=== PATIENT | female | born 1965 | race African-American/Black ===

== ENCOUNTER 2020-02-29 22:56 | Emergency (ER) | payer OTHER, SELFPAY ==
--- NOTE | ~2020-02-29 | CT_ITS ---
EXAMINATION: CT abdomen pelvis w con INDICATION: Epigastric pain and vomiting TECHNIQUE: Computed tomographic images of the abdomen and pelvis were obtained after the administrati on of 100 cc of Omnipaque 350 intravenous contrast. The dose-length product (DLP) was 1633.82 mGy-cm. Automated exposure control and iterative reconstruction technique were employed. COMPARISON: None available FINDINGS: Minimal dependent atelectasis is present in the lung bases. The heart size is normal. Surgi angelo changes in the stomach may reflect gastric bypass. The gallbladder is surgically absent. The live r, spleen, pancreas, and adrenal glands are normal. The kidneys are unremarkable. No pathologically e nlarged abdominal or pelvic lymph nodes are identified. There is no free intraperitoneal gas or evide nce of bowel obstruction. Colonic diverticulosis is present without evidence of diverticulitis. There is severe lumbar spondylosis at L5-S1. Fat-containing umbilical hernia is noted. A spine stimulator is implanted in the posterior subcutaneous tissues of left lower back spleen is in the central spinal canal. IMPRESSION: 1. No CT correlate for the patient's symptoms. Reviewed, dictated and finalized at location A.
[2020-02-29 23:04] VITALS: BP 192/102; PULSE 94; RESP 20; TEMP 36.9; O2SAT 96
[2020-02-29 23:51] LABS: Basophils Absolute Auto 0.1 K/mm3 (0.0-0.1); Basophils Percent Auto 0.6 % (0.2-1.2); Eosinophils Absolute Auto 0.1 K/mm3 (0-0.3); Eosinophils Percent Auto 0.5 % (0-4.4); Hematocrit 40.2 % (37.0-47.0); Immature Granulocyte Absolute 0.06 K/mm3 (0.00-0.031); Immature Granulocyte Percent A 0.5 % (0-0.5); Lymphocytes Absolute Auto 1.19 K/mm3 (0.9-3.2); Lymphocytes Percent Auto 10.9 % (18.3-44.2); Mean Corpuscular HGB Conc 32.3 g/dl (32-36); Mean Corpuscular Hemoglobin 25.6 pg (26-34); Mean Corpuscular Volume 79.1 fl (80-100); Mean Platelet Volume 12.7 fl (7.4-10.4); Monocytes Absolute Auto 0.4 K/mm3 (0.1-0.6); Monocytes Percent Auto 3.9 % (2.6-8.5); Neutrophils Absolute Auto 9.1 K/mm3 (1.3-6.7); Neutrophils Percent Auto 83.6 % (45.5-73.1); Platelet Count Result 203 k/mm3 (150-375); Red Blood Count 5.08 M/mm3 (4.2-5.4); Red Cell Distribution Width 14.3 % (11.5-14.5); White Blood Count 10.9 K/mm3 (4.5-10.0)
[2020-02-29] MEDS: SODIUM CHLORIDE 0.9% IV 1,000 ML 999 ML IV CONT (23:56)
[2020-02-29] MEDS: ONDANSETRON INJ 4 MG/2 ML VIAL IV PUSH (23:57)
[2020-02-29] MEDS: MORPHINE SULFATE 4 MG/ML INJ IV PUSH (23:57)
[2020-03-01 00:31] LABS: Alanine Aminotransferase 26 U/L (4-35); Albumin Level 4.7 g/dL (3.5-5.1); Alkaline Phosphatase 140 U/L (38-126); Anion Gap 8 mmol/L (8-16); Aspartate Amino Transferase 36 U/L (14-36); Bilirubin,Total 0.7 mg/dL (0.2-1.3); Blood Urea Nitrogen 14 mg/dL (7-17); Calcium 9.8 mg/dL (8.4-10.2); Carbon Dioxide 29 mmol/L (22-30); Chloride 101 mmol/L (98-107); Estimated CRCL calculation 81 ml/min; Estimated Glomerular Filt Rate > 60; Glucose 271 mg/dL (65-105); Lipase 32 U/L (23-300); Potassium 4.1 mmol/L (3.4-5.0); Sodium 138 mmol/L (137-145)
[2020-03-01] MEDS: MORPHINE SULFATE 4 MG/ML INJ IV PUSH (01:03)
[2020-03-01 01:05] VITALS: BP 203/103; PULSE 95; RESP 20; O2SAT 96
[2020-03-01 01:34] LABS: Add Urine Microscopic? YES; Appearance Urine Clear (Clear); Bilirubin Urine Negative (Negative); Blood Urine Negative (Negative); Color Urine Yellow (Yellow); Glucose Urine UA 2+ mg/dL (Negative); Ketones Urine Trace mg/dL (Negative); Leukocyte Esterase Ur Negative LEU/UL (Negative); Mucus Urine Rare /lpf; Nitrate Urine Negative (Negative); Protein Urine 1+ mg/dL (Negative); RBC Urine 0-2 /hpf (0-2); Squamous Epithelial Cell Urine Few /hpf (Few); Urobilinogen Urine Negative mg/dL (<2.0); WBC Urine 0-3 /hpf
[2020-03-01 01:36] LABS: Specific Grav Ur 1.036 (1.001-1.035)
[2020-03-01 01:43] VITALS: BP 173/95; PULSE 93; RESP 12; O2SAT 96
--- NOTE | 2020-03-01 01:51 | ED.GENADULT ---
HPI - General Adult General Chief complaint: Nausea/Vomiting/Diarrhea Stated complaint: vomiting, body aches, chills Time Seen by Provider: 02/29/20 23:13 History of Present Illness HPI narrative: Patient is a 54-year-old female who presents the ER with abdominal pain. Located in the upper abdomen. No radiation. Sharp and cramping. Sudden onset this evening. Associate with nausea and vomiting. No known sick contacts. No diarrhea. Has found no alleviating factors. Related Data Home Medications Medication Instructions Recorded Confirmed aripiprazole 5 mg PO DAILY 03/01/20 03/01/20 atorvastatin 20 mg PO DAILY 03/01/20 03/01/20 buspirone 20 mg PO TID 03/01/20 03/01/20 celecoxib 200 mg PO BID 03/01/20 03/01/20 eszopiclone 2 mg PO DAILY 03/01/20 03/01/20 furosemide 40 mg PO DAILY 03/01/20 03/01/20 hydroxyzine HCl 25 mg PO DAILY 03/01/20 03/01/20 levothyroxine 175 mcg PO DAILY 03/01/20 03/01/20 metformin 500 mg PO DAILY 03/01/20 03/01/20 spironolactone 25 mg PO DAILY 03/01/20 03/01/20 timolol maleate 03/01/20 tizanidine 4 mg PO TID 03/01/20 03/01/20 Allergies Allergy/AdvReac Type Severity Reaction Status Date / Time No Known Allergies Allergy Verified 03/01/20 00:48 Review of Systems Review of Systems: All systems reviewed & are unremarkable except as noted in HPI and below Constitutional: Constitutional: Denies chills, Denies fever(s) and Denies weakness ENT: Denies nasal congestion and Denies sore throat Cardiovascular: Cardiovascular: Denies chest pain and Denies rapid heart rate Gastrointestinal: Gastrointestinal: Reports abdominal pain, Denies diarrhea, Reports nausea and Reports vomiting PMFSH Past Medical History Medical History (Updated 03/01/20 @ 02:01 by Brent Dowling MD) Anxiety COPD (chronic obstructive pulmonary disease) Depression Diabetes History of fibromyalgia History of seizures History of TIA (transient ischemic attack) Hypertension Hypothyroidism Surgical History Surgical History (Updated 03/01/20 @ 01:58 by Brent Dowling MD) H/O gastric bypass H/O inguinal hernia repair History of appendectomy History of cholecystectomy History of hysterectomy History of tonsillectomy Hx of breast reduction, elective Social History Social History Smoking status: Former smoker Second hand tobacco smoke exposure: No Smoking end date: 07/10/92 Alcohol intake: never Exam Narrative: Exam Narrative: GENERAL: uncomfortable-appearing, morbidly obese, and in no acute distress. HEAD: Normocephalic, atraumatic. ENT: Mucous membranes moist. CHEST: Clear to auscultation. No respiratory distress. HEART: Regular rate and rhythm. Normal peripheral pulses. ABDOMEN: Soft, mild epigastric tenderness, nondistended, normal active bowel sounds. EXTREMITIES: Normal range of motion. No edema. SKIN: Warm, dry, no rash. NEURO: Alert and oriented x3. PSYCH: Normal mood and affect. Course Course Emergency Course: Pain resolved with morphine. Unremarkable labs and CT scan. Discharge home with follow-up with PCP. Vital Signs Vital signs: Vital Signs Temperature 98.5 F 02/29/20 23:04 Pulse Rate 94 02/29/20 23:04 Respiratory Rate 20 02/29/20 23:04 Blood Pressure 192/102 H 02/29/20 23:04 Pulse Oximetry 96 02/29/20 23:04 Temperature 98.5 F 02/29/20 23:04 Pulse Rate 93 03/01/20 01:43 Respiratory Rate 12 03/01/20 01:43 Blood Pressure 173/95 H 03/01/20 01:43 Pulse Oximetry 96 03/01/20 01:43 Medical Decision Making Vital Signs Vital Signs: Vital Signs Temperature 98.5 F 02/29/20 23:04 Pulse Rate 94 02/29/20 23:04 Respiratory Rate 20 02/29/20 23:04 Blood Pressure 192/102 H 02/29/20 23:04 Pulse Oximetry 96 02/29/20 23:04 Temperature 98.5 F 02/29/20 23:04 Pulse Rate 93 03/01/20 01:43 Respiratory Rate 12 03/01/20 01:43 Blood Pressure 173/95 H 03/01/20 01:43 Pulse Oximetry 96 03/01/20 01:43 Lab Data R
[2020-03-01 03:01] VITALS: BP 179/92; PULSE 88; RESP 20; O2SAT 96
== END 2020-03-01 03:05 | disposition home or self-care (01) ==
PROVIDERS: Emergency Provider Emergency Medicine; PCP Family Medicine
DX: R10.13 Epigastric pain (principal); J44.9 Chronic obstructive pulmonary disease, unspecified; E11.9 Type 2 diabetes mellitus without complications; M79.7 Fibromyalgia; Z86.73 Personal history of transient ischemic attack (TIA), and cerebral infarction without residual deficits; I10 Essential (primary) hypertension; E03.9 Hypothyroidism, unspecified; F41.9 Anxiety disorder, unspecified; Z98.84 Bariatric surgery status; F32.9 Major depressive disorder, single episode, unspecified; Z87.891 Personal history of nicotine dependence; Z79.84 Long term (current) use of oral hypoglycemic drugs; E66.01 Morbid (severe) obesity due to excess calories; Z68.43 Body mass index [BMI] 50.0-59.9, adult
CPT/HCPCS: 36415; 74177; 80053; 81001; 83690; 85025; 96361; 96374; 96375; 96376; 99284; J2270; J2405; J7030; Q9967

== ENCOUNTER 2020-04-24 12:25 | Outpatient (CLI) | payer OTHER, SELFPAY ==
--- NOTE | ~2020-04-24 | XR_ITS ---
EXAMINATION: XR hip RT min 2V DATE: 04/24/2020 13:18 INDICATION: Right hip pain. TECHNIQUE: 2 views of right hip were obtained. COMPARISON: Right hip radiographs 03/17/2016 FINDINGS: Bone alignment is normal. No fracture. Right hip joint space is normal. Osteitis pubis is n oted. IMPRESSION: 1. Normal right hip. Reviewed, dictated and finalized at location A. IMPRESSION: 1. Normal right hip.
== END 2020-04-24 12:26 ==
PROVIDERS: PCP Family Medicine; Visit Provider Family Medicine
DX: M25.551 Pain in right hip (principal)
CPT/HCPCS: 73502

== ENCOUNTER → 2020-10-09 11:59 | Outpatient (CLI) | payer OTHER, SELFPAY ==
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
== END ==
PROVIDERS: PCP Family Medicine; Visit Provider Family Medicine
DX: Z78.0 Asymptomatic menopausal state (principal); M85.88 Other specified disorders of bone density and structure, other site
CPT/HCPCS: 77080

== ENCOUNTER → 2021-10-06 14:49 | Outpatient (CLI) | payer OTHER, SELFPAY ==
--- NOTE | ~2021-10-06 | MM_ITS ---
EXAMINATION: MM screening [facility] BI w tho HISTORY: Screening mammogram TECHNIQUE: Craniocaudal and mediolateral oblique 3-D tomosynthesis images were obtained and synthetic 2-D images were generated. CAD analysis was submitted and interpreted. COMPARISON: 03/08/2019, 08/14/2017, 01/14/2016, 12/19/2015 BREAST PARENCHYMAL COMPOSITION: The breasts are almost entirely fatty. FINDINGS: There are changes of interval reduction mammoplasty. There is no suspicious mass, calcifica tion, or architectural distortion to suggest malignancy in either breast. There has been no suspiciou s interval change. IMPRESSION: 1. No mammographic evidence of malignancy. 2. Recommend routine screening mammography in one year. BI-RADS Category 1: Negative Reviewed, dictated and finalized at location A.
== END ==
PROVIDERS: PCP Nurse Practitioner Obstetrics & Gynecology; Visit Provider Family Medicine
DX: Z12.31 Encounter for screening mammogram for malignant neoplasm of breast (principal)
CPT/HCPCS: 77063; 77067

== ENCOUNTER 2021-11-21 08:32 | Emergency (ER) | payer OTHER, SELFPAY ==
[2021-11-21 08:41] VITALS: BP 127/88; PULSE 73; RESP 18; TEMP 36.2; O2SAT 98
--- NOTE | 2021-11-21 08:43 | ED.WOUNDLAC ---
HPI - Wound/Laceration General Chief Complaint: Wound/Laceration Stated Complaint: Laceration on bottom of foot Time Seen by Provider: 11/21/21 08:43 Source: patient Mode of arrival: ambulatory Limitations: no limitations History of Present Illness HPI narrative: 56-year-old female presents with laceration to fourth and fifth toes. Reports that yesterday morning she cut her toes on a metal strip that is covering cords on her floor. 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 Reports this morning when she got up she realized that her foot was still bleeding. Her evaitj-ez-jcb came over to look at her foot and told her that she needed sutures. Patient is also diabetic and concern for infection. She denies numbness tingling. Distal neurovascularly intact. Range of motion decreased due to pain. All systems reviewed and negative except as noted above. Related Data Home Medications Medication Instructions Recorded Confirmed aripiprazole 5 mg PO DAILY 03/01/20 11/21/21 atorvastatin 20 mg PO DAILY 03/01/20 11/21/21 buspirone 20 mg PO TID 03/01/20 11/21/21 celecoxib 200 mg PO BID 03/01/20 11/21/21 furosemide 40 mg PO DAILY 03/01/20 11/21/21 hydroxyzine HCl 25 mg PO DAILY 03/01/20 11/21/21 levothyroxine 175 mcg PO DAILY 03/01/20 11/21/21 metformin 500 mg PO DAILY 03/01/20 11/21/21 spironolactone 25 mg PO DAILY 03/01/20 11/21/21 timolol maleate 0.5 drp OPHTHALMIC (EYE) 03/01/20 11/21/21 DIRECTED tizanidine 4 mg PO TID 03/01/20 11/21/21 eszopiclone 3 mg PO DAILY 11/21/21 11/21/21 morphine 15 mg PO DAILY 11/21/21 11/21/21 pregabalin 100 mg PO DIRECTED 11/21/21 11/21/21 Allergies Allergy/AdvReac Type Severity Reaction Status Date / Time No Known Allergies Allergy Verified 11/21/21 08:53 Review of Systems Review of Systems: CONSTITUTIONAL: Denies fever, chills, or sweats. EYES: Denies visual changes, redness, or discharge. ENT: Denies rhinorrhea, congestion, sore throat, or otalgia. CARDIOVASCULAR: Denies chest pain, palpitations, or edema. RESPIRATORY: Denies cough or dyspnea. GASTROINTESTINAL: Denies abdominal pain, nausea, vomiting, or diarrhea. GENITOURINARY: Denies dysuria or hematuria. SKIN: Denies rash or itching. Reports laceration to right fourth and fifth toes. MUSCULOSKELETAL: Denies back pain, joint pain, or myalgia. NEUROLOGIC: Denies headache, numbness, or weakness. PSYCHIATRIC: Denies anxiety or depression. All other systems reviewed are negative, except as documented in HPI. [facility] Past Medical History Medical History (Updated 11/21/21 @ 09:50 by Suzi Chen NP) Anxiety COPD (chronic obstructive pulmonary disease) Depression Diabetes History of fibromyalgia History of seizures History of TIA (transient ischemic attack) Hypertension Hypothyroidism Surgical History Surgical History (Updated 03/01/20 @ 01:58 by Brent Dowling MD) H/O gastric bypass H/O inguinal hernia repair History of appendectomy History of cholecystectomy History of hysterectomy History of tonsillectomy Hx of breast reduction, elective Social History Social History Smoking status: Former smoker Second hand tobacco smoke exposure: No Smoking end date: 07/10/92 Alcohol intake: never Comments At time of signature, agree with nursing past medical, surgical, social and family history. There is no relevant family history pertinent to the presenting complaint. Exam Narrative: GENERAL: This is a well-nourished, well-developed patient, in no apparent distress. HEAD: normocephalic, atraumatic. EYES: PERRL. Sclera clear/white. Vision is grossly intact. EARS: External ears normal NOSE: External nose normal NECK: Neck supple, non-tender without lymphadenopathy, masses or thyromegaly. CARDIOVASCULAR: Regular rate and rhythm without murmurs, gallops, or rubs. RESPIRATORY: Clear to auscultation. B
[2021-11-21] MEDS: TETANUS,DIPHTHERIA,AC PERTUSSIS ADULT (0.5 ML) BOOSTRIX IM (09:05)
== END 2021-11-21 09:59 | disposition home or self-care (01) ==
PROVIDERS: Emergency Provider Nurse Practitioner Family; PCP Family Medicine
DX: S91.114A Laceration without foreign body of right lesser toe(s) without damage to nail, initial encounter (principal); W45.8XXA Other foreign body or object entering through skin, initial encounter; Z23 Encounter for immunization; J44.9 Chronic obstructive pulmonary disease, unspecified; E11.9 Type 2 diabetes mellitus without complications; G40.909 Epilepsy, unspecified, not intractable, without status epilepticus; I10 Essential (primary) hypertension; E03.9 Hypothyroidism, unspecified; Z86.73 Personal history of transient ischemic attack (TIA), and cerebral infarction without residual deficits; F41.9 Anxiety disorder, unspecified; F32.A Depression, unspecified; Z98.84 Bariatric surgery status; Z87.891 Personal history of nicotine dependence
CPT/HCPCS: 12001; 90471; 90715; 99213; G0463

== ENCOUNTER 2022-12-15 19:12 | Emergency (ER) | payer OTHER, SELFPAY ==
[2022-12-15] VITALS (16 sets, daily range): BP systolic 116–124; BP diastolic 72–94; PULSE 101; RESP 18; TEMP 36.9; O2SAT 85–97
--- NOTE | ~2022-12-15 | CT_ITS ---
EXAMINATION: CT brain wo con INDICATION: Head injury COMPARISON: None TECHNIQUE: Standard unenhanced head CT. The dose-length product (DLP) was 681.00 mGy-cm. The mA was a djusted according to patient size. Iterative reconstruction technique was employed. FINDINGS: There is no intracranial hemorrhage, acute infarction, or abnormal mass lesion. The ventric les are normal. There is no abnormal mass effect or midline shift. The donaldson-white matter differentiat ion is normal. The basal cisterns are patent. The orbits are normal. The paranasal sinuses, mastoids and calvarium are normal. IMPRESSION: 1. No acute intracranial abnormality. Reviewed, dictated and finalized at location F.
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
--- NOTE | ~2022-12-15 | XR_ITS ---
EXAMINATION: XR chest 1V portable INDICATION: Chest pain TECHNIQUE: Portable AP chest at 2000 hours COMPARISON: 08/02/2018 FINDINGS: The lungs are free of acute opacities. No pleural effusion or pneumothorax. The cardiomedia stinal silhouette is normal. There has been interval insertion of a neurostimulator leads which proje ct over the mid and lower thoracic spine. IMPRESSION: 1. No acute cardiopulmonary abnormality. Reviewed, dictated and finalized at location F.
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
[2022-12-15] MEDS: HYDROcodone/acetaminophen (*CRX) 5-325 MG TABLET 2 TAB PO (20:33)
[2022-12-15] MEDS: ONDANSETRON HCL ODT 4 MG TABLET PO (20:33)
[2022-12-15 20:34] LABS: Basophils Absolute Auto 0.1 K/mm3 (0.0-0.1); Basophils Percent Auto 0.7 % (0.2-1.2); Eosinophils Absolute Auto 0.2 K/mm3 (0-0.3); Eosinophils Percent Auto 2.2 % (0-4.4); Hematocrit 45.5 % (37.0-47.0); Immature Granulocyte Absolute 0.09 K/mm3 (0.00-0.031); Immature Granulocyte Percent A 0.9 % (0-0.5); Lymphocytes Absolute Auto 1.76 K/mm3 (0.9-3.2); Lymphocytes Percent Auto 18.2 % (18.3-44.2); Mean Corpuscular HGB Conc 30.8 g/dl (32-36); Mean Corpuscular Volume 81.1 fl (80-100); Mean Platelet Volume 12.9 fl (7.4-10.4); Monocytes Absolute Auto 0.5 K/mm3 (0.1-0.6); Monocytes Percent Auto 5.5 % (2.6-8.5); Neutrophils Percent Auto 72.5 % (45.5-73.1); Platelet Count Result 211 k/mm3 (150-375); Red Blood Count 5.61 M/mm3 (4.2-5.4); Red Cell Distribution Width 15.1 % (11.5-14.5); White Blood Count 9.7 K/mm3 (4.5-10.0)
[2022-12-15 20:40] LABS: Appearance Urine Clear (Clear); Bacteria Urine 4+ /hpf; Bilirubin Urine Negative (Negative); Blood Urine Negative (Negative); Color Urine Yellow (Yellow); Glucose Urine UA Negative (Negative); Ketones Urine Trace mg/dL (Negative); Leukocyte Esterase Ur 2+ LEU/UL (Negative); Need Manual Microscopic Reviewed; Nitrate Urine Positive (Negative); Protein Urine Trace mg/dL (Negative); RBC Urine 0-2 /hpf (0-2); Specific Grav Ur 1.016 (1.001-1.035); Squamous Epithelial Cell Urine Occasional /hpf (Few); pH Urine 5.5 (5.0-9.0)
[2022-12-15 20:41] LABS: Add Urine Microscopic? YES
[2022-12-15 22:47] LABS: Estimated CRCL calculation 54 ml/min; Estimated Glomerular Filt Rate 43
[2022-12-15] MEDS: HYDROmorphone HCL INJ (*CRX) 1 MG/ML SYR 0.5 MG IV PUSH (23:03)
[2022-12-15 23:15] LABS: Alanine Aminotransferase 21 U/L (6-35); Albumin Level 4.5 g/dL (3.5-5.1); Alkaline Phosphatase 114 U/L (38-126); Anion Gap 4 mmol/L (8-16); Aspartate Amino Transferase 26 U/L (14-36); Bilirubin,Total 0.5 mg/dL (0.2-1.3); Blood Urea Nitrogen 29 mg/dL (7-17); Calcium 9.6 mg/dL (8.4-10.2); Carbon Dioxide 36 mmol/L (22-30); Chloride 97 mmol/L (98-107); Estimated CRCL calculation 58 ml/min; Estimated Glomerular Filt Rate 47; Glucose 132 mg/dL (65-110); Lipase 43 U/L (23-300); Potassium 4.1 mmol/L (3.4-5.0); Sodium 137 mmol/L (137-145)
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
== END 2022-12-16 00:24 | disposition home or self-care (01) ==
PROVIDERS: Emergency Provider Emergency Medicine; PCP Family Medicine
DX: S09.93XA Unspecified injury of face, initial encounter (principal); S29.9XXA Unspecified injury of thorax, initial encounter; E11.9 Type 2 diabetes mellitus without complications; J44.9 Chronic obstructive pulmonary disease, unspecified; M79.7 Fibromyalgia; I10 Essential (primary) hypertension; E03.9 Hypothyroidism, unspecified; F41.9 Anxiety disorder, unspecified; F32.A Depression, unspecified; Z98.84 Bariatric surgery status; Z86.73 Personal history of transient ischemic attack (TIA), and cerebral infarction without residual deficits; Z87.891 Personal history of nicotine dependence; Z90.49 Acquired absence of other specified parts of digestive tract; Z90.710 Acquired absence of both cervix and uterus; Z79.84 Long term (current) use of oral hypoglycemic drugs; Y04.2XXA Assault by strike against or bumped into by another person, initial encounter; Y00.XXXA Assault by blunt object, initial encounter
CPT/HCPCS: 36415; 70450; 71045; 74177; 80053; 81001; 83690; 83735; 85025; 87077; 87086; 87186; 96374; 99284; A9270; J1170; Q9967

== ENCOUNTER 2023-02-03 16:29 | Inpatient (IN) | payer OTHER, MEDICAID, SELFPAY ==
--- NOTE | ~2023-02-03 | CT_ITS ---
EXAMINATION: CT brain wo con DATE: 02/03/2023 20:23 INDICATION: Status post fall. Syncope. TECHNIQUE: Computed tomography (CT) of the head was performed without intravenous contrast. The dose- length product was 681.00 mGy-cm. Automated exposure control and iterative reconstruction technique w ere employed. COMPARISON: CT dated 12/15/2022 FINDINGS: Normal brain parenchymal volume for age. No acute intracranial hemorrhage, infarction, mass or mass effect. No ventriculomegaly or midline shift. Basilar cisterns are patent. Paranasal sinuses and mastoids are pneumatized. Midline sagittal images demonstrate a normal corpus callosum and crani overtebral junction. IMPRESSION: 1. No acute intracranial abnormality. Reviewed, dictated and finalized at location A.
--- NOTE | ~2023-02-03 | XR_ITS ---
EXAMINATION: XR surgery orthopedic DATE: 02/08/2023 13:20 CDT INDICATION: ORIF RT ANKLE . TECHNIQUE: 3 fluoroscopic images of the right ankle were obtained during ORIF right ankle performed b y the surgeon. I was not present in the operating room. Fluoroscopy exposure time was 17.3 seconds. A ir Kerma 1.19 mGy. DAP 0.95970 mGym2. COMPARISON: 02/04/2023 FINDINGS: Screw and plate fixation of the bilateral malleoli. No unexpected radiopaque foreign body. IMPRESSION: Fluoroscopic documentation of ORIF right ankle. Please refer to the operative note for complete proce dural details . Reviewed, dictated and finalized at location K. IMPRESSION: Fluoroscopic documentation of ORIF right ankle. Please refer to the operative n ote for complete procedural details .
--- NOTE | ~2023-02-03 | CT_ITS ---
EXAMINATION: CT brain wo con DATE: 02/04/2023 08:12 INDICATION: Altered mental state. Changed orientation. Tremors of extremities. TECHNIQUE: Computed tomography (CT) of the head was performed without intravenous contrast. The mA wa s adjusted according to patient size. Iterative reconstruction technique was employed. Exam dose: 60 5.33 mGy-cm total exam DLP. COMPARISON: 02/03/2023 CT brain FINDINGS: No intracranial mass lesion or hemorrhage or cerebrovascular accident is evident. No midlin e shift or mass effect. Normal ventricular size. No subdural or epidural hematoma. No orbital mass le natalia. The paranasal sinuses and mastoid air cells are well aerated. No fracture or bone destruction of the cranial vault. IMPRESSION: No significant abnormality Reviewed, dictated and finalized at Location A. Reviewed, dictated and finalized at location A. IMPRESSION: No significant abnormality
--- NOTE | ~2023-02-03 | XR_ITS ---
EXAMINATION: XR chest 1V portable DATE: 02/09/2023 16:09 INDICATION: Shortness of breath. TECHNIQUE: A single frontal view of the chest was obtained. COMPARISON: Chest single view 02/08/2023 FINDINGS: There are airspace opacities in right lower lung zone. No pleural effusion or pneumothorax. Cardiomegaly is noted. Electrodes overlie the spine. IMPRESSION: 1. Airspace opacities in right lower lung zone with interval improvement, consistent with atelectasis versus pneumonia. 2. Cardiomegaly. Reviewed, dictated and finalized at location L. IMPRESSION: 1. Airspace opacities in right lower lung zone with interval improvement, consi stent with atelectasis versus pneumonia. 2. Cardiomegaly.
--- NOTE | ~2023-02-03 | US_ITS ---
US renal BI DATE: 02/04/2023 08:23 INDICATION: Acute renal insufficiency TECHNIQUE: Real-time imaging of kidneys and urinary bladder COMPARISON: 02/03/2023 CT abdomen pelvis FINDINGS: No renal mass lesion or hydronephrosis. The right kidney measures approximately 10.7 cm perico gth, left kidney 11.1 cm length. The bladder is not visualized, apparently due to evacuation. IMPRESSION: No significant abnormality of the kidneys Reviewed, dictated and finalized at Location A. Reviewed, dictated and finalized at location A.
--- NOTE | ~2023-02-03 | XR_ITS ---
Portable chest x-ray Comparison: 02/09/2023 Clinical History: CHF Findings: Probable minimal central congestive change and minimal bibasilar pulmonary edema/atelectas is. Cardiomediastinal silhouette is stable. Stable intrathecal catheter present. Impression: Probable minimal bibasilar pulmonary edema/atelectasis. Reviewed, dictated and finalized at [facility]. Impression: Probable minimal bibasilar pulmonary edema/atelectasis.
--- NOTE | ~2023-02-03 | CT_ITS ---
EXAMINATION: CT abdomen pelvis wo con DATE: 02/03/2023 20:24 INDICATION: Acute renal failure TECHNIQUE: Computed tomography (CT) of the abdomen and pelvis was performed without intravenous contr ast. The dose-length product was 1502.33 mGy-cm. Automated exposure control and iterative reconstruct ion technique were employed. COMPARISON: None. FINDINGS: There are a few areas of patchy groundglass opacities in the lower lobes with dependent ate lectasis. Heart size normal. No significant pleural or pericardial effusion. There are changes of gas tric bypass surgery. Status post cholecystectomy. There are spinal leads overlying the thoracic spine . The liver, spleen, adrenal glands and kidneys are unremarkable. No significant vascular abnormality. No lymphadenopathy. No abnormal pelvic masses or fluid collections. Colonic diverticulosis without ev idence for diverticulitis. Small fat-containing umbilical hernia. No free air or free fluid. No acute osseous abnormality. IMPRESSION: 1. No acute abdominal abnormality. Reviewed, dictated and finalized at location A.
--- NOTE | ~2023-02-03 | XR_ITS ---
Portable chest x-ray Comparison: 02/05/2023 Clinical History: Shortness of breath Findings: There is probable mild central congestive change and minimal central pulmonary edema. Car diomediastinal silhouette is stable. Stable intrathecal catheter. Impression: Minimal central pulmonary edema and central congestive change. Reviewed, dictated and finalized at [facility]. Impression: Minimal central pulmonary edema and central congestive change.
--- NOTE | ~2023-02-03 | XR_ITS ---
XR chest 1V portable DATE: 02/05/2023 06:28 INDICATION: Respiratory failure TECHNIQUE: Portable AP chest on 02/05/2023 at 0626 hours COMPARISON: 02/03/2023 portable AP chest at 1958 hours FINDINGS: Cardiomegaly. There is pulmonary vascular congestion and redistribution. There are bilatera l primarily central and lower lung zone infiltrates and increased since 02/03/2023, suggesting pulmona ry edema. Thoracic spinal electrodes. IMPRESSION: Congestive heart failure and increased pulmonary edema since 02/03/2023 Reviewed, dictated and finalized at location A. IMPRESSION: Congestive heart failure and increased pulmonary edema since 023
--- NOTE | ~2023-02-03 | XR_ITS ---
XR ankle RT min 3V 02/03/2023 17:45 Indication: Right ankle pain after twisting injury Procedure: 4 views right ankle Comparison: No prior studies for comparison. Findings: There are bimalleolar fractures. The distal fibular fracture is comminuted and displaced la terally and anteriorly. The medial malleolar fracture is displaced slightly inferiorly with lateral s ubluxation of the talus with respect to the tibia. Moderate diffuse soft tissue swelling. Prominent d egenerative calcaneal enthesophyte. Small ossific density posterior to the distal tibia on the latera l view, of uncertain origin. Impression: 1: Displaced bimalleolar fractures. Reviewed, dictated and finalized at location A. Impression: 1: Displaced bimalleolar fractures.
--- NOTE | ~2023-02-03 | XR_ITS ---
XR chest 1V portable 02/03/2023 20:03 Indication: Weakness Procedure: AP portable chest Comparison: Comparison to multiple prior studies sequentially, with oldest reviewed study dated /oh 11/2017. Findings: Cardiomegaly with interstitial edema. No significant effusion. No pneumothorax. No acute os seous abnormality. Impression: 1: Cardiomegaly with interstitial edema, left greater than right. Reviewed, dictated and finalized at location A. Impression: 1: Cardiomegaly with interstitial edema, left greater than right.
--- NOTE | ~2023-02-03 | XR_ITS ---
EXAM: XR abdomen/kub 1V DATE: 02/07/2023 17:15 HISTORY: acute nausea/constipation . COMPARISON: None available. FINDINGS: Streaky bibasilar opacities, likely atelectasis. Stimulator leads project over the lower t horacic spine. Cholecystectomy clips. Suture material overlying the stomach. Paucity of bowel gas. No organomegaly. No abnormal abdominal calcification. Right sacroiliitis. IMPRESSION: Paucity of bowel gas limits interpretation for obstruction or ileus. Intraluminal bowel g as is present in the deep pelvis. Reviewed, dictated and finalized at location K. IMPRESSION: Paucity of bowel gas limits interpretation for obstruction or ileus . Intraluminal bowel gas is present in the deep pelvis.
--- NOTE | ~2023-02-03 | XR_ITS ---
EXAMINATION: XR chest 1V portable DATE: 02/08/2023 10:51 INDICATION: Fluid overload. TECHNIQUE: A single frontal view of the chest was obtained. COMPARISON: Chest 1 view 01/27/2023 FINDINGS: There are airspace opacities in right lung base and in lingula. No pleural effusion or pneu mothorax. Cardiomegaly is noted. Electrodes overlie thoracic spine. IMPRESSION: 1. Airspace opacities in right lung base and in the lingula, consistent with atelectasis versus pneum onia. 2. Cardiomegaly. Reviewed, dictated and finalized at location B. IMPRESSION: 1. Airspace opacities in right lung base and in the lingula, consistent with at electasis versus pneumonia. 2. Cardiomegaly.
--- NOTE | ~2023-02-03 | XR_ITS ---
XR ankle RT min 3V DATE: 02/04/2023 08:55 INDICATION: Ankle fracture reduction TECHNIQUE: Portable three-view examination COMPARISON: None FINDINGS: There is a posterior splint, but there is no significant change in position or alignment at the bimalleolar fracture and lateral tibiotalar subluxation since 02/03/2023. IMPRESSION: Bimalleolar fracture and persistent lateral tibial talar subluxation Reviewed, dictated and finalized at location A. IMPRESSION: Bimalleolar fracture and persistent lateral tibial talar subluxatio n
--- NOTE | ~2023-02-03 | CT_ITS ---
EXAMINATION: CT cervical spine wo con DATE: 02/03/2023 20:23 INDICATION: Neck pain after fall TECHNIQUE: Computed tomography (CT) of the cervical spine was performed without intravenous contrast. The dose-length product was 670 mGy-cm. Automated exposure control and iterative reconstruction technique were employed. COMPARISON: No prior studies for comparison. FINDINGS: Straightening of cervical lordosis. Disc narrowing and endplate degenerative change present at C5-6 and C6-7. No acute fracture or traumatic malalignment. Craniovertebral junction is normal. O dontoid process is normal. There is degenerative anterolisthesis at C3-4 and C4-5 secondary to facet hypertrophy. There is mild left facet hypertrophy at these levels. Mild levoscoliosis. Patchy groundg lass opacities in the upper lobes, likely reflect edema. No significant paraspinal soft tissue abnorm ality. IMPRESSION: 1. No acute fracture. 2: Patchy groundglass opacities of the upper lobes, most likely edema. Reviewed, dictated and finalized at location A.
[2023-02-03 17:17] VITALS: BP 86/68; PULSE 86; RESP 15; TEMP 36.8; O2SAT 93
--- NOTE | 2023-02-03 17:27 | ECG_ITS ---
Measurements Intervals Lucas Rate: 83 P: 202 WY: 346 QRS: 131 QRSD: 80 T: 11 QT: 366 QTc: 432 Interpretive Statements SINUS RHYTHM RIGHT AXIS DEVIATION DELAYED PRECORDIAL R/S TRANSITION LOW VOLTAGE- PRECORDIAL LEADS MINIMAL Q WAVES- INFERIOR LEADS BASELINE ARTIFACT- II, III, AVR, AVL, AVF BORDERLINE ST-T WAVE ABNORMALITY- INFERIOR LEADS BORDERLINE ECG NO PREVIOUS ECG AVAILABLE FOR COMPARISON Electronically Signed On 02-03-2023 20:17:18 CDT by Billy Moore D.O.
[2023-02-03 17:40] LABS: Basophils Absolute Auto 0.1 K/mm3 (0.0-0.1); Basophils Percent Auto 0.7 % (0.2-1.2); Eosinophils Absolute Auto 0.2 K/mm3 (0-0.3); Eosinophils Percent Auto 2.1 % (0-4.4); Hematocrit 39.4 % (37.0-47.0); Hemoglobin 11.7 g/dL (12.0-15.0); Immature Granulocyte Absolute 0.04 K/mm3 (0.00-0.031); Immature Granulocyte Percent A 0.5 % (0-0.5); Immature Platelet Fraction Pct 11.7 % (0.9-11.2); Lymphocytes Absolute Auto 1.66 K/mm3 (0.9-3.2); Lymphocytes Percent Auto 19.6 % (18.3-44.2); Mean Corpuscular HGB Conc 29.7 g/dl (32-36); Mean Corpuscular Volume 84.2 fl (80-100); Mean Platelet Volume 13.3 fl (7.4-10.4); Monocytes Absolute Auto 0.8 K/mm3 (0.1-0.6); Monocytes Percent Auto 9.6 % (2.6-8.5); Neutrophils Absolute Auto 5.7 K/mm3 (1.3-6.7); Neutrophils Percent Auto 67.5 % (45.5-73.1); Platelet Count Result 186 k/mm3 (150-375); Red Blood Count 4.68 M/mm3 (4.2-5.4); Red Cell Distribution Width 16.2 % (11.5-14.5); White Blood Count 8.5 K/mm3 (4.5-10.0)
[2023-02-03 18:12] LABS: Platelet Estimate Adequate (Adequate)
[2023-02-03 18:13] LABS: Hypochromasia 1+ (NORMAL); Schistocytes None Seen (NORMAL)
[2023-02-03 18:14] LABS: Alanine Aminotransferase 21 U/L (6-35); Albumin Level 4.2 g/dL (3.5-5.1); Alkaline Phosphatase 80 U/L (38-126); Anion Gap 9 mmol/L (8-16); Aspartate Amino Transferase 54 U/L (14-36); Bilirubin,Total 0.7 mg/dL (0.2-1.3); Blood Urea Nitrogen 54 mg/dL (7-17); Calcium 8.7 mg/dL (8.4-10.2); Carbon Dioxide 31 mmol/L (22-30); Chloride 94 mmol/L (98-107); Estimated CRCL calculation 19 ml/min; Estimated Glomerular Filt Rate 12; Glucose 118 mg/dL (65-110); Potassium 4.6 mmol/L (3.4-5.0); Sodium 134 mmol/L (137-145)
[2023-02-03 18:14] LABS: Anisocytosis 2+ (NORMAL)
--- NOTE | 2023-02-03 19:05 | ED.FALL ---
HPI - Fall General Chief Complaint: Fall Stated Complaint: R ankle pain Time Seen by Provider: 02/03/23 19:05 History of Present Illness HPI Narrative: Patient 57-year-old female who presents the emergency department with chief complaint of fall. The patient reports that she got lightheaded did not actually pass out fell to the ground reports that she has pain in her right ankle patient reports that she does not think that she hit her head but is not completely sure. Patient reports no pain anywhere else reports that she has felt somewhat lightheaded patient denies chest pain denies shortness of breath does report that she normally uses oxygen on a as needed basis but today has required using the oxygen full-time. Related Data Home Medications Medication Instructions Recorded Confirmed aripiprazole 5 mg tablet 5 mg PO DAILY 03/01/20 11/21/21 atorvastatin 20 mg tablet 20 mg PO DAILY 03/01/20 11/21/21 buspirone 10 mg tablet 20 mg PO TID 03/01/20 11/21/21 celecoxib 200 mg capsule 200 mg PO BID 03/01/20 11/21/21 furosemide 40 mg tablet 40 mg PO DAILY 03/01/20 11/21/21 hydroxyzine HCl 25 mg tablet 25 mg PO DAILY 03/01/20 11/21/21 levothyroxine 175 mcg tablet 175 mcg PO DAILY 03/01/20 11/21/21 metformin 500 mg tablet,extended 500 mg PO DAILY 03/01/20 11/21/21 release 24 hr spironolactone 25 mg tablet 25 mg PO DAILY 03/01/20 11/21/21 timolol maleate 0.5 % eye drops 0.5 drp ophthalmic (eye) 03/01/20 11/21/21 DIRECTED tizanidine 4 mg tablet 4 mg PO TID 03/01/20 11/21/21 eszopiclone 3 mg tablet 3 mg PO DAILY 11/21/21 11/21/21 morphine 15 mg tablet,extended 15 mg PO DAILY 11/21/21 11/21/21 release pregabalin 100 mg capsule 100 mg PO DIRECTED 11/21/21 11/21/21 Allergies Allergy/AdvReac Type Severity Reaction Status Date / Time No Known Allergies Allergy Verified 02/03/23 17:28 Review of Systems Review of Systems: A 10 system review of systems was completed on the patient and is negative except for what is stated in the HPI. Nursing and ancillary documentation was reviewed. [facility] Past Medical History Medical History Anxiety COPD (chronic obstructive pulmonary disease) Depression Diabetes History of fibromyalgia History of seizures History of TIA (transient ischemic attack) Hypertension Hypothyroidism Surgical History Surgical History H/O gastric bypass H/O inguinal hernia repair History of appendectomy History of cholecystectomy History of hysterectomy History of tonsillectomy Hx of breast reduction, elective Social History Social History Smoking status: Former smoker Second hand tobacco smoke exposure: No Smoking end date: 07/10/92 Alcohol intake: never Exam Narrative: GENERAL: Well-appearing, well-nourished, and in no acute distress. HEAD: Normocephalic, atraumatic. EYES: PERRLA and EOMI. ENT: Nares clear, no rhinorrhea or epistaxis. Mucous membranes moist. NECK: Supple. CHEST: Clear to auscultation. No respiratory distress. HEART: Regular rate and rhythm. No murmur heard. Normal peripheral pulses. ABDOMEN: Soft, nontender, nondistended, normal active bowel sounds. EXTREMITIES: Normal range of motion in all extremities except for right ankle there is swelling and tenderness to palpation, no laceration present. No edema. SKIN: Warm, dry, no rash. NEURO: No focal deficits. Alert and oriented x3. PSYCH: Normal mood and affect. Course Vital Signs Vital signs: Vital Signs Temperature 36.8 C 02/03/23 17:17 Pulse Rate 86 02/03/23 17:17 Respiratory Rate 15 02/03/23 17:17 Blood Pressure 86/68 L 02/03/23 17:17 Pulse Oximetry 93 02/03/23 17:17 Oxygen Delivery Nasal Cannula 02/03/23 17:17 Oxygen Flow Rate 6 02/03/23 17:17 Temperature 36.8 C 02/03/23 17:17 Pulse
[2023-02-03 19:17] VITALS: BP 98/77; PULSE 83; RESP 13; O2SAT 97
--- NOTE | 2023-02-03 19:23 | PC.NURSE ---
Report received from JENNIFER Merino. Assumed care of patient at this time.
--- NOTE | 2023-02-03 20:05 | PC.NURSE ---
Patient taken to CT at this time.
[2023-02-03] MEDS: SODIUM CHLORIDE 0.9% IV 1,000 ML 999 ML IV CONT (20:24)
[2023-02-03] MEDS: MORPHINE SULFATE (*CRX) 4 MG/ML INJ IV PUSH (20:24)
[2023-02-03] MEDS: HYDROmorphone HCL INJ (*CRX) 1 MG/ML SYR 0.5 MG IV PUSH (22:27)
[2023-02-03 22:32] VITALS: BP 106/62; RESP 17; O2SAT 95
[2023-02-03 22:59] VITALS: O2SAT 92
[2023-02-03 23:00] VITALS: BMI 52.0
--- NOTE | 2023-02-03 23:18 | ADMGEN ---
This patient, Tati Pendleton, was admitted to 3 [facility] Surg Room 312-01. Patient/family oriented to hospital policies and general routines including ID bracelet, bed and alarms, visiting hours, pain management, procedures, bathroom and other care routines, personal items, smoking policy, room service/diet, and visiting hours. Information on how to activate the Rapid Response Team has been discussed. Patient/Family are encouraged to report perceived risks to care and to ask questions if they do not understand what they are told or what they should do.
--- NOTE | 2023-02-03 23:24 | PM.CNOR ---
Assessment and Plan Assessment and plan (1) Bimalleolar fracture of right ankle: Qualifiers: Encounter type: initial encounter Fracture type: closed Qualified Code(s): S82.841A - Displaced bimalleolar fracture of right lower leg, initial encounter for closed fracture Code(s): S82.841A - Displaced bimalleolar fracture of right lower leg, initial encounter for closed fracture Status: Acute Assessment and Plan: New patient evaluation for chief complaint Right ankle injury. History, physical exam and radiographs reviewed with the patient. Bimalleolar ankle fracture reduced and splinted in the emergency room. Discussed the condition, nature, etiology and course of natural history with the patient. Treatment options including surgical and nonoperative treatment were reviewed. Risks and benefits of each as well as alternatives reviewed. The patient's questions were answered. Conservative treatment ice, compression and elevation. Needs w/u and treatment for CINDY. Await surgical treatment until medically stable. Repeat x-rays post reduction right ankle. (2) Acute kidney injury: Code(s): N17.9 - Acute kidney failure, unspecified Status: Acute History of Present Illness HPI Consult date: 02/04/23 Requesting physician: Ling Astudillo MD Chief complaint: acute kidney injury, near syncope, right bimalleol Narrative: 57 yo woman fell injuring right ankle. Obvious deformity. Unable to bear weight. reduced and splinted in the emergency room. Patient admitted for medical care. Review of Systems Constitutional: Constitutional: Denies fever(s) Eyes: Eyes: Denies blurry vision ENT: Reports Normal hearing present Cardiovascular: Cardiovascular: Denies chest pain and Denies dyspnea Respiratory: Respiratory: Denies dyspnea and Denies wheezing Gastrointestinal: Gastrointestinal: Denies abdominal pain Genitourinary: Genitourinary: Denies urinary urgency Musculoskeletal: Musculoskeletal: Reports as per HPI and Denies numbness Integumentary/Breasts: Skin/Breast: Denies changing lesions and Denies sores Neurologic: Reports Normal hearing present, Denies behavioral changes, Denies confusion, Denies numbness and Denies convulsions Psychiatric: Psychiatric: Denies behavioral changes, Denies confusion and Denies hallucinations Endocrine: Endocrine: Denies heat intolerance Hematologic/Lymphatic: Hematologic/Lymphatic: Denies easy bleeding Allergic/Immunologic: Allergic/Immunologic: Denies wheezing PMFSH Past Medical History Medical History Anxiety COPD (chronic obstructive pulmonary disease) Depression Diabetes History of fibromyalgia History of seizures History of TIA (transient ischemic attack) Hypertension Hypothyroidism Surgical History Surgical History H/O gastric bypass H/O inguinal hernia repair History of appendectomy History of cholecystectomy History of hysterectomy History of tonsillectomy Hx of breast reduction, elective Social History Social History Smoking packs per day: 1 Smoking cigarettes per day: 20.0 Years smoked: 14 Smoking pack-years: 14.00 Smoking status: Former smoker Second hand tobacco smoke exposure: No Smoking end date: 07/10/92 Alcohol intake: never Substance use type: does not use Lack of Transportation: No Lack of Food: Never True Current Housing: I Have Housing Concerned About Future Housing: No Difficulty Paying Gas/Electric Bills: No Difficulty Paying for Meds: No Currently Unemployed: No Education: Bachelor's Degree Difficulty w/ Childcare or Family Care: No Spiritual care concerns: No Meds Home Medications and Allergies Home Medications Medication Instructions Recorded Confirmed Type aripiprazole 5 mg tablet 5 mg PO DAILY 02/08
[2023-02-03 23:33] LABS: Lactic Acid Reflex 1.1 mmol/L (0.7-2.0)
[2023-02-03 23:34] LABS: Prothrombin Time 13.6 Seconds (11.1-14.7)
[2023-02-03 23:35] LABS: Partial Thromboplastin Time 26.6 SECONDS (22.3-36.8)
[2023-02-03 23:46] LABS: NT Pro B Type Natriuretic Pept 1730 pg/mL (19.9-100); Troponin I < 0.012 ng/mL (0.000-0.034)
[2023-02-04] VITALS (14 sets, daily range): BP systolic 103–148; BP diastolic 62–76; PULSE 84–103; RESP 12–22; TEMP 36.2–36.8; O2SAT 94–99
[2023-02-04] MEDS: SODIUM CHLORIDE 0.9% IV 1,000 ML 125 ML IV CONT ×2 (02:02→14:47)
--- NOTE | 2023-02-04 02:43 | PM.IMHP ---
H&P: HPI History of Present Illness Date/Time: 02/04/23 02:43 Chief Complaint: Fall Narrative: This is a 57-year-old female with past medical history significant for morbid obesity, type diabetes mellitus, hypothyroidism, hypertension, fibromyalgia, seizure disorder, COPD, generalized anxiety. Patient comes to the emergency room after she had a fall was feeling lightheaded states that she has been her usual state of health up until today, denies any fevers, rigors, chills, nausea, vomiting, diarrhea, abdominal pain, chest pain, syncope, complains of right ankle pain. Preliminary workup was significant for chemistry panel sodium 134 chloride 90 for BUN 54 creatinine 4.5 bicarb 31 BMP 1700, a urinalysis was significant for numerous WBCs present. Patient was found to have a fracture of her right ankle. XR ankle RT min 3V 02/03/2023 17:45 Indication: Right ankle pain after twisting injury Procedure: 4 views right ankle Comparison: No prior studies for comparison. Findings: There are bimalleolar fractures. The distal fibular fracture is comminuted and displaced laterally and anteriorly. The medial malleolar fracture is displaced slightly inferiorly with lateral subluxation of the talus with respect to the tibia. Moderate diffuse soft tissue swelling. Prominent degenerative calcaneal enthesophyte. Small ossific density posterior to the distal tibia on the lateral view, of uncertain origin. Impression: 1: Displaced bimalleolar fractures. XR chest 1V portable 02/03/2023 20:03 Indication: Weakness Procedure: AP portable chest Comparison: Comparison to multiple prior studies sequentially, with oldest reviewed study dated? /oh 11/2017. Findings: Cardiomegaly with interstitial edema. No significant effusion. No pneumothorax. No acute osseous abnormality. Impression: 1: Cardiomegaly with interstitial edema, left greater than right. EXAMINATION: CT brain wo con DATE: 02/03/2023 20:23 INDICATION: Status post fall. Syncope. TECHNIQUE: Computed tomography (CT) of the head was performed without intravenous contrast. The dose-length product was 681.00 mGy-cm. Automated exposure control and iterative reconstruction technique were employed. COMPARISON: CT dated 12/15/2022 FINDINGS: Normal brain parenchymal volume for age. No acute intracranial hemorrhage, infarction, mass or mass effect. No ventriculomegaly or midline shift. Basilar cisterns are patent. Paranasal sinuses and mastoids are pneumatized. Midline sagittal images demonstrate a normal corpus callosum and craniovertebral junction. IMPRESSION: 1. No acute intracranial abnormality. EXAMINATION: CT cervical spine wo con DATE: 02/03/2023 20:23 INDICATION: Neck pain after fall TECHNIQUE: Computed tomography (CT) of the cervical spine was performed without intravenous contrast. The dose-length product was 670 mGy-cm. Automated exposure control and iterative reconstruction technique were employed. COMPARISON: No prior studies for comparison. FINDINGS: Straightening of cervical lordosis. Disc narrowing and endplate degenerative change present at C5-6 and C6-7. No acute fracture or traumatic malalignment. Craniovertebral junction is normal. Odontoid process is normal. There is degenerative anterolisthesis at C3-4 and C4-5 secondary to facet hypertrophy. There is mild left facet hypertrophy at these levels. Mild levoscoliosis. Patchy groundglass opacities in the upper lobes, likely reflect edema. No significant paraspinal soft tissue abnormality. IMPRESSION: 1. No acute fracture. 2: Patchy groundglass opacities of the upper lobes, most likely edema. EXAMINATION: CT abdomen pelvis wo con DATE: 02/03/2023 20:24 INDICATION: Acute renal failure TECHNIQUE: Computed tomography (CT) of the abdomen and pelvis was performed without intravenous contrast. The dose-length product was 1502.33 mGy-cm. Automated exposure control and iterative reconstruction technique were e
[2023-02-04 04:34] LABS: Appearance Urine Cloudy (Clear); Bacteria Urine 4+ /hpf; Bilirubin Urine Negative (Negative); Color Urine Yellow (Yellow); Glucose Urine UA Negative (Negative); Ketones Urine Trace mg/dL (Negative); Leukocyte Esterase Ur 3+ LEU/UL (Negative); Need Manual Microscopic Reviewed; Nitrate Urine Negative (Negative); Protein Urine 2+ mg/dL (Negative); Specific Grav Ur 1.014 (1.001-1.035); Squamous Epithelial Cell Urine None seen /hpf (Few); WBC Urine 51-100 /hpf; pH Urine 7.5 (5.0-9.0)
[2023-02-04 04:41] LABS: Add Urine Microscopic? YES
[2023-02-04] MEDS: LEVOTHYROXINE SODIUM 75 MCG TABLET PO (06:03)
[2023-02-04] MEDS: LEVOTHYROXINE SODIUM 100 MCG TABLET PO (06:04)
[2023-02-04 06:50] LABS: Basophils Percent Auto 0.4 % (0.2-1.2); Eosinophils Absolute Auto 0.1 K/mm3 (0-0.3); Eosinophils Percent Auto 1.4 % (0-4.4); Hematocrit 39.9 % (37.0-47.0); Hemoglobin 11.5 g/dL (12.0-15.0); Immature Granulocyte Absolute 0.06 K/mm3 (0.00-0.031); Immature Granulocyte Percent A 0.6 % (0-0.5); Lymphocytes Absolute Auto 1.06 K/mm3 (0.9-3.2); Lymphocytes Percent Auto 10.5 % (18.3-44.2); Mean Corpuscular HGB Conc 28.8 g/dl (32-36); Mean Corpuscular Hemoglobin 24.7 pg (26-34); Mean Corpuscular Volume 85.6 fl (80-100); Mean Platelet Volume 12.4 fl (7.4-10.4); Monocytes Absolute Auto 0.9 K/mm3 (0.1-0.6); Monocytes Percent Auto 9.2 % (2.6-8.5); Neutrophils Absolute Auto 7.9 K/mm3 (1.3-6.7); Neutrophils Percent Auto 77.9 % (45.5-73.1); Platelet Count Result 166 k/mm3 (150-375); Red Blood Count 4.66 M/mm3 (4.2-5.4); Red Cell Distribution Width 16.1 % (11.5-14.5); White Blood Count 10.1 K/mm3 (4.5-10.0)
[2023-02-04 07:06] LABS: Anion Gap 9 mmol/L (8-16); Blood Urea Nitrogen 55 mg/dL (7-17); Calcium 8.5 mg/dL (8.4-10.2); Carbon Dioxide 25 mmol/L (22-30); Chloride 96 mmol/L (98-107); Estimated CRCL calculation 16 ml/min; Estimated Glomerular Filt Rate 10; Glucose 107 mg/dL (65-110); Potassium 4.8 mmol/L (3.4-5.0); Sodium 130 mmol/L (137-145)
[2023-02-04 07:09] LABS: Glucose Point of Care 120 mg/dl (65-105)
--- NOTE | 2023-02-04 07:13 | PC.NURSE ---
When patient was woken up this AM at 0635, the patient went from being A&O x4 to A&O x2, new onset tremors in upper extremities, inappropriate responses to questions, and a blank stare. Vitals were stable with an elevated HR of 104, PERRLA, Blood sugar 120. Dr. Eli was notified. New orders of CT brain wo contrast, lactic acid, and an ABG were ordered. Will continue to monitor.
--- NOTE | 2023-02-04 07:35 | PM.IMPN ---
Progress Note: A&P Assessment and Plan (1) Fall: Code(s): W19.XXXA - Unspecified fall, initial encounter Status: Acute Assessment and Plan: Admit to regular medical floor Fall precautions Bed rest (2) Near syncope: Code(s): R55 - Syncope and collapse Status: Acute Assessment and Plan: Patient is over diuresed Diuresis on hold. Renal failure worsening Continue IV fluid Nephrology consultation for renal failure (3) Acute kidney injury superimposed on CKD: Code(s): N17.9 - Acute kidney failure, unspecified; N18.9 - Chronic kidney disease, unspecified Status: Acute Assessment and Plan: Likely secondary to diuretics Component of prerenal azotemia as well Replacing fluids Repeat BMP No role for urine lytes as patient on diuretics (4) Bimalleolar fracture of right ankle: Qualifiers: Encounter type: initial encounter Fracture type: closed Qualified Code(s): S82.841A - Displaced bimalleolar fracture of right lower leg, initial encounter for closed fracture Code(s): S82.841A - Displaced bimalleolar fracture of right lower leg, initial encounter for closed fracture Status: Acute Assessment and Plan: Status post reduction and immobilization Ortho consulted Pain management (5) Morbid obesity with BMI of 50.0-59.9, adult: Code(s): E66.01 - Morbid (severe) obesity due to excess calories; Z68.43 - Body mass index [BMI] 50.0-59.9, adult Status: Acute Assessment and Plan: Had gastric bypass Calorie restricted diet Follow-up in outpatient setting (6) Fibromyalgia: Code(s): M79.7 - Fibromyalgia Status: Acute Assessment and Plan: Continue home meds Plan Confusion likely due to hypercapnia and respiratory acidosis Acute hypercapnic respiratory failure start BiPAP stat and monitor ABG. Still able to converse and alert and oriented despite ABG. Subjective Date/time seen: 02/04/23 07:35 Interval history: Patient is noted to be a bit confused this morning. Testings were done ruled out hypoglycemia. CT head came back negative. ABG came back with hypercapnia with respiratory acidosis. BiPAP is in place. She uses CPAP at night. Came in fall and had ankle fracture. Review of Systems Review of Systems: All systems reviewed & are unremarkable except as noted in HPI and below Exam Narrative: GENERAL: Well-appearing, well-nourished, and in no acute distress. HEAD: Normocephalic, atraumatic. EYES: PERRLA and EOMI. ENT: Nares clear, no rhinorrhea or epistaxis.? Mucous membranes moist. NECK: Supple. Nontender CHEST: Clear to auscultation.? No respiratory distress. HEART: Regular rate and rhythm.? No murmur heard.? Normal peripheral pulses. ABDOMEN: Soft, nontender, nondistended, normal active bowel sounds. EXTREMITIES: Normal range of motion in all extremities except right ankle with splint in place SKIN: Warm, dry, no rash. NEURO: No focal deficits.? Alert and oriented x3. Mildly confused still able to converse well PSYCH: Normal mood and affect. Objective Data Vital Signs Vital Signs: Vital Signs - 24 hr 02/03/23 17:17 02/03/23 19:17 02/03/23 22:32 Temperature 98.3 F Pulse Rate 86 83 Respiratory Rate 15 13 17 Blood Pressure 86/68 L 98/77 L 106/62 Pulse Oximetry 93 97 95 Oxygen Delivery Nasal Cannula Oxygen Flow Rate 6 02/03/23 22:59 02/04/23 06:00 Temperature 97.2 F L Pulse Rate 103 H Respiratory Rate 18 Blood Pressure 106/76 Pulse Oximetry 92 95 Oxygen Delivery Nasal Cannula Oxygen Flow Rate 5 Intake/Output Intake/Output: Intake & Output 02/01/23 02/02/23 02/03/23 02/04/23 23:59 23:59 23:59 23:59 Output Total 200 Balance -200 Meds/Results Medications: Active Medications Generic Name Dose Route Start Last Admin Trade Name Casaq PRN Reason Stop Dose Admin Acetaminophen 1,000 mg 02/04/23 02:37 Acetaminophen 500 Mg Tablet PO T
[2023-02-04 07:55] LABS: Lactic Acid Reflex 0.7 mmol/L (0.7-2.0)
[2023-02-04] MEDS: TIMOLOL MALEATE 0.5% OP SOLN 5 ML BOTTLE 1 DROP EACH EYE (09:48)
[2023-02-04 10:33] LABS: Alveolar/Arterial O2 Gradient 10.7 mmHg; Base Excess ABG -3.4 mEq/l (+/-2.0); Fractional Inspired Oxygen 24 %; HCO3 ABG 26.6 mEq/l (22.0-26.0); Oxygen Content ABG 16.1 %vol (16.0-22.0); Oxygen Saturation ABG 89.5 % (95.0-100.0); Oxyhemoglobin 90.4 % THb (90.0-100.0); Total Hemoglobin 12.6 g/dL (12.0-18.0)
[2023-02-04 10:41] LABS: Device NASAL CANNULA; Modified Allen's Test Pass; PCO2 ABG 74.3 mmHg (35.0-45.0); Site Drawn RIGHT RADIAL; pH ABG 7.171 (7.350-7.450)
--- NOTE | 2023-02-04 12:28 | PCRCNOTE ---
Pt sticker printed at 7:24, after multiple failed attempts by two RT's to obtain the ABG, called third therapist to help, before third RT could arrive, pt was taken to CT and ultrasound, we were finally able to obtain ABG around 10:20 AM, critical values reported to nurse.
[2023-02-04 13:59] LABS: Alveolar/Arterial O2 Gradient 52.2 mmHg; Base Excess ABG -4.3 mEq/l (+/-2.0); Fractional Inspired Oxygen 30 %; HCO3 ABG 25.6 mEq/l (22.0-26.0); Oxygen Content ABG 16.4 %vol (16.0-22.0); Oxyhemoglobin 92.1 % THb (90.0-100.0); PO2 ABG 76.5 mmHg (80.0-100.0); PO2 FiO2 Ratio Arterial Blood 2.55 %; Total Hemoglobin 12.6 g/dL (12.0-18.0)
[2023-02-04 14:03] LABS: Device NON-INVASIVE VENT; Modified Allen's Test Pass; PCO2 ABG 72.5 mmHg (35.0-45.0); Site Drawn RIGHT RADIAL; pH ABG 7.166 (7.350-7.450)
[2023-02-04 14:04] LABS: Non-Invasive Expiratory Pressure 7 CMH2O; Non-Invasive Inspiratory Pressure 15 CMH2O; Non-Invasive Vent Rate 12 /MIN
--- NOTE | 2023-02-04 14:15 | PM.CNNEP ---
Assessment and Plan Assessment and plan (1) Acute kidney injury: Code(s): N17.9 - Acute kidney failure, unspecified Status: Acute Assessment and Plan: as noted by admission labs and this AM etiology? suspicion falls on over-diuresis however, admission hypotension (and associated decreased renal perfusion) also contributing other factors -- KEN-I and NSAID use prior to admission and possible UTI follow-up on renal ultrasound and urine studies holding diuretics, KEN-I, and NSAIDs (2) Chronic kidney disease, stage 3: Code(s): N18.30 - Chronic kidney disease, stage 3 unspecified Status: Chronic Assessment and Plan: baseline creatinine seems to run around 1.4 - 1.5mg/dl (as of December 2022) this causes her to fluctuate between CKD stage 3A and 3B presumably due to HTN, DM, and vascular disease along with necessity of diuretics (3) Bimalleolar fracture of right ankle: Qualifiers: Encounter type: initial encounter Fracture type: closed Qualified Code(s): S82.841A - Displaced bimalleolar fracture of right lower leg, initial encounter for closed fracture Code(s): S82.841A - Displaced bimalleolar fracture of right lower leg, initial encounter for closed fracture Status: Acute Assessment and Plan: reduced and splinted in ER Orthopedics following surgical intervention when more stable (4) Fall: Code(s): W19.XXXA - Unspecified fall, initial encounter Status: Acute Assessment and Plan: fall precautions PT/OT as tolerated (5) Hypertension: Code(s): I10 - Essential (primary) hypertension Status: Chronic Assessment and Plan: better readings currently follow hemodynamics holding KEN-I (6) Obesity hypoventilation syndrome: Code(s): E66.2 - Morbid (severe) obesity with alveolar hypoventilation Status: Chronic Assessment and Plan: evidence of hypercapnea by ANB BiPAP support initiated follow respiratory status and mentation I will continue to follow the patient you while she remains hospitalized make further recommendations as needed. Thank you for allowing me to participate in care of the patient. History of Present Illness Reason for Consult Consult date: 02/04/23 Reason for consult: acute renal failure (on chronic kidney disease) Chief Complaint Chief complaint: acute kidney injury, near syncope, right bimalleol History of Present Illness Narrative: The patient is a 57-year-old female with a past medical history as outlined below who presented to [facility] Emergency Room status post fall. The patient reported feeling lightheaded which apparently led to her fall. She had no other associated symptoms with regard to fevers, chills, nausea, vomiting, diarrhea, abdominal pain, chest pain or dizziness. Following the fall, she had noticeable right ankle pain but initially she thought she just sprained it. However, given the ongoing pain in her right ankle area she came to the emergency room for further evaluation and therapy. Workup and evaluation emergency room demonstrated the patient be quite hypotensive with a blood pressure in the 80s systolic. Routine blood test demonstrated renal dysfunction with a BUN of 54 and a creatinine of 4.5 which is far above her baseline if not higher than what it was recently tested here at [facility]. Subsequent imaging studies demonstrated a fracture of her right ankle. She was restarted on IV fluids and subsequently admitted the hospital for further evaluation therapy. Since her admission, her mentation appears have significantly declined. Over this morning, it was noted that the patient was quite confused in comparison to her baseline. Testing at that time demonstrated normal blood sugar brain ABG showed hypercapnia in association with respiratory acidosis. A CT scan of her head was negative as well. She was subseq
[2023-02-04 17:34] LABS: Glucose Point of Care 96 mg/dl (65-105)
[2023-02-04 18:02] LABS: Anion Gap 12 mmol/L (8-16); Blood Urea Nitrogen 54 mg/dL (7-17); Calcium 8.4 mg/dL (8.4-10.2); Carbon Dioxide 24 mmol/L (22-30); Chloride 99 mmol/L (98-107); Estimated CRCL calculation 17 ml/min; Estimated Glomerular Filt Rate 11; Glucose 91 mg/dL (65-110); Potassium 4.8 mmol/L (3.4-5.0); Sodium 135 mmol/L (137-145)
[2023-02-04] MEDS: IPRATROPIUM BR 0.02% INH SOLN 0.5 MG/2.5 ML VIAL INHALATION (18:45)
[2023-02-04] MEDS: ALBUTEROL SULFATE NEB 2.5 MG/3 ML INH 10 MG INHALATION (18:45)
[2023-02-04 19:02] LABS: Creatinine Urine 269.4 mg/dL; Total Protein Urine Random 80 mg/dL; Urea Random Urine 381 MG/DL
[2023-02-04 19:04] LABS: Sodium Urine Random 15 meq/L
[2023-02-04 19:24] LABS: Eosinophil Urine None Seen % (None Seen); Urine Eos QC 2nd Tech Confirmed
[2023-02-04 21:42] LABS: Alveolar/Arterial O2 Gradient 72.7 mmHg; Base Excess ABG -1.7 mEq/l (+/-2.0); Carboxyhemoglobin 0.4 % THb (0-2.0); Fractional Inspired Oxygen 35 %; HCO3 ABG 28.4 mEq/l (22.0-26.0); Methemoglobin ABG 0.3 %THb (0-1.5); Oxygen Content ABG 16.5 %vol (16.0-22.0); Oxygen Saturation ABG 93.5 % (95.0-100.0); Oxyhemoglobin 94.2 % THb (90.0-100.0); PO2 ABG 85.9 mmHg (80.0-100.0); PO2 FiO2 Ratio Arterial Blood 2.45 %; Reduced Hemoglobin 5.1 %THb (0-5.0); Total Hemoglobin 12.4 g/dL (12.0-18.0)
[2023-02-04 21:43] LABS: Device NON-INVASIVE VENT; Modified Allen's Test Pass; PCO2 ABG 78.2 mmHg (35.0-45.0); Site Drawn RIGHT RADIAL; pH ABG 7.178 (7.350-7.450)
[2023-02-04 21:44] LABS: Non-Invasive Expiratory Pressure 7 CMH2O; Non-Invasive Inspiratory Pressure 20 CMH2O; Non-Invasive Vent Rate 12 /MIN
[2023-02-05] VITALS (30 sets, daily range): BP systolic 98–153; BP diastolic 53–86; PULSE 77–103; RESP 16–25; TEMP 36.2–36.6; O2SAT 94–100
[2023-02-05 00:36] LABS: Alveolar/Arterial O2 Gradient 88.4 mmHg; Base Excess ABG -2.7 mEq/l (+/-2.0); Fractional Inspired Oxygen 35 %; HCO3 ABG 26.9 mEq/l (22.0-26.0); Oxygen Content ABG 16.2 %vol (16.0-22.0); Oxygen Saturation ABG 91.8 % (95.0-100.0); Oxyhemoglobin 93.2 % THb (90.0-100.0); PO2 ABG 77.5 mmHg (80.0-100.0); PO2 FiO2 Ratio Arterial Blood 2.21 %; Total Hemoglobin 12.3 g/dL (12.0-18.0)
[2023-02-05 00:37] LABS: Device NON-INVASIVE VENT; Modified Allen's Test Pass; Site Drawn RIGHT RADIAL
[2023-02-05 00:41] LABS: Non-Invasive Vent Rate 20 /MIN
[2023-02-05 00:42] LABS: Non-Invasive Expiratory Pressure 8 CMH2O
[2023-02-05 03:18] LABS: Alveolar/Arterial O2 Gradient 131.3 mmHg; Base Excess ABG -1.3 mEq/l (+/-2.0); Fractional Inspired Oxygen 45 %; HCO3 ABG 27.8 mEq/l (22.0-26.0); Oxygen Content ABG 16.3 %vol (16.0-22.0); Oxygen Saturation ABG 96.8 % (95.0-100.0); Oxyhemoglobin 96.6 % THb (90.0-100.0); PO2 ABG 109.4 mmHg (80.0-100.0); PO2 FiO2 Ratio Arterial Blood 2.43 %; Total Hemoglobin 11.9 g/dL (12.0-18.0)
[2023-02-05 03:19] LABS: PCO2 ABG 70.5 mmHg (35.0-45.0); pH ABG 7.214 (7.350-7.450)
[2023-02-05 03:20] LABS: Device NON-INVASIVE VENT; Modified Allen's Test Pass; Non-Invasive Expiratory Pressure 8 CMH2O; Non-Invasive Inspiratory Pressure 20 CMH2O; Non-Invasive Vent Rate 24 /MIN; Site Drawn RIGHT RADIAL
[2023-02-05 04:50] LABS: Basophils Percent Auto 0.4 % (0.2-1.2); Eosinophils Absolute Auto 0.1 K/mm3 (0-0.3); Eosinophils Percent Auto 1.4 % (0-4.4); Hematocrit 37.2 % (37.0-47.0); Hemoglobin 10.6 g/dL (12.0-15.0); Immature Granulocyte Absolute 0.04 K/mm3 (0.00-0.031); Immature Granulocyte Percent A 0.6 % (0-0.5); Immature Platelet Fraction Pct 12.8 % (0.9-11.2); Lymphocytes Absolute Auto 0.94 K/mm3 (0.9-3.2); Lymphocytes Percent Auto 13.1 % (18.3-44.2); Mean Corpuscular HGB Conc 28.5 g/dl (32-36); Mean Corpuscular Hemoglobin 24.6 pg (26-34); Mean Corpuscular Volume 86.3 fl (80-100); Monocytes Absolute Auto 0.9 K/mm3 (0.1-0.6); Neutrophils Absolute Auto 5.2 K/mm3 (1.3-6.7); Neutrophils Percent Auto 72.5 % (45.5-73.1); Platelet Count Result 141 k/mm3 (150-375); Red Blood Count 4.31 M/mm3 (4.2-5.4); Red Cell Distribution Width 15.9 % (11.5-14.5); White Blood Count 7.2 K/mm3 (4.5-10.0)
[2023-02-05 05:06] LABS: Alanine Aminotransferase 15 U/L (6-35); Albumin Level 3.5 g/dL (3.5-5.1); Alkaline Phosphatase 73 U/L (38-126); Anion Gap 8 mmol/L (8-16); Aspartate Amino Transferase 41 U/L (14-36); Bilirubin,Total 0.4 mg/dL (0.2-1.3); Blood Urea Nitrogen 53 mg/dL (7-17); Calcium 8.5 mg/dL (8.4-10.2); Carbon Dioxide 23 mmol/L (22-30); Chloride 101 mmol/L (98-107); Creatine Kinase 989 U/L (30-135); Estimated CRCL calculation 24 ml/min; Estimated Glomerular Filt Rate 16; Glucose 75 mg/dL (65-110); Magnesium 2.4 mg/dL (1.6-2.3); Potassium 4.5 mmol/L (3.4-5.0); Sodium 132 mmol/L (137-145)
[2023-02-05 05:11] LABS: Platelet Estimate Adequate (Adequate)
[2023-02-05 05:12] LABS: Anisocytosis 1+ (NORMAL); Schistocytes None Seen (NORMAL)
[2023-02-05 06:02] LABS: Alveolar/Arterial O2 Gradient 146.9 mmHg; Base Excess ABG -0.5 mEq/l (+/-2.0); Fractional Inspired Oxygen 45 %; HCO3 ABG 28.9 mEq/l (22.0-26.0); Oxygen Content ABG 15.7 %vol (16.0-22.0); Oxygen Saturation ABG 94.7 % (95.0-100.0); Oxyhemoglobin 95.1 % THb (90.0-100.0); PO2 ABG 89.7 mmHg (80.0-100.0); PO2 FiO2 Ratio Arterial Blood 1.99 %; Total Hemoglobin 11.7 g/dL (12.0-18.0)
[2023-02-05 06:04] LABS: Device NON-INVASIVE VENT; Modified Allen's Test Pass; PCO2 ABG 74.1 mmHg (35.0-45.0); Site Drawn LEFT RADIAL; pH ABG 7.209 (7.350-7.450)
[2023-02-05 06:05] LABS: Non-Invasive Expiratory Pressure 8 CMH2O; Non-Invasive Inspiratory Pressure 20 CMH2O; Non-Invasive Vent Rate 24 /MIN
[2023-02-05 07:23] LABS: Alveolar/Arterial O2 Gradient 240.2 mmHg; Base Excess ABG -2.4 mEq/l (+/-2.0); Fractional Inspired Oxygen 80 %; HCO3 ABG 26.5 mEq/l (22.0-26.0); Oxygen Content ABG 16.8 %vol (16.0-22.0); Oxygen Saturation ABG 99.4 % (95.0-100.0); PO2 ABG 259.6 mmHg (80.0-100.0); PO2 FiO2 Ratio Arterial Blood 3.25 %; Total Hemoglobin 11.7 g/dL (12.0-18.0)
[2023-02-05 07:26] LABS: Device NON-INVASIVE VENT; Modified Allen's Test Pass; Non-Invasive Vent Rate 24 /MIN; PCO2 ABG 67.2 mmHg (35.0-45.0); Site Drawn RIGHT RADIAL; pH ABG 7.214 (7.350-7.450)
[2023-02-05 07:27] LABS: Non-Invasive Expiratory Pressure 10 CMH2O; Non-Invasive Inspiratory Pressure 20 CMH2O
[2023-02-05] MEDS: methylPREDNISolone SOD SUCC 125 MG VIAL (07:44)
[2023-02-05] MEDS: FUROSEMIDE INJ 40 MG/4 ML VIAL IV PUSH (08:08)
[2023-02-05] MEDS: TIMOLOL MALEATE 0.5% OP SOLN 5 ML BOTTLE 1 DROP EACH EYE (08:12)
[2023-02-05 09:06] LABS: Alveolar/Arterial O2 Gradient 129.1 mmHg; Base Excess ABG -1.2 mEq/l (+/-2.0); Fractional Inspired Oxygen 40 %; HCO3 ABG 27.6 mEq/l (22.0-26.0); Oxygen Saturation ABG 92.9 % (95.0-100.0); Oxyhemoglobin 93.7 % THb (90.0-100.0); PO2 ABG 78.6 mmHg (80.0-100.0); PO2 FiO2 Ratio Arterial Blood 1.96 %; Total Hemoglobin 12.1 g/dL (12.0-18.0)
[2023-02-05 09:08] LABS: Device NON-INVASIVE VENT; Modified Allen's Test Pass; Non-Invasive Expiratory Pressure 8 CMH2O; Non-Invasive Inspiratory Pressure 24 CMH2O; Non-Invasive Vent Rate 20 /MIN; PCO2 ABG 67.4 mmHg (35.0-45.0); Site Drawn RIGHT RADIAL
--- NOTE | 2023-02-05 09:13 | PM.PNORT ---
Progress Note: A&P Assessment and Plan (1) Bimalleolar fracture of right ankle: Qualifiers: Encounter type: initial encounter Fracture type: closed Qualified Code(s): S82.841A - Displaced bimalleolar fracture of right lower leg, initial encounter for closed fracture Code(s): S82.841A - Displaced bimalleolar fracture of right lower leg, initial encounter for closed fracture Status: Acute Assessment and Plan: New radiographs yesterday reviewed which show acceptable alignment of the ankle fracture with splint in place. Indicated for open reduction internal fixation however patient is medically unstable at this time. Continue with conservative care with splint, elevation, ice and nonweightbearing. Await medical improvement. Subjective Subjective Date/Time Seen: 02/05/23 09:13 Principal diagnosis: Right ankle fracture Interval history: patient currently on BiPAP. Complains of mild ankle pain. Exam Const: General: No confusion Orientation/consciousness: patient oriented x3 Neck: Neck: supple and nontender Extrem: General: capillary refill normal Right upper extremity: normal to inspection Left upper extremity: normal to inspection Right lower extremity: hip/thigh Details: no tenderness, knee Details: abnormal ROM ( Knee range of motion deferred secondary to fracture); no tenderness and no swelling, ankle Details: tenderness Location: of the lateral malleolus and anteromedially, swelling ( moderate) Details: laterally and medially, abnormal ROM Details: pain with active ROM and ecchymosis ( moderate diffusely ankle) and foot Details: vascular exam Details: dorsalis pedis pulse present and normal capillary refill, tendon exam (intact, able to flex and extend toes) and motor-sensory exam Details: light-touch normal Location: in all toes Left lower extremity: normal to inspection, hip/thigh Details: normal to inspection, knee Details: normal to inspection, ankle Details: normal to inspection and normal ROM ( Active flexion and extension intact); no tenderness and no swelling and foot Details: vascular exam Details: dorsalis pedis pulse present and normal capillary refill, tendon exam active flexion normal and active flexion abnormal and motor-sensory exam light-touch normal; no tenderness Psych: Affect: normal affect Objective Data Vital Signs Vital Signs: Vital Signs - 24 hr 02/04/23 11:45 02/04/23 13:54 02/04/23 14:00 Temperature 97.1 F L Pulse Rate 92 97 Respiratory Rate 15 15 19 Blood Pressure 148/72 H Pulse Oximetry 96 99 Oxygen Delivery BiPAP BiPAP Fraction of Inspired Oxygen 02/04/23 17:20 02/04/23 16:50 02/04/23 18:45 Temperature 97.9 F Pulse Rate 89 88 Respiratory Rate 21 H 20 20 Blood Pressure 107/62 Pulse Oximetry 95 Oxygen Delivery BiPAP Fraction of Inspired Oxygen 02/04/23 18:31 02/04/23 19:12 02/04/23 16:00 Temperature 98.2 F Pulse Rate 89 Respiratory Rate 20 12 Blood Pressure 103/63 Pulse Oximetry 99 Oxygen Delivery BiPAP BiPAP Fraction of Inspired Oxygen 40 02/04/23 18:00 02/04/23 21:46 02/04/23 22:00 Temperature Pulse Rate 89 96 Respiratory Rate 14 22 H Blood Pressure Pulse Oximetry 95 Oxygen Delivery BiPAP BiPAP Fraction of Inspired Oxygen 02/05/23 00:12 02/05/23 01:30 02/05/23 01:45 Temperature Pulse Rate 90 89 92 Respiratory Rate 20 21 H 24 H Blood Pressure Pulse Oximetry 97 98 96 Oxygen Delivery BiPAP BiPAP BiPAP Fraction of Inspired Oxygen 02/04/23 20:00 02/05/23 00:00 02/05/23 00:00 Temperature 98 F Pulse Rate 90 Respiratory Rate 20 Blood Pressure 125/65 Pulse Oximetry 94 98 94 Oxygen Delivery BiPAP BiPAP Fraction of Inspired Oxygen 30 30 02/04/23 20:00 02/04/23 22:00 02/05/23 00:00 Temperature Pulse Rate 84 98 90 Respiratory Rate Blood Pressure Pulse Oximetry Oxygen Delivery Fraction of Inspired Oxygen 02/05/23 02:00
--- NOTE | 2023-02-05 09:43 | PM.CNPUL ---
Assessment and Plan Assessment and plan (1) Obesity hypoventilation syndrome: Code(s): E66.2 - Morbid (severe) obesity with alveolar hypoventilation Status: Acute Assessment and Plan: 02/05 Patient with morbid obesity, BMI 52.1, serum bicarbonate on 12/15/2022 was 36 and 02/03/2023 with acute kidney injury a serum bicarb of 31. First ABG this admission on 1 L nasal cannula 7.. Patient is on levothyroxine with a TSH that is normal at 0.471. The patient likely has obesity hypoventilation syndrome, but was also receiving narcotics for her broken right ankle and may have some element of pulmonary edema. PLAN: The patient is currently awake and communicative tip of and says that she is feeling better and feels she could come off the noninvasive ventilator. She did not tolerate the BiPAP and I have adjusted her settings to noninvasive ventilation with the AVAPS mode rate of 20, tidal volume 500, EPAP 8, minimal inspiratory pressure 9, maximal inspiratory pressure 30, inspiratory time 1.0, rise of 5 and 32% FiO2. Her saturations were 98%. Patient can wear these settings p.r.n. during the day but should wear them at night. I will check an overnight oximetry and an ABG in morning prior to removal. Discussed with Dr. Eli, will follow with you (2) Bimalleolar fracture of right ankle: Qualifiers: Encounter type: initial encounter Fracture type: closed Qualified Code(s): S82.841A - Displaced bimalleolar fracture of right lower leg, initial encounter for closed fracture Code(s): S82.841A - Displaced bimalleolar fracture of right lower leg, initial encounter for closed fracture Status: Acute Assessment and Plan: 02/05: Patient seen by Orthopedic surgery and note states the new radiographs reviewed and show acceptable alignment of the ankle fracture with splint in place. She is indicated for open reduction internal fixation however patient is medically unstable at this time. Continue with conservative care with the splint, elevation, ice and nonweightbearing. Await medical improvement. States her ankle pain is better. Minimize pain medicines as these will suppress her respiratory drive. (3) Asthma: Code(s): J45.909 - Unspecified asthma, uncomplicated Status: Acute Assessment and Plan: 02/05 Patient carries a history of asthma diagnosed 3 months ago by [facility] panel raiser operator Dr. Shah. I do not have any of these notes. Currently the patient has no wheezing. Patient tells me she had a gastric bypass in 2002. Patient tells me she has obstructive sleep apnea in 2019 diagnosed with a sleep study. She is treated with CPAP 15 and she says that she wears her mask a proximally 2 times a week, DME for CPAP is [facility] and DME for oxygen is [facility]. The patient tells me that 3 months ago she saw panel raiser operator at [facility]'s name Dr. Strickland and she was diagnosed with asthma and treated with inhaled trelegy once a day. States she smoked 1 pack per day from 9563-6571 for 18 pack years, she was exposed to secondhand smoke from both of her parents but none since. Patient smoked crack cocaine daily from [id number]. Patient had PFTs in [place]. Plan: Will discontinue systemic steroids and place the patient on budesonide 500 mcg nebulized twice a day, albuterol 2.5 mg nebs q.4 hours and ipratropium 0.5 mg nebs q.4 hours. No evidence of pneumonia and she does not require antibiotics from a pulmonary perspective. (4) Fluid overload: Code(s): E87.70 - Fluid overload, unspecified Status: Acute Assessment and Plan: Admitted on 02/03 with creatinine of 4.50, increased to 5.20 on 02/04 felt initially to be related to hypovolemia and patient given IV fluids. Creatinine improved to 3.50 but her BNP is now high with worsening congestion on chest x-ray. Aggressive diuresis as tolerated by her cardiac and renal systems per Nephrology and the hospitalist teams.
[2023-02-05 10:31] LABS: NT Pro B Type Natriuretic Pept 888 pg/mL (19.9-100)
[2023-02-05 11:01] LABS: Thyroid Stimulating Hormone 0.471 uIU/mL (0.465-4.680)
--- NOTE | 2023-02-05 11:15 | P.PNNP_ITS ---
Progress Note: A&P Assessment and Plan (1) Acute kidney injury: Code(s): N17.9 - Acute kidney failure, unspecified Status: Acute Assessment and Plan: * as noted by admission labs and this AM * etiology? * suspicion falls on over-diuresis * however, admission hypotension (and associated decreased renal perfusion) also contributing * other factors -- KEN-I and NSAID use prior to admission and possible UTI * evaluation to date: * renal ultrasound w/o obstruction * urine electrolytes prerenal (despite being on diuretics [employer]) * urine eosinophils negative * CPK mildly elevated (989) - follow trend * mild proteinuria * UA suggestivce of UTI * holding KEN-I and NSAIDs * given CXR findings, likely need diuretics again (2) Chronic kidney disease, stage 3: Code(s): N18.30 - Chronic kidney disease, stage 3 unspecified Status: Chronic Assessment and Plan: * baseline creatinine seems to run around 1.4 - 1.5mg/dl (as of December 2022) * this causes her to fluctuate between CKD stage 3A and 3B * presumably due to HTN, DM, and vascular disease along with necessity of d iuretics (3) Urinary tract infection: Code(s): N39.0 - Urinary tract infection, site not specified Status: Acute Assessment and Plan: * admission UA suggestive * urine culture with GNB * on antibiotics (4) Bimalleolar fracture of right ankle: Qualifiers: Encounter type: subsequent encounter Fracture healing: with routine healing Fracture type: closed Qualified Code(s): S82.841D - Displaced bimalleolar fracture of right lower leg, subsequent encounter for closed fract ure with routine healing Code(s): S82.841A - Displaced bimalleolar fracture of right lower leg, initial encounter for closed fracture Status: Acute Assessment and Plan: * reduced and splinted in ER * Orthopedics following * surgical intervention when more stable (5) Fall: Code(s): W19.XXXA - Unspecified fall, initial encounter Status: Acute Assessment and Plan: * fall precautions * PT/OT as tolerated (6) Hypertension: Code(s): I10 - Essential (primary) hypertension Status: Chronic Assessment and Plan: * better readings currently * follow hemodynamics * holding KEN-I (7) Obesity hypoventilation syndrome: Code(s): E66.2 - Morbid (severe) obesity with alveolar hypoventilation Status: Chronic Assessment and Plan: * evidence of hypercapnea by ANB * BiPAP support initiated * follow respiratory status and mentation * Pulmonary recommendations noted Will continue to follow. Subjective Date/time seen: 02/05/23 11:15 Interval history: Follow-up for acute kidney injury/acute renal failure on chronic kidney disease. Since last seen, appears much more awake and alert at the time of my visit; renal function has improved with better hemodynamics and IVF resuscitaion but AM CXR results noted; tolerated BiPAP therapy with adjustments noted; no apparent distress voiced. Exam Narrative: General: Large female in NAD on BiPAP Heart: normal S1 and S2; no rub Lungs: dimisnished at the bases Abdomen: soft, nontender, nondistended, positive bowel sounds Extremities: no cyanosis or clubbing; no edema Skin: warm and dry Objective Data Vital Signs Vital Signs: Vital Signs
--- NOTE | 2023-02-05 11:15 | PM.PNNEP ---
Progress Note: A&P Assessment and Plan (1) Acute kidney injury: Code(s): N17.9 - Acute kidney failure, unspecified Status: Acute Assessment and Plan: as noted by admission labs and this AM etiology? suspicion falls on over-diuresis however, admission hypotension (and associated decreased renal perfusion) also contributing other factors -- KEN-I and NSAID use prior to admission and possible UTI evaluation to date: renal ultrasound w/o obstruction urine electrolytes prerenal (despite being on diuretics [employer]) urine eosinophils negative CPK mildly elevated (989) - follow trend mild proteinuria UA suggestivce of UTI holding KEN-I and NSAIDs given CXR findings, likely need diuretics again (2) Chronic kidney disease, stage 3: Code(s): N18.30 - Chronic kidney disease, stage 3 unspecified Status: Chronic Assessment and Plan: baseline creatinine seems to run around 1.4 - 1.5mg/dl (as of December 2022) this causes her to fluctuate between CKD stage 3A and 3B presumably due to HTN, DM, and vascular disease along with necessity of diuretics (3) Urinary tract infection: Code(s): N39.0 - Urinary tract infection, site not specified Status: Acute Assessment and Plan: admission UA suggestive urine culture with GNB on antibiotics (4) Bimalleolar fracture of right ankle: Qualifiers: Encounter type: subsequent encounter Fracture healing: with routine healing Fracture type: closed Qualified Code(s): S82.841D - Displaced bimalleolar fracture of right lower leg, subsequent encounter for closed fracture with routine healing Code(s): S82.841A - Displaced bimalleolar fracture of right lower leg, initial encounter for closed fracture Status: Acute Assessment and Plan: reduced and splinted in ER Orthopedics following surgical intervention when more stable (5) Fall: Code(s): W19.XXXA - Unspecified fall, initial encounter Status: Acute Assessment and Plan: fall precautions PT/OT as tolerated (6) Hypertension: Code(s): I10 - Essential (primary) hypertension Status: Chronic Assessment and Plan: better readings currently follow hemodynamics holding KEN-I (7) Obesity hypoventilation syndrome: Code(s): E66.2 - Morbid (severe) obesity with alveolar hypoventilation Status: Chronic Assessment and Plan: evidence of hypercapnea by ANB BiPAP support initiated follow respiratory status and mentation Pulmonary recommendations noted Will continue to follow. Subjective Date/time seen: 02/05/23 11:15 Interval history: Follow-up for acute kidney injury/acute renal failure on chronic kidney disease. Since last seen, appears much more awake and alert at the time of my visit; renal function has improved with better hemodynamics and IVF resuscitaion but AM CXR results noted; tolerated BiPAP therapy with adjustments noted; no apparent distress voiced. Exam Narrative: General: Large female in NAD on BiPAP Heart: normal S1 and S2; no rub Lungs: dimisnished at the bases Abdomen: soft, nontender, nondistended, positive bowel sounds Extremities: no cyanosis or clubbing; no edema Skin: warm and dry Objective Data Vital Signs Vital Signs: Vital Signs Temp Pulse Resp BP Pulse Ox O2 Del Method O2 Flow Rate 02/05/23 11:07 85 21 H 97 BiPAP 02/05/23 10:00 87 02/05/23 08:00 78 02/05/23 08:00 97.1 F L 77 20 116/56 L 96 02/05/23 09:15 BiPAP 02/05/23 08:54 80 20 97 BiPAP 02/05/23 07:40 80 20 98 BiPAP 02/05/23 07:05 79 24 H 99 BiPAP 02/05/23 08:00 100 BiPAP 02/05/23 06:10 80 24 H 100 BiPAP 02/05/23 06:00 81 02/05/23 04:00 82 02/05/23 06:02 81 25 H 96 BiPAP 02/05/23 04:00 100 BiPAP 02/05/23 04:00 97.4 F L 82 20 98/53 L 1
--- NOTE | 2023-02-05 11:34 | PM.IMPN ---
Progress Note: A&P Assessment and Plan (1) Fall: Code(s): W19.XXXA - Unspecified fall, initial encounter Status: Acute Assessment and Plan: Admit to regular medical floor Fall precautions Bed rest (2) Near syncope: Code(s): R55 - Syncope and collapse Status: Acute Assessment and Plan: Patient is over diuresed Diuresis on hold. Renal failure worsening Continue IV fluid Nephrology consultation for renal failure (3) Acute kidney injury superimposed on CKD: Code(s): N17.9 - Acute kidney failure, unspecified; N18.9 - Chronic kidney disease, unspecified Status: Acute Assessment and Plan: Likely secondary to diuretics Component of prerenal azotemia as well Replacing fluids Repeat BMP IV resuscitation now renal failure improving (4) Bimalleolar fracture of right ankle: Qualifiers: Encounter type: initial encounter Fracture type: closed Qualified Code(s): S82.841A - Displaced bimalleolar fracture of right lower leg, initial encounter for closed fracture Code(s): S82.841A - Displaced bimalleolar fracture of right lower leg, initial encounter for closed fracture Status: Acute Assessment and Plan: Status post reduction and immobilization Ortho consulted Pain management (5) Morbid obesity with BMI of 50.0-59.9, adult: Code(s): E66.01 - Morbid (severe) obesity due to excess calories; Z68.43 - Body mass index [BMI] 50.0-59.9, adult Status: Acute Assessment and Plan: Had gastric bypass Calorie restricted diet Follow-up in outpatient setting (6) Fibromyalgia: Code(s): M79.7 - Fibromyalgia Status: Acute Assessment and Plan: Continue home meds Plan Confusion likely due to hypercapnia and respiratory acidosis Acute hypercapnic respiratory failure started on BiPAP. ABG still with hypercapnia even with multiple adjustments. Will consult Pulmonary for BiPAP management and respiratory acidosis. Alert and oriented x3 despite ABGs. Continue continuous BiPAP for now. Pulmonary edema will give dose of Lasix today. Subjective Date/time seen: 02/05/23 11:34 Interval history: patient currently on BiPAP. ABGs reviewed. Overnight adjustment of BiPAP Review of Systems Review of Systems: All systems reviewed & are unremarkable except as noted in HPI and below Exam Narrative: GENERAL: Well-appearing, well-nourished, and in no acute distress. HEAD: Normocephalic, atraumatic. EYES: PERRLA and EOMI. On BiPAP ENT: Nares clear, no rhinorrhea or epistaxis.? Mucous membranes moist. NECK: Supple. Nontender CHEST: Diminished breath sounds bilaterally no respiratory distress. HEART: Regular rate and rhythm.? No murmur heard.? Normal peripheral pulses. ABDOMEN: Soft, nontender, nondistended, normal active bowel sounds. EXTREMITIES: Normal range of motion in all extremities except right ankle with splint in place SKIN: Warm, dry, no rash. NEURO: No focal deficits.? Alert and oriented x3. Moving all extremities PSYCH: Normal mood and affect. Objective Data Vital Signs Vital Signs: Vital Signs - 24 hr 02/04/23 11:45 02/04/23 13:54 02/04/23 14:00 Temperature 97.1 F L Pulse Rate 92 97 Respiratory Rate 15 15 19 Blood Pressure 148/72 H Pulse Oximetry 96 99 Oxygen Delivery BiPAP BiPAP Fraction of Inspired Oxygen 02/04/23 17:20 02/04/23 16:50 02/04/23 18:45 Temperature 97.9 F Pulse Rate 89 88 Respiratory Rate 21 H 20 20 Blood Pressure 107/62 Pulse Oximetry 95 Oxygen Delivery BiPAP Fraction of Inspired Oxygen 02/04/23 18:31 02/04/23 19:12 02/04/23 16:00 Temperature 98.2 F Pulse Rate 89 Respiratory Rate 20 12 Blood Pressure 103/63 Pulse Oximetry 99 Oxygen Delivery BiPAP BiPAP Fraction of Inspired Oxygen 40 02/04/23 18:00 02/04/23 21:46 02/04/23 22:00 Temperature Pulse Rate 89 96 Respiratory Rate 14 22 H Blood Pressure Pulse Oximetry
[2023-02-05] MEDS: BUDESONIDE RESPULE NEB 0.5 MG/2 ML AMP INHALATION ×2 (13:06→20:30)
[2023-02-05] MEDS: IPRATROPIUM BR 0.02% INH SOLN 0.5 MG/2.5 ML VIAL INHALATION ×3 (13:06→20:30)
[2023-02-05] MEDS: ALBUTEROL SULFATE NEB 2.5 MG/3 ML INH INHALATION ×3 (13:06→20:30)
[2023-02-05] MEDS: ACETAMINOPHEN 325 MG TABLET 650 MG PO (13:43)
[2023-02-05] MEDS: PANTOPRAZOLE SODIUM IV 40 MG VIAL IV PUSH (21:50)
[2023-02-05 22:06] LABS: Glucose Point of Care 206 mg/dl (65-105)
[2023-02-06] VITALS (26 sets, daily range): BP systolic 116–156; BP diastolic 65–89; PULSE 65–96; RESP 12–23; TEMP 36.2–36.7; O2SAT 94–99
[2023-02-06] MEDS: ALBUTEROL SULFATE NEB 2.5 MG/3 ML INH INHALATION ×5 (04:18→20:39)
[2023-02-06] MEDS: IPRATROPIUM BR 0.02% INH SOLN 0.5 MG/2.5 ML VIAL INHALATION ×5 (04:18→20:40)
[2023-02-06 04:31] LABS: Alveolar/Arterial O2 Gradient 103.7 mmHg; Base Excess ABG 2.8 mEq/l (+/-2.0); Fractional Inspired Oxygen 32 %; HCO3 ABG 28.6 mEq/l (22.0-26.0); Oxygen Content ABG 16.6 %vol (16.0-22.0); Oxygen Saturation ABG 93.1 % (95.0-100.0); Oxyhemoglobin 92.6 % THb (90.0-100.0); PCO2 ABG 48.5 mmHg (35.0-45.0); PO2 ABG 67.7 mmHg (80.0-100.0); PO2 FiO2 Ratio Arterial Blood 2.12 %; Total Hemoglobin 12.7 g/dL (12.0-18.0); pH ABG 7.388 (7.350-7.450)
[2023-02-06 04:32] LABS: Device BIPAP; Modified Allen's Test Pass; Site Drawn LEFT RADIAL
[2023-02-06 04:33] LABS: Expiratory Pressure 8 cmH2O; Inspiratory Pressure 500 cmH2O
[2023-02-06] MEDS: BUDESONIDE RESPULE NEB 0.5 MG/2 ML AMP INHALATION ×2 (07:38→20:40)
[2023-02-06 07:45] LABS: Basophils Percent Auto 0.2 % (0.2-1.2); Eosinophils Percent Auto 0.2 % (0-4.4); Hematocrit 36.7 % (37.0-47.0); Hemoglobin 11.3 g/dL (12.0-15.0); Immature Granulocyte Absolute 0.05 K/mm3 (0.00-0.031); Immature Granulocyte Percent A 0.6 % (0-0.5); Lymphocytes Absolute Auto 0.87 K/mm3 (0.9-3.2); Lymphocytes Percent Auto 9.9 % (18.3-44.2); Mean Corpuscular HGB Conc 30.8 g/dl (32-36); Mean Corpuscular Volume 81.2 fl (80-100); Mean Platelet Volume 12.7 fl (7.4-10.4); Monocytes Absolute Auto 0.9 K/mm3 (0.1-0.6); Monocytes Percent Auto 10.2 % (2.6-8.5); Neutrophils Percent Auto 78.9 % (45.5-73.1); Platelet Count Result 188 k/mm3 (150-375); Red Blood Count 4.52 M/mm3 (4.2-5.4); Red Cell Distribution Width 15.3 % (11.5-14.5); White Blood Count 8.8 K/mm3 (4.5-10.0)
--- NOTE | 2023-02-06 08:05 | ECHO_ITS ---
Patient Info Name: Tati Pendleton Age: 57 years : 1965 Gender: Female Ht: 66 in Wt: 322 lbs BSA: 2.70 m2 HR: 80 bpm BP: 148 / 51 mmHg Heart Rhythm: Sinus Rhythm Technical Quality: Fair Exam Date: 02/06/2023 10:41 AM [facility]: [facility] Patient Status: Inpatient Admit Date: 02/03/2023 Staff Ordering Physician: Lei Camilo MD Attending Provider: Darien Eli MD Referring Physician: Ton GALLAGHER; Exam Type: CA echo dop color flow w con Study Info Indications - FLUID OVERLOAD ASSESS LV RV FUNCTION Complete two-dimensional, color flow and Doppler transthoracic echocardiogram is performed with contrast to opacify the left ventricle and to improve the deliniation of the left ventricle endocardial borders. Contrast/Agitated Saline Contrast/Ag. Saline: Definity Amount: 2.00 ml Administered By: Tracy Cheung Existing IV Access: Yes Summary 1. Technically difficult exam because of obesity. 2. Definity contrast injected to improve visualization. 3. Normal left ventricular size and systolic function with grade 1 diastolic noncompliance. 4. Right ventricle appears somewhat enlarged in hypodynamic but again not ideally visualized. 5. No significant valvular dysfunction. 6. Small amount of TR, estimated RV systolic pressure is 42 mmHg. Left Ventricle Left ventricular chamber dimension is normal. Left ventricular systolic function is normal, estimated at 60-65%. The left ventricular diastolic function is grade I diastolic dysfunction. Right Ventricle Right ventricular chamber dimension is mildly enlarged. Right ventricular systolic function is reduced. Left Atria Left atrial chamber dimension is normal. Right Atria Right atrial chamber dimension is not well visualized. Aortic Valve The aortic valve is normal. Pulmonic Valve The pulmonic valve is not well visualized. Mitral Valve The mitral valve has normal leaflets. Tricuspid Valve The tricuspid valve leaflets are not well visualized. There is mild tricuspid valve regurgitation. Mild pulmonary hypertension, estimated pulmonary arterial systolic pressure is 43 mmHg. Pericardium/Pleural The pericardium appears normal. Aorta The aortic root size at the sinus of Valsalva is normal. Left Ventricular Outflow Tract Name Value Normal LVOT 2D LVOT Diameter 2.10 cm LVOT Doppler LVOT Peak Gradient 4 mmHg LVOT Mean Gradient 3 mmHg LVOT VTI 25.22 cm LVOT VTI/AV VTI Ratio 0.98 LVOT Stroke Volume 87.67 ml LVOT CO 16.86 l/min LVOT CI 6.25 L/min/m2 Pulmonic Valve Name Value Normal PV Doppler PV Peak Gradient 5 mmHg Mitral Valve
[2023-02-06 08:09] LABS: Alanine Aminotransferase 16 U/L (6-35); Albumin Level 3.9 g/dL (3.5-5.1); Alkaline Phosphatase 89 U/L (38-126); Anion Gap 9 mmol/L (8-16); Aspartate Amino Transferase 33 U/L (14-36); Bilirubin,Total 0.6 mg/dL (0.2-1.3); Blood Urea Nitrogen 55 mg/dL (7-17); Calcium 9.3 mg/dL (8.4-10.2); Carbon Dioxide 29 mmol/L (22-30); Chloride 101 mmol/L (98-107); Estimated CRCL calculation 36 ml/min; Estimated Glomerular Filt Rate 26; Glucose 105 mg/dL (65-110); Potassium 3.8 mmol/L (3.4-5.0); Sodium 139 mmol/L (137-145)
[2023-02-06 09:13] LABS: Free T4 Free Thyroxine 0.83 ng/mL (0.78-2.19)
[2023-02-06] MEDS: PANTOPRAZOLE SODIUM IV 40 MG VIAL IV PUSH ×2 (09:57→20:03)
[2023-02-06] MEDS: ACETAMINOPHEN 325 MG TABLET 650 MG PO (09:57)
[2023-02-06] MEDS: TIMOLOL MALEATE 0.5% OP SOLN 5 ML BOTTLE 1 DROP EACH EYE (09:57)
--- NOTE | 2023-02-06 10:13 | P.PNNP_ITS ---
Progress Note: A&P Assessment and Plan (1) Acute kidney injury: Code(s): N17.9 - Acute kidney failure, unspecified Status: Acute Assessment and Plan: * slow improvement noted * as noted by admission labs and this AM * etiology? 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 [employer]) * urine eosinophils negative * CPK mildly elevated (989) - follow trend * mild proteinuria * UA suggestive of UTI * holding KEN-I and NSAIDs * given CXR findings, PRN IV diuretic therapy (2) Chronic kidney disease, stage 3: Code(s): N18.30 - Chronic kidney disease, stage 3 unspecified Status: Chronic Assessment and Plan: * baseline creatinine seems to run around 1.4 - 1.5mg/dl (as of December 2022) * this causes her to fluctuate between CKD stage 3A and 3B * presumably due to HTN, DM, and vascular disease along with necessity of diuretics (3) Urinary tract infection: Code(s): N39.0 - Urinary tract infection, site not specified Status: Acute Assessment and Plan: * admission UA suggestive * urine culture with GNB * on antibiotics (4) Bimalleolar fracture of right ankle: Qualifiers: Encounter type: subsequent encounter Fracture healing: with routine healing Fracture type: closed Qualified Code(s): S82.841D - Displaced bimalleolar fracture of right lower leg, subsequent encounter for closed fracture with routine healing Code(s): S82.841A - Displaced bimalleolar fracture of right lower leg, initial encounter for closed fracture Status: Acute Assessment and Plan: * reduced and splinted in ER * Orthopedics following * surgical intervention when more stable (5) Fall: Code(s): W19.XXXA - Unspecified fall, initial encounter Status: Acute Assessment and Plan: * fall precautions * PT/OT as tolerated (6) Hypertension: Code(s): I10 - Essential (primary) hypertension Status: Chronic Assessment and Plan: * better readings currently * follow hemodynamics * holding KEN-I (7) Obesity hypoventilation syndrome: Code(s): E66.2 - Morbid (severe) obesity with alveolar hypoventilation Status: Chronic Assessment and Plan: * evidence of hypercapnea by ABG * BiPAP.non-invasive ventilation as needed * follow respiratory status and mentation * Pulmonary recommendations noted Will continue to follow. Subjective Date/time seen: 02/06/23 10:13 Interval history: Follow-up for acute kidney injury/acute renal failure on chronic kidney disease. Respiratory status continues to improve with ongoing interventions/therapy; in spite of use of IV diuretics yesterday for fluid overload, renal function is g etting better as well; however, repeat CXR this AM still with evidence of pulmonary vascular congestion; no other acute issues/events overnight or earlier this AM. Exam Narrative: General: Large female in NAD Heart: normal S1 and S2; no rub Lungs: diminished at the bases Abdomen: soft, nontender, nondistended, positive bowel sounds Extremities: no cyanosis or clubbing; no edema Skin: warm and intact Objective Data Vital Signs Vital Signs:
--- NOTE | 2023-02-06 10:13 | PM.PNNEP ---
Progress Note: A&P Assessment and Plan (1) Acute kidney injury: Code(s): N17.9 - Acute kidney failure, unspecified Status: Acute Assessment and Plan: slow improvement noted as noted by admission labs and this AM etiology? 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[employer]) urine eosinophils negative CPK mildly elevated (989) - follow trend mild proteinuria UA suggestive of UTI holding KEN-I and NSAIDs given CXR findings, PRN IV diuretic therapy (2) Chronic kidney disease, stage 3: Code(s): N18.30 - Chronic kidney disease, stage 3 unspecified Status: Chronic Assessment and Plan: baseline creatinine seems to run around 1.4 - 1.5mg/dl (as of December 2022) this causes her to fluctuate between CKD stage 3A and 3B presumably due to HTN, DM, and vascular disease along with necessity of diuretics (3) Urinary tract infection: Code(s): N39.0 - Urinary tract infection, site not specified Status: Acute Assessment and Plan: admission UA suggestive urine culture with GNB on antibiotics (4) Bimalleolar fracture of right ankle: Qualifiers: Encounter type: subsequent encounter Fracture healing: with routine healing Fracture type: closed Qualified Code(s): S82.841D - Displaced bimalleolar fracture of right lower leg, subsequent encounter for closed fracture with routine healing Code(s): S82.841A - Displaced bimalleolar fracture of right lower leg, initial encounter for closed fracture Status: Acute Assessment and Plan: reduced and splinted in ER Orthopedics following surgical intervention when more stable (5) Fall: Code(s): W19.XXXA - Unspecified fall, initial encounter Status: Acute Assessment and Plan: fall precautions PT/OT as tolerated (6) Hypertension: Code(s): I10 - Essential (primary) hypertension Status: Chronic Assessment and Plan: better readings currently follow hemodynamics holding KEN-I (7) Obesity hypoventilation syndrome: Code(s): E66.2 - Morbid (severe) obesity with alveolar hypoventilation Status: Chronic Assessment and Plan: evidence of hypercapnea by ABG BiPAP.non-invasive ventilation as needed follow respiratory status and mentation Pulmonary recommendations noted Will continue to follow. Subjective Date/time seen: 02/06/23 10:13 Interval history: Follow-up for acute kidney injury/acute renal failure on chronic kidney disease. Respiratory status continues to improve with ongoing interventions/therapy; in spite of use of IV diuretics yesterday for fluid overload, renal function is getting better as well; however, repeat CXR this AM still with evidence of pulmonary vascular congestion; no other acute issues/events overnight or earlier this AM. Exam Narrative: General: Large female in NAD Heart: normal S1 and S2; no rub Lungs: diminished at the bases Abdomen: soft, nontender, nondistended, positive bowel sounds Extremities: no cyanosis or clubbing; no edema Skin: warm and intact Objective Data Vital Signs Vital Signs: Vital Signs Temp Pulse Resp BP Pulse Ox O2 Del Method O2 Flow Rate 02/06/23 08:00 87 02/06/23 08:00 86 18 02/06/23 07:50 97.2 F L 89 12 149/81 H 95 02/06/23 07:38 90 16 02/06/23 07:38 94 Nasal Cannula 3 02/06/23 06:00 87 02/06/23 04:00 97.6 F 78 20 131/65 96 02/06/23 04:00 88 02/06/23 02:00 80 02/06/23 04:00 98 BiPAP 02/06/23 04:38 92 20 02/06/23 04:18 96 20 02/06/23 02:38 80 23 H 98 BiPAP 02/06/23 00:00 98 BiPAP
[2023-02-06] MEDS: PERFLUTREN LIPID MICROSPHERES 1.5 ML VIAL DILUTED TO 10 ML TOTAL VOLUME IV PUSH (11:15)
--- NOTE | 2023-02-06 11:50 | PM.PNPUL ---
Progress Note: A&P Assessment and Plan (1) Obesity hypoventilation syndrome: Code(s): E66.2 - Morbid (severe) obesity with alveolar hypoventilation Status: Acute Assessment and Plan: 02/05 Patient with morbid obesity, BMI 52.1, serum bicarbonate on 12/15/2022 was 36 and 02/03/2023 with acute kidney injury a serum bicarb of 31. First ABG this admission on 1 L nasal cannula 7./. Patient is on levothyroxine with a TSH on 02/05/23 that is normal at 0.471 and a free T4 of 0.83 that is normal. The patient likely has obesity hypoventilation syndrome, but was also receiving narcotics for her broken right ankle and may have some element of pulmonary edema. Will reassess patient after her pulmonary edema has been treated. PLAN: The patient is currently awake and communicative tip of and says that she is feeling better and feels she could come off the noninvasive ventilator. She did not tolerate the BiPAP and I have adjusted her settings to noninvasive ventilation with the AVAPS mode rate of 20, tidal volume 500, EPAP 8, minimal inspiratory pressure 9, maximal inspiratory pressure 30, inspiratory time 1.0, rise of 5 and 32% FiO2. Her saturations were 98%. Patient can wear these settings p.r.n. during the day but should wear them at night. I will check an overnight oximetry and an ABG in morning prior to removal. 02/06: The patient wore the noninvasive ventilator last night with the AVAPS with above settings and said that the machine was pushing the air into fast but she was able to sleep with this. Patient had an overnight oximetry on these settings with an average blood oxygen saturation 96%. Low saturation 78%. Time with saturation less than or equal to 88% was 6 minutes. Oxygen desaturation index was 24.9. Patient had ABG prior to removal of these settings with a pH of 7.39/49/68. The current AVAPS settings provide adequate ventilation and she remained with a high oxygen desaturation index and I will increase the EPAP to 10 and increase the minimal inspiratory pressure to 11. She complained of the air being pushed in too fast so I have increased the inspiratory time from 1.0 seconds to 1.2 seconds. She is already on the slowest rise time of 5. Plan: Continue current AVAPS settings and obtain overnight oximetry on 32%. Discussed with Dr. Eli, will follow with you (2) Bimalleolar fracture of right ankle: Qualifiers: Encounter type: initial encounter Fracture type: closed Qualified Code(s): S82.841A - Displaced bimalleolar fracture of right lower leg, initial encounter for closed fracture Code(s): S82.841A - Displaced bimalleolar fracture of right lower leg, initial encounter for closed fracture Status: Acute Assessment and Plan: 02/05: Patient seen by Orthopedic surgery and note states the new radiographs reviewed and show acceptable alignment of the ankle fracture with splint in place. She is indicated for open reduction internal fixation however patient is medically unstable at this time. Continue with conservative care with the splint, elevation, ice and nonweightbearing. Await medical improvement. States her ankle pain is better. Minimize pain medicines as these will suppress her respiratory drive. 02/06: Respiratory status has improved since yesterday with treatment for fluid overload, asthma and hypercarbic respiratory failure with noninvasive ventilation. (3) Asthma: Code(s): J45.909 - Unspecified asthma, uncomplicated Status: Acute Assessment and Plan: 02/05 Patient carries a history of asthma diagnosed 3 months ago by [facility] beauty artist Dr. Shah. I do not have any of these notes. Currently the patient has no wheezing. Patient tells me she had a gastric bypass in 2003. Patient tells me she has obstructive sleep apnea in 2019 diagnosed with a sleep study. She is treated with CPAP 15 and she says that she wears her mask a proximally 2 times a week, LELO smith
--- NOTE | 2023-02-06 11:54 | PM.IMPN ---
Progress Note: A&P Assessment and Plan (1) Fall: Code(s): W19.XXXA - Unspecified fall, initial encounter Status: Acute Assessment and Plan: Admit to regular medical floor Fall precautions Bed rest (2) Near syncope: Code(s): R55 - Syncope and collapse Status: Acute (3) Acute kidney injury superimposed on CKD: Code(s): N17.9 - Acute kidney failure, unspecified; N18.9 - Chronic kidney disease, unspecified Status: Acute Assessment and Plan: Likely secondary to diuretics Component of prerenal azotemia as well Replacing fluids Repeat BMP IV resuscitation now renal failure improving Baseline creatinine 1 (4) Bimalleolar fracture of right ankle: Qualifiers: Encounter type: initial encounter Fracture type: closed Qualified Code(s): S82.841A - Displaced bimalleolar fracture of right lower leg, initial encounter for closed fracture Code(s): S82.841A - Displaced bimalleolar fracture of right lower leg, initial encounter for closed fracture Status: Acute Assessment and Plan: Status post reduction and immobilization Ortho consulted Pain management Plan for surgery once medically stable (5) Morbid obesity with BMI of 50.0-59.9, adult: Code(s): E66.01 - Morbid (severe) obesity due to excess calories; Z68.43 - Body mass index [BMI] 50.0-59.9, adult Status: Acute Assessment and Plan: Had gastric bypass Calorie restricted diet Follow-up in outpatient setting (6) Fibromyalgia: Code(s): M79.7 - Fibromyalgia Status: Acute Assessment and Plan: Continue home meds Plan Confusion likely due to hypercapnia and respiratory acidosis Acute hypercapnic respiratory failure started on BiPAP. ABG still with hypercapnia even with multiple adjustments. Will consult Pulmonary for BiPAP management and respiratory acidosis. Alert and oriented x3 despite ABGs. Continue continuous BiPAP for now. On AVAPS mode with improved ABG this morning. Patient also likely has obesity hypoventilation syndrome and will be reassessed for use of trilogy instead of CPAP at night upon discharge Asthma continue current medication follows with Dr. Waters Pulmonary edema chest x-ray with improving congestion. Will re-dose Lasix today Subjective Date/time seen: 02/06/23 11:54 Interval history: Patient used AVAPS mode overnight. ABG reviewed discussed with Pulmonary. Chest x-ray reviewed. Labs reviewed. Discussed with the patient. Has history of asthma. Not actively wheezing. Also uses oxygen at exertion history of ICU admission due to hypercapnic respiratory failure in August after right shoulder surgery. Echo done in August 2022 looked unremarkable. Review of Systems Review of Systems: All systems reviewed & are unremarkable except as noted in HPI and below Exam Narrative: GENERAL: Well-appearing, well-nourished, and in no acute distress. HEAD: Normocephalic, atraumatic. EYES: PERRLA and EOMI. On nasal cannula oxygen ENT: Nares clear, no rhinorrhea or epistaxis.? Mucous membranes moist. NECK: Supple. Nontender CHEST: Diminished breath sounds bilaterally no respiratory distress. HEART: Regular rate and rhythm.? No murmur heard.? Normal peripheral pulses. ABDOMEN: Soft, nontender, nondistended, normal active bowel sounds. EXTREMITIES: Normal range of motion in all extremities except right ankle with splint in place SKIN: Warm, dry, no rash. NEURO: No focal deficits.? Alert and oriented x3. Moving all extremities PSYCH: Normal mood and affect. Objective Data Vital Signs Vital Signs: Vital Signs - 24 hr 02/05/23 13:07 02/05/23 13:08 02/05/23 13:25 Temperature Pulse Rate 88 89 Respiratory Rate 20 20 Blood Pressure Pulse Oximetry 97 Oxygen Delivery Nasal Cannula Oxygen Flow Rate 3 Fraction of Inspired Oxygen 02/05/23 12:00 02/05/23 16:29 02/05/23 16:17 Temperature 97.7 F Pulse Rate 91 85 8
[2023-02-06] MEDS: FUROSEMIDE INJ 40 MG/4 ML VIAL IV PUSH (13:55)
[2023-02-06 20:18] LABS: Glucose Point of Care 156 mg/dl (65-105)
[2023-02-07] VITALS (29 sets, daily range): BP systolic 146–169; BP diastolic 71–108; PULSE 62–83; RESP 12–20; TEMP 35.8–36.7; O2SAT 92–100
[2023-02-07] MEDS: IPRATROPIUM BR 0.02% INH SOLN 0.5 MG/2.5 ML VIAL INHALATION ×6 (00:01→23:44)
[2023-02-07] MEDS: ALBUTEROL SULFATE NEB 2.5 MG/3 ML INH INHALATION ×6 (00:01→23:44)
[2023-02-07] MEDS: ONDANSETRON INJ 4 MG/2 ML VIAL IV PUSH ×5 (02:36→22:11)
[2023-02-07] MEDS: CEPHALEXIN 500 MG CAPSULE PO ×2 (02:39→14:15)
--- NOTE | 2023-02-07 04:08 | PCRCNOTE ---
Pt has vomited and continues to feel nauseous. Bipap was taken off the pt at approx 0200 due to this
[2023-02-07 05:51] LABS: Base Excess ABG 4.6 mEq/l (+/-2.0); Fractional Inspired Oxygen 32 %; Oxygen Content ABG 17.7 %vol (16.0-22.0); Oxyhemoglobin 94.7 % THb (90.0-100.0); PCO2 ABG 37.4 mmHg (35.0-45.0); PO2 ABG 74.4 mmHg (80.0-100.0); PO2 FiO2 Ratio Arterial Blood 2.33 %; Total Hemoglobin 13.3 g/dL (12.0-18.0); pH ABG 7.492 (7.350-7.450)
[2023-02-07 05:52] LABS: Site Drawn RIGHT BRACHIAL
[2023-02-07 05:53] LABS: Modified Allen's Test Pass
[2023-02-07 05:54] LABS: Device NASAL CANNULA
[2023-02-07 06:00] LABS: Basophils Absolute Auto 0.1 K/mm3 (0.0-0.1); Basophils Percent Auto 0.6 % (0.2-1.2); Eosinophils Absolute Auto 0.1 K/mm3 (0-0.3); Eosinophils Percent Auto 0.7 % (0-4.4); Hematocrit 41.6 % (37.0-47.0); Immature Granulocyte Absolute 0.05 K/mm3 (0.00-0.031); Immature Granulocyte Percent A 0.6 % (0-0.5); Immature Platelet Fraction Pct 11.2 % (0.9-11.2); Lymphocytes Absolute Auto 1.13 K/mm3 (0.9-3.2); Lymphocytes Percent Auto 13.4 % (18.3-44.2); Mean Corpuscular HGB Conc 31.3 g/dl (32-36); Mean Corpuscular Hemoglobin 25.2 pg (26-34); Mean Corpuscular Volume 80.8 fl (80-100); Mean Platelet Volume 12.7 fl (7.4-10.4); Monocytes Absolute Auto 0.7 K/mm3 (0.1-0.6); Monocytes Percent Auto 8.8 % (2.6-8.5); Neutrophils Absolute Auto 6.4 K/mm3 (1.3-6.7); Neutrophils Percent Auto 75.9 % (45.5-73.1); Platelet Count Result 178 k/mm3 (150-375); Red Blood Count 5.15 M/mm3 (4.2-5.4); Red Cell Distribution Width 14.9 % (11.5-14.5); White Blood Count 8.4 K/mm3 (4.5-10.0)
[2023-02-07 06:11] LABS: Alanine Aminotransferase 18 U/L (6-35); Albumin Level 4.1 g/dL (3.5-5.1); Alkaline Phosphatase 82 U/L (38-126); Anion Gap 8 mmol/L (8-16); Aspartate Amino Transferase 36 U/L (14-36); Bilirubin,Total 0.8 mg/dL (0.2-1.3); Blood Urea Nitrogen 45 mg/dL (7-17); Calcium 9.5 mg/dL (8.4-10.2); Carbon Dioxide 28 mmol/L (22-30); Chloride 101 mmol/L (98-107); Estimated CRCL calculation 54 ml/min; Estimated Glomerular Filt Rate 43; Glucose 123 mg/dL (65-110); Magnesium 1.8 mg/dL (1.6-2.3); Sodium 137 mmol/L (137-145)
[2023-02-07] MEDS: SODIUM CHLORIDE 0.9% IV 1,000 ML 75 ML IV CONT (06:56)
[2023-02-07] MEDS: BUDESONIDE RESPULE NEB 0.5 MG/2 ML AMP INHALATION ×2 (09:32→19:15)
--- NOTE | 2023-02-07 09:38 | PM.PNPUL ---
Progress Note: A&P Assessment and Plan (1) Obesity hypoventilation syndrome: Code(s): E66.2 - Morbid (severe) obesity with alveolar hypoventilation Status: Acute Assessment and Plan: 02/05 Patient with morbid obesity, BMI 52.1, serum bicarbonate on 12/15/2022 was 36 and 02/03/2023 with acute kidney injury a serum bicarb of 31. First ABG this admission on 1 L nasal cannula 7./. Patient is on levothyroxine with a TSH on 02/05/23 that is normal at 0.471 and a free T4 of 0.83 that is normal. The patient likely has obesity hypoventilation syndrome, but was also receiving narcotics for her broken right ankle and may have some element of pulmonary edema. Will reassess patient after her pulmonary edema has been treated. PLAN: The patient is currently awake and communicative tip of and says that she is feeling better and feels she could come off the noninvasive ventilator. She did not tolerate the BiPAP and I have adjusted her settings to noninvasive ventilation with the AVAPS mode rate of 20, tidal volume 500, EPAP 8, minimal inspiratory pressure 9, maximal inspiratory pressure 30, inspiratory time 1.0, rise of 5 and 32% FiO2. Her saturations were 98%. Patient can wear these settings p.r.n. during the day but should wear them at night. I will check an overnight oximetry and an ABG in morning prior to removal. 02/06: The patient wore the noninvasive ventilator last night with the AVAPS with above settings and said that the machine was pushing the air into fast but she was able to sleep with this. Patient had an overnight oximetry on these settings with an average blood oxygen saturation 96%. Low saturation 78%. Time with saturation less than or equal to 88% was 6 minutes. Oxygen desaturation index was 24.9. Patient had ABG prior to removal of these settings with a pH of 7.39/49/68. The current AVAPS settings provide adequate ventilation and she remained with a high oxygen desaturation index and I will increase the EPAP to 10 and increase the minimal inspiratory pressure to 11. She complained of the air being pushed in too fast so I have increased the inspiratory time from 1.0 seconds to 1.2 seconds. She is already on the slowest rise time of 5. Plan: Continue current AVAPS settings and obtain overnight oximetry on 32%. 02/07 the patient tells me she is breathing back to normal. She has some chills associated with her vomiting. She is coughing up some clear yellow phlegm but denies fever or wheezing. Room air saturations 94%. Patient wore her noninvasive ventilator last night until 2:00 a.m. when she had vomiting. She said that she did well with this. Patient had an overnight oximetry on the noninvasive ventilator with the AVAPS mode with an average until 2:00 a.m. and then 3 L nasal cannula after that. Her saturations were 97% average, low saturation 76%. Time with saturation less than or equal to 88% was 3 minutes, her oxygen desaturation index was 4.5. Plan: The patient did well with a noninvasive ventilator until 2:00 a.m. and then had some vomiting and did well after that on 3 L nasal cannula and her overnight oximetry was could on the noninvasive ventilator and on 3 L nasal cannula. I told her tonight if she has continued nausea not to wear the noninvasive ventilator or CPAP. She should wear [address] with Dr. Miranda, will follow with you (2) Bimalleolar fracture of right ankle: Qualifiers: Encounter type: initial encounter Fracture type: closed Qualified Code(s): S82.841A - Displaced bimalleolar fracture of right lower leg, initial encounter for closed fracture Code(s): S82.841A - Displaced bimalleolar fracture of right lower leg, initial encounter for closed fracture Status: Acute Assessment and Plan: 02/05: Patient seen by Orthopedic surgery and note states the new radiographs reviewed and show acceptable alignment of the ankle fracture with splint in place. She is indicated
--- NOTE | 2023-02-07 09:50 | PM.PNNEP ---
Progress Note: A&P Assessment and Plan (1) Acute kidney injury: Code(s): N17.9 - Acute kidney failure, unspecified Status: Acute Assessment and Plan: slow improvement noted as noted by admission labs and this AM etiology? 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 negative CPK mildly elevated (989) - follow trend mild proteinuria UA suggestive of UTI holding KEN-I and NSAIDs given CXR findings, PRN IV diuretic therapy (2) Chronic kidney disease, stage 3: Code(s): N18.30 - Chronic kidney disease, stage 3 unspecified Status: Chronic Assessment and Plan: baseline creatinine seems to run around 1.4 - 1.5mg/dl (as of December 2022) this causes her to fluctuate between CKD stage 3A and 3B presumably due to HTN, DM, and vascular disease along with necessity of diuretics (3) Urinary tract infection: Code(s): N39.0 - Urinary tract infection, site not specified Status: Acute Assessment and Plan: admission UA suggestive urine culture with Klebsiella on antibiotics (4) Bimalleolar fracture of right ankle: Qualifiers: Encounter type: subsequent encounter Fracture healing: with routine healing Fracture type: closed Qualified Code(s): S82.841D - Displaced bimalleolar fracture of right lower leg, subsequent encounter for closed fracture with routine healing Code(s): S82.841A - Displaced bimalleolar fracture of right lower leg, initial encounter for closed fracture Status: Acute Assessment and Plan: reduced and splinted in ER Orthopedics following surgical intervention soon (given improvement in medical status) (5) Fall: Code(s): W19.XXXA - Unspecified fall, initial encounter Status: Acute Assessment and Plan: fall precautions PT/OT as tolerated (6) Hypertension: Code(s): I10 - Essential (primary) hypertension Status: Chronic Assessment and Plan: appears to be getting back to baseline follow hemodynamics holding KEN-I at this time may need another BP agent if BP keeps rising (versus restarting ramipril) (7) Obesity hypoventilation syndrome: Code(s): E66.2 - Morbid (severe) obesity with alveolar hypoventilation Status: Chronic Assessment and Plan: resolved/resolving evidence of hypercapnea by ABG on admission BiPAP/non-invasive ventilation as needed follow respiratory status and mentation Pulmonary recommendations noted Will continue to follow. Subjective Date/time seen: 02/07/23 09:50 Interval history: Follow-up for acute kidney injury/acute renal failure on chronic kidney disease. Breathing/respiratory status continues to improve if not back to baseline - on room air with adequate oxygenation; renal function also better if not close/back to baseline despite IV diuretic therapy to optimize fluid status; no apparent distress voiced at the time of my visit. Exam Narrative: General: Large female in NAD Heart: normal S1 and S2; no rub Lungs: diminished at the bases Abdomen: soft, nontender, nondistended, positive bowel sounds Extremities: no cyanosis or clubbing; no edema Skin: no rash Objective Data Vital Signs Vital Signs: Vital Signs Temp Pulse Resp BP Pulse Ox O2 Del Method O2 Flow Rate 02/07/23 09:49 63 18 02/07/23 09:35 70 18 02/07/23 09:35 94 Room Air 02/07/23 07:56 98.1 F 70 14 169/99 H 93 02/07/23 06:00 69 02/07/23 04:00 73 02/07/23 04:00 97.8 F 73 20 146/71 H 97 02/07/23 02:49 72 18 100 Nasal Cannula 3 02/07/23 04:00 100 BiPAP 3 02/07/23 04:06 72
--- NOTE | 2023-02-07 09:50 | P.PNNP_ITS ---
Progress Note: A&P Assessment and Plan (1) Acute kidney injury: Code(s): N17.9 - Acute kidney failure, unspecified Status: Acute Assessment and Plan: * slow improvement noted * as noted by admission labs and this AM * etiology? 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) * urine eosinophils negative * CPK mildly elevated (989) - follow trend * mild proteinuria * UA suggestive of UTI * holding KEN-I and NSAIDs * given CXR findings, PRN IV diuretic therapy (2) Chronic kidney disease, stage 3: Code(s): N18.30 - Chronic kidney disease, stage 3 unspecified Status: Chronic Assessment and Plan: * baseline creatinine seems to run around 1.4 - 1.5mg/dl (as of December 2022) * this causes her to fluctuate between CKD stage 3A and 3B * presumably due to HTN, DM, and vascular disease along with necessity of diuretics (3) Urinary tract infection: Code(s): N39.0 - Urinary tract infection, site not specified Status: Acute Assessment and Plan: * admission UA suggestive * urine culture with Klebsiella * on antibiotics (4) Bimalleolar fracture of right ankle: Qualifiers: Encounter type: subsequent encounter Fracture healing: with routine he aling Fracture type: closed Qualified Code(s): S82.841D - Displaced bimalleolar fracture of right lower leg, subsequent encounter for closed fractur e with routine healing Code(s): S82.841A - Displaced bimalleolar fracture of right lower leg, initial encounter for closed fracture Status: Acute Assessment and Plan: * reduced and splinted in ER * Orthopedics following * surgical intervention soon (given improvement in medical status) (5) Fall: Code(s): W19.XXXA - Unspecified fall, initial encounter Status: Acute Assessment and Plan: * fall precautions * PT/OT as tolerated (6) Hypertension: Code(s): I10 - Essential (primary) hypertension Status: Chronic Assessment and Plan: * appears to be getting back to baseline * follow hemodynamics * holding KEN-I at this time * may need another BP agent if BP keeps rising (versus restarting ramipril) (7) Obesity hypoventilation syndrome: Code(s): E66.2 - Morbid (severe) obesity with alveolar hypoventilation Status: Chronic Assessment and Plan: * resolved/resolving * evidence of hypercapnea by ABG on admission * BiPAP/non-invasive ventilation as needed * follow respiratory status and mentation * Pulmonary recommendations noted Will continue to follow. Subjective Date/time seen: 02/07/23 09:50 Interval history: Follow-up for acute kidney injury/acute renal failure on chronic kidney disease. Breathing/respiratory status continues to improve if not back to baseline - on room air with adequate oxygenation; renal function also better if not close/back to baseline despite IV diuretic therapy to optimize fluid status; no apparent distress voiced at the time of my visit. Exam Narrative: General: Large female in NAD Heart: normal S1 and S2; no rub Lungs: diminished at the bases Abdomen: soft, nontender, nondistended, positive bowel sounds Extremities: no cyanosis or clubbing
[2023-02-07] MEDS: PANTOPRAZOLE SODIUM IV 40 MG VIAL IV PUSH ×2 (10:04→20:26)
[2023-02-07] MEDS: TIMOLOL MALEATE 0.5% OP SOLN 5 ML BOTTLE 1 DROP EACH EYE (10:04)
--- NOTE | 2023-02-07 12:52 | PM.PNORT ---
Progress Note: A&P Assessment and Plan (1) Bimalleolar fracture of right ankle: Qualifiers: Encounter type: initial encounter Fracture type: closed Qualified Code(s): S82.841A - Displaced bimalleolar fracture of right lower leg, initial encounter for closed fracture Code(s): S82.841A - Displaced bimalleolar fracture of right lower leg, initial encounter for closed fracture Status: Acute Assessment and Plan: splint in place. Right ankle fracture. Awaiting medical clearance. Continue with edema control, pain control and conservative care. Subjective Subjective Date/Time Seen: 02/07/23 12:52 Principal diagnosis: Right ankle fracture Interval history: No new complaints Exam Neuro: General: patient oriented x3 and No confusion Cranial nerves: Yes Normal hearing present Extrem: General: capillary refill normal Right upper extremity: normal to inspection Left upper extremity: normal to inspection Right lower extremity: hip/thigh Details: no tenderness, knee Details: abnormal ROM ( Knee range of motion deferred secondary to fracture); no tenderness and no swelling, ankle Details: tenderness Location: of the lateral malleolus and anteromedially, swelling ( moderate) Details: laterally and medially, abnormal ROM Details: pain with active ROM and ecchymosis ( moderate diffusely ankle) and foot Details: vascular exam Details: dorsalis pedis pulse present and normal capillary refill, tendon exam (intact, able to flex and extend toes) and motor-sensory exam Details: light-touch normal Location: in all toes Left lower extremity: normal to inspection, hip/thigh Details: normal to inspection, knee Details: normal to inspection, ankle Details: normal to inspection and normal ROM ( Active flexion and extension intact); no tenderness and no swelling and foot Details: vascular exam Details: dorsalis pedis pulse present and normal capillary refill, tendon exam active flexion normal and active flexion abnormal and motor-sensory exam light-touch normal; no tenderness Objective Data Vital Signs Vital Signs: Vital Signs - 24 hr 02/06/23 14:00 02/06/23 15:55 02/06/23 16:12 Temperature Pulse Rate 73 75 81 Respiratory Rate 16 16 Blood Pressure Pulse Oximetry Oxygen Delivery Oxygen Flow Rate Fraction of Inspired Oxygen 02/06/23 16:00 02/06/23 16:00 02/06/23 16:00 Temperature 97.6 F Pulse Rate 75 75 Respiratory Rate 14 Blood Pressure 156/89 H Pulse Oximetry 95 95 Oxygen Delivery Nasal Cannula Oxygen Flow Rate 3 Fraction of Inspired Oxygen 02/06/23 18:00 02/06/23 20:00 02/06/23 20:00 Temperature 98.0 F Pulse Rate 73 70 Respiratory Rate 20 Blood Pressure 145/79 H Pulse Oximetry 97 97 Oxygen Delivery Nasal Cannula Oxygen Flow Rate 3 Fraction of Inspired Oxygen 02/06/23 20:42 02/06/23 23:09 02/06/23 20:00 Temperature 97.8 F Pulse Rate 65 68 69 Respiratory Rate 18 20 Blood Pressure 137/72 Pulse Oximetry 98 Oxygen Delivery Oxygen Flow Rate Fraction of Inspired Oxygen 02/06/23 22:00 02/06/23 21:45 02/06/23 20:52 Temperature Pulse Rate 71 71 66 Respiratory Rate 21 H 18 18 Blood Pressure Pulse Oximetry 99 99 Oxygen Delivery BiPAP Nasal Cannula Oxygen Flow Rate 3 Fraction of Inspired Oxygen 02/06/23 22:00 02/07/23 00:03 02/07/23 00:12 Temperature Pulse Rate 69 65 73 Respiratory Rate 18 18 Blood Pressure Pulse Oximetry Oxygen Delivery Oxygen Flow Rate Fraction of Inspired Oxygen 02/07/23 00:00 02/07/23 00:00 02/07/23 01:15 Temperature Pulse Rate 64 70 Respiratory Rate 20 Blood Pressure Pulse Oximetry 98 100 Oxygen Delivery BiPAP BiPAP Oxygen Flow Rate 3 Fraction of Inspired Oxygen 02/07/23 02:00 02/07/23 03:57 02/07/23 04:06 Temperature Pulse Rate 65 65 72 Respiratory Rate 18 18 Blood Pressure Pulse Oximetry Oxygen Delivery Oxyg
[2023-02-07] MEDS: FUROSEMIDE INJ 40 MG/4 ML VIAL IV PUSH (14:15)
--- NOTE | 2023-02-07 17:31 | WPDPN ---
Progress Note: A&P Assessment and Plan (1) Fall: Code(s): W19.XXXA - Unspecified fall, initial encounter Status: Acute Assessment and Plan: Admit to regular medical floor Fall precautions Bed rest (2) Near syncope: Code(s): R55 - Syncope and collapse Status: Acute (3) Acute kidney injury superimposed on CKD: Code(s): N17.9 - Acute kidney failure, unspecified; N18.9 - Chronic kidney disease, unspecified Status: Acute Assessment and Plan: Likely secondary to diuretics Component of prerenal azotemia as well Replacing fluids Repeat BMP IV resuscitation now renal failure improving Baseline creatinine 1 (4) Bimalleolar fracture of right ankle: Qualifiers: Encounter type: initial encounter Fracture type: closed Qualified Code(s): S82.841A - Displaced bimalleolar fracture of right lower leg, initial encounter for closed fracture Code(s): S82.841A - Displaced bimalleolar fracture of right lower leg, initial encounter for closed fracture Status: Acute Assessment and Plan: Status post reduction and immobilization Ortho consulted Pain management Plan for surgery once medically stable (5) Morbid obesity with BMI of 50.0-59.9, adult: Code(s): E66.01 - Morbid (severe) obesity due to excess calories; Z68.43 - Body mass index [BMI] 50.0-59.9, adult Status: Acute Assessment and Plan: Had gastric bypass Calorie restricted diet Follow-up in outpatient setting (6) Fibromyalgia: Code(s): M79.7 - Fibromyalgia Status: Acute Assessment and Plan: Continue home meds Plan Confusion likely due to hypercapnia and respiratory acidosis Acute hypercapnic respiratory failure started on BiPAP. ABG still with hypercapnia even with multiple adjustments. Will consult Pulmonary for BiPAP management and respiratory acidosis. Alert and oriented x3 despite ABGs. Continue continuous BiPAP for now. On AVAPS mode with improved ABG this morning. Patient also likely has obesity hypoventilation syndrome and will be reassessed for use of trilogy instead of CPAP at night upon discharge Asthma continue current medication follows with Dr. Waters Pulmonary edema chest x-ray with improving congestion. Will re-dose Lasix today 02/07/2023 interval history: Patient with hypercapnic respiratory acidosis failure seen by pulmonology and patient was placed on BiPAP patient clinical symptoms are improving as well as hypercapnia and respiratory acidosis, discussed with pulmonology suspect beside hypoventilation due to morbid obesity patient also has component of congestive heart failure with pulmonary edema recommended to continue Lasix and monitor kidney function, patient is having several loose BM will send it for stool culture, patient status post fall and fracture of right ankle, orthopedics recommending ORIF, 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 ABG still with hypercapnia even with multiple adjustments. Will consult Pulmonary for BiPAP management and respiratory acidosis. Alert and oriented x3 despite ABGs. Continue continuous BiPAP for now. On AVAPS mode with improved ABG this morning. Patient also likely has obesity hypoventilation syndrome and will be reassessed for use of trilogy instead of CPAP at night upon discharge Asthma continue current medication follows with Dr. Waters Pulmonary edema chest x-ray with improving congestion. Will re-dose Lasix today 02/07/2023 interval history: Patient with hypercapnic respiratory acidosis failure seen by pulmonology and patient was placed on BiPAP patient clinical symptoms are improving as well as hypercapnia and respiratory acidosis, discussed with pulmonology suspect beside hypoventil
[2023-02-07] MEDS: SALINE LOCK FLUSH 10 ML IV PUSH (20:26)
[2023-02-07 21:20] LABS: Toxigenic C. Diff NEGATIVE (NEGATIVE)
[2023-02-07] MEDS: LOPERAMIDE HCL 2 MG CAPSULE PO ×2 (21:46→23:29)
[2023-02-08] VITALS (28 sets, daily range): BP systolic 118–159; BP diastolic 55–106; PULSE 61–83; RESP 14–20; TEMP 35.9–36.7; O2SAT 94–100
[2023-02-08] MEDS: IPRATROPIUM BR 0.02% INH SOLN 0.5 MG/2.5 ML VIAL INHALATION ×2 (03:31→08:31)
[2023-02-08] MEDS: ALBUTEROL SULFATE NEB 2.5 MG/3 ML INH INHALATION ×2 (03:32→08:31)
[2023-02-08 04:12] LABS: Hematocrit 44.5 % (37.0-47.0); Hemoglobin 13.8 g/dL (12.0-15.0); Mean Corpuscular Hemoglobin 24.9 pg (26-34); Mean Corpuscular Volume 80.2 fl (80-100); Mean Platelet Volume 11.2 fl (7.4-10.4); Platelet Count Result 228 k/mm3 (150-375); Red Blood Count 5.55 M/mm3 (4.2-5.4); Red Cell Distribution Width 14.7 % (11.5-14.5)
[2023-02-08 04:26] LABS: Albumin Level 3.8 g/dL (3.5-5.1); Anion Gap 7 mmol/L (8-16); Blood Urea Nitrogen 37 mg/dL (7-17); Calcium 8.8 mg/dL (8.4-10.2); Carbon Dioxide 32 mmol/L (22-30); Chloride 98 mmol/L (98-107); Estimated CRCL calculation 48 ml/min; Estimated Glomerular Filt Rate 37; Glucose 142 mg/dL (65-110); Magnesium 1.5 mg/dL (1.6-2.3); Phosphorus 2.9 mg/dL (2.5-4.5); Potassium 3.4 mmol/L (3.4-5.0); Sodium 137 mmol/L (137-145)
[2023-02-08] MEDS: SALINE LOCK FLUSH 10 ML IV PUSH ×2 (06:14→22:52)
[2023-02-08 08:03] LABS: NT Pro B Type Natriuretic Pept 1240 pg/mL (19.9-100)
[2023-02-08] MEDS: BUDESONIDE RESPULE NEB 0.5 MG/2 ML AMP INHALATION (08:31)
[2023-02-08 08:36] LABS: Alveolar/Arterial O2 Gradient 118.4 mmHg; Base Excess ABG 4.9 mEq/l (+/-2.0); Fractional Inspired Oxygen 32 %; HCO3 ABG 27.8 mEq/l (22.0-26.0); Oxygen Content ABG 19.3 %vol (16.0-22.0); Oxygen Saturation ABG 95.2 % (95.0-100.0); PCO2 ABG 35.6 mmHg (35.0-45.0); PO2 ABG 68.1 mmHg (80.0-100.0); PO2 FiO2 Ratio Arterial Blood 2.13 %; Total Hemoglobin 14.8 g/dL (12.0-18.0)
[2023-02-08 08:40] LABS: pH ABG 7.511 (7.350-7.450)
[2023-02-08 08:41] LABS: Device NASAL CANNULA; Modified Allen's Test Pass; Site Drawn RIGHT RADIAL
[2023-02-08] MEDS: PANTOPRAZOLE SODIUM IV 40 MG VIAL IV PUSH ×2 (08:51→19:45)
[2023-02-08] MEDS: ONDANSETRON INJ 4 MG/2 ML VIAL IV PUSH ×2 (09:26→19:45)
[2023-02-08] MEDS: PROCHLORPERAZINE EDISYLATE 10 MG/2 ML VIAL IM (09:48)
[2023-02-08] MEDS: TIMOLOL MALEATE 0.5% OP SOLN 5 ML BOTTLE 1 DROP EACH EYE (09:51)
--- NOTE | 2023-02-08 10:34 | PM.PNPUL ---
Progress Note: A&P Assessment and Plan (1) Asthma: Code(s): J45.909 - Unspecified asthma, uncomplicated Status: Acute Assessment and Plan: 02/05 Patient carries a history of asthma diagnosed 3 months ago by [facility] credit risk analyst Dr. Shah. I do not have any of these notes. Currently the patient has no wheezing. Patient tells me she had a gastric bypass in 2002. Patient tells me she has obstructive sleep apnea in 2018 diagnosed with a sleep study. She is treated with CPAP 15 and she says that she wears her mask a proximally 2 times a week, DME for CPAP is [facility] and DME for oxygen is [facility]. The patient tells me that 3 months ago she saw credit risk analyst at [facility]'s name Dr. Strickland and she was diagnosed with asthma and treated with inhaled trelegy once a day. States she smoked 1 pack per day from 1093-9062 for 18 pack years, she was exposed to secondhand smoke from both of her parents but none since. Patient smoked crack cocaine daily from 4950-2450. Patient had PFTs in [place]. Plan: Will discontinue systemic steroids and place the patient on budesonide 500 mcg nebulized twice a day, albuterol 2.5 mg nebs q.4 hours and ipratropium 0.5 mg nebs q.4 hours. No evidence of pneumonia and she does not require antibiotics from a pulmonary perspective. 02/06 More history obtained today The patient tells me that she saw her credit risk analyst who manages her CPAP at [facility]'s name Dr. Strickland and she was diagnosed with asthma after she had a methacholine challenge test was positive about 2-3 months ago. The patient tells me that her mother told her she had asthma as a child but she never remembers this. She had no limitations in her activities during grade school and did high school cheerleading and gymnastics without any respiratory difficulties. The patient developed her 1st respiratory symptoms in approximately 1978 after she started smoking. Initially Dr. Strickland started her on Breo Ellipta and rescue albuterol and the patient states that these inhalers helped her take deeper breaths, and decreased her wheezing. The patient was then changed to trilogy to see if this would provide any additional benefit approximally 1-1 and half months ago. This did provide benefit compared to Breo Ellipta and she could take even deeper breaths, had less wheezing and more activity. Over the last month she was using short-acting beta agonist 1 to 2 times a month. Plan: Patient states she is breathing normally today and has no wheezes on budesonide 500 mcg nebulized twice a day, albuterol 2.5 nebs q.4 hours and ipratropium 0.5 nebs q.4 hours. 02/07 breathing back to her baseline, room air saturations 94%. No wheezing. Plan: Continue budesonide 500 mcg nebulized twice a day, albuterol 2.5 nebs q.4 hours and ipratropium 0.5 nebs q.4 hours. 02/08: patient states she is breathing back to her normal in denies wheezing. Currently she is on 3 L nasal cannula saturations 96-99%. I decreased her to 2 L. patient states that the nebulizers make her nauseous. She is requesting to go back on her trelegy. Plan: Discontinue albuterol, ipratropium and budesonide nebulizers and placed on trilogy 200-60 2.5-25 at 1 puff q.day. (2) JUAN (obstructive sleep apnea): Code(s): G47.33 - Obstructive sleep apnea (adult) (pediatric) Status: Acute Assessment and Plan: 02/05 Patient tells me she has obstructive sleep apnea in 2019 diagnosed with a sleep study.? She is treated with CPAP 15 and she says that she wears her mask a proximally 2 times a week.?? She has morbid obesity, BMI 52.1, serum bicarbonate on 12/15/2022 was 36 and 02/03/2023 with acute kidney injury a serum bicarb of 31. First ABG this admission on 1 L nasal cannula 7.. Patient is on levothyroxine with a TSH on 02/05/23 that is normal at 0.471 and a free T4 of 0.83 that is normal. The patient likely has obesity hypoventilation syndrome, but was also re
[2023-02-08 10:44] LABS: Glucose Point of Care 153 mg/dl (65-105)
--- NOTE | 2023-02-08 12:29 | WPDHPUPDATE1 ---
History and Physical Update Update Date/Time: 02/08/23 12:29 History and Physical has been reviewed, including an updated exam of the patient. There are NO changes in the patient's condition. Risks, benefits, and alternatives have been discussed and questions answered. Patient agrees to proceed with procedure. Patient has been medically cleared from hospitalist and pulmonary Medicine for surgery. Discussed with Anesthesiology. Reviewed with patient. Plan: Open reduction internal fixation right ankle fracture.
--- NOTE | 2023-02-08 12:30 | WPDANESEPPF ---
Anes - Initial Pre Proc Eval Procedure: Operation Date: 02/08/23 13:00 Proposed Procedures p Open Reduction Internal Fixation Right Ankle Fracture - Aguila Mcdaniels MD Date/Time: 02/08/23 12:30 Surgeon: Darien Eli MD Pre Op Diagnosis: acute kidney injury, near syncope, right bimalleol Patient Data Age: 57 Gender: F Height: 1.68 m Weight: 146.5 kg Last Vital Signs Temp 97.1 F L 02/08/23 08:00 Pulse 78 02/08/23 10:00 Resp 18 02/08/23 08:53 BP 141/92 H 02/08/23 08:00 Pulse Ox 96 02/08/23 08:33 O2 Del Method Nasal Cannula 02/08/23 08:33 O2 Flow Rate 3 02/08/23 08:33 FiO2 32 02/07/23 19:16 Allergies Allergy/AdvReac Type Severity Reaction Status Date / Time No Known Allergies Allergy Verified 02/03/23 17:28 Home Medications Medication Instructions Recorded Confirmed Type aripiprazole 5 mg tablet 5 mg PO DAILY 03/01/20 02/03/23 History atorvastatin 20 mg tablet 20 mg PO DAILY 03/01/20 02/03/23 History buspirone 10 mg tablet 20 mg PO TID 03/01/20 02/03/23 History celecoxib 200 mg capsule 200 mg PO BID 03/01/20 02/03/23 History furosemide 40 mg tablet 40 mg PO DAILY 03/01/20 02/03/23 History levothyroxine 175 mcg tablet 175 mcg PO DAILY 03/01/20 02/03/23 History metformin 500 mg tablet,extended 500 mg PO DAILY 03/01/20 02/03/23 History release 24 hr spironolactone 25 mg tablet 25 mg PO DAILY 03/01/20 02/03/23 History timolol maleate 0.5 % eye drops 0.5 drp ophthalmic (eye) 03/01/20 02/03/23 History DIRECTED tizanidine 4 mg tablet 4 mg PO TID 03/01/20 02/03/23 History eszopiclone 3 mg tablet 3 mg PO DAILY 11/21/21 02/03/23 History morphine 15 mg tablet,extended 30 mg PO BID 11/21/21 02/03/23 History release acetaminophen 500 mg tablet 1,000 mg PO TID PRN masood 7 days #42 12/15/22 02/03/23 Rx tabs empagliflozin 25 mg tablet 25 mg PO DAILY 02/03/23 02/03/23 History (Jardiance) gabapentin 300 mg capsule 300 mg PO BID 02/03/23 02/03/23 History mirtazapine 45 mg tablet 45 mg PO HS 02/03/23 02/03/23 History omeprazole 40 mg capsule,delayed 40 mg PO DAILY 02/03/23 02/03/23 History release ramipril 10 mg capsule 10 mg PO DAILY 02/03/23 02/03/23 History ropinirole 0.5 mg tablet 0.5 mg PO DAILY 02/03/23 02/03/23 History sertraline 100 mg tablet 100 mg PO DAILY 02/03/23 02/03/23 History trazodone 50 mg tablet 50 mg PO HS 02/03/23 02/03/23 History Laboratory Tests 02/07/23 02/08/23 02/08/23 20:18 04:08 08:30 WBC 13.0 H K/mm3 (4.5-10.0) RBC 5.55 H M/mm3 (4.2-5.4) Hgb 13.8 g/dL (12.0-15.0) Hct 44.5 % (37.0-47.0) MCV 80.2 fl (80-100) MCH 24.9 L pg (26-34) MCHC 31.0 L g/dl (32-36) RDW 14.7 H % (11.5-14.5) Plt Count 228 k/mm3 (150-375) MPV 11.2 H fl (7.4-10.4) Puncture Site Right radial ABG pH 7.511 H* (7.350-7.450) ABG pCO2 35.6 mmHg (35.0-45.0) ABG pO2 68.1 L mmHg (80.0-100.0) ABG PO2/FiO2 Ratio 2.13 % ABG HCO3 27.8 H mEq/l (22.0-26.0) ABG O2 Saturation 95.2 % (95.0-100.0) ABG O2 Content 19.3 %vol (16.0-22.0) ABG Base Excess 4.9 mEq/l (+/-2.0) A-a Gradient 118.4 mmHg Oxyhemoglobin 93.0 % THb (90.0-100.0) Total Hemoglobin 14.8 g/dL (12.0-18.0) O2 Delivery Device Nasal cannula O2 Liters/Min 3.0 LPM FiO2 32 % Sodium 137 mmol/L (137-145) Potassium 3.4 mmol/L (3.4-5.0) Chloride 98 mmol/L (98-107) Carbon Dioxide 32 H mmol/L (22-30) Anion Gap 7 L mmol/L (8-16) BUN 37 H mg/dL (7-17) Creatinine 1.70 H mg/dL (0.7-1.0) Estim Creat Clear Calc 48 ml/min Estimated GFR 37 L (59 - ) Glucose 142 H mg/dL (65-110) POC Capillary Glucose Calcium 8.8 mg
[2023-02-08] MEDS: ACETAMINOPHEN 500 MG TABLET 1000 MG PO (12:48)
--- NOTE | 2023-02-08 12:50 | PCOTNOTE ---
Patient out of the room at this time. Patient having an ORIF of her Right ankle this afternoon with Dr. Herring per RN. Patient will need a re-evaluation after the surgery to continue the plan of care.
[2023-02-08] MEDS: ceFAZolin 3 GM/D5W 100 ML 100 ML IVPB (13:00)
[2023-02-08] MEDS: LACTATED RINGERS 1,000 ML 30 ML IV CONT (14:53)
[2023-02-08 15:11] LABS: Glucose Point of Care 133 mg/dl (65-105)
[2023-02-08 17:12] LABS: Glucose Point of Care 123 mg/dl (65-105)
[2023-02-08] MEDS: HYDROcodone/acetaminophen (*CRX) 5-325 MG TABLET 1 TAB PO (17:33)
--- NOTE | 2023-02-08 17:37 | W.PM.PROC2 ---
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 Closed reduction done in the emergency room. She presents now for operative treatment of her unstable ankle bimalleolar fracture Findings medial talar dome chondral injury, 3/4 thickness. 8 mm anterior to posterior, 5 mm medial to lateral. Description of Procedure After informed consent, the operative extremity was marked in the preoperative holding area. Patient received intravenous antibiotics. Patient was then taken to the operating room and underwent general anesthesia by the anesthesia team. Positioned supine on the operating room table with a soft bump under the ipsilateral hip. A time-out was performed confirming the patient, site of the surgery, operative plan. Right Lower extremity then prepped and draped in the usual sterile surgical fashion using ChloraPrep skin solution. Foot and ankle exsanguinated and a thigh tourniquet inflated to 250 mmHg. Longitudinal incision made over the lateral ankle distal fibula with a 15 blade knife. Hemostasis controlled with electrocautery. Full-thickness soft tissue flaps developed and the fascia was incised in line with the skin incision. Fracture identified and cleared with a dental pick, irrigation and rongeur. Fracture reduced and held with bone-holding clamp. Image intensification confirmed reduction of the fracture and the ankle mortise. fixation achieved with a neutralization type construct with a lateral plate with unicortical screws distal to fracture and bicortical screws proximal to the fracture. Good alignment and stability of the fracture noted. Image intensification used to confirm reduction of the fracture and placement of the hardware. Medial side then addressed. Longitudinal incision made with a 15 blade knife over the medial malleolus fracture. Hemostasis controlled with electrocautery. Fascia incised in line with skin incision. Periosteum cleared from the medial malleolus fracture. Medial side of the joint inspected and noted to have mild amount of trauma to the chondral surface. Thorough irrigation of the ankle joint and suctioned out. injury to the cartilage surface of the medial talar dome noted. This was debrided with a 15 blade knife and rongeur. Fracture reduced and provisionally pinned. Fixation achieved with a A hook plate with 4.0 mm screw distal and 3.5 mm screws proximal through the plate. Image intensification confirmed reduction of the fracture and placement of the hardware. Stress of the ankle performed with good stability of the ankle mortise in all directions. Posterior malleolus noted to be intact. Wounds thoroughly irrigated with antibiotic solution. Fascia repaired with 00 Vicryl interrupted suture. Subcutaneous tissue repaired with 000 Monocryl interrupted suture and Skin approximated with 3 0 nylon running suture. Sterile dressings applied followed by bulky dressing and Cast. Patient awoken from anesthesia, extubated and taken to the recovery room in stable condition. All sponge, needle and instrument counts correct at the end of the case. Palpable dorsalis pedis pulse noted prior to dressing. Implants Arthrex hook plate medially and distal fibula plate laterally. Estimated Blood Loss 30 Tourniquet Time 30 Drains No Packing No Pathology None sent Complications None Condition Stable Disposition PACU [facility] Billing Surgery - Charge Forward: Surgery Billing ([id number] RT)
--- NOTE | 2023-02-08 18:24 | WPDPN ---
Progress Note: A&P Assessment and Plan (1) Fall: Code(s): W19.XXXA - Unspecified fall, initial encounter Status: Acute Assessment and Plan: Admit to regular medical floor Fall precautions Bed rest (2) Near syncope: Code(s): R55 - Syncope and collapse Status: Acute (3) Acute kidney injury superimposed on CKD: Code(s): N17.9 - Acute kidney failure, unspecified; N18.9 - Chronic kidney disease, unspecified Status: Acute Assessment and Plan: Likely secondary to diuretics Component of prerenal azotemia as well Replacing fluids Repeat BMP IV resuscitation now renal failure improving Baseline creatinine 1 (4) Bimalleolar fracture of right ankle: Qualifiers: Encounter type: initial encounter Fracture type: closed Qualified Code(s): S82.841A - Displaced bimalleolar fracture of right lower leg, initial encounter for closed fracture Code(s): S82.841A - Displaced bimalleolar fracture of right lower leg, initial encounter for closed fracture Status: Acute Assessment and Plan: Status post reduction and immobilization Ortho consulted Pain management Plan for surgery once medically stable (5) Morbid obesity with BMI of 50.0-59.9, adult: Code(s): E66.01 - Morbid (severe) obesity due to excess calories; Z68.43 - Body mass index [BMI] 50.0-59.9, adult Status: Acute Assessment and Plan: Had gastric bypass Calorie restricted diet Follow-up in outpatient setting (6) Fibromyalgia: Code(s): M79.7 - Fibromyalgia Status: Acute Assessment and Plan: Continue home meds Plan Confusion likely due to hypercapnia and respiratory acidosis Acute hypercapnic respiratory failure started on BiPAP. ABG still with hypercapnia even with multiple adjustments. Will consult Pulmonary for BiPAP management and respiratory acidosis. Alert and oriented x3 despite ABGs. Continue continuous BiPAP for now. On AVAPS mode with improved ABG this morning. Patient also likely has obesity hypoventilation syndrome and will be reassessed for use of trilogy instead of CPAP at night upon discharge Asthma continue current medication follows with Dr. Waters Pulmonary edema chest x-ray with improving congestion. Will re-dose Lasix today 02/08/2023 interval history: Patient with hypercapnic respiratory acidosis failure seen by pulmonology and patient was placed on BiPAP patient clinical symptoms are improving as well as hypercapnia and respiratory acidosis, discussed with pulmonology suspect beside hypoventilation due to morbid obesity patient also has component of congestive heart failure with pulmonary edema recommended to continue Lasix and monitor kidney function, however patient Scr is rising and will hold lasix, patient is having several loose BM will send it for stool culture, patient status post fall and fracture of right ankle, orthopedics recommending ORIF, cookie mixer helper cleared the patient is scheduled for the surgery today, will monitor and follow Subjective Date/time seen: 02/08/23 18:24 Interval history: Confusion likely due to hypercapnia and respiratory acidosis Acute hypercapnic respiratory failure started on BiPAP. ABG still with hypercapnia even with multiple adjustments. Will consult Pulmonary for BiPAP management and respiratory acidosis. Alert and oriented x3 despite ABGs. Continue continuous BiPAP for now. On AVAPS mode with improved ABG this morning. Patient also likely has obesity hypoventilation syndrome and will be reassessed for use of trilogy instead of CPAP at night upon discharge Asthma continue current medication follows with Dr. Waters Pulmonary edema chest x-ray with improving congestion. Will re-dose Lasix today 02/08/2023 interval history: Patient with hypercapnic respiratory acidosis failure seen by pulmonology and patient was placed on BiPAP patient clinical symptoms are improving as well as hypercapnia and respi
[2023-02-08] MEDS: HYDROmorphone HCL INJ (*CRX) 1 MG/ML SYR IV PUSH (19:45)
[2023-02-09] VITALS (15 sets, daily range): BP systolic 130–150; BP diastolic 63–83; PULSE 63–87; RESP 16–22; TEMP 36.4–36.9; O2SAT 90–100
[2023-02-09] MEDS: HYDROcodone/acetaminophen (*CRX) 5-325 MG TABLET 1 TAB PO ×2 (00:52→06:24)
[2023-02-09 05:08] LABS: Hematocrit 38.6 % (37.0-47.0); Hemoglobin 11.8 g/dL (12.0-15.0); Mean Corpuscular HGB Conc 30.6 g/dl (32-36); Mean Corpuscular Hemoglobin 24.7 pg (26-34); Mean Corpuscular Volume 80.9 fl (80-100); Mean Platelet Volume 12.3 fl (7.4-10.4); Platelet Count Result 182 k/mm3 (150-375); Red Blood Count 4.77 M/mm3 (4.2-5.4); Red Cell Distribution Width 14.5 % (11.5-14.5); White Blood Count 12.6 K/mm3 (4.5-10.0)
[2023-02-09 05:23] LABS: Albumin Level 3.6 g/dL (3.5-5.1); Anion Gap 7 mmol/L (8-16); Blood Urea Nitrogen 30 mg/dL (7-17); Calcium 8.7 mg/dL (8.4-10.2); Carbon Dioxide 30 mmol/L (22-30); Chloride 99 mmol/L (98-107); Estimated CRCL calculation 62 ml/min; Estimated Glomerular Filt Rate 51; Glucose 108 mg/dL (65-110); Magnesium 1.5 mg/dL (1.6-2.3); Phosphorus 3.2 mg/dL (2.5-4.5); Potassium 3.2 mmol/L (3.4-5.0); Sodium 136 mmol/L (137-145)
[2023-02-09] MEDS: SALINE LOCK FLUSH 10 ML IV PUSH ×3 (06:25→20:45)
--- NOTE | 2023-02-09 07:23 | PM.PNORT ---
Progress Note: A&P Assessment and Plan (1) Bimalleolar fracture of right ankle: Qualifiers: Encounter type: subsequent encounter Fracture type: closed Fracture healing: with routine healing Qualified Code(s): S82.841D - Displaced bimalleolar fracture of right lower leg, subsequent encounter for closed fracture with routine healing Code(s): S82.841A - Displaced bimalleolar fracture of right lower leg, initial encounter for closed fracture Status: Acute Assessment and Plan: Postoperative day 1 open reduction internal fixation right ankle fracture. Operative treatment and findings reviewed with patient. Complains of pain right ankle. We will see if we can adjust pain medication. P.T./OT, transfers and ambulation. Nonweightbearing right lower extremity. Subjective Subjective Date/Time Seen: 02/09/23 07:23 Post Op day: 1 Principal diagnosis: RT ankle fracture Interval history: Awake and alert. Complains of pain right ankle. No nausea or vomiting. Exam Const: General: healthy appearing; No in distress or confusion Orientation/consciousness: patient oriented x3 and No confusion HENMT: Head: normal to inspection, normocephalic and atraumatic Eyes: Conjunctivae: conjunctivae normal Sclera: sclerae normal Resp: Effort & Inspection: normal respiratory effort and no audible wheezes Neuro: General: patient oriented x3 and No confusion Extrem: Other: Right lower extremity cast in place. Clean and dry. Able to move toes. Good capillary refill. Good sensation to touch in all toes. Psych: Affect: normal affect Objective Data Vital Signs Vital Signs: Vital Signs - 24 hr 02/08/23 08:31 02/08/23 08:33 02/08/23 08:00 Temperature 97.1 F L Pulse Rate 72 72 82 Respiratory Rate 18 18 17 Blood Pressure 141/92 H Pulse Oximetry 96 96 Oxygen Delivery Nasal Cannula Oxygen Flow Rate 3 Fraction of Inspired Oxygen 02/08/23 08:53 02/08/23 08:00 02/08/23 08:00 Temperature Pulse Rate 74 78 Respiratory Rate 18 Blood Pressure Pulse Oximetry 96 Oxygen Delivery Nasal Cannula Oxygen Flow Rate 3 Fraction of Inspired Oxygen 02/08/23 10:00 02/08/23 12:25 02/08/23 12:00 Temperature 97.2 F L Pulse Rate 78 78 78 Respiratory Rate 16 Blood Pressure 149/106 H Pulse Oximetry 95 Oxygen Delivery Nasal Cannula Oxygen Flow Rate 2 Fraction of Inspired Oxygen 02/08/23 12:00 02/08/23 14:53 02/08/23 15:00 Temperature 97.2 F L Pulse Rate 70 66 Respiratory Rate 19 18 Blood Pressure 134/82 136/85 Pulse Oximetry 95 94 96 Oxygen Delivery Nasal Cannula Room Air Room Air Oxygen Flow Rate 3 Fraction of Inspired Oxygen 02/08/23 15:15 02/08/23 15:30 02/08/23 16:00 Temperature Pulse Rate 64 65 Respiratory Rate 18 18 Blood Pressure 136/88 150/91 H Pulse Oximetry 94 94 96 Oxygen Delivery Room Air Room Air Nasal Cannula Oxygen Flow Rate 2 Fraction of Inspired Oxygen 32 02/08/23 15:45 02/08/23 16:00 02/08/23 16:15 Temperature Pulse Rate 70 71 70 Respiratory Rate 16 16 18 Blood Pressure 134/78 130/78 135/81 Pulse Oximetry 98 98 98 Oxygen Delivery Nasal Cannula Nasal Cannula Nasal Cannula Oxygen Flow Rate 2 2 2 Fraction of Inspired Oxygen 02/08/23 16:30 02/08/23 16:48 02/08/23 17:18 Temperature 97.1 F L 97.2 F L Pulse Rate 74 72 72 Respiratory Rate 18 15 16 Blood Pressure 142/80 H 148/87 H 147/88 H Pulse Oximetry 97 98 98 Oxygen Delivery Nasal Cannula Oxygen Flow Rate 2 Fraction of Inspired Oxygen 02/08/23 18:18 02/08/23 20:00 02/08/23 20:00 Temperature 96.7 F L 97.2 F L Pulse Rate 67 71 Respiratory Rate 18 16 Blood Pressure 143/70 H 118/55 L Pulse Oximetry 100 100 100 Oxygen Delivery Nasal Cannula Oxygen Flow Rate 2 Fraction of Inspired Oxygen 02/08/23 22:31 02/08/23 20:00 02/08/23 22:00 Temperature Pulse Rate 69 66 65 Respiratory Rate 14 Blood Pressure
[2023-02-09] MEDS: FLUTICASONE/UMECLIDIN/VILANTER 200-62.5-25 MCG ELLIPTA 1 PUFF INHALATION (08:11)
--- NOTE | 2023-02-09 09:05 | WPDANESPN ---
Anes - Prog Note Post-Op Date/Time: 02/09/23 09:05 Cardiovascular status: normal Respiratory status: normal Airway patency: baseline (on 2L NC. wear bipap at night with no issues) Mental status: baseline Post-Op hydration status: normal Vital Signs: Last Vital Signs Temp 36.9 C 02/09/23 08:00 Pulse 78 02/09/23 08:23 Resp 20 02/09/23 08:23 BP 139/69 02/09/23 08:00 Pulse Ox 96 02/09/23 08:23 O2 Del Method Room Air 02/09/23 08:23 O2 Flow Rate 2 02/09/23 04:00 FiO2 21 02/09/23 08:23 Pain Score (VAS): 5 I/O: Intake & Output 02/08/23 02/09/23 02/09/23 23:59 07:59 15:59 Intake Total 150 600 120 Output Total 350 350 Balance -200 250 120 Laboratory Tests 02/09/23 04:46 02/09/23 04:46 02/08/23 02/08/23 02/08/23 10:42 15:08 17:07 WBC RBC Hgb Hct MCV MCH MCHC RDW Plt Count MPV Sodium Potassium Chloride Carbon Dioxide Anion Gap BUN Creatinine Estim Creat Clear Calc Estimated GFR Glucose POC Capillary Glucose 153 H 133 H 123 H Calcium Phosphorus Magnesium Albumin 02/09/23 04:46 WBC 12.6 H RBC 4.77 Hgb 11.8 L Hct 38.6 MCV 80.9 MCH 24.7 L MCHC 30.6 L RDW 14.5 Plt Count 182 MPV 12.3 H Sodium 136 L Potassium 3.2 L Chloride 99 Carbon Dioxide 30 Anion Gap 7 L BUN 30 H Creatinine 1.30 H Estim Creat Clear Calc 62 Estimated GFR 51 L Glucose 108 POC Capillary Glucose Calcium 8.7 Phosphorus 3.2 Magnesium 1.5 L Albumin 3.6 Microbiology 02/07/23 14:37 Stool Escherichia coli Shiga Toxins - Final 02/07/23 14:37 Stool Campylobacter Antigen Assay - Final Post-procedural complaints: none Patient Feedback: Patient satisfied with anesthetic care.
[2023-02-09] MEDS: TIMOLOL MALEATE 0.5% OP SOLN 5 ML BOTTLE 1 DROP EACH EYE (09:24)
[2023-02-09] MEDS: PANTOPRAZOLE SODIUM IV 40 MG VIAL IV PUSH ×2 (09:24→20:03)
[2023-02-09] MEDS: MAGNESIUM SULF 2 GM/WATER 50ML 2 GM/50 ML BAG IVPB (09:24)
[2023-02-09] MEDS: POTASSIUM CHLORIDE 20 MEQ ER TABLET 40 MEQ PO (09:24)
[2023-02-09] MEDS: MAGNESIUM OXIDE 400 MG TABLET PO (09:24)
--- NOTE | 2023-02-09 10:35 | PM.PNPUL ---
Progress Note: A&P Assessment and Plan (1) Asthma: Code(s): J45.909 - Unspecified asthma, uncomplicated Status: Acute Assessment and Plan: 02/05 Patient carries a history of asthma diagnosed [address] [facility] hand reamer Dr. Shah. I do not have any of these notes. Currently the patient has no wheezing. Patient tells me she had a gastric bypass in 2002. Patient tells me she has obstructive sleep apnea in 2018 diagnosed with a sleep study. She is treated with CPAP 15 and she says that she wears her mask a proximally 2 times a week, DME for CPAP is [facility] and DME for oxygen is [employer] [facility]. The patient tells me that 3 months ago she saw hand reamer at [facility]'s name Dr. Strickland and she was diagnosed with asthma and treated with inhaled trelegy once a day. States she smoked 1 pack per day from [id number] for 18 pack years, she was exposed to secondhand smoke from both of her parents but none since. Patient smoked crack cocaine daily from [id number]. Patient had PFTs in [place]. Plan: Will discontinue systemic steroids and place the patient on budesonide 500 mcg nebulized twice a day, albuterol 2.5 mg nebs q.4 hours and ipratropium 0.5 mg nebs q.4 hours. No evidence of pneumonia and she does not require antibiotics from a pulmonary perspective. 02/06 More history obtained today The patient tells me that she saw her hand reamer who manages her CPAP at [facility]'s name Dr. Strickland and she was diagnosed with asthma after she had a methacholine challenge test was positive about 2-3 months ago. The patient tells me that her mother told her she had asthma as a child but she never remembers this. She had no limitations in her activities during grade school and did high school cheerleading and gymnastics without any respiratory difficulties. The patient developed her 1st respiratory symptoms in approximately 1978 after she started smoking. Initially Dr. Strickland started her on Breo Ellipta and rescue albuterol and the patient states that these inhalers helped her take deeper breaths, and decreased her wheezing. The patient was then changed to trilogy to see if this would provide any additional benefit approximally 1-1 and half months ago. This did provide benefit compared to Breo Ellipta and she could take even deeper breaths, had less wheezing and more activity. Over the last month she was using short-acting beta agonist 1 to 2 times a month. Plan: Patient states she is breathing normally today and has no wheezes on budesonide 500 mcg nebulized twice a day, albuterol 2.5 nebs q.4 hours and ipratropium 0.5 nebs q.4 hours. 02/07 breathing back to her baseline, room air saturations 94%. No wheezing. Plan: Continue budesonide 500 mcg nebulized twice a day, albuterol 2.5 nebs q.4 hours and ipratropium 0.5 nebs q.4 hours. 02/08: patient states she is breathing back to her normal in denies wheezing. Currently she is on 3 L nasal cannula saturations 96-99%. I decreased her to 2 L. patient states that the nebulizers make her nauseous. She is requesting to go back on her trelegy. Plan: Discontinue albuterol, ipratropium and budesonide nebulizers and placed on trelegy 200-62.5-25 at 1 puff q.day. 02/09 patient states she is breathing well with no respiratory complaints. She has no wheezing currently. White blood cell count 12.6, creatinine 1.3. Currently her saturations on 2 L were 95%. Plan: Continue trelegy 200-62.5-25 at 1 puff q.day. out of bed to chair as tolerated. (2) JUAN (obstructive sleep apnea): Code(s): G47.33 - Obstructive sleep apnea (adult) (pediatric) Status: Acute Assessment and Plan: 02/05 Patient tells me she has obstructive sleep apnea in 2019 diagnosed with a sleep study.? She is treated with CPAP 15 and she says that she wears her mask a proximally 2 times a week.?? She has morbid obesity, BMI 52.1, serum bicarbonate on 12/15/2022 was 36 and 02/03/2023 with ac
[2023-02-09] MEDS: oxyCODONE/ACETAMINOPHEN (*CRX) 10-325 MG TABLET 1 TAB PO ×4 (10:54→22:59)
--- NOTE | 2023-02-09 12:34 | PM.PNNEP ---
Progress Note: A&P Assessment and Plan (1) Acute kidney injury: Code(s): N17.9 - Acute kidney failure, unspecified Status: Acute Assessment and Plan: slow improvement noted as noted by admission labs and this AM etiology? suspicion falls on over-diuresis however, admission hypotension (and associated decreased renal perfusion) also contributing KEN-I and NSAID use prior to admission UTI evaluation to date: renal ultrasound w/o obstruction urine electrolytes prerenal (despite being on diuretics PROVIDER RELATIONS ADVOCATE) urine eosinophils negative CPK mildly elevated (989) - follow trend mild proteinuria UA suggestive of UTI holding KEN-I and NSAIDs given CXR findings, PRN IV diuretic therapy (2) Chronic kidney disease, stage 3: Code(s): N18.30 - Chronic kidney disease, stage 3 unspecified Status: Chronic Assessment and Plan: baseline creatinine seems to run around 1.4 - 1.5mg/dl (as of December 2022) this causes her to fluctuate between CKD stage 3A and 3B presumably due to HTN, DM, and vascular disease along with necessity of diuretics (3) Urinary tract infection: Code(s): N39.0 - Urinary tract infection, site not specified Status: Acute Assessment and Plan: admission UA suggestive urine culture with Klebsiella on antibiotics (4) Bimalleolar fracture of right ankle: Qualifiers: Encounter type: subsequent encounter Fracture healing: with routine healing Fracture type: closed Qualified Code(s): S82.841D - Displaced bimalleolar fracture of right lower leg, subsequent encounter for closed fracture with routine healing Code(s): S82.841A - Displaced bimalleolar fracture of right lower leg, initial encounter for closed fracture Status: Acute Assessment and Plan: reduced and splinted in ER Orthopedics following s/p open reduction internal fixation right ankle bimalleolar fracture (on 02/08/23) PT/OT as tolerated pain controlled (5) Fall: Code(s): W19.XXXA - Unspecified fall, initial encounter Status: Acute Assessment and Plan: fall precautions PT/OT as tolerated (6) Hypertension: Code(s): I10 - Essential (primary) hypertension Status: Chronic Assessment and Plan: appears to be getting back to baseline follow hemodynamics holding KEN-I at this time may need another BP agent if BP keeps rising (versus restarting ramipril) (7) Obesity hypoventilation syndrome: Code(s): E66.2 - Morbid (severe) obesity with alveolar hypoventilation Status: Chronic Assessment and Plan: resolved/resolving evidence of hypercapnea by ABG on admission BiPAP/non-invasive ventilation as needed follow respiratory status and mentation Pulmonary recommendations noted recheck CXR -- may need to resume diuretics Will continue to follow. Subjective Date/time seen: 02/09/23 12:34 Interval history: Follow-up for acute kidney injury/acute renal failure on chronic kidney disease. I was unable to see her yesterday as she was out of her room/in OR; s/p surgical intervention for her right ankle fracture yesterday afternoon and tolerated the procedure reasonably well; breathing/respiratory status as well as renal function stable if not better; no other acute complaints voiced; Exam Narrative: General: Large female in NAD Heart: normal S1 and S2; no rub Lungs: diminished at the bases Abdomen: soft, nontender, nondistended, positive bowel sounds Extremities: no cyanosis or clubbing; no edema; right LE cast in place Skin: no nodules Objective Data Vital Signs Vital Signs: Vital Signs Temp Pulse Resp BP Pulse Ox O2 Del Method O2 Flow Rate 02/09/23 12:00 98.5 F 64 22 H 147/83 H 95 02/09/23 12:00 71 02/09/23 08:00 90 Room Air 02/09/23 10:00 67 02/09/23 08:00 70 02/09/23 08:54 Nasal Cannula
--- NOTE | 2023-02-09 12:34 | P.PNNP_ITS ---
Progress Note: A&P Assessment and Plan (1) Acute kidney injury: Code(s): N17.9 - Acute kidney failure, unspecified Status: Acute Assessment and Plan: * slow improvement noted * as noted by admission labs and this AM * etiology? 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) * urine eosinophils negative * CPK mildly elevated (989) - follow trend * mild proteinuria * UA suggestive of UTI * holding KEN-I and NSAIDs * given CXR findings, PRN IV diuretic therapy (2) Chronic kidney disease, stage 3: Code(s): N18.30 - Chronic kidney disease, stage 3 unspecified Status: Chronic Assessment and Plan: * baseline creatinine seems to run around 1.4 - 1.5mg/dl (as of December 2022) * this causes her to fluctuate between CKD stage 3A and 3B * presumably due to HTN, DM, and vascular disease along with necessity of diuretics (3) Urinary tract infection: Code(s): N39.0 - Urinary tract infection, site not specified Status: Acute Assessment and Plan: * admission UA suggestive * urine culture with Klebsiella * on antibiotics (4) Bimalleolar fracture of right ankle: Qualifiers: Encounter type: subsequent encounter Fracture healing: with routine he aling Fracture type: closed Qualified Code(s): S82.841D - Displaced bimalleolar fracture of right lower leg, subsequent encounter for closed fractur e with routine healing Code(s): S82.841A - Displaced bimalleolar fracture of right lower leg, initial encounter for closed fracture Status: Acute Assessment and Plan: * reduced and splinted in ER * Orthopedics following * s/p open reduction internal fixation right ankle bimalleolar fracture (on 02/08/23) * PT/OT as tolerated * pain controlled (5) Fall: Code(s): W19.XXXA - Unspecified fall, initial encounter Status: Acute Assessment and Plan: * fall precautions * PT/OT as tolerated (6) Hypertension: Code(s): I10 - Essential (primary) hypertension Status: Chronic Assessment and Plan: * appears to be getting back to baseline * follow hemodynamics * holding KEN-I at this time * may need another BP agent if BP keeps rising (versus restarting ramipril) (7) Obesity hypoventilation syndrome: Code(s): E66.2 - Morbid (severe) obesity with alveolar hypoventilation Status: Chronic Assessment and Plan: * resolved/resolving * evidence of hypercapnea by ABG on admission * BiPAP/non-invasive ventilation as needed * follow respiratory status and mentation * Pulmonary recommendations noted * recheck CXR -- may need to resume diuretics Will continue to follow. Subjective Date/time seen: 02/09/23 12:34 Interval history: Follow-up for acute kidney injury/acute renal failure on chronic kidney disease. I was unable to see her yesterday as she was out of her room/in OR; s/p surgical intervention for her right ankle fracture yesterday afternoon and tolerated the procedure reasonably well; breathing/respiratory status as well as renal function stable if not better; no other acute complaints voiced; Exam Narrative: General: Large female in NAD Heart: normal S1 and S2; no
--- NOTE | 2023-02-09 12:57 | PCPTNOTE ---
On 02/09/23, the student, MAURICE Nelson, provided care and completed [facility] documentation on this patient. I have reviewed the student's documentation and agree with the findings.
--- NOTE | 2023-02-09 16:58 | WPDPN ---
Progress Note: A&P Assessment and Plan (1) Fall: Code(s): W19.XXXA - Unspecified fall, initial encounter Status: Acute Assessment and Plan: Admit to regular medical floor Fall precautions Bed rest (2) Near syncope: Code(s): R55 - Syncope and collapse Status: Acute (3) Acute kidney injury superimposed on CKD: Code(s): N17.9 - Acute kidney failure, unspecified; N18.9 - Chronic kidney disease, unspecified Status: Acute Assessment and Plan: Likely secondary to diuretics Component of prerenal azotemia as well Replacing fluids Repeat BMP IV resuscitation now renal failure improving Baseline creatinine 1 (4) Bimalleolar fracture of right ankle: Qualifiers: Encounter type: subsequent encounter Fracture healing: with routine healing Fracture type: closed Qualified Code(s): S82.841D - Displaced bimalleolar fracture of right lower leg, subsequent encounter for closed fracture with routine healing Code(s): S82.841A - Displaced bimalleolar fracture of right lower leg, initial encounter for closed fracture Status: Acute Assessment and Plan: Status post reduction and immobilization Ortho consulted Pain management Plan for surgery once medically stable (5) Morbid obesity with BMI of 50.0-59.9, adult: Code(s): E66.01 - Morbid (severe) obesity due to excess calories; Z68.43 - Body mass index [BMI] 50.0-59.9, adult Status: Acute Assessment and Plan: Had gastric bypass Calorie restricted diet Follow-up in outpatient setting (6) Fibromyalgia: Code(s): M79.7 - Fibromyalgia Status: Acute Assessment and Plan: Continue home meds Plan Confusion likely due to hypercapnia and respiratory acidosis Acute hypercapnic respiratory failure started on BiPAP. ABG still with hypercapnia even with multiple adjustments. Will consult Pulmonary for BiPAP management and respiratory acidosis. Alert and oriented x3 despite ABGs. Continue continuous BiPAP for now. On AVAPS mode with improved ABG this morning. Patient also likely has obesity hypoventilation syndrome and will be reassessed for use of trilogy instead of CPAP at night upon discharge Asthma continue current medication follows with Dr. Waters Pulmonary edema chest x-ray with improving congestion. Will re-dose Lasix today 02/09/2023 interval history: Patient with hypercapnic respiratory acidosis failure seen by pulmonology and patient was placed on BiPAP patient clinical symptoms are improving as well as hypercapnia and respiratory acidosis, discussed with pulmonology suspect beside hypoventilation due to morbid obesity patient also has component of congestive heart failure with pulmonary edema recommended to continue Lasix and monitor kidney function, however patient Scr is rising and will hold lasix, patient is having several loose BM sent it for stool culture, patient status post fall and fracture of right ankle, orthopedics recommending ORIF, milk of lime slaker cleared the patient and patient had ORIF POD 1, patient will participate in nonweight bearing PT< will monitor and follow Subjective Date/time seen: 02/09/23 16:58 Interval history: Confusion likely due to hypercapnia and respiratory acidosis Acute hypercapnic respiratory failure started on BiPAP. ABG still with hypercapnia even with multiple adjustments. Will consult Pulmonary for BiPAP management and respiratory acidosis. Alert and oriented x3 despite ABGs. Continue continuous BiPAP for now. On AVAPS mode with improved ABG this morning. Patient also likely has obesity hypoventilation syndrome and will be reassessed for use of trilogy instead of CPAP at night upon discharge Asthma continue current medication follows with Dr. Waters Pulmonary edema chest x-ray with improving congestion. Will re-dose Lasix today 02/09/2023 interval history: Patient with hypercapnic respiratory acidosis failure seen by pulmonology
[2023-02-09 18:45] LABS: Chloride Rand Ur <20 mmol/L (32-290); Creatinine Random Urine 139 mg/dL (20-275)
[2023-02-09] MEDS: WATER FOR IRRIGATION, STERILE 1,000 ML BOTTLE 1000 ML (23:01)
[2023-02-10] MEDS: oxyCODONE/ACETAMINOPHEN (*CRX) 10-325 MG TABLET 1 TAB PO ×4 (03:59→21:58)
[2023-02-10] MEDS: SALINE LOCK FLUSH 10 ML IV PUSH ×3 (04:01→20:19)
[2023-02-10 04:39] VITALS: BP 128/76; PULSE 69; RESP 18; TEMP 36.4; O2SAT 95
[2023-02-10 05:57] VITALS: O2SAT 96
[2023-02-10 08:04] LABS: Hematocrit 36.4 % (37.0-47.0); Mean Corpuscular HGB Conc 30.2 g/dl (32-36); Mean Corpuscular Hemoglobin 24.7 pg (26-34); Mean Corpuscular Volume 81.6 fl (80-100); Mean Platelet Volume 12.2 fl (7.4-10.4); Platelet Count Result 160 k/mm3 (150-375); Red Blood Count 4.46 M/mm3 (4.2-5.4); Red Cell Distribution Width 14.6 % (11.5-14.5); White Blood Count 11.2 K/mm3 (4.5-10.0)
[2023-02-10 08:20] LABS: Albumin Level 3.8 g/dL (3.5-5.1); Anion Gap 8 mmol/L (8-16); Blood Urea Nitrogen 19 mg/dL (7-17); Calcium 8.8 mg/dL (8.4-10.2); Carbon Dioxide 29 mmol/L (22-30); Chloride 100 mmol/L (98-107); Estimated CRCL calculation 78 ml/min; Estimated Glomerular Filt Rate > 60; Glucose 90 mg/dL (65-110); Magnesium 2.1 mg/dL (1.6-2.3); Phosphorus 3.4 mg/dL (2.5-4.5); Potassium 3.5 mmol/L (3.4-5.0); Sodium 137 mmol/L (137-145)
[2023-02-10] MEDS: FLUTICASONE/UMECLIDIN/VILANTER 200-62.5-25 MCG ELLIPTA 1 PUFF INHALATION (08:35)
[2023-02-10 08:37] VITALS: O2SAT 93
[2023-02-10] MEDS: ENOXAPARIN 40 MG/0.4 ML SYRINGE SUB-Q (09:17)
[2023-02-10] MEDS: PANTOPRAZOLE SODIUM IV 40 MG VIAL IV PUSH ×2 (09:18→20:19)
[2023-02-10] MEDS: TIMOLOL MALEATE 0.5% OP SOLN 5 ML BOTTLE 1 DROP EACH EYE (09:18)
[2023-02-10] MEDS: MAGNESIUM OXIDE 400 MG TABLET PO (09:18)
--- NOTE | 2023-02-10 10:58 | PCNWS ---
Weekly nutritional screen. Patient is tolerating current diet with adequate intake. No weight loss reported. No nutritional needs at this time.
--- NOTE | 2023-02-10 11:59 | PCOTNOTE ---
Patient declined at this time. Patient requested OT come back at a later time, she is having increased pain and still needs to eat her lunch.
--- NOTE | 2023-02-10 13:18 | PM.PNPUL ---
Progress Note: A&P Assessment and Plan (1) Asthma: Code(s): J45.909 - Unspecified asthma, uncomplicated Status: Acute Assessment and Plan: 02/05 Patient carries a history of asthma diagnosed [address] Waters. I do not have any of these notes. Currently the patient has no wheezing. Patient tells me she had a gastric bypass in 2002. Patient tells me she has obstructive sleep apnea in 2018 diagnosed with a sleep study. She is treated with CPAP 15 and she says that she wears her mask a proximally 2 times a week, DME for CPAP is [facility] and DME for oxygen is [facility]. The patient tells me that 3 months ago she saw mergers and acquisitions manager at [facility]'s name Dr. Strickland and she was diagnosed with asthma and treated with inhaled trelegy once a day. States she smoked 1 pack per day from 3638-9950 for 18 pack years, she was exposed to secondhand smoke from both of her parents but none since. Patient smoked crack cocaine daily from 4882-5055. Patient had PFTs in [place]. Plan: Will discontinue systemic steroids and place the patient on budesonide 500 mcg nebulized twice a day, albuterol 2.5 mg nebs q.4 hours and ipratropium 0.5 mg nebs q.4 hours. No evidence of pneumonia and she does not require antibiotics from a pulmonary perspective. 02/06 More history obtained today The patient tells me that she saw her mergers and acquisitions manager who manages her CPAP at [facility]'s name Dr. Strickland and she was diagnosed with asthma after she had a methacholine challenge test was positive about 2-3 months ago. The patient tells me that her mother told her she had asthma as a child but she never remembers this. She had no limitations in her activities during grade school and did high school cheerleading and gymnastics without any respiratory difficulties. The patient developed her 1st respiratory symptoms in approximately 1978 after she started smoking. Initially Dr. Strickland started her on Breo Ellipta and rescue albuterol and the patient states that these inhalers helped her take deeper breaths, and decreased her wheezing. The patient was then changed to trilogy to see if this would provide any additional benefit approximally 1-1 and half months ago. This did provide benefit compared to Breo Ellipta and she could take even deeper breaths, had less wheezing and more activity. Over the last month she was using short-acting beta agonist 1 to 2 times a month. Plan: Patient states she is breathing normally today and has no wheezes on budesonide 500 mcg nebulized twice a day, albuterol 2.5 nebs q.4 hours and ipratropium 0.5 nebs q.4 hours. 02/07 breathing back to her baseline, room air saturations 94%. No wheezing. Plan: Continue budesonide 500 mcg nebulized twice a day, albuterol 2.5 nebs q.4 hours and ipratropium 0.5 nebs q.4 hours. 02/08: patient states she is breathing back to her normal in denies wheezing. Currently she is on 3 L nasal cannula saturations 96-99%. I decreased her to 2 L. patient states that the nebulizers make her nauseous. She is requesting to go back on her trelegy. Plan: Discontinue albuterol, ipratropium and budesonide nebulizers and placed on trelegy 200-62.5-25 at 1 puff q.day. 02/09 patient states she is breathing well with no respiratory complaints. She has no wheezing currently. White blood cell count 12.6, creatinine 1.3. Currently her saturations on 2 L were 95%. Plan: Continue trelegy 200-62.5-25 at 1 puff q.day. out of bed to chair as tolerated. 02/10 Patient states she is breathing at her baseline and denies any respiratory complaints. Plan: continue trelegy 200-62.5-25 at 1 puff q.day. out of bed to chair as tolerated. Discussed with Dr. Miranda, will sign off. Patient to follow-up with her previous mergers and acquisitions manager, Dr. Waters (2) JUAN (obstructive sleep apnea): Code(s): G47.33 - Obstructive sleep apnea (adult) (pediatric) Status: Acute Assessment and Plan: 02/05
[2023-02-10 14:57] VITALS: BP 148/87; PULSE 58; RESP 17; TEMP 36.6; O2SAT 96
--- NOTE | 2023-02-10 15:07 | P.PNNP_ITS ---
Progress Note: A&P Assessment and Plan (1) Acute kidney injury: Code(s): N17.9 - Acute kidney failure, unspecified Status: Acute Assessment and Plan: * slow improvement noted * present on admission labs * etiology? 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) * urine eosinophils negative * CPK mildly elevated (989) - follow trend * mild proteinuria * UA suggestive of UTI * holding KEN-I and NSAIDs * given CXR findings, PRN IV diuretic therapy (2) Chronic kidney disease, stage 3: Code(s): N18.30 - Chronic kidney disease, stage 3 unspecified Status: Chronic Assessment and Plan: * baseline creatinine seems to run around 1.4 - 1.5mg/dl (as of December 2022) * this causes her to fluctuate between CKD stage 3A and 3B * presumably due to HTN, DM, and vascular disease along with necessity of diuretics * suspect better than baseline creatinine today secondary to being off diuretic therapy (3) Urinary tract infection: Code(s): N39.0 - Urinary tract infection, site not specified Status: Acute Assessment and Plan: * admission UA suggestive * urine culture with Klebsiella * on antibiotics (4) Bimalleolar fracture of right ankle: Qualifiers: Encounter type: subsequent encounter Fracture healing: with routine healing Fracture type: closed Qualified Code(s): S82.841D - Displaced bima lleolar fracture of right lower leg, subsequent encounter for closed fracture with routine healing Code(s): S82.841A - Displaced bimalleolar fracture of right lower leg, initial encounter for closed fracture Status: Acute Assessment and Plan: * reduced and splinted in ER * Orthopedics following * s/p open reduction internal fixation right ankle bimalleolar fracture (on 02/08/23) * PT/OT as tolerated * pain controlled (5) Fall: Code(s): W19.XXXA - Unspecified fall, initial encounter Status: Acute Assessment and Plan: * fall precautions * PT/OT as tolerated (6) Hypertension: Code(s): I10 - Essential (primary) hypertension Status: Chronic Assessment and Plan: * appears to be getting back to baseline * follow hemodynamics * holding KEN-I at this time but not opposed to restarting (7) Obesity hypoventilation syndrome: Code(s): E66.2 - Morbid (severe) obesity with alveolar hypoventilation Status: Chronic Assessment and Plan: * resolved/resolving * evidence of hypercapnea by ABG on admission * BiPAP/non-invasive ventilation as needed * follow respiratory status and mentation * Pulmonary recommendations noted * resume oral diuretics (lasix) Not much else to add -- will continue to follow from a distance. Subjective Date/time seen: 02/10/23 15:07 Interval history: Follow-up for acute kidney injury/acute renal failure on chronic kidney disease. Renal function better than baseline as noted by AM labs; breathing is stable and back to baseline at this time; working with PT/OT as tolerated; pain control seems satisfactory; no other acute issues/events overnight or earlier this morning. Exam Narrative: General: Large female in NAD Heart: normal S1
--- NOTE | 2023-02-10 15:07 | PM.PNNEP ---
Progress Note: A&P Assessment and Plan (1) Acute kidney injury: Code(s): N17.9 - Acute kidney failure, unspecified Status: Acute Assessment and Plan: slow improvement noted present on admission labs etiology? 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) urine eosinophils negative CPK mildly elevated (989) - follow trend mild proteinuria UA suggestive of UTI holding KEN-I and NSAIDs given CXR findings, PRN IV diuretic therapy (2) Chronic kidney disease, stage 3: Code(s): N18.30 - Chronic kidney disease, stage 3 unspecified Status: Chronic Assessment and Plan: baseline creatinine seems to run around 1.4 - 1.5mg/dl (as of December 2022) this causes her to fluctuate between CKD stage 3A and 3B presumably due to HTN, DM, and vascular disease along with necessity of diuretics suspect better than baseline creatinine today secondary to being off diuretic therapy (3) Urinary tract infection: Code(s): N39.0 - Urinary tract infection, site not specified Status: Acute Assessment and Plan: admission UA suggestive urine culture with Klebsiella on antibiotics (4) Bimalleolar fracture of right ankle: Qualifiers: Encounter type: subsequent encounter Fracture healing: with routine healing Fracture type: closed Qualified Code(s): S82.841D - Displaced bimalleolar fracture of right lower leg, subsequent encounter for closed fracture with routine healing Code(s): S82.841A - Displaced bimalleolar fracture of right lower leg, initial encounter for closed fracture Status: Acute Assessment and Plan: reduced and splinted in ER Orthopedics following s/p open reduction internal fixation right ankle bimalleolar fracture (on 02/08/23) PT/OT as tolerated pain controlled (5) Fall: Code(s): W19.XXXA - Unspecified fall, initial encounter Status: Acute Assessment and Plan: fall precautions PT/OT as tolerated (6) Hypertension: Code(s): I10 - Essential (primary) hypertension Status: Chronic Assessment and Plan: appears to be getting back to baseline follow hemodynamics holding KEN-I at this time but not opposed to restarting (7) Obesity hypoventilation syndrome: Code(s): E66.2 - Morbid (severe) obesity with alveolar hypoventilation Status: Chronic Assessment and Plan: resolved/resolving evidence of hypercapnea by ABG on admission BiPAP/non-invasive ventilation as needed follow respiratory status and mentation Pulmonary recommendations noted resume oral diuretics (lasix) Not much else to add -- will continue to follow from a distance. Subjective Date/time seen: 02/10/23 15:07 Interval history: Follow-up for acute kidney injury/acute renal failure on chronic kidney disease. Renal function better than baseline as noted by AM labs; breathing is stable and back to baseline at this time; working with PT/OT as tolerated; pain control seems satisfactory; no other acute issues/events overnight or earlier this morning. Exam Narrative: General: Large female in NAD Heart: normal S1 and S2; no rub Lungs: diminished at the bases Abdomen: soft, nontender, nondistended, positive bowel sounds Extremities: no cyanosis or clubbing; no edema; right LE cast in place Skin: warm and dry Objective Data Vital Signs Vital Signs: Vital Signs Temp Pulse Resp BP Pulse Ox O2 Del Method FiO2 02/10/23 14:57 97.8 F 58 L 17 148/87 H 96 02/10/23 08:37 93 Room Air 02/10/23 05:57 96 Room Air 21 02/10/23 04:39 97.6 F 69 18 128/76 95 02/09/23 21:23 97.6 F 70 16 150/83
[2023-02-10] MEDS: FUROSEMIDE INJ 40 MG/4 ML VIAL IV PUSH (15:20)
--- NOTE | 2023-02-10 16:11 | WPDPN ---
Progress Note: A&P Assessment and Plan (1) Fall: Code(s): W19.XXXA - Unspecified fall, initial encounter Status: Acute Assessment and Plan: Admit to regular medical floor Fall precautions Bed rest (2) Near syncope: Code(s): R55 - Syncope and collapse Status: Acute (3) Acute kidney injury superimposed on CKD: Code(s): N17.9 - Acute kidney failure, unspecified; N18.9 - Chronic kidney disease, unspecified Status: Acute Assessment and Plan: Likely secondary to diuretics Component of prerenal azotemia as well Replacing fluids Repeat BMP IV resuscitation now renal failure improving Baseline creatinine 1 (4) Bimalleolar fracture of right ankle: Qualifiers: Encounter type: subsequent encounter Fracture healing: with routine healing Fracture type: closed Qualified Code(s): S82.841D - Displaced bimalleolar fracture of right lower leg, subsequent encounter for closed fracture with routine healing Code(s): S82.841A - Displaced bimalleolar fracture of right lower leg, initial encounter for closed fracture Status: Acute Assessment and Plan: Status post reduction and immobilization Ortho consulted Pain management Plan for surgery once medically stable (5) Morbid obesity with BMI of 50.0-59.9, adult: Code(s): E66.01 - Morbid (severe) obesity due to excess calories; Z68.43 - Body mass index [BMI] 50.0-59.9, adult Status: Acute Assessment and Plan: Had gastric bypass Calorie restricted diet Follow-up in outpatient setting (6) Fibromyalgia: Code(s): M79.7 - Fibromyalgia Status: Acute Assessment and Plan: Continue home meds Plan Confusion likely due to hypercapnia and respiratory acidosis Acute hypercapnic respiratory failure started on BiPAP. ABG still with hypercapnia even with multiple adjustments. Will consult Pulmonary for BiPAP management and respiratory acidosis. Alert and oriented x3 despite ABGs. Continue continuous BiPAP for now. On AVAPS mode with improved ABG this morning. Patient also likely has obesity hypoventilation syndrome and will be reassessed for use of trilogy instead of CPAP at night upon discharge Asthma continue current medication follows with Dr. Waters Pulmonary edema chest x-ray with improving congestion. Will re-dose Lasix today 02/10/2023 interval history: Patient with hypercapnic respiratory acidosis failure seen by pulmonology and patient was placed on BiPAP patient clinical symptoms are improving as well as hypercapnia and respiratory acidosis, discussed with pulmonology suspect beside hypoventilation due to morbid obesity patient also has component of congestive heart failure with pulmonary edema recommended to continue Lasix and monitor kidney function, however patient Scr is rising and will hold lasix, patient is having several loose BM sent it for stool culture, patient status post fall and fracture of right ankle, orthopedics recommending ORIF, aviation boatswain's mate cleared the patient and patient had ORIF POD 2, patient will participate in nonweight bearing PT, waiting for placement, will monitor and follow Subjective Date/time seen: 02/10/23 16:11 Interval history: Confusion likely due to hypercapnia and respiratory acidosis Acute hypercapnic respiratory failure started on BiPAP. ABG still with hypercapnia even with multiple adjustments. Will consult Pulmonary for BiPAP management and respiratory acidosis. Alert and oriented x3 despite ABGs. Continue continuous BiPAP for now. On AVAPS mode with improved ABG this morning. Patient also likely has obesity hypoventilation syndrome and will be reassessed for use of trilogy instead of CPAP at night upon discharge Asthma continue current medication follows with Dr. Waters Pulmonary edema chest x-ray with improving congestion. Will re-dose Lasix today 02/10/2023 interval history: Patient with hypercapnic respiratory acidosis failu
[2023-02-10] MEDS: CEPHALEXIN 500 MG CAPSULE PO ×2 (17:01→23:26)
[2023-02-10 19:36] VITALS: BP 132/67; PULSE 65; RESP 18; TEMP 36.3; O2SAT 97
[2023-02-11 04:52] VITALS: BP 149/83; PULSE 61; RESP 18; TEMP 36.5; O2SAT 95
[2023-02-11] MEDS: SALINE LOCK FLUSH 10 ML IV PUSH ×3 (05:20→20:33)
[2023-02-11] MEDS: CEPHALEXIN 500 MG CAPSULE PO ×4 (05:20→23:34)
[2023-02-11 05:45] LABS: Hemoglobin 10.9 g/dL (12.0-15.0); Mean Corpuscular HGB Conc 30.3 g/dl (32-36); Mean Corpuscular Hemoglobin 24.7 pg (26-34); Mean Corpuscular Volume 81.6 fl (80-100); Mean Platelet Volume 12.1 fl (7.4-10.4); Platelet Count Result 184 k/mm3 (150-375); Red Blood Count 4.41 M/mm3 (4.2-5.4); Red Cell Distribution Width 14.8 % (11.5-14.5); White Blood Count 10.7 K/mm3 (4.5-10.0)
[2023-02-11 06:02] LABS: Albumin Level 3.6 g/dL (3.5-5.1); Anion Gap 4 mmol/L (8-16); Blood Urea Nitrogen 16 mg/dL (7-17); Calcium 8.7 mg/dL (8.4-10.2); Carbon Dioxide 32 mmol/L (22-30); Chloride 97 mmol/L (98-107); Estimated CRCL calculation 71 ml/min; Estimated Glomerular Filt Rate > 60; Glucose 99 mg/dL (65-110); Magnesium 1.9 mg/dL (1.6-2.3); Phosphorus 3.4 mg/dL (2.5-4.5); Potassium 3.3 mmol/L (3.4-5.0); Sodium 133 mmol/L (137-145)
[2023-02-11 08:19] VITALS: O2SAT 95
[2023-02-11] MEDS: FLUTICASONE/UMECLIDIN/VILANTER 200-62.5-25 MCG ELLIPTA 1 PUFF INHALATION (08:19)
[2023-02-11] MEDS: FUROSEMIDE 40 MG TABLET PO (09:36)
[2023-02-11] MEDS: MAGNESIUM OXIDE 400 MG TABLET PO (09:36)
[2023-02-11] MEDS: TIMOLOL MALEATE 0.5% OP SOLN 5 ML BOTTLE 1 DROP EACH EYE (09:36)
[2023-02-11] MEDS: oxyCODONE/ACETAMINOPHEN (*CRX) 10-325 MG TABLET 1 TAB PO ×2 (09:36→20:32)
[2023-02-11] MEDS: PANTOPRAZOLE SODIUM IV 40 MG VIAL IV PUSH ×2 (09:36→20:33)
[2023-02-11] MEDS: ENOXAPARIN 40 MG/0.4 ML SYRINGE SUB-Q (09:36)
[2023-02-11] MEDS: POTASSIUM CHLORIDE 20 MEQ ER TABLET 40 MEQ PO (09:42)
--- NOTE | 2023-02-11 11:57 | WPDPN ---
Progress Note: A&P Assessment and Plan (1) Fall: Code(s): W19.XXXA - Unspecified fall, initial encounter Status: Acute Assessment and Plan: Admit to regular medical floor Fall precautions Bed rest (2) Near syncope: Code(s): R55 - Syncope and collapse Status: Acute (3) Acute kidney injury superimposed on CKD: Code(s): N17.9 - Acute kidney failure, unspecified; N18.9 - Chronic kidney disease, unspecified Status: Acute Assessment and Plan: Likely secondary to diuretics Component of prerenal azotemia as well Replacing fluids Repeat BMP IV resuscitation now renal failure improving Baseline creatinine 1 (4) Bimalleolar fracture of right ankle: Qualifiers: Encounter type: subsequent encounter Fracture healing: with routine healing Fracture type: closed Qualified Code(s): S82.841D - Displaced bimalleolar fracture of right lower leg, subsequent encounter for closed fracture with routine healing Code(s): S82.841A - Displaced bimalleolar fracture of right lower leg, initial encounter for closed fracture Status: Acute Assessment and Plan: Status post reduction and immobilization Ortho consulted Pain management Plan for surgery once medically stable (5) Morbid obesity with BMI of 50.0-59.9, adult: Code(s): E66.01 - Morbid (severe) obesity due to excess calories; Z68.43 - Body mass index [BMI] 50.0-59.9, adult Status: Acute Assessment and Plan: Had gastric bypass Calorie restricted diet Follow-up in outpatient setting (6) Fibromyalgia: Code(s): M79.7 - Fibromyalgia Status: Acute Assessment and Plan: Continue home meds Plan Confusion likely due to hypercapnia and respiratory acidosis Acute hypercapnic respiratory failure started on BiPAP. ABG still with hypercapnia even with multiple adjustments. Will consult Pulmonary for BiPAP management and respiratory acidosis. Alert and oriented x3 despite ABGs. Continue continuous BiPAP for now. On AVAPS mode with improved ABG this morning. Patient also likely has obesity hypoventilation syndrome and will be reassessed for use of trilogy instead of CPAP at night upon discharge Asthma continue current medication follows with Dr. Waters Pulmonary edema chest x-ray with improving congestion. Will re-dose Lasix today 02/11/2023 interval history: Patient with hypercapnic respiratory acidosis failure seen by pulmonology and patient was placed on BiPAP patient clinical symptoms are improving as well as hypercapnia and respiratory acidosis, discussed with pulmonology suspect beside hypoventilation due to morbid obesity patient also has component of congestive heart failure with pulmonary edema recommended to continue Lasix and monitor kidney function, however patient Scr is rising and will hold lasix, patient is having several loose BM sent it for stool culture, patient status post fall and fracture of right ankle, orthopedics recommending ORIF, button spindler cleared the patient and patient had ORIF POD 3, patient is participating in nonweight bearing PT, waiting for placement, will monitor and follow Subjective Date/time seen: 02/11/23 11:57 Interval history: Confusion likely due to hypercapnia and respiratory acidosis Acute hypercapnic respiratory failure started on BiPAP. ABG still with hypercapnia even with multiple adjustments. Will consult Pulmonary for BiPAP management and respiratory acidosis. Alert and oriented x3 despite ABGs. Continue continuous BiPAP for now. On AVAPS mode with improved ABG this morning. Patient also likely has obesity hypoventilation syndrome and will be reassessed for use of trilogy instead of CPAP at night upon discharge Asthma continue current medication follows with Dr. Waters Pulmonary edema chest x-ray with improving congestion. Will re-dose Lasix today 02/11/2023 interval history: Patient with hypercapnic respiratory acidosis failu
[2023-02-11 19:30] VITALS: BP 147/81; PULSE 68; RESP 18; TEMP 36.3; O2SAT 97
[2023-02-11 20:00] VITALS: PULSE 68; RESP 18; O2SAT 97
[2023-02-12 04:48] VITALS: BP 134/75; PULSE 67; RESP 16; TEMP 36.1; O2SAT 97
[2023-02-12 05:40] LABS: Hematocrit 36.4 % (37.0-47.0); Hemoglobin 11.2 g/dL (12.0-15.0); Mean Corpuscular HGB Conc 30.8 g/dl (32-36); Mean Corpuscular Hemoglobin 25.1 pg (26-34); Mean Corpuscular Volume 81.6 fl (80-100); Mean Platelet Volume 12.4 fl (7.4-10.4); Platelet Count Result 193 k/mm3 (150-375); Red Blood Count 4.46 M/mm3 (4.2-5.4); Red Cell Distribution Width 14.7 % (11.5-14.5); White Blood Count 11.2 K/mm3 (4.5-10.0)
[2023-02-12] MEDS: CEPHALEXIN 500 MG CAPSULE PO ×4 (05:46→23:57)
[2023-02-12] MEDS: SALINE LOCK FLUSH 10 ML IV PUSH ×3 (05:46→20:33)
[2023-02-12 06:15] LABS: Albumin Level 3.7 g/dL (3.5-5.1); Anion Gap 6 mmol/L (8-16); Blood Urea Nitrogen 17 mg/dL (7-17); Calcium 8.9 mg/dL (8.4-10.2); Carbon Dioxide 32 mmol/L (22-30); Chloride 99 mmol/L (98-107); Estimated CRCL calculation 71 ml/min; Estimated Glomerular Filt Rate > 60; Glucose 117 mg/dL (65-110); Magnesium 1.9 mg/dL (1.6-2.3); Phosphorus 3.4 mg/dL (2.5-4.5); Potassium 3.7 mmol/L (3.4-5.0); Sodium 137 mmol/L (137-145)
[2023-02-12] MEDS: FLUTICASONE/UMECLIDIN/VILANTER 200-62.5-25 MCG ELLIPTA 1 PUFF INHALATION ×2 (07:14→07:15)
[2023-02-12 07:20] VITALS: PULSE 67; RESP 18; O2SAT 95
[2023-02-12] MEDS: TIMOLOL MALEATE 0.5% OP SOLN 5 ML BOTTLE 1 DROP EACH EYE (08:34)
[2023-02-12] MEDS: PANTOPRAZOLE SODIUM IV 40 MG VIAL IV PUSH ×2 (08:34→20:33)
[2023-02-12] MEDS: ENOXAPARIN 40 MG/0.4 ML SYRINGE SUB-Q (08:34)
[2023-02-12] MEDS: FUROSEMIDE 40 MG TABLET PO (08:34)
[2023-02-12] MEDS: MAGNESIUM OXIDE 400 MG TABLET PO (08:34)
--- NOTE | 2023-02-12 12:21 | WPDPN ---
Progress Note: A&P Assessment and Plan (1) Fall: Code(s): W19.XXXA - Unspecified fall, initial encounter Status: Acute Assessment and Plan: Admit to regular medical floor Fall precautions Bed rest (2) Near syncope: Code(s): R55 - Syncope and collapse Status: Acute (3) Acute kidney injury superimposed on CKD: Code(s): N17.9 - Acute kidney failure, unspecified; N18.9 - Chronic kidney disease, unspecified Status: Acute Assessment and Plan: Likely secondary to diuretics Component of prerenal azotemia as well Replacing fluids Repeat BMP IV resuscitation now renal failure improving Baseline creatinine 1 (4) Bimalleolar fracture of right ankle: Qualifiers: Encounter type: subsequent encounter Fracture healing: with routine healing Fracture type: closed Qualified Code(s): S82.841D - Displaced bimalleolar fracture of right lower leg, subsequent encounter for closed fracture with routine healing Code(s): S82.841A - Displaced bimalleolar fracture of right lower leg, initial encounter for closed fracture Status: Acute Assessment and Plan: Status post reduction and immobilization Ortho consulted Pain management Plan for surgery once medically stable (5) Morbid obesity with BMI of 50.0-59.9, adult: Code(s): E66.01 - Morbid (severe) obesity due to excess calories; Z68.43 - Body mass index [BMI] 50.0-59.9, adult Status: Acute Assessment and Plan: Had gastric bypass Calorie restricted diet Follow-up in outpatient setting (6) Fibromyalgia: Code(s): M79.7 - Fibromyalgia Status: Acute Assessment and Plan: Continue home meds Plan Confusion likely due to hypercapnia and respiratory acidosis Acute hypercapnic respiratory failure started on BiPAP. ABG still with hypercapnia even with multiple adjustments. Will consult Pulmonary for BiPAP management and respiratory acidosis. Alert and oriented x3 despite ABGs. Continue continuous BiPAP for now. On AVAPS mode with improved ABG this morning. Patient also likely has obesity hypoventilation syndrome and will be reassessed for use of trilogy instead of CPAP at night upon discharge Asthma continue current medication follows with Dr. Waters Pulmonary edema chest x-ray with improving congestion. Will re-dose Lasix today 02/12/2023 interval history: Patient with hypercapnic respiratory acidosis failure seen by pulmonology and patient was placed on BiPAP patient clinical symptoms are improving as well as hypercapnia and respiratory acidosis, discussed with pulmonology suspect beside hypoventilation due to morbid obesity patient also has component of congestive heart failure with pulmonary edema recommended to continue Lasix and monitor kidney function, however patient Scr is rising and will hold lasix, patient is having several loose BM sent it for stool culture, patient status post fall and fracture of right ankle, orthopedics recommending ORIF, clinic coordinator cleared the patient and patient had ORIF POD 4, patient is participating in nonweight bearing PT, waiting for placement, willd discuss with ortho for further rehab instructions, will monitor and follow Subjective Date/time seen: 02/12/23 12:21 Interval history: Confusion likely due to hypercapnia and respiratory acidosis Acute hypercapnic respiratory failure started on BiPAP. ABG still with hypercapnia even with multiple adjustments. Will consult Pulmonary for BiPAP management and respiratory acidosis. Alert and oriented x3 despite ABGs. Continue continuous BiPAP for now. On AVAPS mode with improved ABG this morning. Patient also likely has obesity hypoventilation syndrome and will be reassessed for use of trilogy instead of CPAP at night upon discharge Asthma continue current medication follows with Dr. Waters Pulmonary edema chest x-ray with improving congestion. Will re-dose Lasix today 02/12/2023 interval hist
[2023-02-12 13:52] VITALS: BP 119/93; PULSE 71; RESP 16; TEMP 36.7; O2SAT 96
[2023-02-12 20:00] VITALS: PULSE 69; RESP 20; O2SAT 96
[2023-02-12 20:03] VITALS: BP 140/92; PULSE 69; RESP 20; TEMP 36.8; O2SAT 96
[2023-02-12] MEDS: oxyCODONE/ACETAMINOPHEN (*CRX) 10-325 MG TABLET 1 TAB PO (20:33)
[2023-02-13 05:35] LABS: Hematocrit 36.1 % (37.0-47.0); Hemoglobin 11.1 g/dL (12.0-15.0); Mean Corpuscular HGB Conc 30.7 g/dl (32-36); Mean Corpuscular Hemoglobin 25.2 pg (26-34); Mean Platelet Volume 12.2 fl (7.4-10.4); Platelet Count Result 204 k/mm3 (150-375); Red Cell Distribution Width 15.1 % (11.5-14.5); White Blood Count 11.2 K/mm3 (4.5-10.0)
[2023-02-13 05:37] VITALS: BP 119/66; PULSE 59; RESP 20; TEMP 37.1; O2SAT 97
[2023-02-13] MEDS: CEPHALEXIN 500 MG CAPSULE PO ×3 (05:39→17:04)
[2023-02-13] MEDS: SALINE LOCK FLUSH 10 ML IV PUSH ×2 (05:39→17:04)
[2023-02-13 05:44] LABS: Albumin Level 3.8 g/dL (3.5-5.1); Anion Gap 7 mmol/L (8-16); Blood Urea Nitrogen 15 mg/dL (7-17); Calcium 9.3 mg/dL (8.4-10.2); Carbon Dioxide 30 mmol/L (22-30); Chloride 99 mmol/L (98-107); Estimated CRCL calculation 71 ml/min; Estimated Glomerular Filt Rate > 60; Glucose 113 mg/dL (65-110); Magnesium 1.8 mg/dL (1.6-2.3); Phosphorus 3.6 mg/dL (2.5-4.5); Potassium 3.5 mmol/L (3.4-5.0); Sodium 136 mmol/L (137-145)
[2023-02-13 07:25] VITALS: PULSE 67; RESP 20; O2SAT 94
[2023-02-13] MEDS: FLUTICASONE/UMECLIDIN/VILANTER 200-62.5-25 MCG ELLIPTA 1 PUFF INHALATION (07:25)
[2023-02-13] MEDS: MAGNESIUM OXIDE 400 MG TABLET PO (09:30)
[2023-02-13] MEDS: PANTOPRAZOLE SODIUM IV 40 MG VIAL IV PUSH (09:30)
[2023-02-13] MEDS: FUROSEMIDE 40 MG TABLET PO (09:30)
[2023-02-13] MEDS: ENOXAPARIN 40 MG/0.4 ML SYRINGE SUB-Q (09:31)
[2023-02-13] MEDS: TIMOLOL MALEATE 0.5% OP SOLN 5 ML BOTTLE 1 DROP EACH EYE (09:31)
[2023-02-13] MEDS: POTASSIUM CHLORIDE 20 MEQ ER TABLET 40 MEQ PO (09:40)
[2023-02-13] MEDS: oxyCODONE/ACETAMINOPHEN (*CRX) 10-325 MG TABLET 1 TAB PO (10:47)
--- NOTE | 2023-02-13 12:58 | PM.DS ---
DS: Admitting Diagnosis Discharge Date 02/13/2023 Admitting Diagnosis Fall DS: Discharge Diagnosis Discharge Diagnosis (1) Fall: Code(s): W19.XXXA - Unspecified fall, initial encounter Status: Acute Assessment and Plan: Admit to regular medical floor Fall precautions Bed rest (2) Near syncope: Code(s): R55 - Syncope and collapse Status: Acute (3) Acute kidney injury superimposed on CKD: Code(s): N17.9 - Acute kidney failure, unspecified; N18.9 - Chronic kidney disease, unspecified Status: Acute Assessment and Plan: Likely secondary to diuretics Component of prerenal azotemia as well Replacing fluids Repeat BMP IV resuscitation now renal failure improving Baseline creatinine 1 (4) Bimalleolar fracture of right ankle: Qualifiers: Encounter type: subsequent encounter Fracture healing: with routine healing Fracture type: closed Qualified Code(s): S82.841D - Displaced bimalleolar fracture of right lower leg, subsequent encounter for closed fracture with routine healing Code(s): S82.841A - Displaced bimalleolar fracture of right lower leg, initial encounter for closed fracture Status: Acute Assessment and Plan: Status post reduction and immobilization Ortho consulted Pain management Plan for surgery once medically stable (5) Morbid obesity with BMI of 50.0-59.9, adult: Code(s): E66.01 - Morbid (severe) obesity due to excess calories; Z68.43 - Body mass index [BMI] 50.0-59.9, adult Status: Acute Assessment and Plan: Had gastric bypass Calorie restricted diet Follow-up in outpatient setting (6) Fibromyalgia: Code(s): M79.7 - Fibromyalgia Status: Acute Assessment and Plan: Continue home meds Plan Confusion likely due to hypercapnia and respiratory acidosis Acute hypercapnic respiratory failure started on BiPAP. ABG still with hypercapnia even with multiple adjustments. Will consult Pulmonary for BiPAP management and respiratory acidosis. Alert and oriented x3 despite ABGs. Continue continuous BiPAP for now. On AVAPS mode with improved ABG this morning. Patient also likely has obesity hypoventilation syndrome and will be reassessed for use of trilogy instead of CPAP at night upon discharge Asthma continue current medication follows with Dr. Waters Pulmonary edema chest x-ray with improving congestion. Will re-dose Lasix today 02/12/2023 interval history: Patient with hypercapnic respiratory acidosis failure seen by pulmonology and patient was placed on BiPAP patient clinical symptoms are improving as well as hypercapnia and respiratory acidosis, discussed with pulmonology suspect beside hypoventilation due to morbid obesity patient also has component of congestive heart failure with pulmonary edema recommended to continue Lasix and monitor kidney function, however patient Scr is rising and will hold lasix, patient is having several loose BM sent it for stool culture, patient status post fall and fracture of right ankle, orthopedics recommending ORIF, bag machine operator helper cleared the patient and patient had ORIF POD 4, patient is participating in nonweight bearing PT, waiting for placement, willd discuss with ortho for further rehab instructions, will monitor and follow DS: Summary Hospital Course Reason for hospitalization: Fall Narrative: This is a 57-year-old female with past medical history significant for morbid obesity, type diabetes mellitus, hypothyroidism, hypertension, fibromyalgia, seizure disorder, COPD, generalized anxiety.? Patient comes to the emergency room after she had a fall was feeling lightheaded states that she has been her usual state of health up until today, denies any fevers, rigors, chills, nausea, vomiting, diarrhea, abdominal pain, chest pain, syncope, complains of right ankle pain.? Preliminary workup was significant for chemistry panel sodium 134 chloride 90 for BUN 54 creatinine 4.5
[2023-02-13 14:16] VITALS: BP 139/77; PULSE 86; RESP 16; TEMP 36.6; O2SAT 98
[2023-02-13 15:52] LABS: SARS-CoV-2 RNA PCR Negative (Negative)
== END 2023-02-13 20:05 | DRG 981 ==
LOC: ANHED 20:55 → ANH3MEDSUR 22:23 → ANHIMU 02-04 17:37 → ANH3MED 02-09 21:17
PROVIDERS: Emergency Medicine; Internal Medicine; Internal Medicine Nephrology; Internal Medicine Pulmonary Disease; Nurse Practitioner; Orthopaedic Surgery; Admitting Provider Internal Medicine; Emergency Provider Emergency Medicine; PCP Family Medicine; Visit Provider Family Medicine
PROC: 0QSJ04Z Reposition Right Fibula with Internal Fixation Device, Open Approach (ICD-10-PCS; principal; 2023-02-08 13:00)
DX: N17.9 Acute kidney failure, unspecified (principal); J96.02 Acute respiratory failure with hypercapnia; E66.2 Morbid (severe) obesity with alveolar hypoventilation; Z68.43 Body mass index [BMI] 50.0-59.9, adult; N39.0 Urinary tract infection, site not specified; I13.0 Hypertensive heart and chronic kidney disease with heart failure and stage 1 through stage 4 chronic kidney disease, or unspecified chronic kidney disease; S82.841A Displaced bimalleolar fracture of right lower leg, initial encounter for closed fracture; I50.9 Heart failure, unspecified; N18.30 Chronic kidney disease, stage 3 unspecified; E87.70 Fluid overload, unspecified; E11.22 Type 2 diabetes mellitus with diabetic chronic kidney disease; J45.909 Unspecified asthma, uncomplicated; M79.7 Fibromyalgia; E03.9 Hypothyroidism, unspecified; B96.1 Klebsiella pneumoniae [K. pneumoniae] as the cause of diseases classified elsewhere; W19.XXXA Unspecified fall, initial encounter; F41.9 Anxiety disorder, unspecified; Z20.822 Contact with and (suspected) exposure to COVID-19; Z86.73 Personal history of transient ischemic attack (TIA), and cerebral infarction without residual deficits; Z98.84 Bariatric surgery status; Z87.891 Personal history of nicotine dependence
CPT/HCPCS: 29515; 36415; 36569; 36600; 70450; 71045; 72125; 73610; 74018; 74176; 76775; 80048; 80053; 80069; 81001; 81050; 82375; 82436; 82550; 82570; 82805; 82948; 83050; 83605; 83735; 83880; 84156; 84300; 84439; 84443; 84484; 84540; 85025; 85027; 85055; 85610; 85730; 85999; 87045; 87077; 87086; 87088; 87186; 87427; 87449; 87493; 87635; 89055; 93005; 94002; 94003; 94640; 94660; 94762; 96374; 96375; 97110; 97161; 97164; 97166; 97168; 97530; 97535; 99199; 99285; A9270; C1713; C1751; C1769; C8929; C9113; J0690; J0696; J0780; J1170; J1650; J1940; J2250; J2270; J2405; J2930; J3475; J7030; J7120; Q9957

== ENCOUNTER 2023-03-21 10:35 | Inpatient (IN) | payer OTHER, MEDICAID, SELFPAY ==
[2023-03-21] VITALS (28 sets, daily range): BP systolic 91–159; BP diastolic 55–95; PULSE 79–115; RESP 6–26; TEMP 35.9–37.6; O2SAT 80–97; BMI 50.8
--- NOTE | ~2023-03-21 | NM_ITS ---
EXAMINATION: NM pulmonary perfusion DATE: 03/21/2023 16:25 INDICATION: Shortness of breath. TECHNIQUE: 5.5 mCi Tc-99m MAA was administered intravenously for perfusion images. Scintigraphic kevin ges of the chest were obtained. COMPARISON: Chest single view 03/21/2023 FINDINGS: Perfusion images show a small defect in left lower lobe. IMPRESSION: 1. Pulmonary embolism absent (very low probability). Reviewed, dictated and finalized at location A.
--- NOTE | ~2023-03-21 | CT_ITS ---
Non-contrast CT scan of the Abdomen and Pelvis Clinical indication: GI bleed Technique: 2.5 mm axial scans were obtained through the abdomen and pelvis without intravenous or or al contrast. Dose reduction technique was used on this scan by utilizing automated exposure control a nd iterative reconstruction technique. The dose-length product (DLP) was 1654.23 mGy-cm. COMPARISON: 01/26/2023 Findings: Images through the lung bases reveal mild bibasilar atelectatic change. The liver, spleen, pancreas, kidneys, and adrenals appear normal. Cholecystectomy clips are present. There is no aortic aneurysm. There is no evidence of bowel obstruction. Evidence of prior presumed bariatric surgery. Images through the pelvis were performed. There is no evidence of ascites or lymphadenopathy. Urinary bladder unremarkable. No pelvic mass seen. Impression: No acute abnormality evident. If there is concern for active GI bleeding, then consider CT angiogram or nuclear medicine bleeding scan as indicated. Probable prior bariatric surgery. Reviewed, dictated and finalized at [facility]. Impression: No acute abnormality evident. If there is concern for active GI bleeding, then consider CT angiogram or nuclear medicine bleeding scan as indicated. Probable prior bariatric surgery.
--- NOTE | ~2023-03-21 | CT_ITS ---
Non-contrast Head CT History: Altered mental status COMPARISON: 02/04/2023 Technique: Axial non-contrast imaging of the brain was performed. Dose reduction technique was used on this scan by utilizing automated exposure control and iterative reconstruction technique. The dose -length product (DLP) was 681.00 mGy-cm. Findings: There is no evidence of intracranial hemorrhage, mass lesion, or acute infarct. Brain par enchyma appears normal. The ventricles and subarachnoid spaces are normal in size. The calvarium ap pears normal. The visualized paranasal sinuses and mastoid air cells are clear. Impression: No significant abnormality seen. Reviewed, dictated and finalized at location . Impression: No significant abnormality seen.
--- NOTE | ~2023-03-21 | XR_ITS ---
EXAMINATION: XR chest 1V portable DATE: 03/21/2023 15:33 INDICATION: Aspiration. TECHNIQUE: A single frontal view of the chest was obtained. COMPARISON: Chest single view 02/10/2023 FINDINGS: There are bilateral perihilar airspace opacities. No pleural effusion or pneumothorax. Card iomegaly is noted. Epidural electrodes are noted. IMPRESSION: 1. Bilateral perihilar airspace opacities, consistent with pulmonary edema versus pneumonia. 2. Cardiomegaly. Reviewed, dictated and finalized at location A. IMPRESSION: 1. Bilateral perihilar airspace opacities, consistent with pulmonary edema vers us pneumonia. 2. Cardiomegaly.
--- NOTE | 2023-03-21 10:44 | ECG_ITS ---
Measurements Intervals [place] Rate: 116 P: 181 ID: 240 QRS: 119 QRSD: 83 T: 4 QT: 312 QTc: 435 Interpretive Statements SINUS TACHCYARDIA RIGHT AXIS DEVIATION INCOMPLETE RIGHT BUNDLE BRANCH BLOCK BORDERLINE R WAVE PROGRESSION, ANTERIOR LEADS LOW VOLTAGE- PRECORDIAL LEADS BORDERLINE T WAVE ABNORMALITY- ANT/INF LEADS ABNORMAL ECG COMPARED TO ECG 02/03/2023 17:25:05 SINUS TACHYCARDIA NOW PRESENT Electronically Signed On 03-21-2023 11:38:26 CDT by Billy Moore D.O.
[2023-03-21] MEDS: NALOXONE HCL 0.4 MG/ML VIAL (11:00)
--- NOTE | 2023-03-21 11:05 | ED.AMS ---
HPI - Altered Mental Status General Chief Complaint: Altered Mental Status Stated Complaint: ams Time Seen by Provider: 03/21/23 10:53 History of Present Illness HPI narrative: 57-year-old female presented to the emergency department for evaluation of altered mental status. Patient was found unresponsive in her bed this morning last known normal was 1030 last night. Patient did have pinpoint pupils and did respond to Narcan. Upon arrival to the ED patient has a low pulse ox. Patient did have ankle surgery on 01 March. Patient is on the p.o. morphine because of the ankle fracture. Related Data Home Medications Medication Instructions Recorded Confirmed aripiprazole 5 mg tablet 5 mg PO DAILY 03/01/20 03/01/23 atorvastatin 20 mg tablet 20 mg PO DAILY 03/01/20 03/01/23 buspirone 10 mg tablet 20 mg PO TID 03/01/20 03/01/23 celecoxib 200 mg capsule 200 mg PO BID 03/01/20 03/01/23 furosemide 40 mg tablet 40 mg PO DAILY 03/01/20 03/01/23 levothyroxine 175 mcg tablet 175 mcg PO DAILY 03/01/20 03/01/23 metformin 500 mg tablet,extended 500 mg PO DAILY 03/01/20 03/01/23 release 24 hr spironolactone 25 mg tablet 25 mg PO DAILY 03/01/20 03/01/23 timolol maleate 0.5 % eye drops 0.5 drp ophthalmic (eye) 03/01/20 03/01/23 DIRECTED tizanidine 4 mg tablet 4 mg PO TID 03/01/20 03/01/23 eszopiclone 3 mg tablet 3 mg PO DAILY 11/21/21 03/01/23 morphine 15 mg tablet,extended 30 mg PO BID 11/21/21 03/01/23 release empagliflozin 25 mg tablet 25 mg PO DAILY 02/03/23 03/01/23 (Jardiance) gabapentin 300 mg capsule 300 mg PO BID 02/03/23 03/01/23 mirtazapine 45 mg tablet 45 mg PO HS 02/03/23 03/01/23 omeprazole 40 mg capsule,delayed 40 mg PO DAILY 02/03/23 03/01/23 release ramipril 10 mg capsule 10 mg PO DAILY 02/03/23 03/01/23 ropinirole 0.5 mg tablet 0.5 mg PO DAILY 02/03/23 03/01/23 sertraline 100 mg tablet 100 mg PO DAILY 02/03/23 03/01/23 trazodone 50 mg tablet 50 mg PO HS 02/03/23 03/01/23 latanoprost 0.005 % eye drops 1 drp ophthalmic (eye) HS 02/11/23 03/01/23 Allergies Allergy/AdvReac Type Severity Reaction Status Date / Time No Known Allergies Allergy Verified 03/01/23 10:14 Review of Systems Review of Systems: ROS unobtainable: Yes unobtainable due to medical condition [facility] Past Medical History Medical History Anxiety COPD (chronic obstructive pulmonary disease) Depression Diabetes History of fibromyalgia History of seizures History of TIA (transient ischemic attack) Hypertension Hypothyroidism Surgical History Surgical History H/O gastric bypass H/O inguinal hernia repair History of appendectomy History of cholecystectomy History of hysterectomy History of tonsillectomy Hx of breast reduction, elective Social History Social History Smoking packs per day: 1 Smoking cigarettes per day: 20.0 Years smoked: 14 Smoking pack-years: 14.00 Smoking status: Never smoker Second hand tobacco smoke exposure: No Smoking end date: 07/10/92 Alcohol intake: never Substance use type: does not use Lack of Transportation: No Lack of Food: Never True Current Housing: I Have Housing Concerned About Future Housing: No Difficulty Paying Gas/Electric Bills: No Difficulty Paying for Meds: No Currently Unemployed: No Education: Bachelor's Degree Difficulty w/ Childcare or Family Care: No Spiritual care concerns: No Exam Narrative: APPEARANCE: Was initially somnolent but does respond to voice and denies any complaints HEAD: normocephalic, atraumatic. EYES: PERRLA/EOMI, conjunctivae clear. NOSE: Normal no drainage EARS:TMS clear with good light reflex. THROAT: Pharynx clear, no exudate. NECK: Supple. No adenopathy, no masses. RESPIRATORY: Airway patent, respirations nonlabored. Clear to auscultation bilaterally, no rales
[2023-03-21 11:31] LABS: Alveolar/Arterial O2 Gradient 60.2 mmHg; Base Excess ABG -1.1 mEq/l (+/-2.0); Fractional Inspired Oxygen 28 %; HCO3 ABG 28.2 mEq/l (22.0-26.0); Oxygen Content ABG 17.3 %vol (16.0-22.0); PO2 ABG 58.3 mmHg (80.0-100.0); PO2 FiO2 Ratio Arterial Blood 2.08 %; Total Hemoglobin 14.3 g/dL (12.0-18.0)
[2023-03-21 11:34] LABS: Oxygen Saturation ABG 84.3 % (95.0-100.0); PCO2 ABG 68.8 mmHg (35.0-45.0); pH ABG 7.231 (7.350-7.450)
[2023-03-21 11:35] LABS: Device NASAL CANNULA; Site Drawn LEFT BRACHIAL
[2023-03-21] MEDS: NALOXONE HCL INJ 2 MG/2 ML AMP IV PUSH ×2 (12:02→14:31)
[2023-03-21 12:03] LABS: Basophils Absolute Auto 0.1 K/mm3 (0.0-0.1); Basophils Percent Auto 0.4 % (0.2-1.2); Eosinophils Percent Auto 0.1 % (0-4.4); Hematocrit 46.1 % (37.0-47.0); Immature Granulocyte Absolute 0.42 K/mm3 (0.00-0.031); Immature Granulocyte Percent A 2.2 % (0-0.5); Lymphocytes Absolute Auto 1.05 K/mm3 (0.9-3.2); Lymphocytes Percent Auto 5.5 % (18.3-44.2); Mean Corpuscular HGB Conc 28.2 g/dl (32-36); Mean Corpuscular Hemoglobin 25.1 pg (26-34); Mean Platelet Volume 12.8 fl (7.4-10.4); Monocytes Absolute Auto 0.9 K/mm3 (0.1-0.6); Monocytes Percent Auto 4.5 % (2.6-8.5); Neutrophils Absolute Auto 16.7 K/mm3 (1.3-6.7); Neutrophils Percent Auto 87.3 % (45.5-73.1); Nucleated Red Blood Cells Perc 0.2 % (0.0-0.2); Platelet Count Result 241 k/mm3 (150-375); Red Blood Count 5.18 M/mm3 (4.2-5.4); Red Cell Distribution Width 16.2 % (11.5-14.5); White Blood Count 19.1 K/mm3 (4.5-10.0)
[2023-03-21 12:14] LABS: Acetaminophen < 10 ug/mL (10-30); Ethanol < 10 mg/dL (<10); Lactic Acid Reflex 2.5 mmol/L (0.7-2.0); Prothrombin Time 13.4 Seconds (11.1-14.7); Salicylate < 1.0 mg/dL (2-20)
[2023-03-21 12:15] LABS: Partial Thromboplastin Time 27.5 SECONDS (22.3-36.8)
[2023-03-21 12:18] LABS: Influenza A QL RT-PCR Negative (Negative); Influenza B QL RT-PCR Negative (Negative); RSV RNA, RT-PCR Negative (Negative); SARS-CoV-2 RNA PCR Negative (Negative)
[2023-03-21 12:32] LABS: Burr Cells 1+ (NORMAL); Platelet Estimate Adequate (Adequate); Poikilocytosis 1+ (NORMAL); Schistocytes None Seen (NORMAL); Tear Drop Cells 1+ (NORMAL)
[2023-03-21 12:39] LABS: Alanine Aminotransferase 25 U/L (6-35); Albumin Level 4.4 g/dL (3.5-5.1); Alkaline Phosphatase 101 U/L (38-126); Anion Gap 13 mmol/L (8-16); Aspartate Amino Transferase 63 U/L (14-36); Bilirubin,Total 0.9 mg/dL (0.2-1.3); Blood Urea Nitrogen 31 mg/dL (7-17); Calcium 8.8 mg/dL (8.4-10.2); Carbon Dioxide 27 mmol/L (22-30); Chloride 97 mmol/L (98-107); Estimated Glomerular Filt Rate 14; Glucose 120 mg/dL (65-110); Potassium 5.9 mmol/L (3.4-5.0); Sodium 137 mmol/L (137-145)
[2023-03-21 12:44] LABS: Appearance Urine Cloudy (Clear); Bacteria Urine None Seen /hpf; Bilirubin Urine 2+ (Negative); Blood Urine Trace (Negative); Budding Yeast Urine Present /hpf; Color Urine Dark Yellow (Yellow); Glucose Urine UA 2+ mg/dL (Negative); Hyaline Casts Urine Present /lpf; Ketones Urine Trace mg/dL (Negative); Leukocyte Esterase Ur Trace LEU/UL (Negative); Mucus Urine Present /lpf; Need Manual Microscopic Need Manual; Nitrate Urine Negative (Negative); Protein Urine 1+ mg/dL (Negative); Specific Grav Ur 1.021 (1.001-1.035); WBC Clumps Urine Present /HPF; WBC Urine 0-5 /hpf
[2023-03-21 12:49] LABS: Amphetamine Screen Urine Negative (Negative); Barbiturate Screen Urine Negative (Negative); Benzodiazepines Screen Urine Negative (Negative); Cannabinoid Screen Urine Negative (Negative); Cocaine Screen Urine Negative (Negative); Methadone Screen Urine Negative (Negative); Opiate Screen Urine Positive (Negative); Phencyclidine Screen Urine Negative (Negative)
[2023-03-21 12:59] LABS: RBC Urine 0-2 /hpf (0-2)
[2023-03-21 13:00] LABS: Add Urine Microscopic? YES; Squamous Epithelial Cell Urine Occasional /hpf (Few)
[2023-03-21] MEDS: PANTOPRAZOLE SODIUM IV 40 MG VIAL 80 MG IV PUSH (13:04)
[2023-03-21] MEDS: SODIUM CHLORIDE 0.9% IV 1,000 ML 999 ML IV CONT (13:47)
--- NOTE | 2023-03-21 13:52 | PC.NURSE ---
ATTEMPTED TO CALL JOAN SISTER OF PT [phone]. MESSAGE LEFT.
[2023-03-21 14:16] LABS: Alveolar/Arterial O2 Gradient 200.6 mmHg; Base Excess ABG -0.5 mEq/l (+/-2.0); Carboxyhemoglobin 1.8 % THb (0-2.0); Fractional Inspired Oxygen 50 %; Methemoglobin ABG 0.3 %THb (0-1.5); Oxygen Saturation ABG 91.7 % (95.0-100.0); Oxyhemoglobin 91.2 % THb (90.0-100.0); Reduced Hemoglobin 6.7 %THb (0-5.0)
[2023-03-21 14:21] LABS: PCO2 ABG 71.9 mmHg (35.0-45.0); pH ABG 7.224 (7.350-7.450)
[2023-03-21 14:22] LABS: Device NON-INVASIVE VENT; Modified Allen's Test Pass; Non-Invasive Expiratory Pressure 8 CMH2O; Non-Invasive Inspiratory Pressure 16 CMH2O; Non-Invasive Vent Rate 18 /MIN; Site Drawn RIGHT RADIAL
[2023-03-21 15:00] LABS: Reflex Lactic Acid Yes or No Add Lactic
[2023-03-21] MEDS: ONDANSETRON INJ 4 MG/2 ML VIAL (15:04)
--- NOTE | 2023-03-21 16:00 | WPDGICN ---
Assessment and Plan Assessment and plan (1) GI bleed: Code(s): K92.2 - Gastrointestinal hemorrhage, unspecified Status: Acute Assessment and Plan: Given the occult blood positive and he emesis we will schedule her for at least EGD (2) Opiate or related narcotic overdose: Code(s): T40.601A - Poisoning by unspecified narcotics, accidental (unintentional), initial encounter Status: Acute Assessment and Plan: Paramedics next administered Narcan started her on BiPAP. She has responded nicely to this. (3) Chronic kidney disease, stage 3: Code(s): N18.30 - Chronic kidney disease, stage 3 unspecified Status: Chronic Plan EGD in the morning GI Consult Note Consult date/time: 03/21/23 16:00 HPI: Tati Pendleton is a 57 year old female .with recent ankle surgery on p.o. morphine presented the ED for evaluation after being found unresponsive.? EMS called and patient had pinpoint pupils.? Patient did have response to Narcan on scene.? Upon arrival to the ED patient was more responsive.? Initial ABG showed patient was hypoxic and did have an elevated PCO2.? On repeat ABG patient had no improvement of her PCO2.? ? Patient did have emesis while wearing her BiPAP. She had vomited once. She also was tested for Hemoccult and was positive. Her hemoglobin initially is 13. Her last colonoscopy which was to investigate occult bleeding was done about 8 years ago and was unremarkable. Review of Systems Review of Systems: All systems reviewed & are unremarkable except as noted in HPI and below PMFSH Past Medical History Medical History Anxiety COPD (chronic obstructive pulmonary disease) Depression Diabetes History of fibromyalgia History of seizures History of TIA (transient ischemic attack) Hypertension Hypothyroidism Surgical History Surgical History H/O gastric bypass H/O inguinal hernia repair History of appendectomy History of cholecystectomy History of hysterectomy History of tonsillectomy Hx of breast reduction, elective Social History Social History Smoking packs per day: 1 Smoking cigarettes per day: 20.0 Years smoked: 14 Smoking pack-years: 14.00 Smoking status: Former smoker Second hand tobacco smoke exposure: No Smoking end date: 07/10/92 Alcohol intake: never Substance use type: does not use Lack of Transportation: No Lack of Food: Never True Current Housing: I Have Housing Concerned About Future Housing: No Difficulty Paying Gas/Electric Bills: No Difficulty Paying for Meds: No Currently Unemployed: No Education: Bachelor's Degree Difficulty w/ Childcare or Family Care: No Spiritual care concerns: No Meds Home Medications and Allergies Home Medications Medication Instructions Recorded Confirmed Type aripiprazole 5 mg tablet 5 mg PO DAILY 03/01/20 03/01/23 History atorvastatin 20 mg tablet 20 mg PO DAILY 03/01/20 03/01/23 History buspirone 10 mg tablet 20 mg PO TID 03/01/20 03/01/23 History celecoxib 200 mg capsule 200 mg PO BID 03/01/20 03/01/23 History furosemide 40 mg tablet 40 mg PO DAILY 03/01/20 03/01/23 History levothyroxine 175 mcg tablet 175 mcg PO DAILY 03/01/20 03/01/23 History metformin 500 mg tablet,extended 500 mg PO DAILY 03/01/20 03/01/23 History release 24 hr spironolactone 25 mg tablet 25 mg PO DAILY 03/01/20 03/01/23 History timolol maleate 0.5 % eye drops 0.5 drp ophthalmic (eye) 03/01/20 03/01/23 History DIRECTED tizanidine 4 mg tablet 4 mg PO TID 03/01/20 03/01/23 History eszopiclone 3 mg tablet 3 mg PO DAILY 11/21/21 03/01/23 History morphine 15 mg tablet,extended 30 mg PO BID 11/21/21 03/01/23 History release acetaminophen 500 mg tablet 1,000 mg PO TID PRN masood 7 days #42 12/15/22 03/01/23 Rx tabs empagliflozin 25 m
[2023-03-21 16:06] LABS: Lactic Acid 1.5 mmol/L (0.7-2.0)
--- NOTE | 2023-03-21 17:43 | ADMGEN ---
This patient, Tati Pendleton, was admitted to IMU Room 231-01. Patient/family oriented to hospital policies and general routines including ID bracelet, bed and alarms, visiting hours, pain management, procedures, bathroom and other care routines, personal items, smoking policy, room service/diet, and visiting hours. Information on how to activate the Rapid Response Team has been discussed. Patient/Family are encouraged to report perceived risks to care and to ask questions if they do not understand what they are told or what they should do.
--- NOTE | 2023-03-21 19:38 | PM.IMHP ---
H&P: HPI History of Present Illness Date/Time: 03/21/23 19:38 Chief Complaint: AMS Narrative: THIS IS A 57-YEAR-OLD FEMALE WITH PAST MEDICAL HISTORY SIGNIFICANT FOR MORBID OBESITY, STATUS POST GASTRIC BYPASS SURGERY, COPD, DIABETES, DEPRESSION, FIBROMYALGIA, HYPERTENSION. PATIENT PRESENTS TO THE EMERGENCY ROOM WAS BROUGHT AFTER SHE WAS FOUND UNRESPONSIVE AT HOME OR MINIMAL RESPONSIVE MOST OF THE HISTORY HAS BEEN OBTAINED UPON REVIEWING MEDICAL RECORDS PATIENT IS UNABLE TO GIVE MUCH HISTORY TO CONTRIBUTE SOME MEANINGFULLY TO HISTORY TAKING. ACCORDING TO MEDICAL RECORDS PATIENT FOUND WITH PIN POINT PUPILS IN THE EMERGENCY ROOM STARTED ON BIPAP. PRELIMINARY WORKUP WAS SIGNIFICANT FOR A BLOOD GAS WITH PH 7.22, PCO2 71 AND PO2 75 chemistry panel was significant for BUN 31 creatinine 3.9 lactic acid 2.5. A V/Q scan was reported as: EXAMINATION: NM pulmonary perfusion DATE:? 03/21/2023 16:25 INDICATION: Shortness of breath. TECHNIQUE: 5.5 mCi Tc-99m MAA was administered intravenously for perfusion images.? Scintigraphic images of the chest were obtained. COMPARISON: Chest single view 03/21/2023 FINDINGS: Perfusion images show a small defect in left lower lobe. IMPRESSION: 1.? Pulmonary embolism absent (very low probability). EXAMINATION: XR chest 1V portable DATE: 03/21/2023 15:33 INDICATION: Aspiration. TECHNIQUE: A single frontal view of the chest was obtained. COMPARISON: Chest single view 02/10/2023 FINDINGS: There are bilateral perihilar airspace opacities. No pleural effusion or pneumothorax. Cardiomegaly is noted. Epidural electrodes are noted. IMPRESSION: 1. Bilateral perihilar airspace opacities, consistent with pulmonary edema versus pneumonia. 2. Cardiomegaly. Non-contrast CT scan of the Abdomen and Pelvis Clinical indication: GI bleed Technique:? 2.5 mm axial scans were obtained through the abdomen and pelvis without intravenous or oral contrast. Dose reduction technique was used on this scan by utilizing automated exposure control and iterative reconstruction technique. The dose-length product (DLP) was 1654.23 mGy-cm. COMPARISON: 01/26/2023 Findings:? Images through the lung bases reveal mild bibasilar atelectatic change. The liver, spleen, pancreas, kidneys, and adrenals appear normal. Cholecystectomy clips are present. There is no aortic aneurysm. ? There is no evidence of bowel obstruction. Evidence of prior presumed bariatric surgery. Images through the pelvis were performed. There is no evidence of ascites or lymphadenopathy. Urinary bladder unremarkable. No pelvic mass seen. Impression: No acute abnormality evident. If there is concern for active GI bleeding, then consider CT angiogram or nuclear medicine bleeding scan as indicated. Probable prior bariatric surgery. Non-contrast Head CT History: Altered mental status COMPARISON: 02/04/2023 Technique:? Axial non-contrast imaging of the brain was performed. Dose reduction technique was used on this scan by utilizing automated exposure control and iterative reconstruction technique. The dose-length product (DLP) was 681.00 mGy-cm. Findings:? There is no evidence of intracranial hemorrhage, mass lesion, or acute infarct.? Brain parenchyma appears normal.? The ventricles and subarachnoid spaces are normal in size.? The calvarium appears normal.? The visualized paranasal sinuses and mastoid air cells are clear. Impression: No significant abnormality seen. Patient is been admitted for further evaluation management and treatment. Review of Systems Review of Systems: ROS unobtainable: Yes unobtainable due to mental status ( OBTUNDATION) [facility] Past Medical History Medical History Anxiety COPD (chronic obstructive pulmonary disease) Depression Diabetes History of fibromyalgia History of seizures History of TIA (transient ischemic attack) Hypertension Hypothyroidi
[2023-03-21] MEDS: PIPERACILLIN/TAZ 2.25G/NS 50ML 2.25 GM/50 ML BAG IVPB (21:30)
--- NOTE | 2023-03-21 22:58 | PCRCNOTE ---
RT spoke to nurse at [address] patient back on V60 bipap for the night. Nurse does not think this is a good idea due to patient being nauseous and potential aspiration. Nurse states she will discuss with MD and let RT know, but for now, leave patient on Vapotherm.
[2023-03-22] VITALS (18 sets, daily range): BP systolic 90–114; BP diastolic 55–71; PULSE 57–96; RESP 12–22; TEMP 35.9–36.9; O2SAT 90–99
[2023-03-22 01:16] LABS: Anion Gap 11 mmol/L (8-16); Blood Urea Nitrogen 33 mg/dL (7-17); Calcium 8.4 mg/dL (8.4-10.2); Carbon Dioxide 26 mmol/L (22-30); Chloride 100 mmol/L (98-107); Estimated CRCL calculation 31 ml/min; Estimated Glomerular Filt Rate 23; Glucose 98 mg/dL (65-110); Sodium 137 mmol/L (137-145)
[2023-03-22] MEDS: AZITHROMYCIN 500 MG/NS 250 ML 500 MG/250 ML BAG 250 MG IVPB ×2 (01:56→20:41)
[2023-03-22] MEDS: VANCOMYCIN 1,250 MG/NS 250 ML 1,250 MG/250 ML BAG 166.67 MG IVPB ×2 (03:01→04:27)
[2023-03-22] MEDS: LEVOTHYROXINE SODIUM 100 MCG TABLET 200 MCG PO (05:33)
[2023-03-22] MEDS: PIPERACILLN/TAZ 3.375GM/NS50ML 3.375 GM/50 ML BAG IVPB ×4 (05:33→23:50)
[2023-03-22] MEDS: FLUTICASONE/UMECLIDIN/VILANTER 200-62.5-25 MCG ELLIPTA 1 PUFF INHALATION (08:13)
[2023-03-22] MEDS: PANTOPRAZOLE SODIUM IV 40 MG VIAL IV PUSH (09:00)
[2023-03-22] MEDS: ATORVASTATIN 20 MG TABLET PO (09:01)
[2023-03-22] MEDS: PROPRANOLOL HCL 10 MG TABLET PO (09:01)
[2023-03-22] MEDS: busPIRone HCL 10 MG TABLET 20 MG PO ×3 (09:01→17:01)
[2023-03-22] MEDS: TIZANIDINE HCL 4 MG TABLET PO ×3 (09:01→17:01)
[2023-03-22] MEDS: rOPINIRole HCL 0.5 MG TABLET PO (09:02)
[2023-03-22] MEDS: SERTRALINE HCL 50 MG TABLET 100 MG PO (09:02)
[2023-03-22] MEDS: GABAPENTIN 300 MG CAPSULE PO ×2 (09:02→20:41)
[2023-03-22] MEDS: ARIPiprazole 5 MG TABLET 10 MG PO (09:02)
[2023-03-22 10:07] LABS: Base Excess ABG 0.8 mEq/l (+/-2.0); Fractional Inspired Oxygen 40 %; HCO3 ABG 27.7 mEq/l (22.0-26.0); Oxygen Content ABG 16.8 %vol (16.0-22.0); Oxygen Saturation ABG 95.2 % (95.0-100.0); Oxyhemoglobin 94.6 % THb (90.0-100.0); PCO2 ABG 53.9 mmHg (35.0-45.0); PO2 ABG 82.2 mmHg (80.0-100.0); PO2 FiO2 Ratio Arterial Blood 2.05 %; Total Hemoglobin 12.6 g/dL (12.0-18.0); pH ABG 7.328 (7.350-7.450)
[2023-03-22 10:09] LABS: Device HIGH FLOW THERAPY; Modified Allen's Test Pass; Site Drawn RIGHT RADIAL
[2023-03-22] MEDS: SODIUM CHLORIDE 0.9% IV 1,000 ML 100 ML IV CONT ×2 (11:00→20:42)
--- NOTE | 2023-03-22 11:00 | PM.IMPN ---
Progress Note: A&P Assessment and Plan (1) Acute respiratory failure with hypoxia and hypercapnia: Code(s): J96.01 - Acute respiratory failure with hypoxia; J96.02 - Acute respiratory failure with hypercapnia Status: Acute Assessment and Plan: ON high-flow oxygen. ABG shows improved (2) Lung infiltrate: Code(s): R91.8 - Other nonspecific abnormal finding of lung field Status: Acute Assessment and Plan: BLOOD CULTURES IN PROGRESS (3) Altered mental status: Code(s): R41.82 - Altered mental status, unspecified Status: Acute Assessment and Plan: LIKELY MULTIFACTORIAL BELIEVED TO HAVE OPIATE INTOXICATION AND CO2 INTOXICATION (4) Opiate or related narcotic overdose: Code(s): T40.601A - Poisoning by unspecified narcotics, accidental (unintentional), initial encounter Status: Acute Assessment and Plan: HOLDING MORPHINE EXTENDED RELEASE (5) JUAN (obstructive sleep apnea): Code(s): G47.33 - Obstructive sleep apnea (adult) (pediatric) Status: Acute Assessment and Plan: ON high-flow oxygen (6) Acute kidney injury superimposed on CKD: Code(s): N17.9 - Acute kidney failure, unspecified; N18.9 - Chronic kidney disease, unspecified Status: Acute Assessment and Plan: HOLDING SPIRONOLACTONE HOLDING RAMIPRIL Start IV fluid. Monitor BMP (7) Morbid obesity with BMI of 50.0-59.9, adult: Code(s): E66.01 - Morbid (severe) obesity due to excess calories; Z68.43 - Body mass index [BMI] 50.0-59.9, adult Status: Acute Assessment and Plan: PATIENT IS STATUS POST GASTRIC BYPASS SURGERY (8) Fibromyalgia: Code(s): M79.7 - Fibromyalgia Status: Acute Assessment and Plan: SUPPORTIVE CARE Subjective Date/time seen: 03/22/23 11:00 Interval history: Patient appears to be in distress Review of Systems Review of Systems: Negative other than HPI Exam Narrative: PATIENT IS LAYING IN BED LETHARGIC Const: General: comfortable, no acute distress, well developed, lethargic and obese Nutritional Appearance: obese morbidly obese Orientation/consciousness: oriented to person and oriented to place Limitations: altered mental status HENMT: Head: normal to inspection, normocephalic and atraumatic Ears: hearing grossly normal bilaterally Face/Nose/Sinus: normal facial exam Face and sinus: normal facial exam Eyes: General: appearance normal, both eyes and all related structures Pupils: Equal, round and reactive pupils present EOM: EOMs intact bilaterally Neck: Neck: full ROM, no lymphadenopathy and no JVD Thyroid: thyroid normal Lymphatic: no lymphadenopathy noted Resp: Effort & Inspection: normal respiratory effort and able to speak in complete sentences Auscultation: clear to auscultation bilaterally Cardio: Jugular venous distension: no JVD Rate: regular rate Rhythm: regular rhythm Heart sounds: S1 normal heart sound present and S2 normal heart sound present GI: Inspection: Pannus present GI Palp: Yes Soft to palpation and Yes No hepatosplenomegaly present : General: Yes deferred Skin: Rashes: no rashes Wounds: no wounds Neuro: General: oriented to person, no focal motor deficits, CN's II-XI intact bilaterally, Unable to assess gait and other ( LETHARGIC) Cranial nerves: Yes CN's II-XII intact bilaterally, Yes Equal, round and reactive pupils present, Yes Bilaterally intact EOM present, Yes facial symmetry and Yes Midline tongue present Cognition (Neuro): abnormal cognition ( LETHARGY) Speech: normal speech Motor exam (neuro): 5/5 motor strength present throughout Extrem: General: normal to inspection, full ROM, no joint enlargement and no pedal edema Objective Data Vital Signs Vital Signs: Vital Signs - 24 hr 03/21/23 11:30 03/21/23 12:03 03/21/23 11:31 Temperature Pulse Rate 112 H 109 H 113 H Respiratory Rate 20 22 H 16 Blood Pressure 102/66
[2023-03-22] MEDS: TIMOLOL MALEATE 0.5% OP SOLN 5 ML BOTTLE 1 DROP EACH EYE (11:54)
--- NOTE | 2023-03-22 17:14 | PC.NURSE ---
On 03/22/23, the student, Aishwarya AGUILAR [facility], provided care and completed [facility] documentation on this patient. I have reviewed the student's documentation and agree with the findings.
[2023-03-22] MEDS: traZODone HCL 50 MG TABLET PO (20:42)
[2023-03-22] MEDS: LATANOPROST 0.005% OP SOLN 2.5 ML BTL 1 DROP EACH EYE (20:43)
[2023-03-23] VITALS (23 sets, daily range): BP systolic 103–161; BP diastolic 56–98; PULSE 67–80; RESP 16–29; TEMP 35.7–36.8; O2SAT 91–98
[2023-03-23 05:36] LABS: Anion Gap 5 mmol/L (8-16); Blood Urea Nitrogen 24 mg/dL (7-17); Calcium 8.4 mg/dL (8.4-10.2); Carbon Dioxide 29 mmol/L (22-30); Chloride 103 mmol/L (98-107); Estimated CRCL calculation 50 ml/min; Estimated Glomerular Filt Rate 40; Glucose 95 mg/dL (65-110); Potassium 3.8 mmol/L (3.4-5.0); Sodium 137 mmol/L (137-145)
[2023-03-23] MEDS: LEVOTHYROXINE SODIUM 100 MCG TABLET 200 MCG PO (05:56)
[2023-03-23] MEDS: SODIUM CHLORIDE 0.9% IV 1,000 ML 100 ML IV CONT (05:56)
[2023-03-23] MEDS: PIPERACILLN/TAZ 3.375GM/NS50ML 3.375 GM/50 ML BAG IVPB ×3 (05:56→18:26)
[2023-03-23] MEDS: FLUTICASONE/UMECLIDIN/VILANTER 200-62.5-25 MCG ELLIPTA 1 PUFF INHALATION (08:29)
[2023-03-23] MEDS: SERTRALINE HCL 50 MG TABLET 100 MG PO (09:18)
[2023-03-23] MEDS: rOPINIRole HCL 0.5 MG TABLET PO (09:18)
[2023-03-23] MEDS: busPIRone HCL 10 MG TABLET 20 MG PO ×2 (09:18→17:22)
[2023-03-23] MEDS: ATORVASTATIN 20 MG TABLET PO (09:18)
[2023-03-23] MEDS: TIZANIDINE HCL 4 MG TABLET PO ×2 (09:19→17:22)
[2023-03-23] MEDS: PROPRANOLOL HCL 10 MG TABLET PO (09:19)
[2023-03-23] MEDS: TIMOLOL MALEATE 0.5% OP SOLN 5 ML BOTTLE 1 DROP EACH EYE (09:19)
[2023-03-23] MEDS: PANTOPRAZOLE SODIUM IV 40 MG VIAL IV PUSH (09:19)
[2023-03-23] MEDS: ARIPiprazole 5 MG TABLET 10 MG PO (09:19)
[2023-03-23] MEDS: GABAPENTIN 300 MG CAPSULE PO ×2 (09:19→20:50)
[2023-03-23 10:17] LABS: Basophils Absolute Auto 0.1 K/mm3 (0.0-0.1); Basophils Percent Auto 0.9 % (0.2-1.2); Eosinophils Absolute Auto 0.1 K/mm3 (0-0.3); Eosinophils Percent Auto 1.8 % (0-4.4); Hematocrit 37.8 % (37.0-47.0); Hemoglobin 11.3 g/dL (12.0-15.0); Immature Granulocyte Absolute 0.03 K/mm3 (0.00-0.031); Immature Granulocyte Percent A 0.4 % (0-0.5); Lymphocytes Absolute Auto 1.02 K/mm3 (0.9-3.2); Lymphocytes Percent Auto 15.1 % (18.3-44.2); Mean Corpuscular HGB Conc 29.9 g/dl (32-36); Mean Corpuscular Hemoglobin 25.4 pg (26-34); Mean Corpuscular Volume 84.9 fl (80-100); Mean Platelet Volume 12.7 fl (7.4-10.4); Monocytes Absolute Auto 0.6 K/mm3 (0.1-0.6); Monocytes Percent Auto 8.8 % (2.6-8.5); Neutrophils Absolute Auto 4.9 K/mm3 (1.3-6.7); Platelet Count Result 190 k/mm3 (150-375); Red Blood Count 4.45 M/mm3 (4.2-5.4); Red Cell Distribution Width 15.9 % (11.5-14.5); White Blood Count 6.7 K/mm3 (4.5-10.0)
--- NOTE | 2023-03-23 11:45 | PM.IMPN ---
Progress Note: A&P Assessment and Plan (1) Acute respiratory failure with hypoxia and hypercapnia: Code(s): J96.01 - Acute respiratory failure with hypoxia; J96.02 - Acute respiratory failure with hypercapnia Status: Acute Assessment and Plan: Oxygen requirement coming down. On 2 L oxygen by nasal cannula now. ABG shows improved (2) Lung infiltrate: Code(s): R91.8 - Other nonspecific abnormal finding of lung field Status: Acute Assessment and Plan: BLOOD CULTURES IN PROGRESS. Continue antibiotic (3) Altered mental status: Code(s): R41.82 - Altered mental status, unspecified Status: Acute Assessment and Plan: LIKELY MULTIFACTORIAL BELIEVED TO HAVE OPIATE INTOXICATION AND CO2 INTOXICATION (4) Opiate or related narcotic overdose: Code(s): T40.601A - Poisoning by unspecified narcotics, accidental (unintentional), initial encounter Status: Acute Assessment and Plan: HOLDING MORPHINE EXTENDED RELEASE (5) JUAN (obstructive sleep apnea): Code(s): G47.33 - Obstructive sleep apnea (adult) (pediatric) Status: Acute Assessment and Plan: ON oxygen (6) Acute kidney injury superimposed on CKD: Code(s): N17.9 - Acute kidney failure, unspecified; N18.9 - Chronic kidney disease, unspecified Status: Acute Assessment and Plan: HOLDING SPIRONOLACTONE HOLDING RAMIPRIL Monitor BMP Improving (7) Morbid obesity with BMI of 50.0-59.9, adult: Code(s): E66.01 - Morbid (severe) obesity due to excess calories; Z68.43 - Body mass index [BMI] 50.0-59.9, adult Status: Acute Assessment and Plan: PATIENT IS STATUS POST GASTRIC BYPASS SURGERY (8) Fibromyalgia: Code(s): M79.7 - Fibromyalgia Status: Acute Assessment and Plan: SUPPORTIVE CARE Subjective Date/time seen: 03/23/23 11:45 Interval history: Stable. Down to 2 L oxygen by nasal cannula Review of Systems Review of Systems: Negative other than HPI Exam Narrative: Morbidly obese Const: General: comfortable, no acute distress, well developed, lethargic and obese Nutritional Appearance: obese morbidly obese Orientation/consciousness: oriented to person and oriented to place Limitations: altered mental status HENMT: Head: normal to inspection, normocephalic and atraumatic Ears: hearing grossly normal bilaterally Face/Nose/Sinus: normal facial exam Face and sinus: normal facial exam Eyes: General: appearance normal, both eyes and all related structures Pupils: Equal, round and reactive pupils present EOM: EOMs intact bilaterally Neck: Neck: full ROM, no lymphadenopathy and no JVD Thyroid: thyroid normal Lymphatic: no lymphadenopathy noted Resp: Effort & Inspection: normal respiratory effort and able to speak in complete sentences Auscultation: clear to auscultation bilaterally Cardio: Jugular venous distension: no JVD Rate: regular rate Rhythm: regular rhythm Heart sounds: S1 normal heart sound present and S2 normal heart sound present GI: Inspection: Pannus present GI Palp: Yes Soft to palpation and Yes No hepatosplenomegaly present : General: Yes deferred Skin: Rashes: no rashes Wounds: no wounds Neuro: General: oriented to person, no focal motor deficits, CN's II-XI intact bilaterally, Unable to assess gait and other ( LETHARGIC) Cranial nerves: Yes CN's II-XII intact bilaterally, Yes Equal, round and reactive pupils present, Yes Bilaterally intact EOM present, Yes facial symmetry and Yes Midline tongue present Cognition (Neuro): abnormal cognition ( LETHARGY) Speech: normal speech Motor exam (neuro): 5/5 motor strength present throughout Extrem: General: normal to inspection, full ROM, no joint enlargement and no pedal edema Objective Data Vital Signs Vital Signs: Vital Signs - 24 hr 03/22/23 12:00 03/22/23 12:00 03/22/23 13:31 Temperature 98.2 F Pulse Rate 78 Respiratory Rate
--- NOTE | 2023-03-23 12:20 | PC.NURSE ---
To GI Lab per [stretcher ], IV [fluids paused ]. Report given to [EJNNIFER Madden @ 1121 ].
[2023-03-23] MEDS: LACTATED RINGERS 1,000 ML 150 ML IV CONT (12:37)
--- NOTE | 2023-03-23 12:56 | WPDANESEPPF ---
Anes - Initial Pre Proc Eval Procedure: Operation Date: 03/22/23 13:45 Proposed Procedures p Esophagogastroduodenoscopy - James Israel MD Operation Date: 03/23/23 15:00 Proposed Procedures p Esophagogastroduodenoscopy - James Israel MD Date/Time: 03/23/23 12:56 Surgeon: Neto Nj MD Pre Op Diagnosis: Upper GI Bleed/Acute Kidney Injury/AMS/Hypoxia Patient Data Age: 57 Gender: F Height: 1.68 m Weight: 143 kg Last Vital Signs Temp 36.1 C L 03/23/23 12:39 Pulse 76 03/23/23 12:39 Resp 20 03/23/23 12:39 BP 144/82 H 03/23/23 12:39 Pulse Ox 94 03/23/23 12:39 O2 Del Method Room Air 03/23/23 12:39 O2 Flow Rate 2 03/23/23 09:05 FiO2 25 03/23/23 08:00 Allergies Allergy/AdvReac Type Severity Reaction Status Date / Time No Known Allergies Allergy Verified 03/23/23 12:31 Home Medications Medication Instructions Recorded Confirmed Type aripiprazole 5 mg tablet 10 mg PO DAILY 03/01/20 03/21/23 History atorvastatin 20 mg tablet 20 mg PO DAILY 03/01/20 03/21/23 History buspirone 10 mg tablet 20 mg PO TID 03/01/20 03/21/23 History celecoxib 200 mg capsule 200 mg PO BID 03/01/20 03/21/23 History furosemide 40 mg tablet 40 mg PO DAILY 03/01/20 03/21/23 History metformin 500 mg tablet,extended 500 mg PO DAILY 03/01/20 03/21/23 History release 24 hr spironolactone 25 mg tablet 25 mg PO DAILY 03/01/20 03/21/23 History timolol maleate 0.5 % eye drops 1 drp ophthalmic (eye) QAM 03/01/20 03/22/23 History tizanidine 4 mg tablet 4 mg PO TID 03/01/20 03/21/23 History eszopiclone 3 mg tablet 3 mg PO DAILY 11/21/21 03/21/23 History morphine 15 mg tablet,extended 30 mg PO BID 11/21/21 03/21/23 History release empagliflozin 25 mg tablet 25 mg PO DAILY 02/03/23 03/21/23 History (Jardiance) gabapentin 300 mg capsule 300 mg PO BID 02/03/23 03/21/23 History omeprazole 40 mg capsule,delayed 40 mg PO DAILY 02/03/23 03/21/23 History release ramipril 10 mg capsule 10 mg PO DAILY 02/03/23 03/21/23 History ropinirole 0.5 mg tablet 0.5 mg PO DAILY 02/03/23 03/21/23 History sertraline 100 mg tablet 100 mg PO DAILY 02/03/23 03/21/23 History trazodone 50 mg tablet 50 mg PO HS 02/03/23 03/21/23 History latanoprost 0.005 % eye drops 1 drp ophthalmic (eye) HS 02/11/23 03/21/23 History fluticasone fur. 200 mcg-umeclid 1 inh inhalation DAILYRT #1 inh 02/13/23 03/21/23 Rx 62.5 mcg-vilant 25 mcg inhalat.powder (Trelegy Ellipta) levothyroxine 200 mcg tablet 200 mcg PO DAILY 03/21/23 03/21/23 History mirtazapine 30 mg tablet 30 mg PO HS 03/21/23 03/21/23 History prazosin 1 mg capsule 1 mg PO HS 03/21/23 03/21/23 History propranolol 10 mg tablet 10 mg PO DAILY 03/21/23 03/21/23 History Laboratory Tests 03/23/23 03/23/23 04:55 05:01 WBC 6.7 K/mm3 (4.5-10.0) RBC 4.45 M/mm3 (4.2-5.4) Hgb 11.3 L g/dL (12.0-15.0) Hct 37.8 % (37.0-47.0) MCV 84.9 fl (80-100) MCH 25.4 L pg (26-34) MCHC 29.9 L g/dl (32-36) RDW 15.9 H % (11.5-14.5) Plt Count 190 k/mm3 (150-375) MPV 12.7 H fl (7.4-10.4) Immature Gran % (Auto) 0.4 % (0-0.5) Neut % (Auto) 73.0 % (45.5-73.1) Lymph % (Auto) 15.1 L % (18.3-44.2) [place] % (Auto) 8.8 H % (2.6-8.5) Eos % (Auto) 1.8 % (0-4.4) Baso % (Auto) 0.9 % (0.2-1.2) Lymph # (Auto) 1.02 K/mm3 (0.9-3.2) [place] # (Auto) 0.6 K/mm3 (0.1-0.6) Eos # (Auto) 0.1 K/mm3 (0-0.3) Baso # (Auto) 0.1 K/mm3 (0.0-0.1) Abs Immat Gran (auto) 0.03 K/mm3 (0.00-0.031) Absolute Neuts (auto) 4.9 K/mm3 (1.3-6.7) Absolute Nucleated RBC 0.0 K/mm3 (0.0-0.012) Nucleated RBC % 0.0 % (0.0-0.2) Sodium 137 mmol/L (137-145) Potassium 3.8 mmol/L (3.4-5.0) Chloride 103 mmol/L (98-107) Carbon Dioxide 29 mmol/L (22-30) Anion Gap 5 L mmol/L (8-16) BUN 24 H mg/dL
--- NOTE | 2023-03-23 14:10 | PC.NURSE ---
Returned from GI Lab. Report received from [JENNIFER Harvey @ [id number]].
--- NOTE | 2023-03-23 16:19 | PC.NURSE ---
Order for pt to be downgraded to med/surg from Dr. Nj verified with JENNIFER Teran & maria de jesus RN
--- NOTE | 2023-03-23 17:58 | PC.NURSE ---
This patient, Tati Pendleton, was transferred to [ [id number]] on 03/23/23 at 1758. Personal belongings sent with patient. Report given to [ JENNIFER Bains @ 1792]. Appropriate documentation sent with patient.
--- NOTE | 2023-03-23 18:10 | PC.NURSE ---
This patient, Tati Pendleton, was received from [facility] on 03/23/23 at 1810. Patient/family oriented to unit policies and routines. IV intact at time of arrival. Report received from Graciela RODRIGUEZ.
[2023-03-23] MEDS: AZITHROMYCIN 500 MG/NS 250 ML 500 MG/250 ML BAG 250 MG IVPB (20:49)
[2023-03-23] MEDS: traZODone HCL 50 MG TABLET PO (20:50)
[2023-03-23] MEDS: LATANOPROST 0.005% OP SOLN 2.5 ML BTL 1 DROP EACH EYE (20:57)
[2023-03-23 20:59] LABS: Glucose Point of Care 117 mg/dl (65-105)
[2023-03-24] MEDS: SODIUM CHLORIDE 0.9% IV 1,000 ML 100 ML IV CONT (00:15)
[2023-03-24] MEDS: PIPERACILLN/TAZ 3.375GM/NS50ML 3.375 GM/50 ML BAG IVPB ×2 (00:16→06:13)
[2023-03-24 04:57] VITALS: BP 145/88; PULSE 77; RESP 16; TEMP 36; O2SAT 94
[2023-03-24] MEDS: LEVOTHYROXINE SODIUM 100 MCG TABLET 200 MCG PO (06:13)
--- NOTE | 2023-03-24 06:53 | WPDGIPROGNO ---
Progress Note: A&P Assessment and Plan (1) GI bleed: Code(s): K92.2 - Gastrointestinal hemorrhage, unspecified Status: Acute Assessment and Plan: Given the occult blood positive and she emesis we will schedule her for at least EGD. EGD done yesterday shows postoperative changes from previous gastric bypass. Also she has diffuse erythematous gastritis. H pylori is negative. I discussed with her the fact that some of her medications are hard on the stomach. In particular Celebrex which she takes twice a day she should take after eating and not on an empty stomach. (2) Opiate or related narcotic overdose: Code(s): T40.601A - Poisoning by unspecified narcotics, accidental (unintentional), initial encounter Status: Acute Assessment and Plan: Paramedics next administered Narcan started her on BiPAP. She has responded nicely to this. (3) Chronic kidney disease, stage 3: Code(s): N18.30 - Chronic kidney disease, stage 3 unspecified Status: Chronic Assessment and Plan: Followed by Dr. Jennifer Bae from my perspective she can be discharged. Subjective Date/time seen: 03/24/23 06:53 she tolerated eating some dinner last night. No further vomiting. I discussed with her the results of endoscopy. She is status post gastric bypass. The gastric mucosa was diffusely erythematous. A specimen for H pylori was negative. In focal areas there were minute erosions. We discussed her meds. I told her that she should always take Celebrex after eating. Her main concern is that she still has poor hearing since admission. Exam Const: General: cooperative and healthy appearing Orientation/consciousness: patient oriented x3 HENMT: Head: normal to inspection Ears: other ( She feels that she has been losing her hearing since admission) Mouth: Yes Normal oral and palatal mucosa present Eyes: General: appearance normal, both eyes and all related structures Neck: Neck: normal visual inspection Chest: Chest palpation & inspection: normal inspection of the chest Resp: Effort & Inspection: normal respiratory effort Auscultation: clear to auscultation bilaterally Cardio: Rate: regular rate Rhythm: regular rhythm GI: Inspection: normal to inspection GI Palp: No abdominal tenderness, Yes Soft to palpation and Yes No hepatosplenomegaly present Auscultation: normal bowel sounds Skin: General skin exam: normal color and no jaundice Neuro: General: patient oriented x3 Speech: normal speech Objective Data Vital Signs Vital Signs: Vital Signs - 24 hr 03/23/23 08:09 03/23/23 08:29 03/23/23 08:29 Temperature 36.1 C L Pulse Rate 78 75 Respiratory Rate 20 20 Blood Pressure 148/86 H Pulse Oximetry 93 Oxygen Delivery High Flow Nasal Cannula Oxygen Flow Rate 4 Fraction of Inspired Oxygen 03/23/23 08:00 03/23/23 08:30 03/23/23 08:52 Temperature Pulse Rate Respiratory Rate Blood Pressure Pulse Oximetry 92 96 95 Oxygen Delivery High Flow Therapy with Na High Flow Nasal Cannula High Flow Nasal Cannula Oxygen Flow Rate 20 4 2 Fraction of Inspired Oxygen 25 03/23/23 08:50 03/23/23 09:05 03/23/23 09:19 Temperature Pulse Rate 80 Respiratory Rate Blood Pressure Pulse Oximetry 97 94 Oxygen Delivery High Flow Nasal Cannula High Flow Nasal Cannula Oxygen Flow Rate 4 2 Fraction of Inspired Oxygen 03/23/23 10:40 03/23/23 12:12 03/23/23 12:00 Temperature 36.7 C Pulse Rate 76 Respiratory Rate 22 H Blood Pressure 150/88 H Pulse Oximetry 96 93 93 Oxygen Delivery Room Air Room Air Oxygen Flow Rate Fraction of Inspired Oxygen 03/23/23 12:39 03/23/23 08:00 03/23/23 10:00 Temperature 36.1 C L Pulse Rate 76 77 68 Respiratory Rate 20 Blood Pressure 144/82 H Pulse Oximetry 94 Oxygen Delivery Room Air Oxygen Flow Rate Fraction of Inspired Oxygen 03/23/23 12:00 03/23/23 13:27
[2023-03-24 06:56] LABS: Estimated CRCL calculation 79 ml/min; Estimated Glomerular Filt Rate > 60
[2023-03-24 07:40] LABS: Glucose Point of Care 123 mg/dl (65-105)
[2023-03-24 09:17] VITALS: PULSE 61
[2023-03-24] MEDS: PROPRANOLOL HCL 10 MG TABLET PO (09:17)
[2023-03-24] MEDS: ATORVASTATIN 20 MG TABLET PO (09:18)
[2023-03-24] MEDS: SERTRALINE HCL 50 MG TABLET 100 MG PO (09:18)
[2023-03-24] MEDS: rOPINIRole HCL 0.5 MG TABLET PO (09:18)
[2023-03-24] MEDS: ARIPiprazole 5 MG TABLET 10 MG PO (09:18)
[2023-03-24] MEDS: PANTOPRAZOLE SODIUM IV 40 MG VIAL IV PUSH (09:18)
[2023-03-24] MEDS: TIZANIDINE HCL 4 MG TABLET PO ×3 (09:18→17:01)
[2023-03-24] MEDS: busPIRone HCL 10 MG TABLET 20 MG PO ×3 (09:18→17:01)
[2023-03-24] MEDS: TIMOLOL MALEATE 0.5% OP SOLN 5 ML BOTTLE 1 DROP EACH EYE (09:19)
[2023-03-24] MEDS: GABAPENTIN 300 MG CAPSULE PO ×2 (09:19→22:00)
--- NOTE | 2023-03-24 09:47 | PM.IMPN ---
Progress Note: A&P Assessment and Plan (1) Acute respiratory failure with hypoxia and hypercapnia: Code(s): J96.01 - Acute respiratory failure with hypoxia; J96.02 - Acute respiratory failure with hypercapnia Status: Acute Assessment and Plan: Oxygen requirement coming down. On 2 L oxygen by nasal cannula now. ABG shows improved (2) Lung infiltrate: Code(s): R91.8 - Other nonspecific abnormal finding of lung field Status: Acute Assessment and Plan: Cultures negative so far. MRSA negative. Discontinue vancomycin. continue antibiotic (3) Altered mental status: Code(s): R41.82 - Altered mental status, unspecified Status: Acute Assessment and Plan: Resolved. lIKELY MULTIFACTORIAL BELIEVED TO HAVE OPIATE INTOXICATION AND CO2 INTOXICATION (4) Opiate or related narcotic overdose: Code(s): T40.601A - Poisoning by unspecified narcotics, accidental (unintentional), initial encounter Status: Acute Assessment and Plan: HOLDING MORPHINE EXTENDED RELEASE (5) JUAN (obstructive sleep apnea): Code(s): G47.33 - Obstructive sleep apnea (adult) (pediatric) Status: Acute Assessment and Plan: ON oxygen (6) Acute kidney injury superimposed on CKD: Code(s): N17.9 - Acute kidney failure, unspecified; N18.9 - Chronic kidney disease, unspecified Status: Acute Assessment and Plan: HOLDING SPIRONOLACTONE HOLDING RAMIPRIL Monitor BMP Improving (7) Morbid obesity with BMI of 50.0-59.9, adult: Code(s): E66.01 - Morbid (severe) obesity due to excess calories; Z68.43 - Body mass index [BMI] 50.0-59.9, adult Status: Acute Assessment and Plan: PATIENT IS STATUS POST GASTRIC BYPASS SURGERY. EGD shows gastritis (8) Fibromyalgia: Code(s): M79.7 - Fibromyalgia Status: Acute Assessment and Plan: SUPPORTIVE CARE Subjective Date/time seen: 03/24/23 09:47 Interval history: Feels better overall. Reports decreased hearing Review of Systems Review of Systems: Negative other than HPI Exam Narrative: Morbidly obese Const: General: comfortable, no acute distress, well developed, lethargic and obese Nutritional Appearance: obese morbidly obese Orientation/consciousness: oriented to person and oriented to place Limitations: altered mental status HENMT: Head: normal to inspection, normocephalic and atraumatic Ears: hearing grossly normal bilaterally Face/Nose/Sinus: normal facial exam Face and sinus: normal facial exam Eyes: General: appearance normal, both eyes and all related structures Pupils: Equal, round and reactive pupils present EOM: EOMs intact bilaterally Neck: Neck: full ROM, no lymphadenopathy and no JVD Thyroid: thyroid normal Lymphatic: no lymphadenopathy noted Resp: Effort & Inspection: normal respiratory effort and able to speak in complete sentences Auscultation: clear to auscultation bilaterally Cardio: Jugular venous distension: no JVD Rate: regular rate Rhythm: regular rhythm Heart sounds: S1 normal heart sound present and S2 normal heart sound present GI: Inspection: Pannus present GI Palp: Yes Soft to palpation and Yes No hepatosplenomegaly present : General: Yes deferred Skin: Rashes: no rashes Wounds: no wounds Neuro: General: oriented to person, no focal motor deficits, CN's II-XI intact bilaterally, Unable to assess gait and other ( LETHARGIC) Cranial nerves: Yes CN's II-XII intact bilaterally, Yes Equal, round and reactive pupils present, Yes Bilaterally intact EOM present, Yes facial symmetry and Yes Midline tongue present Cognition (Neuro): abnormal cognition ( LETHARGY) Speech: normal speech Motor exam (neuro): 5/5 motor strength present throughout Extrem: General: normal to inspection, full ROM, no joint enlargement and no pedal edema Objective Data Vital Signs Vital Signs: Vital Signs - 24 hr 03/23/23 10:40 03/23/23 12:
[2023-03-24 11:24] LABS: Glucose Point of Care 137 mg/dl (65-105)
[2023-03-24] MEDS: AMOXICILLIN/CLAVULANATE K 875-125 MG TAB 1 TABLET PO ×2 (11:52→21:59)
[2023-03-24 13:53] VITALS: BP 159/89; PULSE 53; RESP 16; TEMP 36.3; O2SAT 96
[2023-03-24] MEDS: SIMETHICONE 80 MG TAB.CHEW PO ×3 (13:55→21:59)
[2023-03-24] MEDS: ACETAMINOPHEN 325 MG TABLET 650 MG PO (13:55)
--- NOTE | 2023-03-24 21:48 | PC.NURSE ---
PT. said family was to bring CPAP from home and her settings are 15.
[2023-03-24] MEDS: LATANOPROST 0.005% OP SOLN 2.5 ML BTL 1 DROP EACH EYE (21:59)
[2023-03-24] MEDS: traZODone HCL 50 MG TABLET PO (21:59)
[2023-03-24] MEDS: AZITHROMYCIN 250 MG TABLET 500 MG PO (21:59)
[2023-03-24 22:00] VITALS: BP 156/94; PULSE 61; RESP 20; TEMP 37.1; O2SAT 95
[2023-03-25 06:00] VITALS: BP 154/86; PULSE 65; RESP 20; TEMP 36.6; O2SAT 96
[2023-03-25] MEDS: LEVOTHYROXINE SODIUM 100 MCG TABLET 200 MCG PO (06:38)
[2023-03-25 08:21] VITALS: O2SAT 96
[2023-03-25] MEDS: FLUTICASONE/UMECLIDIN/VILANTER 200-62.5-25 MCG ELLIPTA 1 PUFF INHALATION (08:21)
[2023-03-25 09:14] LABS: Glucose Point of Care 123 mg/dl (65-105)
--- NOTE | 2023-03-25 10:38 | PM.DS ---
DS: Admitting Diagnosis Discharge Date 03/25/2023 Admitting Diagnosis Unresponsive Hypoxic DS: Discharge Diagnosis Discharge Diagnosis (1) Acute respiratory failure with hypoxia and hypercapnia: Code(s): J96.01 - Acute respiratory failure with hypoxia; J96.02 - Acute respiratory failure with hypercapnia Status: Acute (2) Lung infiltrate: Code(s): R91.8 - Other nonspecific abnormal finding of lung field Status: Acute (3) Altered mental status: Code(s): R41.82 - Altered mental status, unspecified Status: Acute (4) GI bleed: Code(s): K92.2 - Gastrointestinal hemorrhage, unspecified Status: Acute DS: Summary Hospital Course Hospital Course: Tati Pendleton is a 57 year old female .with recent ankle surgery on p.o. morphine presented the ED for evaluation after being found unresponsive.? EMS called and patient had pinpoint pupils.? Patient did have response to Narcan on scene.? Upon arrival to the ED patient was more responsive.? Initial ABG showed patient was hypoxic and did have an elevated PCO2.? On repeat ABG patient had no improvement of her PCO2.? ? Patient did have emesis while wearing her BiPAP.? She had vomited once.? She also was tested for Hemoccult and was positive.? Her hemoglobin initially is 13. Her last colonoscopy which was to investigate occult bleeding was done about 8 years ago and was unremarkable. Patient was initially put on high-flow oxygen by nasal cannula. Blood on IV antibiotics. Gradually she improved her oxygen requirement came down. Patient was tapered and currently she is on room air. Patient was changed from IV to oral antibiotics to Augmentin. GI was consulted for possible GI bleed. She underwent EGD which showed gastritis. Currently patient is back to baseline and is being discharged home with oral Protonix and oral Augmentin Time Spent with Patient Time attestation: Total time spent providing and/or coordinating discharge services: DS: Data Data Completed and Pending Labs on day of discharge: Labs from last 24 hours 03/25/23 03/24/23 09:11 11:21 POC Capillary Glucose 123 H 137 H Preliminary micro results at discharge 03/22/23 00:13 Blood Culture - Preliminary Blood 03/22/23 00:13 Blood Culture - Preliminary Blood Discharge Plan Discharge Consulting providers: James Israel Discharging Clinician: Neto Nj Anticipated Discharge Date/Time: 03/25/23 10:35 Patient Disposition: Home Health Service Activity: no preference Diet: heart healthy Discharge Instructions: Per Care Coordination: [facility] will resume services at discharge. [facility] will follow for PT/OT eval and treat. [facility] can be contacted at [phone]. Nursing please fax discharge paperwork [phone]. Patient Instructions: Antibiotic Form Stand Alone Forms: General Discharge Information Follow-up/Referrals: Bisi,Chace Majano MD [Primary Care Provider] - Discharge Medications: New amoxicillin-pot clavulanate 875-125 mg tablet 1 tablet PO Q12H Qty: 10 0RF pantoprazole [Protonix] 40 mg tablet,delayed release (DR/EC) 40 mg PO QAM 28 Days Qty: 28 0RF Continued morphine 15 mg tablet extended release 30 mg PO BID eszopiclone 3 mg tablet 3 mg PO DAILY furosemide 40 mg tablet 40 mg PO DAILY atorvastatin 20 mg tablet 20 mg PO DAILY tizanidine 4 mg tablet 4 mg PO TID spironolactone 25 mg tablet 25 mg PO DAILY Hold Instructions: untill seen by her primary care provider buspirone 10 mg tablet 20 mg PO TID timolol maleate 0.5 % drops 1 drp ophthalmic (eye) QAM metformin 500 mg tablet extended release 24 hr 500 mg PO DAILY aripiprazole 5 mg tablet 10 mg PO DAILY trazodone 50 mg tablet 50 mg PO HS sertraline 100 mg tablet 100 mg PO DAILY omeprazole 40 mg capsule,delayed release(
[2023-03-25] MEDS: busPIRone HCL 10 MG TABLET 20 MG PO ×2 (10:53→13:13)
[2023-03-25] MEDS: ATORVASTATIN 20 MG TABLET PO (10:53)
[2023-03-25] MEDS: SERTRALINE HCL 50 MG TABLET 100 MG PO (10:54)
[2023-03-25] MEDS: TIZANIDINE HCL 4 MG TABLET PO ×2 (10:54→13:13)
[2023-03-25] MEDS: ARIPiprazole 5 MG TABLET 10 MG PO (10:54)
[2023-03-25] MEDS: GABAPENTIN 300 MG CAPSULE PO (10:55)
[2023-03-25] MEDS: AMOXICILLIN/CLAVULANATE K 875-125 MG TAB 1 TABLET PO (10:55)
[2023-03-25] MEDS: rOPINIRole HCL 0.5 MG TABLET PO (10:55)
[2023-03-25] MEDS: SIMETHICONE 80 MG TAB.CHEW PO ×2 (10:55→13:13)
[2023-03-25 10:56] VITALS: PULSE 66
[2023-03-25] MEDS: PROPRANOLOL HCL 10 MG TABLET PO (10:56)
[2023-03-25] MEDS: TIMOLOL MALEATE 0.5% OP SOLN 5 ML BOTTLE 1 DROP EACH EYE (11:08)
[2023-03-25] MEDS: PANTOPRAZOLE SODIUM IV 40 MG VIAL IV PUSH (11:18)
--- NOTE | 2023-03-25 12:50 | PC.NURSE ---
Hospitalist ordered discharge. Outstanding consult for ENT per Dr. Israel. Ondina notified of outstanding consult. Ondina stated pt can follow up outpatient.
--- NOTE | 2023-03-25 14:24 | PC.NURSE ---
On 03/25/23, the COMMUNITY LIAISON OFFICER, Rocio, provided care and completed [facility] documentation on this patient. I have reviewed the COMMUNITY LIAISON OFFICER's documentation and agree with the findings.
== END 2023-03-25 13:25 | disposition home health service (06) | DRG 917 ==
LOC: ANHED 15:51 → ANHIMU 16:55 → ANH3MEDSUR 03-23 18:01
PROVIDERS: Internal Medicine; Internal Medicine Gastroenterology; Admitting Provider Internal Medicine; Emergency Provider Emergency Medicine; PCP Family Medicine; Visit Provider Hospitalist
PROC: 0DJ08ZZ Inspection of Upper Intestinal Tract, Via Natural or Artificial Opening Endoscopic (ICD-10-PCS; CPT 43235; principal; 2023-03-23 15:00)
DX: T40.2X1A Poisoning by other opioids, accidental (unintentional), initial encounter (principal); J96.01 Acute respiratory failure with hypoxia; J96.02 Acute respiratory failure with hypercapnia; N17.9 Acute kidney failure, unspecified; Z68.43 Body mass index [BMI] 50.0-59.9, adult; K92.0 Hematemesis; K29.70 Gastritis, unspecified, without bleeding; R41.82 Altered mental status, unspecified; Z20.822 Contact with and (suspected) exposure to COVID-19; I12.9 Hypertensive chronic kidney disease with stage 1 through stage 4 chronic kidney disease, or unspecified chronic kidney disease; E11.22 Type 2 diabetes mellitus with diabetic chronic kidney disease; N18.30 Chronic kidney disease, stage 3 unspecified; E66.01 Morbid (severe) obesity due to excess calories; M79.7 Fibromyalgia; J44.9 Chronic obstructive pulmonary disease, unspecified; G47.33 Obstructive sleep apnea (adult) (pediatric); E03.9 Hypothyroidism, unspecified; R91.8 Other nonspecific abnormal finding of lung field; E87.5 Hyperkalemia; F32.A Depression, unspecified; F41.9 Anxiety disorder, unspecified; Z86.73 Personal history of transient ischemic attack (TIA), and cerebral infarction without residual deficits; Z90.49 Acquired absence of other specified parts of digestive tract; Z98.84 Bariatric surgery status; Z90.710 Acquired absence of both cervix and uterus; Z79.84 Long term (current) use of oral hypoglycemic drugs
CPT/HCPCS: 36415; 36600; 70450; 71045; 74176; 78580; 80048; 80053; 80307; 81001; 82375; 82565; 82805; 82948; 83050; 83605; 85025; 85610; 85730; 87040; 87081; 87637; 93005; 94002; 94003; 94640; 96361; 96374; 96375; 96376; 97110; 97116; 97161; 97165; 99285; A9270; A9540; C9113; G0378; J0456; J2310; J2405; J2543; J2704; J3370; J7030; J7120

== ENCOUNTER 2023-04-09 01:30 | Inpatient (IN) | payer OTHER, MEDICAID, SELFPAY ==
[2023-04-09] VITALS (42 sets, daily range): BP systolic 91–145; BP diastolic 64–96; PULSE 74–133; RESP 13–26; TEMP 36.4–37.1; O2SAT 32–100; BMI 50.9
--- NOTE | ~2023-04-09 | CT_ITS ---
EXAMINATION: CT brain wo con INDICATION: Altered mental status COMPARISON: 03/21/2023 TECHNIQUE: Standard unenhanced head CT. The dose-length product (DLP) was 681.00 mGy-cm. The mA was a djusted according to patient size. Iterative reconstruction technique was employed. FINDINGS: No intracranial hemorrhage, acute infarction, or abnormal mass lesion. The ventricles are n ormal. No abnormal mass effect or midline shift. The donaldson-white matter differentiation is normal. The basal cisterns are patent. The orbits are normal. The paranasal sinuses, mastoids and calvarium are normal. IMPRESSION: 1. No acute intracranial abnormality. Reviewed, dictated and finalized at location F.
--- NOTE | ~2023-04-09 | NM_ITS ---
EXAMINATION: NM lung vent and perfusion DATE: 04/10/2023 12:52 INDICATION: Hypoxia. TECHNIQUE: 25.9 mCi Xenon-133 was inhaled for ventilation images. 4.9 mCi Tc-99m MAA was administered intravenously for perfusion images. Scintigraphic images of the chest were obtained. COMPARISON: Chest CT 04/09/2023, chest view 03/21/2023 FINDINGS: Ventilation images show no defects on the single breath image. Equilibrium images demonstrate mild di ffuse retention. Perfusion images show no defects. Cardiomegaly is noted. IMPRESSION: 1. Pulmonary embolism absent (normal perfusion). Reviewed, dictated and finalized at location E.
--- NOTE | ~2023-04-09 | US_ITS ---
EXAMINATION: US renal BI DATE: 04/09/2023 15:24 INDICATION: CINDY TECHNIQUE: Multiple grayscale and Doppler ultrasound images of the kidneys were obtained. COMPARISON: CT abdomen pelvis 03/21/2023 FINDINGS: Exam limited by body habitus. The right kidney is poorly visualized The left kidney measures 10.4 x 5 .1 x 5.1 cm. The kidneys demonstrate normal parenchymal echogenicity. There is no hydronephrosis. The bladder is decompressed by a Barrera catheter. IMPRESSION: Right kidney not visualized. Sonographically normal-appearing left kidney. Reviewed, dictated and finalized at location K.
--- NOTE | ~2023-04-09 | CT_ITS ---
EXAMINATION: CT diagnostic chest wo con DATE: 04/09/2023 04:20 INDICATION: Hypoxia TECHNIQUE: Computed tomography (CT) of the chest was performed without intravenous contrast. The dose -length product (DLP) was 960.30 mGy-cm. Automated exposure control and iterative reconstruction tech nique were employed. COMPARISON: 01/14/2014 FINDINGS: Cardiomegaly is noted. There are bilateral perihilar opacities. There are airspace opacitie s extending into the lingula and lower lobes. Patchy groundglass opacities are present in the upper l obes. No pleural effusion or pneumothorax. There are no pathologically enlarged thoracic lymph nodes. There is moderate thoracic spondylosis. Surgical changes in the subareolar likely relate to weight l oss surgery. IMPRESSION: 1. Cardiomegaly. 2. Bilateral perihilar opacities and airspace opacities throughout the lungs, likely combination of p ulmonary edema and pneumonia. Reviewed, dictated and finalized at location F. IMPRESSION: 1. Cardiomegaly. 2. Bilateral perihilar opacities and airspace opacities throughout the lungs, l ikely combination of pulmonary edema and pneumonia.
--- NOTE | 2023-04-09 01:39 | ECG_ITS ---
Measurements Intervals [place] Rate: 106 P: 56 NH: 140 QRS: 126 QRSD: 88 T: 6 QT: 341 QTc: 453 Interpretive Statements SINUS TACHYCARDIA LOW QRS VOLTAGE RIGHTWARD AXIS NONSPECIFIC T-WAVE ABNORMALITY ABNORMAL ECG COMPARED TO ECG 03/21/2023 10:40:26 CANNOT COMMENT UPON CHANGES PREVIOUS ECG WAS OF VERY POOR QUALITY Electronically Signed On 04-09-2023 9:26:17 CDT by Lei Mckeon M.D.
--- NOTE | 2023-04-09 01:56 | ED.AMS ---
HPI - Altered Mental Status General Chief Complaint: Altered Mental Status Stated Complaint: AMS Time Seen by Provider: 04/09/23 01:51 History of Present Illness HPI narrative: This is a 57-year-old female, with past history of diabetes and COPD, brought in by EMS from home for altered mental status. EMS reports they were called by family due to the patient being drowsy. They note the patient has had loss of hearing for the past week but has been able to answer questions appropriately. Vital signs remarkable for tachycardia to the low 100s but were otherwise unremarkable. Patient's fingerstick glucose was 143. Using written communication, the patient complains of hearing loss without tinnitus and feels somewhat drowsy but has no other complaints. Related Data Home Medications Medication Instructions Recorded Confirmed aripiprazole 5 mg tablet 10 mg PO DAILY 03/01/20 03/29/23 atorvastatin 20 mg tablet 20 mg PO DAILY 03/01/20 03/29/23 buspirone 10 mg tablet 20 mg PO TID 03/01/20 03/29/23 furosemide 40 mg tablet 40 mg PO DAILY 03/01/20 03/29/23 metformin 500 mg tablet,extended 500 mg PO DAILY 03/01/20 03/29/23 release 24 hr spironolactone 25 mg tablet 25 mg PO DAILY 03/01/20 03/29/23 timolol maleate 0.5 % eye drops 1 drp ophthalmic (eye) QAM 03/01/20 03/29/23 tizanidine 4 mg tablet 4 mg PO TID 03/01/20 03/29/23 eszopiclone 3 mg tablet 3 mg PO DAILY 11/21/21 03/29/23 morphine 15 mg tablet,extended 30 mg PO BID 11/21/21 03/29/23 release empagliflozin 25 mg tablet 25 mg PO DAILY 02/03/23 03/29/23 (Jardiance) gabapentin 300 mg capsule 300 mg PO BID 02/03/23 03/29/23 omeprazole 40 mg capsule,delayed 40 mg PO DAILY 02/03/23 03/29/23 release ramipril 10 mg capsule 10 mg PO DAILY 02/03/23 03/29/23 ropinirole 0.5 mg tablet 0.5 mg PO DAILY 02/03/23 03/29/23 sertraline 100 mg tablet 100 mg PO DAILY 02/03/23 03/29/23 trazodone 50 mg tablet 50 mg PO HS 02/03/23 03/29/23 latanoprost 0.005 % eye drops 1 drp ophthalmic (eye) HS 02/11/23 03/29/23 levothyroxine 200 mcg tablet 200 mcg PO DAILY 03/21/23 03/29/23 mirtazapine 30 mg tablet 30 mg PO HS 03/21/23 03/29/23 prazosin 1 mg capsule 1 mg PO HS 03/21/23 03/29/23 propranolol 10 mg tablet 10 mg PO DAILY 03/21/23 03/29/23 Allergies Allergy/AdvReac Type Severity Reaction Status Date / Time No Known Allergies Allergy Verified 03/29/23 12:29 Review of Systems Review of Systems: CONSTITUTIONAL: Denies fever, chills, or sweats. CARDIOVASCULAR: Denies chest pain, palpitations, or edema. RESPIRATORY: Denies cough or dyspnea. GASTROINTESTINAL: Denies abdominal pain, nausea, vomiting, or diarrhea. GENITOURINARY: Denies dysuria or hematuria. SKIN: Denies rash or itching. MUSCULOSKELETAL: Denies back pain, joint pain, or myalgia. NEUROLOGIC: Denies headache, numbness, dizziness, or weakness. PSYCHIATRIC: Denies anxiety or depression. [facility] Past Medical History Medical History Anxiety COPD (chronic obstructive pulmonary disease) Depression Diabetes History of fibromyalgia History of seizures History of TIA (transient ischemic attack) Hypertension Hypothyroidism Surgical History Surgical History H/O gastric bypass H/O inguinal hernia repair History of appendectomy History of cholecystectomy History of hysterectomy History of tonsillectomy Hx of breast reduction, elective Social History Social History Smoking packs per day: 1 Smoking cigarettes per day: 20.0 Years smoked: 14 Smoking pack-years: 14.00 Smoking status: Never smoker Second hand tobacco smoke exposure: No Smoking end date: 07/10/92 Alcohol intake: never Substance use type: does not use Lack of Transportation: No Lack of Food: Never True Current Housing: I Have Housing Concerned About Future Housing: No Difficulty Paying
[2023-04-09] MEDS: NALOXONE HCL 0.4 MG/ML VIAL IV PUSH (02:06)
[2023-04-09] MEDS: SODIUM CHLORIDE 0.9% IV 1,000 ML 999 ML IV CONT ×2 (02:07)
[2023-04-09 02:11] LABS: Alveolar/Arterial O2 Gradient 457.5 mmHg; Base Excess ABG 4.1 mEq/l (+/-2.0); Fractional Inspired Oxygen 100 %; Oxygen Content ABG 17.5 %vol (16.0-22.0); Oxyhemoglobin 96.7 % THb (90.0-100.0); PO2 ABG 183.2 mmHg (80.0-100.0); PO2 FiO2 Ratio Arterial Blood 1.83 %; Total Hemoglobin 12.6 g/dL (12.0-18.0)
[2023-04-09 02:13] LABS: Modified Allen's Test Pass; PCO2 ABG 72.3 mmHg (35.0-45.0); Site Drawn RIGHT RADIAL; pH ABG 7.277 (7.350-7.450)
[2023-04-09 02:14] LABS: Basophils Absolute Auto 0.1 K/mm3 (0.0-0.1); Basophils Percent Auto 0.8 % (0.2-1.2); Eosinophils Percent Auto 0.4 % (0-4.4); Hematocrit 40.3 % (37.0-47.0); Hemoglobin 11.8 g/dL (12.0-15.0); Immature Granulocyte Absolute 0.05 K/mm3 (0.00-0.031); Immature Granulocyte Percent A 0.6 % (0-0.5); Immature Platelet Fraction Pct 12.4 % (0.9-11.2); Lymphocytes Absolute Auto 1.24 K/mm3 (0.9-3.2); Lymphocytes Percent Auto 14.9 % (18.3-44.2); Mean Corpuscular HGB Conc 29.3 g/dl (32-36); Mean Corpuscular Hemoglobin 25.3 pg (26-34); Mean Corpuscular Volume 86.5 fl (80-100); Monocytes Absolute Auto 0.7 K/mm3 (0.1-0.6); Monocytes Percent Auto 8.1 % (2.6-8.5); Neutrophils Absolute Auto 6.3 K/mm3 (1.3-6.7); Neutrophils Percent Auto 75.2 % (45.5-73.1); Platelet Count Result 192 k/mm3 (150-375); Red Blood Count 4.66 M/mm3 (4.2-5.4); Red Cell Distribution Width 16.7 % (11.5-14.5); White Blood Count 8.3 K/mm3 (4.5-10.0)
[2023-04-09 02:14] LABS: Device NON-REBREATHER MASK
[2023-04-09 02:23] LABS: Lactic Acid Reflex 1.2 mmol/L (0.7-2.0)
[2023-04-09 02:23] LABS: Acetaminophen < 10 ug/mL (10-30); Ethanol < 10 mg/dL (<10); Partial Thromboplastin Time 26.7 SECONDS (22.3-36.8); Salicylate < 1.0 mg/dL (2-20)
[2023-04-09] MEDS: ALBUTEROL SULFATE NEB 2.5 MG/3 ML INH 10 MG INHALATION (02:24)
[2023-04-09] MEDS: IPRATROPIUM BR 0.02% INH SOLN 0.5 MG/2.5 ML VIAL 1 MG INHALATION (02:25)
[2023-04-09] MEDS: MAGNESIUM SULF 2 GM/WATER 50ML 2 GM/50 ML BAG IVPB (02:28)
[2023-04-09 02:35] LABS: Troponin I 0.027 ng/mL (0.000-0.034)
[2023-04-09 03:10] LABS: Anion Gap 6 mmol/L (8-16); Carbon Dioxide 33 mmol/L (22-30); Chloride 96 mmol/L (98-107); Potassium 4.6 mmol/L (3.4-5.0); Sodium 135 mmol/L (137-145)
[2023-04-09 03:11] LABS: Bilirubin,Total 0.7 mg/dL (0.2-1.3); Blood Urea Nitrogen 34 mg/dL (7-17); Calcium 8.8 mg/dL (8.4-10.2); Estimated Glomerular Filt Rate 17; Glucose 142 mg/dL (65-110)
[2023-04-09 03:12] LABS: Alanine Aminotransferase 13 U/L (6-35); Alkaline Phosphatase 83 U/L (38-126); Aspartate Amino Transferase 31 U/L (14-36); Total Protein 7.8 g/dL (6.3-8.2)
[2023-04-09 03:26] LABS: Influenza A QL RT-PCR Negative (Negative); Influenza B QL RT-PCR Negative (Negative); SARS-CoV-2 RNA PCR Negative (Negative)
[2023-04-09 03:40] LABS: Appearance Urine Clear (Clear); Bacteria Urine None Seen /hpf; Bilirubin Urine Negative (Negative); Blood Urine Negative (Negative); Color Urine Yellow (Yellow); Glucose Urine UA 2+ mg/dL (Negative); Ketones Urine Trace mg/dL (Negative); Leukocyte Esterase Ur Negative LEU/UL (Negative); Need Manual Microscopic Reviewed; Nitrate Urine Negative (Negative); Protein Urine Trace mg/dL (Negative); RBC Urine 0-2 /hpf (0-2); Squamous Epithelial Cell Urine Few /hpf (Few); WBC Urine 0-5 /hpf
[2023-04-09 03:41] LABS: Add Urine Microscopic? YES
[2023-04-09 03:47] LABS: Benzodiazepines Screen Urine Negative (Negative)
[2023-04-09 03:49] LABS: Amphetamine Screen Urine Negative (Negative); Barbiturate Screen Urine Negative (Negative); Cannabinoid Screen Urine Negative (Negative); Cocaine Screen Urine Negative (Negative); Methadone Screen Urine Negative (Negative); Opiate Screen Urine Positive (Negative); Phencyclidine Screen Urine Negative (Negative)
[2023-04-09] MEDS: CEFEPIME 1 GM/NS 50 ML 1 GM/50 ML BAG IVPB (03:50)
[2023-04-09 04:19] LABS: Fractional Inspired Oxygen 60 %; PO2 VBG 36.7 mmHg (35.0-45.0)
[2023-04-09] MEDS: AZITHROMYCIN 500 MG/NS 250 ML 500 MG/250 ML BAG 250 MG IVPB (04:19)
[2023-04-09 04:20] LABS: Device BIPAP; Expiratory Pressure 8 cmH2O; Inspiratory Pressure 18 cmH2O
--- NOTE | 2023-04-09 06:31 | PM.IMHP ---
H&P: HPI History of Present Illness Date/Time: 04/09/23 06:31 Chief Complaint: Patient was brought to the ER for evaluation from home by EMS for altered mental status Narrative: 57 years old Afro-[place] female with diabetes, COPD and chronic medical issues has been feeling weak tired and fatigued since yesterday and started having altered mental status. Family got concerned when the patient became drowsy and called the EMS. When EMS reached the house, they found her to be hypoxic. Patient was started on oxygen supplementation and brought to the ER. Workup was done which showed left-sided pneumonia and acute respiratory failure with hypoxia and hypercapnia. Patient was started on BiPAP and her oxygenation improved. Her urine toxicology screen was positive for opioids and she got Narcan in the ER as well. She has been started on IV antibiotics and being admitted for medical management and close monitoring. Review of Systems Review of Systems: unable to be obtained as patient is weak, tired and has a BiPAP on ROS unobtainable: Yes unobtainable due to medical condition PMFSH Past Medical History Medical History Anxiety COPD (chronic obstructive pulmonary disease) Depression Diabetes History of fibromyalgia History of seizures History of TIA (transient ischemic attack) Hypertension Hypothyroidism Surgical History Surgical History H/O gastric bypass H/O inguinal hernia repair History of appendectomy History of cholecystectomy History of hysterectomy History of tonsillectomy Hx of breast reduction, elective Social History Social History Smoking packs per day: 1 Smoking cigarettes per day: 20.0 Years smoked: 14 Smoking pack-years: 14.00 Smoking status: Never smoker Second hand tobacco smoke exposure: No Smoking end date: 07/10/92 Alcohol intake: never Substance use type: does not use Lack of Transportation: No Lack of Food: Never True Current Housing: I Have Housing Concerned About Future Housing: No Difficulty Paying Gas/Electric Bills: No Difficulty Paying for Meds: No Currently Unemployed: No Education: Bachelor's Degree Difficulty w/ Childcare or Family Care: No Spiritual care concerns: No Meds Home Medications and Allergies Home Medications Medication Instructions Recorded Confirmed Type aripiprazole 5 mg tablet 10 mg PO DAILY 03/01/20 03/29/23 History atorvastatin 20 mg tablet 20 mg PO DAILY 03/01/20 03/29/23 History buspirone 10 mg tablet 20 mg PO TID 03/01/20 03/29/23 History furosemide 40 mg tablet 40 mg PO DAILY 03/01/20 03/29/23 History metformin 500 mg tablet,extended 500 mg PO DAILY 03/01/20 03/29/23 History release 24 hr spironolactone 25 mg tablet 25 mg PO DAILY 03/01/20 03/29/23 History timolol maleate 0.5 % eye drops 1 drp ophthalmic (eye) QAM 03/01/20 03/29/23 History tizanidine 4 mg tablet 4 mg PO TID 03/01/20 03/29/23 History eszopiclone 3 mg tablet 3 mg PO DAILY 11/21/21 03/29/23 History morphine 15 mg tablet,extended 30 mg PO BID 11/21/21 03/29/23 History release empagliflozin 25 mg tablet 25 mg PO DAILY 02/03/23 03/29/23 History (Jardiance) gabapentin 300 mg capsule 300 mg PO BID 02/03/23 03/29/23 History omeprazole 40 mg capsule,delayed 40 mg PO DAILY 02/03/23 03/29/23 History release ramipril 10 mg capsule 10 mg PO DAILY 02/03/23 03/29/23 History ropinirole 0.5 mg tablet 0.5 mg PO DAILY 02/03/23 03/29/23 History sertraline 100 mg tablet 100 mg PO DAILY 02/03/23 03/29/23 History trazodone 50 mg tablet 50 mg PO HS 02/03/23 03/29/23 History latanoprost 0.005 % eye drops 1 drp ophthalmic (eye) HS 02/11/23 03/29/23 History fluticasone fur. 200 mcg-umeclid 1 inh inhalation DAILYRT #1 inh 02/13/23 03/29/23 Rx 62.5 mcg-vilant 25 mcg inhalat.powder (Trelegy Ellipta) levothyroxi
--- NOTE | 2023-04-09 06:46 | PC.NURSE ---
This RN contacted contacted Marisel- pt sister about room number per request. Marisel is emily MARIA. Phone number is [phone].
--- NOTE | 2023-04-09 07:21 | ADMGEN ---
This patient, Tati Pendleton, was admitted to IMU Room 203-01 on 04/09/23 at 0655. Patient/family oriented to hospital policies and general routines including ID bracelet, bed and alarms, visiting hours, pain management, procedures, bathroom and other care routines, personal items, smoking policy, room service/diet, and visiting hours. Information on how to activate the Rapid Response Team has been discussed. Patient/Family are encouraged to report perceived risks to care and to ask questions if they do not understand what they are told or what they should do.
--- NOTE | 2023-04-09 08:03 | PM.IMPN ---
Progress Note: A&P Assessment and Plan (1) Acute hypercapnic respiratory failure: Code(s): J96.02 - Acute respiratory failure with hypercapnia Status: Acute (2) CINDY (acute kidney injury): Code(s): N17.9 - Acute kidney failure, unspecified Status: Acute (3) Acute hypoxic respiratory failure: Code(s): J96.01 - Acute respiratory failure with hypoxia Status: Acute (4) Community acquired pneumonia: Qualifiers: Laterality: left Lung location: unspecified part of lung Qualified Code(s): J18.9 - Pneumonia, unspecified organism Code(s): J18.9 - Pneumonia, unspecified organism Status: Acute (5) Acute respiratory failure with hypoxia and hypercapnia: Code(s): J96.01 - Acute respiratory failure with hypoxia; J96.02 - Acute respiratory failure with hypercapnia Status: Acute (6) Lung infiltrate: Code(s): R91.8 - Other nonspecific abnormal finding of lung field Status: Acute (7) Altered mental status: Code(s): R41.82 - Altered mental status, unspecified Status: Acute (8) Opiate or related narcotic overdose: Code(s): T40.601A - Poisoning by unspecified narcotics, accidental (unintentional), initial encounter Status: Acute (9) GI bleed: Code(s): K92.2 - Gastrointestinal hemorrhage, unspecified Status: Acute (10) Hypertension: Code(s): I10 - Essential (primary) hypertension Status: Chronic (11) JUAN (obstructive sleep apnea): Code(s): G47.33 - Obstructive sleep apnea (adult) (pediatric) Status: Acute (12) Obesity hypoventilation syndrome: Code(s): E66.2 - Morbid (severe) obesity with alveolar hypoventilation Status: Chronic (13) Chronic kidney disease, stage 3: Code(s): N18.30 - Chronic kidney disease, stage 3 unspecified Status: Chronic (14) Fibromyalgia: Code(s): M79.7 - Fibromyalgia Status: Acute (15) Morbid obesity with BMI of 50.0-59.9, adult: Code(s): E66.01 - Morbid (severe) obesity due to excess calories; Z68.43 - Body mass index [BMI] 50.0-59.9, adult Status: Acute (16) Acute kidney injury superimposed on CKD: Code(s): N17.9 - Acute kidney failure, unspecified; N18.9 - Chronic kidney disease, unspecified Status: Acute Plan COPD exacerbation and community-acquired pneumonia Patient has history of COPD, patient's productive cough, CT shows cardiomegaly, bilateral perihilar opacity airspace opacity, suggesting pulmonary edema and pneumonia Patient likely has the COPD exacerbation worsened by left-sided pneumonia Patient started on IV cefepime and azithromycin in the ER which will continue on the floor Follow-up on blood and sputum cultures V/Q scan ordered to rule out pulmonary embolism as patient is not a candidate for CTA chest due to her renal functions V/Q scan results pending Patient received 10 mg dexamethasone IV push in the ER Started patient on IV Solu-Medrol 60 mg q.6 hours, to be tapered as per clinical response DuoNeb breathing treatment ordered q.4 hours p.r.n. for shortness of breath Patient started on Accu-Cheks with Insulin coverage as per protocol Follow-up echocardiogram Consult mink slicer for evaluation and management Acute respiratory failure with hypoxemia and hypercapnia Likely resulting from COPD exacerbation and possible obesity associated ventilation syndrome Continue with BiPAP, wean off to oxygen via nasal cannula to keep O2 sats at 94% Consult mink slicer for evaluation and treatment Acute on chronic renal failure Her creatinine jumped from 1-3.4 over the last 2 weeks Patient given aggressive IV hydration with the 2 L of IV normal saline now on IV fluids at 125 cc an hour on the floor decrease to 75 ml/h Consult compressor house operator for evaluation and management Follow-up BMP Continue with home meds. Monitor patient closely while admitted. Patient needs close follow up with PCP/spec
[2023-04-09 08:27] LABS: Glucose Point of Care 132 mg/dl (65-105)
[2023-04-09] MEDS: ALBUTEROL SULFATE NEB 2.5 MG/3 ML INH INHALATION ×3 (08:35→20:34)
[2023-04-09 09:02] LABS: Basophils Absolute Auto 0.1 K/mm3 (0.0-0.1); Basophils Percent Auto 0.6 % (0.2-1.2); Eosinophils Percent Auto 0.1 % (0-4.4); Hematocrit 42.2 % (37.0-47.0); Hemoglobin 12.2 g/dL (12.0-15.0); Immature Granulocyte Absolute 0.09 K/mm3 (0.00-0.031); Immature Granulocyte Percent A 1.1 % (0-0.5); Immature Platelet Fraction Pct 10.5 % (0.9-11.2); Lymphocytes Absolute Auto 0.78 K/mm3 (0.9-3.2); Lymphocytes Percent Auto 9.4 % (18.3-44.2); Mean Corpuscular HGB Conc 28.9 g/dl (32-36); Mean Corpuscular Hemoglobin 25.4 pg (26-34); Mean Corpuscular Volume 87.9 fl (80-100); Mean Platelet Volume 13.3 fl (7.4-10.4); Monocytes Absolute Auto 0.1 K/mm3 (0.1-0.6); Monocytes Percent Auto 1.7 % (2.6-8.5); Neutrophils Absolute Auto 7.2 K/mm3 (1.3-6.7); Neutrophils Percent Auto 87.1 % (45.5-73.1); Nucleated Red Blood Cells Perc 0.4 % (0.0-0.2); Platelet Count Result 175 k/mm3 (150-375); Red Cell Distribution Width 15.9 % (11.5-14.5); White Blood Count 8.3 K/mm3 (4.5-10.0)
--- NOTE | 2023-04-09 09:09 | PM.CNPUL ---
Assessment and Plan Assessment and plan (1) Acute respiratory failure with hypoxia and hypercapnia: Code(s): J96.01 - Acute respiratory failure with hypoxia; J96.02 - Acute respiratory failure with hypercapnia Status: Acute Assessment and Plan: Patient with a history of asthma, morbid obesity, obstructive sleep apnea on CPAP 15, no oxygen at rest and 2 L with activity. On 02/08/23?when she was admitted for an ankle fracture on morphine, acute kidney injury, altered mental status she had hypercarbic respiratory failure with a pH of 7.17/74/72. She was treated with noninvasive ventilation. She is off NIV for 30 hours and her ABG on 3 L of 7.51/36/68.??She has no evidence of chronic hypercarbic respiratory failure or obesity hypoventilation syndrome at this time. Thyroid studies were normal. Currently she again presents with altered mental status, acute kidney injury with acute on chronic hypercarbic and hypoxemic respiratory failure with blood gas of 7.28/72/183 on 15 L non-rebreather. She was treated with Narcan and improved. She is treated with IV fluids and her creatinine has improved from 3.40 to 2.90. She was also started on treatment for asthma exacerbation with IV steroids, bronchodilators and she is being treated for pneumonia with cefepime and azithromycin. I suspect the patient has acute on chronic hypercarbic and hypoxemic respiratory failure due to narcotic use with acute kidney injury, pneumonia, possible aspiration given altered mental status and possible asthma exacerbation. 04/09/23: Patient is awake alert following commands on noninvasive ventilator with the AVAPS mode rate of 22, tidal volume 500, EPAP 8, pressure support minimum 9, pressure support maximum 30, I-time 1.0, rise of 5, on 40%. She states the settings are comfortable for her. She also feels she can come off of the noninvasive ventilator. Placed her on nasal cannula and decreased her to 4 L nasal cannula saturations 94%. Plan: Continue current noninvasive ventilator with AVAPS mode when the patient sleeps. Goal saturation 90-94% with nasal cannula oxygen while she is awake. Continue cefepime and azithromycin and I will add vancomycin per pharmacy for healthcare associated pneumonia and check a MRSA nasal swab. Will follow with you. (2) Asthma: Code(s): J45.909 - Unspecified asthma, uncomplicated Status: Acute Assessment and Plan: The patient has a knowledge management consultant who manages her asthma and JUAN on CPAP at [facility]'s name Dr. Strickland and she was diagnosed with asthma after she had a methacholine challenge test was positive about 2-3 months ago.? The patient tells me that her mother told her she had asthma as a child but she never remembers this.? She had no limitations in her activities during grade school and did high school cheerleading and gymnastics without any respiratory difficulties.? The patient developed her 1st respiratory symptoms in approximately 1978 after she started smoking.? Initially Dr. Strickland started her on Breo Ellipta and rescue albuterol and the patient states that these inhalers helped her take deeper breaths, and decreased her wheezing.? The patient was then changed to trelegy to see if this would provide any additional benefit approximally 3 months ago.? This did provide benefit compared to Breo Ellipta and she could take even deeper breaths, had less wheezing and more activity.? She does not have COPD. Plan: Currently patient has no wheezing. I will decrease her Solu-Medrol to 60 mg Q day today (recieved dose at10:11 this morning) and change to 40 Q day on 04/10. I will continue albuterol and ipratropium nebulizers Q 6 hours. Prefer quick steroid taper given her possible pneumonia and recent fractured ankle with an ORIF. (3) JUAN (obstructive sleep apnea): Code(s): G47.33 - Obstructive sleep apnea (adult) (pediatric) Status: Acute Assessment and Plan: The patient tells me she has o
[2023-04-09 10:04] LABS: Anion Gap 9 mmol/L (8-16); Blood Urea Nitrogen 33 mg/dL (7-17); Calcium 8.5 mg/dL (8.4-10.2); Carbon Dioxide 29 mmol/L (22-30); Chloride 99 mmol/L (98-107); Estimated CRCL calculation 28 ml/min; Estimated Glomerular Filt Rate 20; Glucose 128 mg/dL (65-110); Sodium 137 mmol/L (137-145)
[2023-04-09] MEDS: SODIUM CHLORIDE 0.9% IV 1,000 ML 75 ML IV CONT (10:11)
[2023-04-09] MEDS: methylPREDNISolone SOD SUCC 125 MG VIAL 60 MG IV PUSH (10:11)
[2023-04-09] MEDS: HEPARIN SODIUM 5,000 UNITS/ML VIAL 5000 UNITS SUB-Q ×2 (10:11→20:20)
[2023-04-09 10:12] LABS: NT Pro B Type Natriuretic Pept 6300 pg/mL (19.9-100)
[2023-04-09 12:53] LABS: Appearance Urine Clear (Clear); Bilirubin Urine Negative (Negative); Blood Urine Negative (Negative); Color Urine Yellow (Yellow); Glucose Urine UA 3+ mg/dL (Negative); Ketones Urine Negative (Negative); Leukocyte Esterase Ur Negative LEU/UL (NEGATIVE); Nitrate Urine Negative (Negative); Protein Urine Negative (Negative); Specific Grav Ur 1.018 (1.001-1.035); Urobilinogen Urine 0.2 mg/dL (<2.0)
[2023-04-09 12:59] LABS: Add Urine Microscopic? NO
[2023-04-09] MEDS: CEFEPIME 2 GM/NS 50 ML 2 GM/50 ML BAG IVPB ×2 (13:15→22:04)
[2023-04-09] MEDS: VANCOMYCIN 1,250 MG/NS 250 ML 1,250 MG/250 ML BAG 166.67 MG IVPB ×2 (13:40→14:59)
[2023-04-09 14:36] LABS: Glucose Point of Care 137 mg/dl (65-105)
[2023-04-09 16:31] LABS: Glucose Point of Care 157 mg/dl (65-105)
[2023-04-09 22:41] LABS: Total Protein Urine Random 37 mg/dL; Ur Ttl Prot Creatinine Ratio 0.27 mg/mg (0-0.20); Urea Random Urine 578 MG/DL
[2023-04-09 22:43] LABS: Sodium Urine Random 34 meq/L
[2023-04-09 23:55] LABS: Eosinophil Urine None Seen % (None Seen)
[2023-04-09 23:56] LABS: Urine Eos QC 2nd Tech Confirmed
[2023-04-09 23:59] LABS: Glucose Point of Care 117 mg/dl (65-105)
[2023-04-10] VITALS (28 sets, daily range): BP systolic 134–163; BP diastolic 86–95; PULSE 70–99; RESP 18–26; TEMP 36–36.6; O2SAT 90–100
[2023-04-10] MEDS: SODIUM CHLORIDE 0.9% IV 1,000 ML 75 ML IV CONT ×2 (02:25→20:15)
[2023-04-10] MEDS: ALBUTEROL SULFATE NEB 2.5 MG/3 ML INH INHALATION ×4 (03:09→20:12)
[2023-04-10 04:14] LABS: Basophils Percent Auto 0.5 % (0.2-1.2); Hematocrit 43.5 % (37.0-47.0); Hemoglobin 12.6 g/dL (12.0-15.0); Immature Granulocyte Absolute 0.06 K/mm3 (0.00-0.031); Immature Granulocyte Percent A 0.8 % (0-0.5); Immature Platelet Fraction Pct 13.7 % (0.9-11.2); Lymphocytes Absolute Auto 0.82 K/mm3 (0.9-3.2); Lymphocytes Percent Auto 10.7 % (18.3-44.2); Mean Corpuscular Hemoglobin 25.1 pg (26-34); Mean Corpuscular Volume 86.8 fl (80-100); Mean Platelet Volume 13.6 fl (7.4-10.4); Monocytes Absolute Auto 0.7 K/mm3 (0.1-0.6); Monocytes Percent Auto 9.1 % (2.6-8.5); Neutrophils Absolute Auto 6.1 K/mm3 (1.3-6.7); Neutrophils Percent Auto 78.9 % (45.5-73.1); Platelet Count Result 158 k/mm3 (150-375); Red Blood Count 5.01 M/mm3 (4.2-5.4); Red Cell Distribution Width 15.7 % (11.5-14.5); White Blood Count 7.7 K/mm3 (4.5-10.0)
[2023-04-10 04:44] LABS: Anion Gap 12 mmol/L (8-16); Blood Urea Nitrogen 34 mg/dL (7-17); Calcium 8.7 mg/dL (8.4-10.2); Carbon Dioxide 25 mmol/L (22-30); Chloride 101 mmol/L (98-107); Estimated CRCL calculation 40 ml/min; Estimated Glomerular Filt Rate 31; Glucose 107 mg/dL (65-110); Large Platelets Present; Magnesium 2.7 mg/dL (1.6-2.3); Phosphorus 4.1 mg/dL (2.5-4.5); Platelet Estimate Adequate (Adequate); Potassium 4.1 mmol/L (3.4-5.0); Sodium 138 mmol/L (137-145)
[2023-04-10 04:45] LABS: Helmet Cells 1+ (NORMAL); Poikilocytosis 1+ (NORMAL); Schistocytes None Seen (NORMAL); Tear Drop Cells 1+ (NORMAL)
[2023-04-10 04:57] LABS: Creatine Kinase 853 U/L (30-135)
[2023-04-10] MEDS: AZITHROMYCIN 500 MG/NS 250 ML 500 MG/250 ML BAG 250 MG IVPB (06:10)
[2023-04-10] MEDS: IPRATROPIUM BR 0.02% INH SOLN 0.5 MG/2.5 ML VIAL INHALATION ×3 (07:42→20:12)
--- NOTE | 2023-04-10 08:17 | ECHO_ITS ---
Patient Info Name: Tati Pendleton Age: 57 years : 1965 Gender: Female Ht: 66 in Wt: 315 lbs BSA: 2.66 m2 HR: 83 bpm BP: 134 / 86 mmHg Heart Rhythm: Sinus Arrhythmia Technical Quality: Fair Exam Date: 04/10/2023 10:14 AM Exam Location: [facility] Patient Status: Inpatient Admit Date: 04/09/2023 Staff Ordering Physician: Edgar Simon MD Network Security Engineer: Rand Castellanos RDCS Attending Provider: Cristopher Clancy MD Exam Type: CA echo dop color flow w con Study Info Indications - dizziness Complete two-dimensional, color flow and Doppler transthoracic echocardiogram is performed with contrast to opacify the left ventricle and to improve the deliniation of the left ventricle endocardial borders. Contrast/Agitated Saline Contrast/Ag. Saline: Definity Amount: 3.00 ml Administered By: Rand Castellanos RDCS Existing IV Access: Yes IV Access Condition: patent with no signs of infiltration Summary 1. Concentric left ventricular hypertrophy with vigorous systolic function and grade 1 diastolic noncompliance+. 2. Mildly enlarged left atrium. 3. No significant valve dysfunction. 4. Compared with echocardiogram from February 03 of this year no substantial difference. Left Ventricle Left ventricular chamber dimension is normal. Left ventricular systolic function is normal, estimated at 65-70%. There is mild concentric increased left ventricular wall thickness. The left ventricular diastolic function is grade I diastolic dysfunction. Right Ventricle Right ventricular chamber dimension is mildly enlarged. Right ventricular systolic function is reduced. Left Atria Left atrial chamber dimension is mildly enlarged. Right Atria Right atrial chamber dimension is normal. Aortic Valve The aortic valve is normal. Pulmonic Valve The pulmonic valve is normal. Mitral Valve The mitral valve has normal leaflets. Tricuspid Valve The tricuspid valve leaflets are normal. There is mild tricuspid valve regurgitation. Pericardium/Pleural The pericardium appears normal. Aorta The aortic root size at the sinus of Valsalva is normal. Left Ventricular Outflow Tract Name Value Normal LVOT 2D LVOT Diameter 2.13 cm LVOT Doppler LVOT Peak Gradient 4 mmHg LVOT Mean Gradient 2 mmHg LVOT VTI 17.29 cm LVOT VTI/AV VTI Ratio 0.58 LVOT Stroke Volume 61.44 ml LVOT CO 5.01 l/min LVOT CI 1.88 L/min/m2 Pulmonic Valve Name Value Normal RVOT Doppler RVOT Peak Gradient 2 mmHg PV Doppler PV Peak Gradient 5 mmHg Aorta Name
[2023-04-10] MEDS: CEFEPIME 2 GM/NS 50 ML 2 GM/50 ML BAG IVPB ×2 (09:11→20:16)
[2023-04-10] MEDS: methylPREDNISolone SOD SUCC 40 MG VIAL IV PUSH (09:14)
[2023-04-10] MEDS: HEPARIN SODIUM 5,000 UNITS/ML VIAL 5000 UNITS SUB-Q ×2 (09:14→20:16)
[2023-04-10 09:30] LABS: Glucose Point of Care 109 mg/dl (65-105)
--- NOTE | 2023-04-10 09:35 | PM.IMPN ---
Progress Note: A&P Assessment and Plan (1) Acute hypercapnic respiratory failure: Code(s): J96.02 - Acute respiratory failure with hypercapnia Status: Acute (2) CINDY (acute kidney injury): Code(s): N17.9 - Acute kidney failure, unspecified Status: Acute (3) Acute hypoxic respiratory failure: Code(s): J96.01 - Acute respiratory failure with hypoxia Status: Acute (4) Community acquired pneumonia: Qualifiers: Laterality: left Lung location: unspecified part of lung Qualified Code(s): J18.9 - Pneumonia, unspecified organism Code(s): J18.9 - Pneumonia, unspecified organism Status: Acute (5) Acute respiratory failure with hypoxia and hypercapnia: Code(s): J96.01 - Acute respiratory failure with hypoxia; J96.02 - Acute respiratory failure with hypercapnia Status: Acute (6) Lung infiltrate: Code(s): R91.8 - Other nonspecific abnormal finding of lung field Status: Acute (7) Altered mental status: Code(s): R41.82 - Altered mental status, unspecified Status: Acute (8) Opiate or related narcotic overdose: Code(s): T40.601A - Poisoning by unspecified narcotics, accidental (unintentional), initial encounter Status: Acute (9) GI bleed: Code(s): K92.2 - Gastrointestinal hemorrhage, unspecified Status: Acute (10) Hypertension: Code(s): I10 - Essential (primary) hypertension Status: Chronic (11) JUAN (obstructive sleep apnea): Code(s): G47.33 - Obstructive sleep apnea (adult) (pediatric) Status: Acute (12) Obesity hypoventilation syndrome: Code(s): E66.2 - Morbid (severe) obesity with alveolar hypoventilation Status: Chronic (13) Chronic kidney disease, stage 3: Code(s): N18.30 - Chronic kidney disease, stage 3 unspecified Status: Chronic (14) Fibromyalgia: Code(s): M79.7 - Fibromyalgia Status: Acute (15) Morbid obesity with BMI of 50.0-59.9, adult: Code(s): E66.01 - Morbid (severe) obesity due to excess calories; Z68.43 - Body mass index [BMI] 50.0-59.9, adult Status: Acute (16) Acute kidney injury superimposed on CKD: Code(s): N17.9 - Acute kidney failure, unspecified; N18.9 - Chronic kidney disease, unspecified Status: Acute Plan COPD exacerbation and community-acquired pneumonia Patient has history of COPD, patient's productive cough, CT shows cardiomegaly, bilateral perihilar opacity airspace opacity, suggesting pulmonary edema and pneumonia Patient likely has the COPD exacerbation worsened by left-sided pneumonia Patient started on IV cefepime and azithromycin in the ER Follow-up on blood and sputum cultures V/Q scan suggests no pulmonary embolism Patient received 10 mg dexamethasone IV push in the ER Started patient on IV Solu-Medrol 60 mg q.6 hours, to be tapered as per clinical response DuoNeb breathing treatment ordered q.4 hours p.r.n. for shortness of breath Patient started on Accu-Cheks with Insulin coverage as per protocol Follow-up echocardiogram Consult labor contractor for evaluation and management IV cefepime and azithromycin in the ER which will continue on the floor, add vancomycin per Dr. Camilo Acute respiratory failure with hypoxemia and hypercapnia Likely resulting from COPD exacerbation and possible obesity associated ventilation syndrome Continue with BiPAP, wean off to oxygen via nasal cannula to keep O2 sats at 94% Consult labor contractor for evaluation and treatment Acute on chronic renal failure Her creatinine jumped from 1-3.4 over the last 2 weeks Patient given aggressive IV hydration with the 2 L of IV normal saline now on IV fluids at 125 cc an hour on the floor decrease to 75 ml/h Consult welcome wagon hostess for evaluation and management Follow-up BMP Cr is trending down to 2.0 today Continue with home meds. Monitor patient closely while admitted. Patient needs close follow up with PCP/spe
--- NOTE | 2023-04-10 09:58 | PM.PNPUL ---
Progress Note: A&P Assessment and Plan (1) Acute respiratory failure with hypoxia and hypercapnia: Code(s): J96.01 - Acute respiratory failure with hypoxia; J96.02 - Acute respiratory failure with hypercapnia Status: Acute Assessment and Plan: Patient with a history of asthma, morbid obesity, obstructive sleep apnea on CPAP 15, no oxygen at rest and 2 L with activity. On 02/08/23?when she was admitted for an ankle fracture on morphine, acute kidney injury, altered mental status she had hypercarbic respiratory failure with a pH of 7.17/74/72. She was treated with noninvasive ventilation. She is off NIV for 30 hours and her ABG on 3 L of 7.51/36/68.??She has no evidence of chronic hypercarbic respiratory failure or obesity hypoventilation syndrome at this time. Thyroid studies were normal. Currently she again presents with altered mental status, acute kidney injury with acute on chronic hypercarbic and hypoxemic respiratory failure with blood gas of 7.28/72/183 on 15 L non-rebreather. She was treated with Narcan and improved. She is treated with IV fluids and her creatinine has improved from 3.40 to 2.90. She was also started on treatment for asthma exacerbation with IV steroids, bronchodilators and she is being treated for pneumonia with cefepime and azithromycin. I suspect the patient has acute on chronic hypercarbic and hypoxemic respiratory failure due to narcotic use with acute kidney injury, pneumonia, possible aspiration given altered mental status and possible asthma exacerbation. 04/09/23: Patient is awake alert following commands on noninvasive ventilator with the AVAPS mode rate of 22, tidal volume 500, EPAP 8, pressure support minimum 9, pressure support maximum 30, I-time 1.0, rise of 5, on 40%. She states the settings are comfortable for her. She also feels she can come off of the noninvasive ventilator. Placed her on nasal cannula and decreased her to 4 L nasal cannula saturations 94%. Plan: Continue current noninvasive ventilator with AVAPS mode when the patient sleeps. Goal saturation 90-94% with nasal cannula oxygen while she is awake. Continue cefepime and azithromycin and I will add vancomycin per pharmacy for healthcare associated pneumonia and check a MRSA nasal swab. 04/10/23: Patient tells me that she has improved and back to 90% of her baseline. She still feels a little bit tight but denies wheezing, phlegm production or hemoptysis. Afebrile, her white blood cell count is 7.7, creatinine is 2.0. When I entered the room she is on 3 L nasal cannula with saturations 96%. Plan: Patient is improving. continue cefepime, vancomycin and azithromycin all day 2. Will follow with you. 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 Strickland and she was diagnosed with asthma after she had a methacholine challenge test was positive about 2-3 months ago.? The patient tells me that her mother told her she had asthma as a child but she never remembers this.? She had no limitations in her activities during grade school and did high school cheerleading and gymnastics without any respiratory difficulties.? The patient developed her 1st respiratory symptoms in approximately 1978 after she started smoking.? Initially Dr. Strickland started her on Breo Ellipta and rescue albuterol and the patient states that these inhalers helped her take deeper breaths, and decreased her wheezing.? The patient was then changed to trelegy to see if this would provide any additional benefit approximally 3 months ago.? This did provide benefit compared to Breo Ellipta and she could take even deeper breaths, had less wheezing and more activity.? She does not have COPD. Plan: Currently patient has no wheezing. I will decrease her Solu-Medrol to 60 mg Q day today (recieved d
--- NOTE | 2023-04-10 10:20 | PM.CNNEP ---
Assessment and Plan Assessment and plan (1) Acute kidney injury: Code(s): N17.9 - Acute kidney failure, unspecified Status: Acute Assessment and Plan: as noted by admission creatinine/renal function improving at this time suspect due overdiuresis and relative hypotension on admission +/- pneumonia was in the 90s systolic on presentation evaluation to date: urine electrolytes prerenal urine eosinophils negative moderate proteiuria CPK mildly elevated - follow trend renal ultrasound noted follow trend of repeat labs and UOP (2) Chronic kidney disease, stage 3: Code(s): N18.30 - Chronic kidney disease, stage 3 unspecified Status: Chronic Assessment and Plan: baseline creatinine seems to run around 1.0 - 1.5mg/dl in the last year this causes her to fluctuate between CKD stage 3A and 3B presumably due to HTN, DM, and vascular disease along with necessity of diuretics (3) Hypertension: Code(s): I10 - Essential (primary) hypertension Status: Chronic Assessment and Plan: better readings currently follow hemodynamics holding KEN-I and diuretics (4) Obesity hypoventilation syndrome: Code(s): E66.2 - Morbid (severe) obesity with alveolar hypoventilation Status: Chronic Assessment and Plan: Pulmonary recommendations noted continue supportive care I will continue to follow the patient you while she remains hospitalized make further recommendations as needed. Thank you for allowing me to participate in care of the patient. History of Present Illness Reason for Consult Consult date: 04/10/23 Reason for consult: acute renal failure (on chronic kidney disease) Chief Complaint Chief complaint: Acute Hypoxic/Hypercapneic Respiratory Failure/CAP History of Present Illness Narrative: The patient is a 57-year-old female with a past medical history as outlined below who presented to [facility] Emergency Room with altered mental status. Apparently, for the last 24 hours prior to her evaluation in the emergency room, the patient has been significantly fatigued and tired. Her family became more concerned when she as she became more drowsy and altered with regard to her mental status. They called 911/EMS due to this change in her clinical status. Upon EMS arrival to the patient's house, they noted that she was quite hypoxic and a start her on supplemental oxygen to improve her oxygenation and she was subsequently transferred to the emergency room for further assessment. Workup and evaluation emergency room confirmed her altered mentation and hypoxia. Given her ongoing hypoxia and evidence of hypercapnia by ABG, BiPAP therapy was initiated and her overall oxygenation improved as well. Her urine tox screen was positive for opioids so she received a dose of Narcan in the emergency room which did seem to improve her mentation. Chest x-ray and further imaging studies demonstrated what appeared to be a left-sided pneumonia as well. Her admission labs were significant for an elevated BUN and creatinine far above her baseline as well. After appropriate cultures were obtained, she was started on IV antibiotic therapy for treatment of her pneumonia. Since her admission, her overall respiratory status has been slowly improving with ongoing therapy that has been initiated. Her renal function is actually improving as well. Renal consultation was requested due to her acute kidney injury on top of what appears to be chronic kidney disease. From review of her records, her kidney function/creatinine has fluctuated to extremes but seems to run around 1.0 - 1.5 mg/dL in the last year so. She has had several hospitalizations for acute kidney injury/acute renal failure and usually by the time of her discharge, her creatinine is back to baseline if not better. The patient is somewhat familiar to me as I saw her during her last hospitaliza
[2023-04-10] MEDS: PERFLUTREN LIPID MICROSPHERES 1.5 ML VIAL DILUTED TO 10 ML TOTAL VOLUME IV PUSH (11:15)
[2023-04-10 12:40] LABS: Glucose Point of Care 152 mg/dl (65-105)
--- NOTE | 2023-04-10 13:17 | IVDEFINITY ---
Prior to administration of IV Definity the patient was educated on the risks and benefits of the imaging enhancing agent including potential adverse side effects. The patient verbalized understanding. Allergies were verified. No exclusion criteria were identified and at least one of the following inclusion criteria were met: 1) physician request, 2) patient technically difficult to image (per the [place] [employer] guidelines of two or more segments not discernable within the apical view), or 3) questionable left ventricular function. ?
[2023-04-10 16:46] LABS: Glucose Point of Care 153 mg/dl (65-105)
[2023-04-10 20:53] LABS: Glucose Point of Care 122 mg/dl (65-105)
[2023-04-10] MEDS: MAG HYDROX/AL HYDROX/SIMETH 30 ML UDC PO (23:56)
[2023-04-11] VITALS (26 sets, daily range): BP systolic 140–198; BP diastolic 86–118; PULSE 71–112; RESP 18–22; TEMP 36–37.1; O2SAT 93–97
[2023-04-11] MEDS: IPRATROPIUM BR 0.02% INH SOLN 0.5 MG/2.5 ML VIAL INHALATION ×4 (02:10→20:07)
[2023-04-11] MEDS: ALBUTEROL SULFATE NEB 2.5 MG/3 ML INH INHALATION ×4 (02:10→20:07)
[2023-04-11 05:04] LABS: Basophils Absolute Auto 0.1 K/mm3 (0.0-0.1); Basophils Percent Auto 0.6 % (0.2-1.2); Eosinophils Absolute Auto 0.1 K/mm3 (0-0.3); Eosinophils Percent Auto 0.8 % (0-4.4); Hematocrit 37.7 % (37.0-47.0); Hemoglobin 11.3 g/dL (12.0-15.0); Immature Granulocyte Absolute 0.03 K/mm3 (0.00-0.031); Immature Granulocyte Percent A 0.4 % (0-0.5); Immature Platelet Fraction Pct 15.8 % (0.9-11.2); Lymphocytes Absolute Auto 0.89 K/mm3 (0.9-3.2); Lymphocytes Percent Auto 10.4 % (18.3-44.2); Mean Corpuscular Volume 83.4 fl (80-100); Mean Platelet Volume 13.8 fl (7.4-10.4); Monocytes Absolute Auto 0.8 K/mm3 (0.1-0.6); Monocytes Percent Auto 8.8 % (2.6-8.5); Neutrophils Absolute Auto 6.8 K/mm3 (1.3-6.7); Platelet Count Result 144 k/mm3 (150-375); Red Blood Count 4.52 M/mm3 (4.2-5.4); Red Cell Distribution Width 15.3 % (11.5-14.5); White Blood Count 8.5 K/mm3 (4.5-10.0)
[2023-04-11 05:15] LABS: Anion Gap 7 mmol/L (8-16); Blood Urea Nitrogen 29 mg/dL (7-17); Calcium 8.7 mg/dL (8.4-10.2); Carbon Dioxide 25 mmol/L (22-30); Chloride 106 mmol/L (98-107); Creatine Kinase 365 U/L (30-135); Estimated CRCL calculation 61 ml/min; Estimated Glomerular Filt Rate 51; Glucose 106 mg/dL (65-110); Potassium 3.7 mmol/L (3.4-5.0); Sodium 138 mmol/L (137-145)
[2023-04-11 05:33] LABS: Alveolar/Arterial O2 Gradient 52.1 mmHg; Base Excess ABG 1.5 mEq/l (+/-2.0); Fractional Inspired Oxygen 21 %; HCO3 ABG 25.3 mEq/l (22.0-26.0); Oxygen Content ABG 15.7 %vol (16.0-22.0); Oxygen Saturation ABG 89.3 % (95.0-100.0); PCO2 ABG 37.1 mmHg (35.0-45.0); PO2 ABG 53.2 mmHg (80.0-100.0); PO2 FiO2 Ratio Arterial Blood 2.53 %; Total Hemoglobin 12.7 g/dL (12.0-18.0); pH ABG 7.452 (7.350-7.450)
[2023-04-11] MEDS: AZITHROMYCIN 500 MG/NS 250 ML 500 MG/250 ML BAG 250 MG IVPB (05:33)
[2023-04-11 05:34] LABS: Device CPAP; Modified Allen's Test Pass; Site Drawn RIGHT RADIAL
[2023-04-11 05:38] LABS: CPAP 15 cmH2O; Oxyhemoglobin 87.8 % THb (90.0-100.0)
--- NOTE | 2023-04-11 08:35 | PM.PNPUL ---
Progress Note: A&P Assessment and Plan (1) Acute respiratory failure with hypoxia and hypercapnia: Code(s): J96.01 - Acute respiratory failure with hypoxia; J96.02 - Acute respiratory failure with hypercapnia Status: Acute Assessment and Plan: Patient with a history of asthma, morbid obesity, obstructive sleep apnea on CPAP 15, no oxygen at rest and 2 L with activity. On 02/08/23?when she was admitted for an ankle fracture on morphine, acute kidney injury, altered mental status she had hypercarbic respiratory failure with a pH of 7.17/74/72. She was treated with noninvasive ventilation. She is off NIV for 30 hours and her ABG on 3 L of 7.51/36/68.??She has no evidence of chronic hypercarbic respiratory failure or obesity hypoventilation syndrome at this time. Thyroid studies were normal. Currently she again presents with altered mental status, acute kidney injury with acute on chronic hypercarbic and hypoxemic respiratory failure with blood gas of 7.28/72/183 on 15 L non-rebreather. She was treated with Narcan and improved. She is treated with IV fluids and her creatinine has improved from 3.40 to 2.90. She was also started on treatment for asthma exacerbation with IV steroids, bronchodilators and she is being treated for pneumonia with cefepime and azithromycin. I suspect the patient has acute on chronic hypercarbic and hypoxemic respiratory failure due to narcotic use with acute kidney injury, pneumonia, possible aspiration given altered mental status and possible asthma exacerbation. 04/09/23: Patient is awake alert following commands on noninvasive ventilator with the AVAPS mode rate of 22, tidal volume 500, EPAP 8, pressure support minimum 9, pressure support maximum 30, I-time 1.0, rise of 5, on 40%. She states the settings are comfortable for her. She also feels she can come off of the noninvasive ventilator. Placed her on nasal cannula and decreased her to 4 L nasal cannula saturations 94%. Plan: Continue current noninvasive ventilator with AVAPS mode when the patient sleeps. Goal saturation 90-94% with nasal cannula oxygen while she is awake. Continue cefepime and azithromycin and I will add vancomycin per pharmacy for healthcare associated pneumonia and check a MRSA nasal swab. 04/10/23: Patient tells me that she has improved and back to 90% of her baseline. She still feels a little bit tight but denies wheezing, phlegm production or hemoptysis. Afebrile, her white blood cell count is 7.7, creatinine is 2.0. When I entered the room she is on 3 L nasal cannula with saturations 96%. Plan: Patient is improving. continue cefepime, vancomycin and azithromycin all day 2. 04/11: Currently the patient is on room air with saturations 93%. She is afebrile with a white blood cell count of 8.5. Blood culture 2 of 2 is positive for Gram-positive cocci in the anaerobic bottles only. Plan: Clinically she has improved. continue cefepime, vanco and azithromycin for now, all day 3. Repeat blood cultures have been ordered. Will follow with you. 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 Strickland and she was diagnosed with asthma after she had a methacholine challenge test was positive about 2-3 months ago.? The patient tells me that her mother told her she had asthma as a child but she never remembers this.? She had no limitations in her activities during grade school and did high school cheerleading and gymnastics without any respiratory difficulties.? The patient developed her 1st respiratory symptoms in approximately 1978 after she started smoking.? Initially Dr. Strickland started her on Breo Ellipta and rescue albuterol and the patient states that these inhalers helped her take deeper breaths, and decreased her wheezing.? The patient was then changed to
[2023-04-11 09:00] LABS: Glucose Point of Care 119 mg/dl (65-105)
--- NOTE | 2023-04-11 09:55 | PM.PNNEP ---
Progress Note: A&P Assessment and Plan (1) Acute kidney injury: Code(s): N17.9 - Acute kidney failure, unspecified Status: Acute Assessment and Plan: as noted by admission creatinine/renal function improving at this time suspect due overdiuresis and relative hypotension on admission with bacteremia +/- pneumonia was in the 90s systolic on presentation evaluation to date: urine electrolytes prerenal urine eosinophils negative moderate proteiuria CPK mildly elevated - follow trend renal ultrasound noted follow trend of repeat labs and UOP (2) Chronic kidney disease, stage 3: Code(s): N18.30 - Chronic kidney disease, stage 3 unspecified Status: Chronic Assessment and Plan: baseline creatinine seems to run around 1.0 - 1.5mg/dl in the last year this causes her to fluctuate between CKD stage 3A and 3B presumably due to HTN, DM, and vascular disease along with necessity of diuretics (3) Community acquired pneumonia: Qualifiers: Laterality: left Lung location: unspecified part of lung Qualified Code(s): J18.9 - Pneumonia, unspecified organism Code(s): J18.9 - Pneumonia, unspecified organism Status: Acute Assessment and Plan: admission imaging suggestive positive blood culture noted on antibiotics follow respiratory status (4) Hypertension: Code(s): I10 - Essential (primary) hypertension Status: Chronic Assessment and Plan: better readings currently follow hemodynamics holding KEN-I and diuretics (5) Obesity hypoventilation syndrome: Code(s): E66.2 - Morbid (severe) obesity with alveolar hypoventilation Status: Chronic Assessment and Plan: Pulmonary recommendations noted continue supportive care I will continue to follow the patient you while she remains hospitalized make further recommendations as needed. Thank you for allowing me to participate in care of the patient. Subjective Date/time seen: 04/11/23 09:55 Interval history: Follow-up for acute kidney inury/acute renal failure on chronic kidney disease. Renal function continues to improve as does her respiratory status; no apparent distress noted at the time of my visit; mentation seems at baseline; no other issues/events overnight or earlier this morning; + blood cultures noted with adjustment in antibiotics noted. Exam Narrative: General: Large female in NAD Heart: normal S1 and S2; no rub Lungs: diminished at the bases Abdomen: soft, nontender, nondistended, positive bowel sounds Extremities: no cyanosis or clubbing; no edema Skin: warm and dry Objective Data Vital Signs Vital Signs: Vital Signs Temp Pulse Resp BP Pulse Ox O2 Del Method O2 Flow Rate 04/11/23 08:00 82 04/11/23 08:12 98.8 F 84 20 171/86 H 93 04/11/23 08:04 96 Room Air 04/11/23 08:01 77 18 04/11/23 07:51 97 Nasal Cannula 1 04/11/23 07:45 78 18 04/11/23 06:00 78 04/11/23 04:00 78 04/11/23 04:00 96.8 F L 74 22 H 144/88 H 93 04/11/23 04:00 71 20 95 CPAP 04/11/23 02:00 71 04/11/23 00:00 78 04/10/23 22:00 78 04/10/23 23:57 97.5 F L 88 20 162/92 H 95 04/10/23 23:54 22 H 94 CPAP 04/10/23 23:38 72 18 95 CPAP 04/10/23 20:00 79 04/10/23 20:00 72 18 95 Nasal Cannula 2 04/10/23 20:00 96.9 F L 75 18 163/95 H 96 04/10/23 20:26 72 18 04/10/23 20:22 72 18 95 Nasal Cannula 1 04/10/23 20:12 70 18 04/10/23 18:00 82 04/10/23 16:00 96.8 F L 77 18 156/95 H 95 04/10/23 16:00 77 04/10/23 16:00 94 Nasal Cannula 2 04/10/23 14:00 82 04/10/23 13:27 86 18 04/10/23 13:20 86 20 96 Nasal Cannula 2 04/10/23 13:15 83 20 Intake/Output Intake/Output: Intake & Output 04/08/23 04/09/23
--- NOTE | 2023-04-11 09:55 | P.PNNP_ITS ---
Progress Note: A&P Assessment and Plan (1) Acute kidney injury: Code(s): N17.9 - Acute kidney failure, unspecified Status: Acute Assessment and Plan: * as noted by admission * creatinine/renal function improving at this time * suspect due overdiuresis and relative hypotension on admission with bacteremia +/- pneumonia * was in the 90s systolic on presentation * evaluation to date: * urine electrolytes prerenal * urine eosinophils negative * moderate proteiuria * CPK mildly elevated - follow trend * renal ultrasound noted * follow trend of repeat labs and UOP (2) Chronic kidney disease, stage 3: Code(s): N18.30 - Chronic kidney disease, stage 3 unspecified Status: Chronic Assessment and Plan: * baseline creatinine seems to run around 1.0 - 1.5mg/dl in the last year * this causes her to fluctuate between CKD stage 3A and 3B * presumably due to HTN, DM, and vascular disease along with necessity of diuretics (3) Community acquired pneumonia: Qualifiers: Laterality: left Lung location: unspecified part of lung Qualified Code(s): J18.9 - Pneumonia, unspecified organism Code(s): J18.9 - Pneumonia, unspecified organism Status: Acute Assessment and Plan: * admission imaging suggestive * positive blood culture noted * on antibiotics * follow respiratory status (4) Hypertension: Code(s): I10 - Essential (primary) hypertension Status: Chronic Assessment and Plan: * better readings currently * follow hemodynamics * holding KEN-I and diuretics (5) Obesity hypoventilation syndrome: Code(s): E66.2 - Morbid (severe) obesity with alveolar hypoventilation Status: Chronic Assessment and Plan: * Pulmonary recommendations noted * continue supportive care I will continue to follow the patient you while she remains hospitalized make further recommendations as needed. Thank you for allowing me to participate in care of the patient. Subjective Date/time seen: 04/11/23 09:55 Interval history: Follow-up for acute kidney inury/acute renal failure on chronic kidney disease. Renal function continues to improve as does her respiratory status; no apparent distress noted at the time of my visit; mentation seems at baseline; no other issues/events overnight or earlier this morning; + blood cultures noted with adjustment in antibiotics noted. Exam Narrative: General: Large female in NAD Heart: normal S1 and S2; no rub Lungs: diminished at the bases Abdomen: soft, nontender, nondistended, positive bowel sounds Extremities: no cyanosis or clubbing; no edema Skin: warm and dry Objective Data Vital Signs Vital Signs: Vital Signs Temp Pulse Resp BP Pulse Ox O2 Del Method O2 Flow Rate 04/11/23 08:00 82 04/11/23 08:12 98.8 F 84 20 171/86 H 93 04/11/23 08:04 96 Room Air 04/11/23 08:01 77 18 04/11/23 07:51 97 Nasal Cannula 1 04/11/23 07:45 78 18 04/11/23 06:00 78 04/11/23 04:00 78 04/11/23 04:00 96.8 F L 74 22 H 144/88 H 93 04/11/23 04:00 71 20 95 CPAP 04/11/23 02:00 71 04/11/23 00:00 78 04/10/23 22:00 78 04/10/23 23:57 97.5 F L 88 20 162/92 H
[2023-04-11] MEDS: SODIUM CHLORIDE 0.9% IV 1,000 ML 75 ML IV CONT ×2 (10:15→23:23)
[2023-04-11] MEDS: HEPARIN SODIUM 5,000 UNITS/ML VIAL 5000 UNITS SUB-Q ×2 (10:29→20:11)
[2023-04-11] MEDS: CEFEPIME 2 GM/NS 50 ML 2 GM/50 ML BAG IVPB ×2 (10:29→20:07)
[2023-04-11 10:30] LABS: Vancomycin Trough 15.6 ug/mL (10.0-20.0)
[2023-04-11 12:06] LABS: Glucose Point of Care 138 mg/dl (65-105)
--- NOTE | 2023-04-11 16:03 | PM.IMPN ---
Progress Note: A&P Assessment and Plan (1) Acute hypercapnic respiratory failure: Code(s): J96.02 - Acute respiratory failure with hypercapnia Status: Acute (2) CINDY (acute kidney injury): Code(s): N17.9 - Acute kidney failure, unspecified Status: Acute (3) Acute hypoxic respiratory failure: Code(s): J96.01 - Acute respiratory failure with hypoxia Status: Acute (4) Community acquired pneumonia: Qualifiers: Laterality: left Lung location: unspecified part of lung Qualified Code(s): J18.9 - Pneumonia, unspecified organism Code(s): J18.9 - Pneumonia, unspecified organism Status: Acute (5) Acute respiratory failure with hypoxia and hypercapnia: Code(s): J96.01 - Acute respiratory failure with hypoxia; J96.02 - Acute respiratory failure with hypercapnia Status: Acute (6) Lung infiltrate: Code(s): R91.8 - Other nonspecific abnormal finding of lung field Status: Acute (7) Altered mental status: Code(s): R41.82 - Altered mental status, unspecified Status: Acute (8) Opiate or related narcotic overdose: Code(s): T40.601A - Poisoning by unspecified narcotics, accidental (unintentional), initial encounter Status: Acute (9) GI bleed: Code(s): K92.2 - Gastrointestinal hemorrhage, unspecified Status: Acute (10) Hypertension: Code(s): I10 - Essential (primary) hypertension Status: Chronic (11) JUAN (obstructive sleep apnea): Code(s): G47.33 - Obstructive sleep apnea (adult) (pediatric) Status: Acute (12) Obesity hypoventilation syndrome: Code(s): E66.2 - Morbid (severe) obesity with alveolar hypoventilation Status: Chronic (13) Chronic kidney disease, stage 3: Code(s): N18.30 - Chronic kidney disease, stage 3 unspecified Status: Chronic (14) Fibromyalgia: Code(s): M79.7 - Fibromyalgia Status: Acute (15) Morbid obesity with BMI of 50.0-59.9, adult: Code(s): E66.01 - Morbid (severe) obesity due to excess calories; Z68.43 - Body mass index [BMI] 50.0-59.9, adult Status: Acute (16) Acute kidney injury superimposed on CKD: Code(s): N17.9 - Acute kidney failure, unspecified; N18.9 - Chronic kidney disease, unspecified Status: Acute Plan COPD exacerbation and community-acquired pneumonia Patient has history of COPD, patient's productive cough, CT shows cardiomegaly, bilateral perihilar opacity airspace opacity, suggesting pulmonary edema and pneumonia Patient likely has the COPD exacerbation worsened by left-sided pneumonia Patient started on IV cefepime and azithromycin and vancomycin cultures are positive V/Q scan suggests no pulmonary embolism Dr. Ton heard pt is on oral steroids for asthma exacerbation zofran iv for nausea Acute respiratory failure with hypoxemia and hypercapnia pt is on cpap transitioned off bipap now Acute on chronic renal failure creat is 1.3 much improved Subjective Date/time seen: 04/11/23 16:03 Interval history: I saw and examined the patient. Patient feels better today, but still has significant dyspnea, worse with mild exertion. Patient has cough with scant phlegm. Pt admitted with asthma exacerbation and sleep apnea Pt is slowly improving complains of vomiting alot today nurse reports more phlegm coming up Pt seen by pulmology continue with IV Abx, oral steroids and bronchodilation Review of Systems Review of Systems: SOB and vomiting Exam Narrative: General physical exam: looks unwell morbidly obese CVS: S1 + S2, regular rate and rhythm, no murmurs Respiratory: Bilaterally decreased air entry in both lung jensen, mild B/L crackles, + scattered rhonchi, left more than right, + BiPAP in place Abdomen: Soft, non-tender, bowel sounds +ve, no organomegaly Extremities: No clubbing, no cyanosis, no edema, no calf tenderness Musculoskeletal: Moves a
[2023-04-11 16:44] LABS: Glucose Point of Care 187 mg/dl (65-105)
--- NOTE | 2023-04-11 16:56 | PC.NURSE ---
[id number] Yo about pt's blood pressure. She is aware and addressing pt's home medications and withdrawal status.
[2023-04-11] MEDS: ONDANSETRON INJ 4 MG/2 ML VIAL IV PUSH ×2 (17:21→23:21)
[2023-04-11] MEDS: GABAPENTIN 300 MG CAPSULE PO (17:24)
[2023-04-11] MEDS: cloNIDine 0.1 MG/24 HR PATCH 1 PATCH TRANSDERM (17:24)
[2023-04-11] MEDS: busPIRone HCL 10 MG TABLET 20 MG PO (17:24)
[2023-04-11] MEDS: predniSONE 20 MG TABLET 40 MG PO (17:24)
[2023-04-11] MEDS: TIZANIDINE HCL 4 MG TABLET PO (17:24)
[2023-04-11] MEDS: MIRTAZAPINE 15 MG TABLET 45 MG PO (20:05)
[2023-04-11] MEDS: PRAZOSIN HCL 1 MG CAPSULE PO (20:05)
[2023-04-11] MEDS: BUDESONIDE RESPULE NEB 0.5 MG/2 ML AMP INHALATION (20:07)
[2023-04-11 20:22] LABS: Glucose Point of Care 182 mg/dl (65-105)
[2023-04-11] MEDS: LATANOPROST 0.005% OP SOLN 2.5 ML BTL 1 DROP EACH EYE (20:27)
[2023-04-11] MEDS: traZODone HCL 50 MG TABLET PO (23:24)
[2023-04-12] VITALS (17 sets, daily range): BP systolic 141–159; BP diastolic 84–114; PULSE 63–119; RESP 16–24; TEMP 36–37.1; O2SAT 93–96
[2023-04-12] MEDS: ALBUTEROL SULFATE NEB 2.5 MG/3 ML INH INHALATION (03:00)
[2023-04-12] MEDS: IPRATROPIUM BR 0.02% INH SOLN 0.5 MG/2.5 ML VIAL INHALATION (03:00)
--- NOTE | 2023-04-12 04:31 | PCRCNOTE ---
Pt received updraft treatment at 0300 due to not wanting to be awakened.
[2023-04-12] MEDS: AZITHROMYCIN 500 MG/NS 250 ML 500 MG/250 ML BAG 250 MG IVPB (05:12)
[2023-04-12 05:13] LABS: Basophils Absolute Auto 0.1 K/mm3 (0.0-0.1); Basophils Percent Auto 0.3 % (0.2-1.2); Hematocrit 48.4 % (37.0-47.0); Immature Granulocyte Absolute 0.09 K/mm3 (0.00-0.031); Immature Granulocyte Percent A 0.6 % (0-0.5); Lymphocytes Absolute Auto 1.15 K/mm3 (0.9-3.2); Mean Corpuscular Volume 80.8 fl (80-100); Monocytes Absolute Auto 0.8 K/mm3 (0.1-0.6); Monocytes Percent Auto 5.8 % (2.6-8.5); Neutrophils Absolute Auto 12.3 K/mm3 (1.3-6.7); Neutrophils Percent Auto 85.3 % (45.5-73.1); Platelet Count Result 220 k/mm3 (150-375); Red Blood Count 5.99 M/mm3 (4.2-5.4); Red Cell Distribution Width 15.9 % (11.5-14.5); White Blood Count 14.4 K/mm3 (4.5-10.0)
[2023-04-12] MEDS: LEVOTHYROXINE SODIUM 100 MCG TABLET 200 MCG PO (05:31)
[2023-04-12 05:33] LABS: Anion Gap 11 mmol/L (8-16); Blood Urea Nitrogen 26 mg/dL (7-17); Calcium 8.5 mg/dL (8.4-10.2); Carbon Dioxide 21 mmol/L (22-30); Chloride 107 mmol/L (98-107); Estimated CRCL calculation 66 ml/min; Estimated Glomerular Filt Rate 56; Glucose 174 mg/dL (65-110); Potassium 3.7 mmol/L (3.4-5.0); Sodium 139 mmol/L (137-145)
[2023-04-12] MEDS: ONDANSETRON INJ 4 MG/2 ML VIAL IV PUSH ×2 (08:01→11:56)
[2023-04-12] MEDS: CEFEPIME 2 GM/NS 50 ML 2 GM/50 ML BAG IVPB ×2 (08:02→21:14)
[2023-04-12] MEDS: rOPINIRole HCL 0.5 MG TABLET 1.5 MG PO (08:05)
[2023-04-12] MEDS: SPIRONOLACTONE 25 MG TABLET PO (08:05)
[2023-04-12] MEDS: SERTRALINE HCL 50 MG TABLET 200 MG PO (08:05)
[2023-04-12] MEDS: busPIRone HCL 10 MG TABLET 20 MG PO ×3 (08:05→17:36)
[2023-04-12] MEDS: PANTOPRAZOLE 40 MG TABLET PO (08:05)
[2023-04-12] MEDS: GABAPENTIN 300 MG CAPSULE PO ×2 (08:05→17:36)
[2023-04-12] MEDS: TIZANIDINE HCL 4 MG TABLET PO ×3 (08:05→17:36)
[2023-04-12] MEDS: ARIPiprazole 5 MG TABLET PO (08:06)
[2023-04-12] MEDS: ATORVASTATIN 20 MG TABLET PO (08:06)
[2023-04-12] MEDS: HEPARIN SODIUM 5,000 UNITS/ML VIAL 5000 UNITS SUB-Q ×2 (08:07→21:14)
[2023-04-12] MEDS: TIMOLOL MALEATE 0.5% OP SOLN 5 ML BOTTLE 1 DROP EACH EYE (08:07)
[2023-04-12] MEDS: ramipriL 5 MG CAPSULE 10 MG PO (08:08)
[2023-04-12] MEDS: predniSONE 20 MG TABLET 40 MG PO (08:16)
[2023-04-12 08:29] LABS: Glucose Point of Care 174 mg/dl (65-105)
--- NOTE | 2023-04-12 08:40 | PM.PNPUL ---
Progress Note: A&P Assessment and Plan (1) Acute respiratory failure with hypoxia and hypercapnia: Code(s): J96.01 - Acute respiratory failure with hypoxia; J96.02 - Acute respiratory failure with hypercapnia Status: Acute Assessment and Plan: Patient with a history of asthma, morbid obesity, obstructive sleep apnea on CPAP 15, no oxygen at rest and 2 L with activity. On 02/08/23?when she was admitted for an ankle fracture on morphine, acute kidney injury, altered mental status she had hypercarbic respiratory failure with a pH of 7.17/74/72. She was treated with noninvasive ventilation. She is off NIV for 30 hours and her ABG on 3 L of 7.51/36/68.??She has no evidence of chronic hypercarbic respiratory failure or obesity hypoventilation syndrome at this time. Thyroid studies were normal. Currently she again presents with altered mental status, acute kidney injury with acute on chronic hypercarbic and hypoxemic respiratory failure with blood gas of 7.28/72/183 on 15 L non-rebreather. She was treated with Narcan and improved. She is treated with IV fluids and her creatinine has improved from 3.40 to 2.90. She was also started on treatment for asthma exacerbation with IV steroids, bronchodilators and she is being treated for pneumonia with cefepime and azithromycin. I suspect the patient has acute on chronic hypercarbic and hypoxemic respiratory failure due to narcotic use with acute kidney injury, pneumonia, possible aspiration given altered mental status and possible asthma exacerbation. 04/09/23: Patient is awake alert following commands on noninvasive ventilator with the AVAPS mode rate of 22, tidal volume 500, EPAP 8, pressure support minimum 9, pressure support maximum 30, I-time 1.0, rise of 5, on 40%. She states the settings are comfortable for her. She also feels she can come off of the noninvasive ventilator. Placed her on nasal cannula and decreased her to 4 L nasal cannula saturations 94%. Plan: Continue current noninvasive ventilator with AVAPS mode when the patient sleeps. Goal saturation 90-94% with nasal cannula oxygen while she is awake. Continue cefepime and azithromycin and I will add vancomycin per pharmacy for healthcare associated pneumonia and check a MRSA nasal swab. 04/10/23: Patient tells me that she has improved and back to 90% of her baseline. She still feels a little bit tight but denies wheezing, phlegm production or hemoptysis. Afebrile, her white blood cell count is 7.7, creatinine is 2.0. When I entered the room she is on 3 L nasal cannula with saturations 96%. Plan: Patient is improving. continue cefepime, vancomycin and azithromycin all day 2. 04/11: Currently the patient is on room air with saturations 93%. She is afebrile with a white blood cell count of 8.5. Blood culture 2 of 2 is positive for Gram-positive cocci in the anaerobic bottles only. Plan: Clinically she has improved. continue cefepime, vanco and azithromycin for now, all day 3. Repeat blood cultures have been ordered. 04/12 continues to improve. patient is breathing back to her normal. Her cough is better and she has minimal cough with yellow phlegm. White blood cell count 14.4, creatinine 1.20. Patient wore home CPAP on room air and her saturations this morning on room air are 94%. On cefepime, vancomycin and azithromycin all day 4. Plan: Continue cefepime and vanco, MRSA swab negative. On azithromycin for 5 days total. Await identification of Gram-positive cocci and repeat blood cultures. Discussed with Dr. Yo. Will follow with you. 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's name Dr. Strickland and she was diagnosed with asthma after she had a methacholine challenge test was positive about 2-3 months ago.? The patient tells me that her mother told her s
[2023-04-12] MEDS: FLUTICASONE/UMECLIDIN/VILANTER 200-62.5-25 MCG ELLIPTA 1 PUFF INHALATION (09:14)
[2023-04-12] MEDS: SODIUM CHLORIDE 0.9% IV 1,000 ML 75 ML IV CONT (13:32)
--- NOTE | 2023-04-12 13:35 | PM.PNNEP ---
Progress Note: A&P Assessment and Plan (1) Acute kidney injury: Code(s): N17.9 - Acute kidney failure, unspecified Status: Acute Assessment and Plan: as noted on admission creatinine/renal function improving at this time suspect due overdiuresis and relative hypotension on admission with bacteremia +/- pneumonia was in the 90s systolic on presentation evaluation to date: urine electrolytes prerenal urine eosinophils negative moderate proteinuria CPK mildly elevated - follow trend renal ultrasound noted follow trend of repeat labs and UOP (2) Chronic kidney disease, stage 3: Code(s): N18.30 - Chronic kidney disease, stage 3 unspecified Status: Chronic Assessment and Plan: baseline creatinine seems to run around 1.0 - 1.5mg/dl in the last year this causes her to fluctuate between CKD stage 3A and 3B presumably due to HTN, DM, and vascular disease along with necessity of diuretics (3) Community acquired pneumonia: Qualifiers: Laterality: left Lung location: unspecified part of lung Qualified Code(s): J18.9 - Pneumonia, unspecified organism Code(s): J18.9 - Pneumonia, unspecified organism Status: Acute Assessment and Plan: admission imaging suggestive positive blood culture noted on antibiotics follow respiratory status (4) Hypertension: Code(s): I10 - Essential (primary) hypertension Status: Chronic Assessment and Plan: better readings currently follow hemodynamics holding KEN-I and diuretics (5) Obesity hypoventilation syndrome: Code(s): E66.2 - Morbid (severe) obesity with alveolar hypoventilation Status: Chronic Assessment and Plan: Pulmonary recommendations noted continue supportive care Will continue to follow. Subjective Date/time seen: 04/12/23 13:35 Interval history: Follow-up for acute kidney injury/acute renal failure on chronic kidney disease. Renal function continues to improve as noted by trend of labs; breathing/respiratory status seems to have stabilized if not improved as wel; no apparent distress noted at this time; overall, feels reasonably well; no issues/events overnight or earlier this morning. Exam Narrative: General: Large female in NAD Heart: normal S1 and S2; no rub Lungs: diminished at the bases Abdomen: soft, nontender, nondistended, positive bowel sounds Extremities: no cyanosis or clubbing; no edema Skin: warm and intact Objective Data Vital Signs Vital Signs: Vital Signs Temp Pulse Resp BP Pulse Ox O2 Del Method O2 Flow Rate 04/12/23 12:00 97.7 F 78 18 151/91 H 93 04/12/23 10:00 82 04/12/23 08:00 96 Room Air 04/12/23 09:14 96 Room Air 04/12/23 08:00 108 H 04/12/23 08:00 97.3 F L 103 H 18 159/103 H 93 04/12/23 06:00 99 04/12/23 03:15 99 18 04/12/23 02:10 104 H 93 CPAP 04/12/23 03:00 106 H 18 04/12/23 04:00 115 H 04/12/23 03:51 119 H 20 94 Room Air 04/12/23 03:34 97.2 F L 119 H 20 156/114 H 94 04/12/23 01:59 104 H 04/12/23 00:00 111 H 04/11/23 23:15 110 H 94 CPAP 04/12/23 00:00 114 H 24 H 93 Room Air 04/11/23 22:00 112 H 04/12/23 00:00 96.8 F L 114 H 24 H 155/107 H 93 04/11/23 20:00 104 H 04/11/23 20:20 106 H 18 04/11/23 20:10 104 H 95 Room Air 04/11/23 20:07 104 H 18 04/11/23 20:00 104 H 18 95 Room Air 04/11/23 20:00 97.0 F L 105 H 22 H 140/116 H 95 04/11/23 18:30 102 H 155/99 H 04/11/23 18:00 94 Intake/Output Intake/Output: Intake & Output 04/09/23 04/10/23 04/11/23 04/12/23 23:59 23:59 23:59 23:59 Intake Total 3750 2650 3590 1920 Output Total 350 1300 1150 550 Balance 3400 1350 2440 1370 Meds/Results Medications: Active Medications Generic Name Dose Route Sta
--- NOTE | 2023-04-12 13:35 | P.PNNP_ITS ---
Progress Note: A&P Assessment and Plan (1) Acute kidney injury: Code(s): N17.9 - Acute kidney failure, unspecified Status: Acute Assessment and Plan: * as noted on admission * creatinine/renal function improving at this time * suspect due overdiuresis and relative hypotension on admission with bacteremia +/- pneumonia * was in the 90s systolic on presentation * evaluation to date: * urine electrolytes prerenal * urine eosinophils negative * moderate proteinuria * CPK mildly elevated - follow trend * renal ultrasound noted * follow trend of repeat labs and UOP (2) Chronic kidney disease, stage 3: Code(s): N18.30 - Chronic kidney disease, stage 3 unspecified Status: Chronic Assessment and Plan: * baseline creatinine seems to run around 1.0 - 1.5mg/dl in the last year * this causes her to fluctuate between CKD stage 3A and 3B * presumably due to HTN, DM, and vascular disease along with necessity of diuretics (3) Community acquired pneumonia: Qualifiers: Laterality: left Lung location: unspecified part of lung Qualified Code(s): J18.9 - Pneumonia, unspecified organism Code(s): J18.9 - Pneumonia, unspecified organism Status: Acute Assessment and Plan: * admission imaging suggestive * positive blood culture noted * on antibiotics * follow respiratory status (4) Hypertension: Code(s): I10 - Essential (primary) hypertension Status: Chronic Assessment and Plan: * better readings currently * follow hemodynamics * holding KEN-I and diuretics (5) Obesity hypoventilation syndrome: Code(s): E66.2 - Morbid (severe) obesity with alveolar hypoventilation Status: Chronic Assessment and Plan: * Pulmonary recommendations noted * continue supportive care Will continue to follow. Subjective Date/time seen: 04/12/23 13:35 Interval history: Follow-up for acute kidney injury/acute renal failure on chronic kidney disease. Renal function continues to improve as noted by trend of labs; breathing/respiratory status seems to have stabilized if not improved as wel; no apparent distress noted at this time; overall, feels reasonably well; no issues/events overnight or earlier this morning. Exam Narrative: General: Large female in NAD Heart: normal S1 and S2; no rub Lungs: diminished at the bases Abdomen: soft, nontender, nondistended, positive bowel sounds Extremities: no cyanosis or clubbing; no edema Skin: warm and intact Objective Data Vital Signs Vital Signs: Vital Signs Temp Pulse Resp BP Pulse Ox O2 Del Method O2 Flow Rate 04/12/23 12:00 97.7 F 78 18 151/91 H 93 04/12/23 10:00 82 04/12/23 08:00 96 Room Air 04/12/23 09:14 96 Room Air 04/12/23 08:00 108 H 04/12/23 08:00 97.3 F L 103 H 18 159/103 H 93 04/12/23 06:00 99 04/12/23 03:15 99 18 04/12/23 02:10 104 H 93 CPAP 04/12/23 03:00 106 H 18 04/12/23 04:00 115 H 04/12/23 03:51 119 H 20 94 Room Air 04/12/23 03:34 97.2 F L 119 H 20 156/114 H 94 04/12/23 01:59 104 H 04/12/23 00:00 111 H 04/11/23 23:15 110 H 94 CPAP 04/12/23 00:00 114 H 24 H 93 R
--- NOTE | 2023-04-12 13:51 | PM.IMPN ---
Progress Note: A&P Assessment and Plan (1) Acute hypercapnic respiratory failure: Code(s): J96.02 - Acute respiratory failure with hypercapnia Status: Acute (2) CINDY (acute kidney injury): Code(s): N17.9 - Acute kidney failure, unspecified Status: Acute (3) Acute hypoxic respiratory failure: Code(s): J96.01 - Acute respiratory failure with hypoxia Status: Acute (4) Community acquired pneumonia: Qualifiers: Laterality: left Lung location: unspecified part of lung Qualified Code(s): J18.9 - Pneumonia, unspecified organism Code(s): J18.9 - Pneumonia, unspecified organism Status: Acute (5) Acute respiratory failure with hypoxia and hypercapnia: Code(s): J96.01 - Acute respiratory failure with hypoxia; J96.02 - Acute respiratory failure with hypercapnia Status: Acute (6) Lung infiltrate: Code(s): R91.8 - Other nonspecific abnormal finding of lung field Status: Acute (7) Altered mental status: Code(s): R41.82 - Altered mental status, unspecified Status: Acute (8) Opiate or related narcotic overdose: Code(s): T40.601A - Poisoning by unspecified narcotics, accidental (unintentional), initial encounter Status: Acute (9) GI bleed: Code(s): K92.2 - Gastrointestinal hemorrhage, unspecified Status: Acute (10) Hypertension: Code(s): I10 - Essential (primary) hypertension Status: Chronic (11) JUAN (obstructive sleep apnea): Code(s): G47.33 - Obstructive sleep apnea (adult) (pediatric) Status: Acute (12) Obesity hypoventilation syndrome: Code(s): E66.2 - Morbid (severe) obesity with alveolar hypoventilation Status: Chronic (13) Chronic kidney disease, stage 3: Code(s): N18.30 - Chronic kidney disease, stage 3 unspecified Status: Chronic (14) Fibromyalgia: Code(s): M79.7 - Fibromyalgia Status: Acute (15) Morbid obesity with BMI of 50.0-59.9, adult: Code(s): E66.01 - Morbid (severe) obesity due to excess calories; Z68.43 - Body mass index [BMI] 50.0-59.9, adult Status: Acute (16) Acute kidney injury superimposed on CKD: Code(s): N17.9 - Acute kidney failure, unspecified; N18.9 - Chronic kidney disease, unspecified Status: Acute Plan COPD exacerbation and community-acquired pneumonia Patient has history of COPD, patient's productive cough, CT shows cardiomegaly, bilateral perihilar opacity airspace opacity, suggesting pulmonary edema and pneumonia Patient likely has the COPD exacerbation worsened by left-sided pneumonia Patient started on IV cefepime and azithromycin and vancomycin continue current regime cultures are positive V/Q scan suggests no pulmonary embolism Dr. Ton heard pt is on oral steroids for asthma exacerbation zofran iv for nausea Acute respiratory failure with hypoxemia and hypercapnia pt is on cpap transitioned off bipap now Acute on chronic renal failure creat is 1.2 much improved OPiate misuse Watch for any with drawl antiemetics started Bp control DC in 1-2 days time pt is improving can step down to medical floor Subjective Date/time seen: 04/12/23 13:51 Interval history: I saw and examined the patient. Patient feels better today, but still has significant dyspnea, worse with mild exertion. Patient has cough with scant phlegm. 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
[2023-04-12 14:10] LABS: Glucose Point of Care 168 mg/dl (65-105)
--- NOTE | 2023-04-12 15:38 | PC.NURSE ---
This patient, Tati Pendleton, was transferred to medical room 343 with all personal belongings 04/12/23 at 1539. Personal belongings sent with patient. Report given to 3 medical nurse . Appropriate documentation sent with patient.
--- NOTE | 2023-04-12 15:58 | PCPTNOTE ---
Spoke with Dr. oY (current hospitalist), pt is able to come off of bedrest. RN notified.
--- NOTE | 2023-04-12 16:17 | ADMGEN ---
This patient, Tati Pendleton, was admitted to Medical Room 343-01. Patient/family oriented to hospital policies and general routines including ID bracelet, bed and alarms, visiting hours, pain management, procedures, bathroom and other care routines, personal items, smoking policy, room service/diet, and visiting hours. Information on how to activate the Rapid Response Team has been discussed. Patient/Family are encouraged to report perceived risks to care and to ask questions if they do not understand what they are told or what they should do.
[2023-04-12 17:13] LABS: Glucose Point of Care 188 mg/dl (65-105)
[2023-04-12] MEDS: hydrALAZINE 10 MG TABLET PO (17:36)
[2023-04-12 20:40] LABS: Glucose Point of Care 179 mg/dl (65-105)
[2023-04-12] MEDS: LATANOPROST 0.005% OP SOLN 2.5 ML BTL 1 DROP EACH EYE (21:14)
[2023-04-12] MEDS: MIRTAZAPINE 15 MG TABLET 45 MG PO (21:14)
[2023-04-12] MEDS: traZODone HCL 50 MG TABLET PO (21:14)
[2023-04-12] MEDS: PRAZOSIN HCL 1 MG CAPSULE PO (21:14)
[2023-04-13] VITALS (8 sets, daily range): BP systolic 143–155; BP diastolic 71–94; PULSE 56–88; RESP 16–20; TEMP 36.1–37.2; O2SAT 92–99
[2023-04-13] MEDS: AZITHROMYCIN 500 MG/NS 250 ML 500 MG/250 ML BAG 250 MG IVPB (05:53)
[2023-04-13] MEDS: LEVOTHYROXINE SODIUM 100 MCG TABLET 200 MCG PO (05:53)
[2023-04-13] MEDS: ONDANSETRON INJ 4 MG/2 ML VIAL IV PUSH (07:58)
[2023-04-13] MEDS: FLUTICASONE/UMECLIDIN/VILANTER 200-62.5-25 MCG ELLIPTA 1 PUFF INHALATION (08:33)
--- NOTE | 2023-04-13 08:48 | PM.PNPUL ---
Progress Note: A&P Assessment and Plan (1) Acute respiratory failure with hypoxia and hypercapnia: Code(s): J96.01 - Acute respiratory failure with hypoxia; J96.02 - Acute respiratory failure with hypercapnia Status: Acute Assessment and Plan: Patient with a history of asthma, morbid obesity, obstructive sleep apnea on CPAP 15, no oxygen at rest and 2 L with activity. On 02/08/23?when she was admitted for an ankle fracture on morphine, acute kidney injury, altered mental status she had hypercarbic respiratory failure with a pH of 7.17/74/72. She was treated with noninvasive ventilation. She is off NIV for 30 hours and her ABG on 3 L of 7.51/36/68.??She has no evidence of chronic hypercarbic respiratory failure or obesity hypoventilation syndrome at this time. Thyroid studies were normal. Currently she again presents with altered mental status, acute kidney injury with acute on chronic hypercarbic and hypoxemic respiratory failure with blood gas of 7.28/72/183 on 15 L non-rebreather. She was treated with Narcan and improved. She is treated with IV fluids and her creatinine has improved from 3.40 to 2.90. She was also started on treatment for asthma exacerbation with IV steroids, bronchodilators and she is being treated for pneumonia with cefepime and azithromycin. I suspect the patient has acute on chronic hypercarbic and hypoxemic respiratory failure due to narcotic use with acute kidney injury, pneumonia, possible aspiration given altered mental status and possible asthma exacerbation. 04/09/23: Patient is awake alert following commands on noninvasive ventilator with the AVAPS mode rate of 22, tidal volume 500, EPAP 8, pressure support minimum 9, pressure support maximum 30, I-time 1.0, rise of 5, on 40%. She states the settings are comfortable for her. She also feels she can come off of the noninvasive ventilator. Placed her on nasal cannula and decreased her to 4 L nasal cannula saturations 94%. Plan: Continue current noninvasive ventilator with AVAPS mode when the patient sleeps. Goal saturation 90-94% with nasal cannula oxygen while she is awake. Continue cefepime and azithromycin and I will add vancomycin per pharmacy for healthcare associated pneumonia and check a MRSA nasal swab. 04/10/23: Patient tells me that she has improved and back to 90% of her baseline. She still feels a little bit tight but denies wheezing, phlegm production or hemoptysis. Afebrile, her white blood cell count is 7.7, creatinine is 2.0. When I entered the room she is on 3 L nasal cannula with saturations 96%. Plan: Patient is improving. continue cefepime, vancomycin and azithromycin all day 2. 04/11: Currently the patient is on room air with saturations 93%. She is afebrile with a white blood cell count of 8.5. Blood culture 2 of 2 is positive for Gram-positive cocci in the anaerobic bottles only. Plan: Clinically she has improved. continue cefepime, vanco and azithromycin for now, all day 3. Repeat blood cultures have been ordered. 04/12 continues to improve. patient is breathing back to her normal. Her cough is better and she has minimal cough with yellow phlegm. White blood cell count 14.4, creatinine 1.20. Patient wore home CPAP on room air and her saturations this morning on room air are 94%. On cefepime, vancomycin and azithromycin all day 4. Plan: Continue cefepime and vanco, MRSA swab negative. On azithromycin for 5 days total. Await identification of Gram-positive cocci and repeat blood cultures. 04/13 Patient states she is breathing normally. She has slight cough with a small amount of phlegm. She slept with her home CPAP 15 and room air and did well last night. Currently she is on room air with saturations 94%. She complains of nausea and diarrhea. Blood cultures were Staph hominis. Repeat blood cultures on 04 11 are no growth. Plan: Today is day 5 of azithromycin and I have discontinued azithromycin. Discontinue vancomycin.
[2023-04-13 08:50] LABS: Glucose Point of Care 107 mg/dl (65-105)
[2023-04-13] MEDS: busPIRone HCL 10 MG TABLET 20 MG PO ×3 (09:24→18:08)
[2023-04-13] MEDS: ramipriL 5 MG CAPSULE 10 MG PO (09:24)
[2023-04-13] MEDS: rOPINIRole HCL 0.5 MG TABLET 1.5 MG PO (09:24)
[2023-04-13] MEDS: SPIRONOLACTONE 25 MG TABLET PO (09:24)
[2023-04-13] MEDS: GABAPENTIN 300 MG CAPSULE PO ×2 (09:24→18:08)
[2023-04-13] MEDS: HEPARIN SODIUM 5,000 UNITS/ML VIAL 5000 UNITS SUB-Q ×2 (09:25→21:22)
[2023-04-13] MEDS: TIMOLOL MALEATE 0.5% OP SOLN 5 ML BOTTLE 1 DROP EACH EYE (09:25)
[2023-04-13] MEDS: ARIPiprazole 5 MG TABLET PO (09:25)
[2023-04-13] MEDS: ATORVASTATIN 20 MG TABLET PO (09:25)
[2023-04-13] MEDS: PANTOPRAZOLE 40 MG TABLET PO (09:25)
[2023-04-13] MEDS: TIZANIDINE HCL 4 MG TABLET PO ×3 (09:25→18:08)
[2023-04-13] MEDS: SERTRALINE HCL 50 MG TABLET 200 MG PO (09:25)
[2023-04-13] MEDS: hydrALAZINE 10 MG TABLET PO ×3 (09:26→18:07)
[2023-04-13] MEDS: CEFEPIME 2 GM/NS 50 ML 2 GM/50 ML BAG IVPB ×2 (10:36→18:08)
[2023-04-13 11:31] LABS: Albumin Level 3.1 g/dL (3.5-5.1); Anion Gap 6 mmol/L (8-16); Blood Urea Nitrogen 21 mg/dL (7-17); Calcium 8.4 mg/dL (8.4-10.2); Carbon Dioxide 24 mmol/L (22-30); Chloride 106 mmol/L (98-107); Estimated CRCL calculation 72 ml/min; Estimated Glomerular Filt Rate > 60; Glucose 124 mg/dL (65-110); Phosphorus 2.3 mg/dL (2.5-4.5); Potassium 3.3 mmol/L (3.4-5.0); Sodium 136 mmol/L (137-145)
[2023-04-13 12:19] LABS: Glucose Point of Care 129 mg/dl (65-105)
--- NOTE | 2023-04-13 12:50 | P.PNNP_ITS ---
Progress Note: A&P Assessment and Plan (1) Acute kidney injury: Code(s): N17.9 - Acute kidney failure, unspecified Status: Acute Assessment and Plan: * as noted on admission * creatinine/renal function improving at this time * suspect due overdiuresis and relative hypotension on admission with bacteremia +/- pneumonia * was in the 90s systolic on presentation * evaluation to date: * urine electrolytes prerenal * urine eosinophils negative * moderate proteinuria * CPK mildly elevated - follow trend * renal ultrasound noted * follow trend of repeat labs and UOP (2) Chronic kidney disease, stage 3: Code(s): N18.30 - Chronic kidney disease, stage 3 unspecified Status: Chronic Assessment and Plan: * baseline creatinine seems to run around 1.0 - 1.5mg/dl in the last year * this causes her to fluctuate between CKD stage 3A and 3B * presumably due to HTN, DM, and vascular disease along with necessity of diuretics (3) Community acquired pneumonia: Qualifiers: Laterality: left Lung location: unspecified part of lung Qualified Code(s): J18.9 - Pneumonia, unspecified organism Code(s): J18.9 - Pneumonia, unspecified organism Status: Acute Assessment and Plan: * admission imaging suggestive * positive blood culture noted * repeat cultures negative to date * on antibiotics * follow respiratory status (4) Hypertension: Code(s): I10 - Essential (primary) hypertension Status: Chronic Assessment and Plan: * better readings currently * follow hemodynamics * holding KEN-I and diuretics * will likely need diuretics on discharge (5) Obesity hypoventilation syndrome: Code(s): E66.2 - Morbid (severe) obesity with alveolar hypoventilation Status: Chronic Assessment and Plan: * Pulmonary recommendations noted * continue supportive care Will continue to follow. Subjective Date/time seen: 04/13/23 12:50 Interval history: Follow-up for acute kidney injury/acute renal failure on chronic kidney disease. Overall, she states she feels significantly better since admission/hospitalization began; renal function is stable if not better as has her breathing/respiratory status; no other acute complaints or problems voiced at the time of my visit; no distress noted. Exam Narrative: General: Large female in NAD Heart: normal S1 and S2; no rub Lungs: diminished at the bases Abdomen: soft, nontender, nondistended, positive bowel sounds Extremities: no cyanosis or clubbing; no edema Skin: No rash or nodules Objective Data Vital Signs Vital Signs: Vital Signs Temp Pulse Resp BP Pulse Ox O2 Del Method O2 Flow Rate 04/13/23 08:31 92 Room Air 04/13/23 05:50 99.0 F 73 20 155/94 H 93 04/13/23 03:30 67 93 CPAP 04/12/23 21:10 71 94 CPAP 04/12/23 20:30 97.8 F 63 20 141/91 H 93 04/12/23 20:30 72 16 94 Room Air 04/12/23 16:14 98.8 F 72 16 145/84 H 94 04/12/23 15:36 Nasal Cannula 2 Intake/Output Intake/Output: Intake & Output 04/10/23 04/11/23 04/12/23 04/13/23 23:59 23:59 23:59 23:59 Intake Total 2650 3590 2510 250 Output Total 1300 1150 1000 600
--- NOTE | 2023-04-13 12:50 | PM.PNNEP ---
Progress Note: A&P Assessment and Plan (1) Acute kidney injury: Code(s): N17.9 - Acute kidney failure, unspecified Status: Acute Assessment and Plan: as noted on admission creatinine/renal function improving at this time suspect due overdiuresis and relative hypotension on admission with bacteremia +/- pneumonia was in the 90s systolic on presentation evaluation to date: urine electrolytes prerenal urine eosinophils negative moderate proteinuria CPK mildly elevated - follow trend renal ultrasound noted follow trend of repeat labs and UOP (2) Chronic kidney disease, stage 3: Code(s): N18.30 - Chronic kidney disease, stage 3 unspecified Status: Chronic Assessment and Plan: baseline creatinine seems to run around 1.0 - 1.5mg/dl in the last year this causes her to fluctuate between CKD stage 3A and 3B presumably due to HTN, DM, and vascular disease along with necessity of diuretics (3) Community acquired pneumonia: Qualifiers: Laterality: left Lung location: unspecified part of lung Qualified Code(s): J18.9 - Pneumonia, unspecified organism Code(s): J18.9 - Pneumonia, unspecified organism Status: Acute Assessment and Plan: admission imaging suggestive positive blood culture noted repeat cultures negative to date on antibiotics follow respiratory status (4) Hypertension: Code(s): I10 - Essential (primary) hypertension Status: Chronic Assessment and Plan: better readings currently follow hemodynamics holding KEN-I and diuretics will likely need diuretics on discharge (5) Obesity hypoventilation syndrome: Code(s): E66.2 - Morbid (severe) obesity with alveolar hypoventilation Status: Chronic Assessment and Plan: Pulmonary recommendations noted continue supportive care Will continue to follow. Subjective Date/time seen: 04/13/23 12:50 Interval history: Follow-up for acute kidney injury/acute renal failure on chronic kidney disease. Overall, she states she feels significantly better since admission/hospitalization began; renal function is stable if not better as has her breathing/respiratory status; no other acute complaints or problems voiced at the time of my visit; no distress noted. Exam Narrative: General: Large female in NAD Heart: normal S1 and S2; no rub Lungs: diminished at the bases Abdomen: soft, nontender, nondistended, positive bowel sounds Extremities: no cyanosis or clubbing; no edema Skin: No rash or nodules Objective Data Vital Signs Vital Signs: Vital Signs Temp Pulse Resp BP Pulse Ox O2 Del Method O2 Flow Rate 04/13/23 08:31 92 Room Air 04/13/23 05:50 99.0 F 73 20 155/94 H 93 04/13/23 03:30 67 93 CPAP 04/12/23 21:10 71 94 CPAP 04/12/23 20:30 97.8 F 63 20 141/91 H 93 04/12/23 20:30 72 16 94 Room Air 04/12/23 16:14 98.8 F 72 16 145/84 H 94 04/12/23 15:36 Nasal Cannula 2 Intake/Output Intake/Output: Intake & Output 04/10/23 04/11/23 04/12/23 04/13/23 23:59 23:59 23:59 23:59 Intake Total 2650 3590 2510 250 Output Total 1300 1150 1000 600 Balance 1350 2440 1510 -350 Meds/Results Medications: Active Medications Generic Name Dose Route Start Last Admin Trade Name Freq PRN Reason Stop Dose Admin Acetaminophen 650 mg 04/09/23 06:50 Acetaminophen 325 Mg Tablet PO Q4H PRN Mild Pain (1-3) or Fever Al Hydrox/Mg Hydrox/Simethicone 30 ml 04/09/23 06:50 04/10/23 23:56 Mag Hydrox/Al Hydrox/Simeth 30 Ml Udc PO 30 ml QID PRN Administration Dyspepsia Albuterol 2.5 mg 04/09/23 06:50 Albuterol Sulfate Neb 2.5 Mg/3 Ml Inh INHALATION Q4HRT PRN Shortness Of Breath Or Wheezing Aripiprazole 5 mg 04/12/23 09:00 04/13/23 09:25 Aripiprazole 5 Mg Tablet PO 5 mg DAILY SANIYA Administration Atorvas
--- NOTE | 2023-04-13 14:40 | HOMEO2EVAL ---
Evaluation was performed at [facility] Home Oxygen Evaluation RC: Home Oxygen (O2) Evaluation Start: 04/13/23 08:50 Freq: ONCE Status: Active Protocol: RPE Activity Type Activity Date Activity User E-sign Co-sign Detail Recorded Client Recorded Date Recorded By Document 04/13/23 14:00 [email or web address] [email or web address] 04/13/23 14:39 DJO Document 04/13/23 14:05 [email or web address] [email or web address] 04/13/23 14:39 DJO Document 04/13/23 14:15 [email or web address] 04/13/23 14:39 DJO 04/13/23 04/13/23 04/13/23 14:00 14:05 14:15 Home O2 Evaluation [Oxygen] -Test Phase Resting Exercise Resting -Oxygen Delivery Room Air Nasal Cannula Room Air [Pulse Oximetry] -Pulse Oximetry (90-100 %) 94 94 94 [Pulse Rate] -Pulse Rate (60-100 beats/min) 69 88 70 [Evaluation] -Activity Tolerance Fair [Charges] -Treatment Charges O2 Evaluation - Inpatient
--- NOTE | 2023-04-13 14:40 | HOMEO2EVAL ---
Evaluation was performed at [facility] Home Oxygen Evaluation RC: Home Oxygen (O2) Evaluation Start: 04/13/23 08:50 Freq: ONCE Status: Active Protocol: RPE Activity Type Activity Date Activity User E-sign Co-sign Detail Recorded Client Recorded Date Recorded By Document 04/13/23 14:00 [email or web address] [email or web address] 04/13/23 14:39 DJO Document 04/13/23 14:05 [email or web address] [email or web address] 04/13/23 14:39 DJO Document 04/13/23 14:15 [email or web address] [email or web address] 04/13/23 14:39 DJO 04/13/23 04/13/23 04/13/23 14:00 14:05 14:15 Home O2 Evaluation [Oxygen] -Test Phase Resting Exercise Resting -Oxygen Delivery Room Air Nasal Cannula Room Air [Pulse Oximetry] -Pulse Oximetry (90-100 %) 94 94 94 [Pulse Rate] -Pulse Rate (60-100 beats/min) 69 88 70 [Evaluation] -Activity Tolerance Fair [Charges] -Treatment Charges O2 Evaluation - Inpatient
--- NOTE | 2023-04-13 14:40 | PCRCNOTE ---
HOME O2 EVAL COMPLETE, NO REQUIREMENTS
[2023-04-13 16:58] LABS: Glucose Point of Care 130 mg/dl (65-105)
--- NOTE | 2023-04-13 18:43 | PM.IMPN ---
Progress Note: A&P Assessment and Plan (1) Acute hypercapnic respiratory failure: Code(s): J96.02 - Acute respiratory failure with hypercapnia Status: Acute (2) CINDY (acute kidney injury): Code(s): N17.9 - Acute kidney failure, unspecified Status: Acute (3) Acute hypoxic respiratory failure: Code(s): J96.01 - Acute respiratory failure with hypoxia Status: Acute (4) Community acquired pneumonia: Qualifiers: Laterality: left Lung location: unspecified part of lung Qualified Code(s): J18.9 - Pneumonia, unspecified organism Code(s): J18.9 - Pneumonia, unspecified organism Status: Acute (5) Acute respiratory failure with hypoxia and hypercapnia: Code(s): J96.01 - Acute respiratory failure with hypoxia; J96.02 - Acute respiratory failure with hypercapnia Status: Acute (6) Lung infiltrate: Code(s): R91.8 - Other nonspecific abnormal finding of lung field Status: Acute (7) Altered mental status: Code(s): R41.82 - Altered mental status, unspecified Status: Acute (8) Opiate or related narcotic overdose: Code(s): T40.601A - Poisoning by unspecified narcotics, accidental (unintentional), initial encounter Status: Acute (9) GI bleed: Code(s): K92.2 - Gastrointestinal hemorrhage, unspecified Status: Acute (10) Hypertension: Code(s): I10 - Essential (primary) hypertension Status: Chronic (11) JUAN (obstructive sleep apnea): Code(s): G47.33 - Obstructive sleep apnea (adult) (pediatric) Status: Acute (12) Obesity hypoventilation syndrome: Code(s): E66.2 - Morbid (severe) obesity with alveolar hypoventilation Status: Chronic (13) Chronic kidney disease, stage 3: Code(s): N18.30 - Chronic kidney disease, stage 3 unspecified Status: Chronic (14) Fibromyalgia: Code(s): M79.7 - Fibromyalgia Status: Acute (15) Morbid obesity with BMI of 50.0-59.9, adult: Code(s): E66.01 - Morbid (severe) obesity due to excess calories; Z68.43 - Body mass index [BMI] 50.0-59.9, adult Status: Acute (16) Acute kidney injury superimposed on CKD: Code(s): N17.9 - Acute kidney failure, unspecified; N18.9 - Chronic kidney disease, unspecified Status: Acute Plan COPD exacerbation and community-acquired pneumonia Patient has history of COPD, patient's productive cough, CT shows cardiomegaly, bilateral perihilar opacity airspace opacity, suggesting pulmonary edema and pneumonia Patient likely has the COPD exacerbation worsened by left-sided pneumonia Patient started on IV cefepime and azithromycin and vancomycin continue current regime cultures are positive V/Q scan suggests no pulmonary embolism Complete steroid treatment. Pulmonary consulted. Acute respiratory failure with hypoxemia and hypercapnia pt is on cpap transitioned off bipap now Acute on chronic renal failure creat is 1.2 admission creatinine of 3.4 much improved OPiate misuse Watch for any with drawl antiemetics started Bp control Remove Barrera ambulate Subjective Date/time seen: 04/13/23 18:43 Interval history: Feeling better. Breathing has improved. Discussed with Pulmonary. Discussed with Nephrology. Review of Systems Review of Systems: All systems reviewed & are unremarkable except as noted in HPI and below Exam Narrative: General physical exam: Not in acute distress morbidly obese CVS: S1 + S2, regular rate and rhythm, no murmurs Respiratory: Bilaterally decreased air entry in both lung jensen, Abdomen: Soft, non-tender, bowel sounds +ve, no organomegaly Extremities: No clubbing, no cyanosis, no edema, no calf tenderness Musculoskeletal: Moves all, adequate range of motion, no muscle spasms Skin: Warm, dry, no jaundice, no cyanosis Neurological: Alert and oriented x3 no focal deficit Psychiatric: Normal moved Objective Data Vital Signs V
[2023-04-13] MEDS: LATANOPROST 0.005% OP SOLN 2.5 ML BTL 1 DROP EACH EYE (21:22)
[2023-04-13] MEDS: traZODone HCL 50 MG TABLET PO (21:22)
[2023-04-13] MEDS: MIRTAZAPINE 15 MG TABLET 45 MG PO (21:22)
[2023-04-13] MEDS: PRAZOSIN HCL 1 MG CAPSULE PO (21:22)
[2023-04-13 21:51] LABS: Glucose Point of Care 140 mg/dl (65-105)
[2023-04-14 01:25] VITALS: PULSE 59; O2SAT 98
[2023-04-14] MEDS: CEFEPIME 2 GM/NS 50 ML 2 GM/50 ML BAG IVPB ×2 (01:40→08:32)
[2023-04-14 04:30] VITALS: PULSE 56; O2SAT 97
[2023-04-14 06:00] VITALS: BP 148/70; PULSE 62; RESP 20; TEMP 36.6; O2SAT 99
[2023-04-14] MEDS: LEVOTHYROXINE SODIUM 100 MCG TABLET 200 MCG PO (06:16)
[2023-04-14] MEDS: ACETAMINOPHEN 325 MG TABLET 650 MG PO (06:19)
[2023-04-14 07:55] LABS: Glucose Point of Care 100 mg/dl (65-105)
[2023-04-14 08:17] VITALS: O2SAT 96
[2023-04-14] MEDS: FLUTICASONE/UMECLIDIN/VILANTER 200-62.5-25 MCG ELLIPTA 1 PUFF INHALATION (08:17)
[2023-04-14] MEDS: ramipriL 5 MG CAPSULE 10 MG PO (08:30)
[2023-04-14] MEDS: ARIPiprazole 5 MG TABLET PO (08:30)
[2023-04-14] MEDS: SERTRALINE HCL 50 MG TABLET 200 MG PO (08:30)
[2023-04-14] MEDS: busPIRone HCL 10 MG TABLET 20 MG PO (08:31)
[2023-04-14] MEDS: hydrALAZINE 10 MG TABLET PO (08:31)
[2023-04-14] MEDS: PANTOPRAZOLE 40 MG TABLET PO (08:31)
[2023-04-14] MEDS: TIZANIDINE HCL 4 MG TABLET PO (08:31)
[2023-04-14] MEDS: TIMOLOL MALEATE 0.5% OP SOLN 5 ML BOTTLE 1 DROP EACH EYE (08:31)
[2023-04-14] MEDS: GABAPENTIN 300 MG CAPSULE PO (08:31)
[2023-04-14] MEDS: ATORVASTATIN 20 MG TABLET PO (08:31)
[2023-04-14] MEDS: rOPINIRole HCL 0.5 MG TABLET 1.5 MG PO (08:31)
[2023-04-14] MEDS: SPIRONOLACTONE 25 MG TABLET PO (08:31)
[2023-04-14] MEDS: HEPARIN SODIUM 5,000 UNITS/ML VIAL 5000 UNITS SUB-Q (08:31)
[2023-04-14 09:16] LABS: Alanine Aminotransferase 19 U/L (6-35); Albumin Level 3.3 g/dL (3.5-5.1); Alkaline Phosphatase 52 U/L (38-126); Anion Gap 9 mmol/L (8-16); Aspartate Amino Transferase 36 U/L (14-36); Blood Urea Nitrogen 18 mg/dL (7-17); Calcium 8.9 mg/dL (8.4-10.2); Carbon Dioxide 19 mmol/L (22-30); Chloride 108 mmol/L (98-107); Estimated CRCL calculation 80 ml/min; Estimated Glomerular Filt Rate > 60; Glucose 94 mg/dL (65-110); Magnesium 1.9 mg/dL (1.6-2.3); Potassium 3.8 mmol/L (3.4-5.0); Sodium 136 mmol/L (137-145)
--- NOTE | 2023-04-14 10:33 | PM.DS ---
DS: Admitting Diagnosis Discharge Date 04/14/2023 Admitting Diagnosis Altered mental status DS: Discharge Diagnosis Discharge Diagnosis (1) Acute hypercapnic respiratory failure: Code(s): J96.02 - Acute respiratory failure with hypercapnia Status: Acute (2) CINDY (acute kidney injury): Code(s): N17.9 - Acute kidney failure, unspecified Status: Acute (3) Acute hypoxic respiratory failure: Code(s): J96.01 - Acute respiratory failure with hypoxia Status: Acute (4) Community acquired pneumonia: Qualifiers: Laterality: left Lung location: unspecified part of lung Qualified Code(s): J18.9 - Pneumonia, unspecified organism Code(s): J18.9 - Pneumonia, unspecified organism Status: Acute (5) Acute respiratory failure with hypoxia and hypercapnia: Code(s): J96.01 - Acute respiratory failure with hypoxia; J96.02 - Acute respiratory failure with hypercapnia Status: Acute (6) Lung infiltrate: Code(s): R91.8 - Other nonspecific abnormal finding of lung field Status: Acute (7) Altered mental status: Code(s): R41.82 - Altered mental status, unspecified Status: Acute (8) Opiate or related narcotic overdose: Code(s): T40.601A - Poisoning by unspecified narcotics, accidental (unintentional), initial encounter Status: Acute (9) GI bleed: Code(s): K92.2 - Gastrointestinal hemorrhage, unspecified Status: Acute (10) Hypertension: Code(s): I10 - Essential (primary) hypertension Status: Chronic (11) JUAN (obstructive sleep apnea): Code(s): G47.33 - Obstructive sleep apnea (adult) (pediatric) Status: Acute (12) Obesity hypoventilation syndrome: Code(s): E66.2 - Morbid (severe) obesity with alveolar hypoventilation Status: Chronic (13) Chronic kidney disease, stage 3: Code(s): N18.30 - Chronic kidney disease, stage 3 unspecified Status: Chronic (14) Fibromyalgia: Code(s): M79.7 - Fibromyalgia Status: Acute (15) Morbid obesity with BMI of 50.0-59.9, adult: Code(s): E66.01 - Morbid (severe) obesity due to excess calories; Z68.43 - Body mass index [BMI] 50.0-59.9, adult Status: Acute (16) Acute kidney injury superimposed on CKD: Code(s): N17.9 - Acute kidney failure, unspecified; N18.9 - Chronic kidney disease, unspecified Status: Acute DS: Summary Hospital Course Hospital Course: Acute encephalopathy due to opioid intoxication Acute on chronic hypoxic and hypercapnic respiratory failure needing BiPAP on admission Asthma exacerbation and community-acquired pneumonia CT shows cardiomegaly, bilateral perihilar opacity airspace opacity, suggesting pulmonary edema and pneumonia Patient likely has the COPD exacerbation worsened by left-sided pneumonia Patient started on IV cefepime and azithromycin and vancomycin. Blood cultures are positive for staphylococci hominis was discontinued. Repeat blood culture negative. V/Q scan suggests no pulmonary embolism Complete steroid treatment.? Pulmonary consulted. Okay per Pulmonary to discharge. Finish antibiotics as an outpatient basis Acute respiratory failure with hypoxemia and hypercapnia pt is on cpap transitioned to bipap on admission. Now Acute on chronic renal failure creat is 1.2 admission creatinine of 3.4 much improved and back to baseline OPiate misuse leading to acute encephalopathy Watch for any with drawl antiemetics started? Bp control Time Spent with Patient Time attestation: Total time spent providing and/or coordinating discharge services: 40 Exam Narrative: General physical exam: Not in acute distress morbidly obese CVS: S1 + S2, regular rate and rhythm, no murmurs Respiratory: Bilaterally decreased air entry in both lung jensen, Abdomen: Soft, non-tender, bowel sounds +ve, no organomegaly Extremities: No clubbing, no cyanosis, no edema, no calf tenderne
== END 2023-04-14 11:45 | disposition home health service (06) | DRG 193 ==
LOC: ANHED 06:04 → ANHIMU 06:19 → ANH3MED 04-12 16:02
PROVIDERS: Hospitalist; Internal Medicine Nephrology; Internal Medicine Pulmonary Disease; Admitting Provider Family Medicine; Emergency Provider Preventive Medicine Aerospace Medicine; PCP Family Medicine; Visit Provider Internal Medicine
DX: J18.9 Pneumonia, unspecified organism (principal); G92.8 Other toxic encephalopathy; J96.21 Acute and chronic respiratory failure with hypoxia; J96.22 Acute and chronic respiratory failure with hypercapnia; N17.9 Acute kidney failure, unspecified; Z68.43 Body mass index [BMI] 50.0-59.9, adult; K92.2 Gastrointestinal hemorrhage, unspecified; J44.1 Chronic obstructive pulmonary disease with (acute) exacerbation; J44.0 Chronic obstructive pulmonary disease with (acute) lower respiratory infection; E03.9 Hypothyroidism, unspecified; T40.601A Poisoning by unspecified narcotics, accidental (unintentional), initial encounter; E66.01 Morbid (severe) obesity due to excess calories; M79.7 Fibromyalgia; R91.8 Other nonspecific abnormal finding of lung field; F32.A Depression, unspecified; E11.22 Type 2 diabetes mellitus with diabetic chronic kidney disease; I12.9 Hypertensive chronic kidney disease with stage 1 through stage 4 chronic kidney disease, or unspecified chronic kidney disease; N18.32 Chronic kidney disease, stage 3b; E86.0 Dehydration; F41.9 Anxiety disorder, unspecified; Z20.822 Contact with and (suspected) exposure to COVID-19; Z79.84 Long term (current) use of oral hypoglycemic drugs; Z90.49 Acquired absence of other specified parts of digestive tract; Z90.710 Acquired absence of both cervix and uterus; Z86.73 Personal history of transient ischemic attack (TIA), and cerebral infarction without residual deficits; Z98.84 Bariatric surgery status; Z87.891 Personal history of nicotine dependence
CPT/HCPCS: 36415; 36600; 70450; 71250; 76775; 78582; 80048; 80053; 80069; 80202; 80307; 81001; 81003; 81025; 81050; 82550; 82570; 82803; 82805; 82948; 83605; 83735; 83880; 84100; 84156; 84300; 84484; 84540; 85025; 85055; 85610; 85730; 85999; 86850; 86900; 86901; 87040; 87081; 87147; 87181; 87186; 87636; 93005; 94003; 94618; 94640; 94762; 96365; 96367; 96375; 97110; 97161; 97165; 97530; 99291; A9270; A9540; A9558; C8929; J0456; J0692; J1100; J1644; J2310; J2405; J2920; J2930; J3370; J3475; J7030; J7512; Q9957

== ENCOUNTER 2023-05-15 11:46 | Emergency (ER) | payer OTHER, MEDICAID, SELFPAY ==
[2023-05-15 11:55] VITALS: BP 165/95; PULSE 88; RESP 20; TEMP 36; O2SAT 95
--- NOTE | 2023-05-15 11:57 | ED.URI ---
HPI - URI/Sore Throat General Chief Complaint: Upper Respiratory Infection Stated Complaint: Cough Time Seen by Provider: 05/15/23 11:49 Source: patient Mode of arrival: ambulatory Limitations: no limitations History of Present Illness HPI Narrative: Patient is a 57-year-old female who presents with congestion, postnasal drip, cough for 4 days. Denies any sore throat, ear pain, fever, chills, nausea, vomiting, diarrhea. Reports that several members of her family are ill. Patient was in hospital in April with pneumonia. Has been taking DayQuil/NyQuil and using inhaler as needed. Patient did do at home COVID test and it was negative. Related Data Home Medications Medication Instructions Recorded Confirmed atorvastatin 20 mg tablet 20 mg PO DAILY 03/01/20 05/15/23 buspirone 10 mg tablet 20 mg PO TID 03/01/20 05/15/23 metformin 500 mg tablet,extended 500 mg PO DAILY 03/01/20 05/15/23 release 24 hr spironolactone 25 mg tablet 25 mg PO DAILY 03/01/20 05/15/23 timolol maleate 0.5 % eye drops 1 drp ophthalmic (eye) QAM 03/01/20 05/15/23 tizanidine 4 mg tablet 4 mg PO TID 03/01/20 05/15/23 eszopiclone 3 mg tablet 3 mg PO HS 11/21/21 05/15/23 empagliflozin 25 mg tablet 25 mg PO DAILY 02/03/23 05/15/23 (Jardiance) gabapentin 300 mg capsule 300 mg PO BID 02/03/23 05/15/23 ramipril 10 mg capsule 10 mg PO DAILY 02/03/23 05/15/23 ropinirole 0.5 mg tablet 1.5 mg PO DAILY 02/03/23 05/15/23 sertraline 100 mg tablet 200 mg PO DAILY 02/03/23 05/15/23 trazodone 50 mg tablet 50 mg PO HS PRN Insomnia 02/03/23 05/15/23 latanoprost 0.005 % eye drops 1 drp ophthalmic (eye) HS 02/11/23 05/15/23 levothyroxine 200 mcg tablet 200 mcg PO DAILY 03/21/23 05/15/23 prazosin 1 mg capsule 1 mg PO HS 03/21/23 05/15/23 propranolol 10 mg tablet 10 mg PO DAILY PRN Anxiety 03/21/23 05/15/23 Ozempic 1 mg subcut WEEKLY 04/09/23 05/15/23 aripiprazole 5 mg tablet 5 mg PO DAILY 04/09/23 05/15/23 ergocalciferol (vitamin D2) 1,250 50,000 unit PO WEEKLY 04/09/23 05/15/23 mcg (50,000 unit) capsule mirtazapine 45 mg tablet 45 mg PO HS 04/09/23 05/15/23 Allergies Allergy/AdvReac Type Severity Reaction Status Date / Time No Known Allergies Allergy Verified 05/15/23 11:53 Review of Systems Review of Systems: All systems reviewed & are unremarkable except as noted in HPI and below Constitutional: Constitutional: Denies body ache(s), Denies chills, Denies fatigue, Denies fever(s), Denies headache(s), Denies malaise and Denies weakness Eyes: Eyes: Denies blurry vision, Denies itchy eyes and Denies loss of vision ENT: Denies otalgia, Denies headache(s), Reports nasal congestion, Denies sinus pain and Denies sore throat Cardiovascular: Cardiovascular: Denies chest pain, Denies irregular heart rhythm and Denies dyspnea Respiratory: Respiratory: Reports cough and Denies dyspnea Gastrointestinal: Gastrointestinal: Denies abdominal pain, Denies diarrhea, Denies nausea and Denies vomiting Musculoskeletal: Musculoskeletal: Denies back pain, Denies myalgias and Denies arthralgias Integumentary/Breasts: Skin/Breast: Denies pruritus and Denies rash Neurologic: Denies headache(s), Denies loss of vision and Denies weakness Psychiatric: Psychiatric: Reports no additional psychiatric complaints Endocrine: Endocrine: Denies fatigue Allergic/Immunologic: Allergic/Immunologic: Denies itchy eyes PMFSH Past Medical History Medical History Anxiety COPD (chronic obstructive pulmonary disease) Depression Diabetes History of fibromyalgia History of seizures History of TIA (transient ischemic attack) Hypertension Hypothyroidism Surgical History Surgical History H/O gastric bypass H/O inguinal hernia repair History of appendectomy History of cholecystectomy History of hysterectomy History of tonsillectomy Hx of breast reduction, elective Family History
== END 2023-05-15 12:30 | disposition home or self-care (01) ==
PROVIDERS: Emergency Provider Nurse Practitioner Family; PCP Family Medicine
DX: J06.9 Acute upper respiratory infection, unspecified (principal); Z87.891 Personal history of nicotine dependence; J44.9 Chronic obstructive pulmonary disease, unspecified; E11.9 Type 2 diabetes mellitus without complications; Z79.84 Long term (current) use of oral hypoglycemic drugs; M79.7 Fibromyalgia; I10 Essential (primary) hypertension; E03.9 Hypothyroidism, unspecified; Z98.84 Bariatric surgery status; Z86.73 Personal history of transient ischemic attack (TIA), and cerebral infarction without residual deficits; F41.9 Anxiety disorder, unspecified; F32.A Depression, unspecified
CPT/HCPCS: 99213; G0463

== ENCOUNTER → 2023-06-27 09:45 | Outpatient (CLI) | payer OTHER, MEDICAID, SELFPAY ==
--- NOTE | ~2023-06-27 | CT_ITS ---
EXAMINATION: CT thoracic spine wo con DATE: 06/27/2023 10:01 INDICATION: Pain in thoracic spine. TECHNIQUE: Computed tomography (CT) of the thoracic spine was performed without intravenous contrast. Automated exposure control and iterative reconstruction technique were employed. The dose-length pro duct was 987.22 mGy-cm. COMPARISON: Chest CT 04/09/2023 FINDINGS: There are surgical changes in the stomach. Epidural electrodes are noted with the more ceph alad electrode at T6. Bone alignment is normal. There is mild chronic anterior wedging of T6-T8 verte bral bodies. There is mildly decreased disc height at T4-T5 and T5-T6, severely decreased disc height from T6-T7 through T8-T9, and mildly decreased disc height at T9-T10 and T10-T11. There is multileve l facet joint osteoarthritis, severe at many levels. There is mild central canal stenosis at T7-T8 an d T8-T9. There is multilevel mild neural foraminal stenosis bilaterally. On the right, there is moder ate neural foraminal stenosis at T2-T3, T4-T5, T5-T6, T6-T7, T9-T10, and T11-T12. On the left, there is moderate neural foraminal stenosis at T9-T10 and T11-T12. IMPRESSION: 1. Severe thoracic spondylosis. Reviewed, dictated and finalized at location E. [employer]
== END ==
PROVIDERS: PCP Neurological Surgery; Visit Provider Neurological Surgery
DX: M47.894 Other spondylosis, thoracic region (principal)
CPT/HCPCS: 72128

== ENCOUNTER 2025-06-09 11:47 | Inpatient (IN) | payer MEDICARE, SELFPAY ==
[2025-06-09] VITALS (26 sets, daily range): BP systolic 129–174; BP diastolic 81–112; PULSE 79–123; RESP 12–35; TEMP 36.8–37.5; O2SAT 92–100; BMI 55.7
--- NOTE | ~2025-06-09 | XR_ITS ---
XR chest 1V portable 06/09/2025 13:36 Indication: Shortness of breath Procedure: AP portable chest Comparison: Comparison to multiple prior studies sequentially, with oldest reviewed study dated 02/08/2023. Findings: Cardiomegaly with pulmonary edema. No pleural effusion or pneumothorax. No acute osseous abnormality. Spinal stimulator leads overlie the mid thoracic spine. Impression: 1: Cardiomegaly with pulmonary edema. Reviewed, dictated and finalized at location I. NISTRATIVE SUPPORT ASSISTANT Impression: 1: Cardiomegaly with pulmonary edema.
--- NOTE | ~2025-06-09 | XR_ITS ---
XR chest 1V portable 06/10/2025 05:30 Indication: Pulmonary edema Procedure: AP portable chest Comparison: Comparison to multiple prior studies sequentially, with oldest reviewed study dated 02/09/2023. Findings: Cardiomegaly. No focal air space disease, pulmonary edema, pleural effusion or suspected pneumothorax. There is a right shoulder arthroplasty. No acute osseous abnormality. Spinal stimulator leads overlie the mid thoracic spine. Impression: 1: Cardiomegaly. Reviewed, dictated and finalized at location I. AND MOLD FINISHER Impression: 1: Cardiomegaly.
--- OUTSIDE RECORDS SUMMARY | 2025-06-09 11:30 | XMS_ITS | Encounter Summary ---
Author Organization [facility] Healthcare Address [address] [place] [address] Care Team Providers Care Typing Bookkeeper Name Role Phone Ruben Waters MD Unavailable [phone] Chace Mathews MD Primary Care Provider Preston Florez MD Unavailable [phone] Porsha Omer Unavailable [phone] Reason for Visit * Reason Comments Fatigue Shaky, severe headac he, used the bathroom twice since Monday, no appetite x 6 days Encounter Details Date Type Department Care Team (Late st Contact Info) Description 06/09/2025 11:30 AM SCHOOL PHOTOGRAPH EDITOR Office Visit [facility] at [address] [address] Trudy Rendon, THREAD SPOOLER [address] [place] [id number] [address] [place] [address] Respiratory distress (Primary Dx) Social History Tobacco Use Types Packs/Day Years Used Date Smoking Tobacco: Former Cigarettes 0.9 24.3 1 983 - 1996 Smokeless Tobacco: Never Alcohol Use Standard Drinks/Week Comments Yes 0 (1 standard drink = 0.6 oz pur e alcohol) Social Connection and Isolation Panel Answer Date Recorded In a typical week, how many times do you talk on the phone with family, friends, or neighbors? More than three times a week 07/31/2023 How often do you get togethe r with friends or relatives? More than three times a week 07/31/2023 How often do you attend chur ch or scientology services? More than 4 times per year 07/31/2023 Do you belong to any clubs o r organizations such as jehovah's witness groups, unions, fraternal or athletic groups, or school groups? Yes 07/31/2023 How often do you attend meet ings of the clubs or organizations you belong to? More than 4 times per year 07/31/2023 Are you , , di vorced, , never , or living with a partner? 07/31/2023 Overall Financial Resource Strain (CARDIA) Answe r Date Recorded How hard is it for you to pa y for the very basics like food, housing, medical care, and heating? Not hard at all 07/31/2023 PHQ-2 Answer Date Recorded PHQ-2 Total Score (If total score is 3 or more points, staff should administer the PHQ-9) 2 05/21/2025 PRAPARE - Transportation Answer Date Re corded In the past 12 months, has l ack of transportation kept you from medical appointments or from getting medications? No 07/11 In the past 12 months, has l ack of transportation kept you from meetings, work, or from getting things needed for daily living? No 07/31/2023 Housing Stability Vital Sign Answer Demarcus e Recorded In the last 12 months, was t here a time when you were not able to pay the mortgage or rent on time? No 07/31/2023 In the last 12 months, how many places have you lived? 1 07/31/2023 In the last 12 months, was t here a time when you did not have a steady place to sleep or slept in a detention (including now)? No 07/31/2023 PHQ-9 Answer Date Recorded PHQ-9 Total Score 0 10/09/2023 Social Connection and Isolation Panel Answer Date Recorded In a typical week, how many times do you talk on the phone with family, friends, or neighbors? More than three times a week 02/24/2025 How often do you get togethe r with friends or relatives? More than three times a week 02/24/2025 How often do you attend chur ch or scientology services? More than 4 times per year 02/24/2025 Do you belong to any clubs o r organizations such as jehovah's witness groups, unions, fraternal or athletic groups, or school groups? Yes 02/24/2025 How often do you attend meet ings of the clubs or organizations you belong to? More than 4 times per year 02/24/2025 Are you , , di vorced, , never , or living with a partner? 02/24/2025 AUDIT-C Answer Date Recorded Q1: How often do you have a drink containing alc ohol? Monthly or less 02/21/2025 Q2: How many drinks containi ng alcohol do you have on a typical day when you are drinking? 1 or 2 02/21/2025 Q3: How often do you have si x or more drinks on one occasion? Never 02/21/2025 Overall Financial Resource Strain (CARDIA) Answe r Date Recorded How hard is it for you to pa y for the very basics like food, housing, medical care, and heating? Not very hard 02/24/2025 Hunger Vital Sign Answer Date Recorded Within the past 12 months, y ou worried that your food would run out before you got the money to buy more. Never true 02/25/20 25 Within the past 12 months, t he food you bought just didn't last and you didn't have money to get more. Never true 02/24/2025 PRAPARE - Transportation Answer Date Re corded In the past 12 months, has l ack of transportation kept you from medical appointments or from getting medications? No 02/07 In the past 12 months, has l ack of transportation kept you from meetings, work, or from getting things needed for daily living? No 02/24/2025 Housing Stability Vital Sign Answer Demarcus e Recorded In the last 12 months, was t here a time when you were not able to pay the mortgage or rent on time? No 02/24/2025 In the past 12 months, how m any times have you moved where you were living? 0 02/24/2025 At any time in the past 12 m [facility], were you homeless or living in a detention (including now)? No 02/24/2025 [facility] Utilities Answer Date Recorded In the past 12 months has th e [employer], gas, oil, or water company threatened to shut off services in your home? No 02/24/2025 Personal Safety Answer Date Recorded Have you ever been in or are you currently in a harmful physical or emotional relationship or is someone making you feel afraid or unsafe? Denies 02/21/2025 Comments No Sex and Gender Information Value Date Recorded Sex Assigned at Not on file Legal Sex Female 8:01 AM SCHOOL PHOTOGRAPH EDITOR Gender Identity Female 05/26/2019 5:59 PM SCHOOL PHOTOGRAPH EDITOR Sexual Orientation Straight 05/26/2019 5: 59 PM SCHOOL PHOTOGRAPH EDITOR documented as of this encounter Last Filed Vital Signs Vital Sign Reading Time Taken Comments Blood Pressure 108/70 06/09/2025 10:50 AM SCHOOL PHOTOGRAPH EDITOR Pulse 84 06/09/2025 11:10 AM SCHOOL PHOTOGRAPH EDITOR Temperature 36.3 C (97.4 F) 06/09/2025 10:50 AM SCHOOL PHOTOGRAPH EDITOR Respiratory Rate 22 06/09/2025 10:5 0 AM SCHOOL PHOTOGRAPH EDITOR Oxygen Saturation 94% 06/09/2025 11: 10 AM SCHOOL PHOTOGRAPH EDITOR on breathing treatment and 6 L oxygen NC Inhaled Oxygen Concentration - - Weight 152 kg (335 lb) 06/09/2025 10:50 AM SCHOOL PHOTOGRAPH EDITOR Height 167.6 cm (5' 6) 06/09/2025 10:5 0 AM SCHOOL PHOTOGRAPH EDITOR Body Mass Index 54.07 06/09/2025 10:50 AM SCHOOL PHOTOGRAPH EDITOR documented in this encounter Functional Status documented as of this encounter Plan of Treatment Not on file documented as of this encounter Goals Goal Patient Goal Type Associated Problems Recent Progress Patient-Stated? Author [facility] Goal - Patient schedules and keeps appointments with all recommended providers ACO Care Management On track(2022 3:47 PM CDT) No Hawa Dacosta RN Note: Problem: Potential for medical complications and readmission if follow-up appointments are not scheduled Interventions: - Ensure all follow-up appointments are scheduled, all prescribed medications have been received. - Address any barriers for keeping scheduled appointment. - Coordinate with patient/caregiver(s) to ensure patient is able to keep scheduled appointment. - Emphasize importance of keeping scheduled appointments. - Identify and discuss questions for next provider visit. - Follow up with patient after scheduled appointment(s) to review any new orders or changes made to medication regimen. [facility] Goal - Patient/caregiver will verbalize understanding of fall prevention techniques and will sustain no additional falls during Care Management program ACO Care Management On track(2022 3:47 PM CDT) Pina Real-Hawa miguel RN Note: Problem: At Risk for Falls related to history of falls Interventions: - Review fall prevention/home safety guidelines with patient. Send educational materials if needed. - Assess patient's current tools and equipment used currently. Evaluate if additional tools or DME are needed to improve safety and decrease fall risk. - Assess appropriateness for Home Health. Start referral process if skilled need is present. - Evaluate need for Lifeline or other medical alert device. - Discuss importance of notifying primary provider when a fall occurs with details about the circumstances of the fall. - Refer to SW if appropriate and patient is agreeable. documented as of this encounter Visit Diagnoses Diagnosis Respiratory distress- Primary Other dyspnea and respiratory abnormality documented in this encounter Care Teams Typing Bookkeeper Relationship Specialty Start Date End Date Chace Mathews MD [facility] [place] [address] PCP - General Family Medicine 08/08/22 Ruben Waters MD [address] [place] [address] Consulting Physician Pulmonary Disease 07/13/22 Preston Florez MD [address] [place] [address] Consulting Physician Neurosurgery 02/09/24 Porsha Omer PA [address] [place] [id number] Orthopedic Surgery 02/21/25 documented as of this encounter
--- NOTE | 2025-06-09 11:46 | ECG_ITS ---
Test Date: 2025-06-09 12:02:06 Measurements Intervals Eugene Rate: 82 P: 59 AL: 172 QRS: 140 QRSD: 78 T: 47 QT: 373 QTc: 438 Interpretive Statements SINUS RHYTHM WITH OCCASIONAL SUPRAVENTRICULAR PREMATURE COMPLEXES RIGHT AXIS DEVIATION DELAYED PRECORDIAL R/S TRANSITION LOW VOLTAGE IN PRECORDIAL LEADS BASELINE ARTIFACT- I, II, III, AVR, AVL, AVF, V1-V6 BORDERLINE ECG No previous ECG available for comparison Electronically Signed On 06-09-2025 13:16:37 [employer] ESC[employer] by Billy Moore D.O.
[2025-06-09] MEDS: IPRATROPIUM BR 0.02% INH SOLN 0.5 MG/2.5 ML VIAL 1 MG INHALATION (12:44)
[2025-06-09] MEDS: ALBUTEROL SULFATE NEB 2.5 MG/3 ML INH 10 MG INHALATION (12:44)
[2025-06-09 12:47] LABS: Alveolar/Arterial O2 Gradient 87.3 mmHg; Fractional Inspired Oxygen 36 %; HCO3 ABG 33.0 mEq/l (22.0-26.0); Oxygen Content ABG 18.2 %vol (16.0-22.0); Oxygen Saturation ABG 92.1 % (95.0-100.0); PO2 ABG 76.2 mmHg (80.0-100.0); PO2 FiO2 Ratio Arterial Blood 2.12 %
[2025-06-09 12:51] LABS: PCO2 ABG 80.3 mmHg (35.0-45.0)
[2025-06-09 12:53] LABS: Hematocrit 48.8 % (37.0-47.0); Hemoglobin 13.6 g/dL (12.0-15.0); Immature Granulocyte Percent A 1.0 % (0-0.5); Immature Platelet Fraction Pct 15.0 % (0.9-11.2); Lymphocytes Absolute Auto 1.32 K/mm3 (0.9-3.2); Mean Corpuscular HGB Conc 27.9 g/dl (32-36); Mean Corpuscular Hemoglobin 23.6 pg (26-34); Mean Corpuscular Volume 84.6 fl (80-100); Nucleated Red Blood Cells Absolute Auto 0.480 K/mm3 (0.0-0.012); Nucleated Red Blood Cells Perc 4.9 % (0.0-0.2); Platelet Count Result 146 k/mm3 (150-375); Red Blood Count 5.77 M/mm3 (4.2-5.4); White Blood Count 9.9 K/mm3 (4.5-10.0)
[2025-06-09 13:14] LABS: Alanine Aminotransferase 65 U/L (6-35); Albumin Level 4.3 g/dL (3.5-5.1); Alkaline Phosphatase 159 U/L (38-126); Anion Gap 7 mmol/L (4-12); Aspartate Amino Transferase 61 U/L (14-36); Bilirubin,Total 1.2 mg/dL (0.2-1.3); Blood Urea Nitrogen 50 mg/dL (7-17); Calcium 8.6 mg/dL (8.4-10.2); Carbon Dioxide 35 mmol/L (22-30); Chloride 94 mmol/L (98-107); Estimated CRCL calculation 47 ml/min; Estimated Glomerular Filt Rate 29; Glucose 115 mg/dL (65-110); Potassium 3.7 mmol/L (3.4-5.0); Sodium 136 mmol/L (137-145); Total Protein 8.3 g/dL (6.3-8.2)
--- NOTE | 2025-06-09 13:31 | PC.NURSE ---
RN has called 2x to chemistry to add on labs.
--- OUTSIDE RECORDS SUMMARY | 2025-06-09 13:34 | XMS_ITS | Clinical Summary ---
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 continue CPAP therapy Assessment & Plan (08/24/2023 11:17 AM CABLE FERRYBOAT OPERATOR): Due to continued pulmonary hypertension, Patient will continue with CPAP usage Assessment & Plan (04/20/2023 4:07 PM CDT): Due to continued pulmonary hypertension, Patient will continue with CPAP usage Assessment & Plan (12/19/2022 11:15 AM CDT): The patient states that her feet are no longer is swollen and she is able to wear smaller shoes now. I suspect that the pulmonary hypertension has improved with more frequent use of her CPAP to treat her JUAN. Assessment & Plan (10/17/2022 10:01 AM CDT): The patient has secondary pulmonary hypertension and she is not been very compliant with CPAP therapy for her JUAN. I strongly encouraged her to start using the CPAP unit consistently. Assessment & Plan (07/14/2022 11:24 AM CABLE FERRYBOAT OPERATOR): The patient has secondary pulmonary hypertension related to JUAN. Assessment & Plan (05/12/2022 10:49 AM CDT): Patient was encouraged to wear CPAP JUAN (obstructive sleep apnea) 11/29/2018 Assessment & Plan (04/17/2025 8:29 AM CDT): The patient continues to benefit from CPAP at 15 cm water pressure for ongoing symptoms JUAN. Her DME supplier is [employer]. She will follow up here in 6 months. Assessment & Plan (10/10/2024 8:39 AM CDT): The patient continues to benefit from CPAP at 15 cm water pressure for ongoing symptoms JUAN. Her DME supplier is [employer]. Assessment & Plan (08/29/2024 8:53 AM CABLE FERRYBOAT OPERATOR): The patient continues to benefit from CPAP at 15 cm water pressure ongoing symptoms of JUAN. Her DME supplier is jill [employer]in[employer]. I did encourage her to use his CPAP for longer periods at night. Assessment & Plan (02/22/2024 10:55 AM CDT): Will continue CPAP at 15 cm water pressure due to ongoing symptoms. Denied need supplies. DME [facility] Assessment & Plan (08/24/2023 11:19 AM CABLE FERRYBOAT OPERATOR): The patient continue to wear CPAP at 15 cm water pressure while sleeping. His DME is [employer]. I have placed an order to [facility] to evaluate the patient's CPAP machine for shutting off. Patient also like to see different styles of mask. Assessment & Plan (04/20/2023 4:07 PM CDT): Due to continued symptoms The patient will continue with CPAP at 15 cm water pressure. I have offered to increase the pressure settings due to the slightly elevated AHI. Patient is happy with current settings. DME as [employer] Assessment & Plan (12/19/2022 11:17 AM CDT): The patient is benefiting from CPAP at 15 cm water pressure and she just recently change styles of mask to help decrease the mask leak. Her DME supplier is [employer]. She will follow-up with me in 4 months. Assessment & Plan (10/17/2022 10:03 AM CDT): The patient has been having a mouth leak and I will plan to switch her to a fullface mask with new head gear. Her DME supplier is [employer]. Her CPAP setting is 15 cm water pressure. Assessment & Plan (07/14/2022 11:25 AM CABLE FERRYBOAT OPERATOR): The patient's AHI is still elevated but she is having a significant mask leak. Her current CPAP setting is 15 cm water pressure. I will send an order to [employer] [employer] for her to pick out a new style of mask. Assessment & Plan (05/12/2022 10:50 AM CDT): Patient was encouraged to resume CPAP therapy. I have changed the CPAP to an auto titrating range of 5-20 cm water pressure. I have also ordered an overnight pulse ox to evaluate whether the patient needs oxygen while sleeping. The patient was instructed that if she takes the sleep aids she must wear her CPAP due to depression and respiratory drive due to the narcotics and sleep aid. I have also ordered the patient a new mask DME [employer] [facility] Assessment & Plan (04/14/2022 1:18 PM CDT): I have sent an order over to [employer] to show the patient variety of mask. Patient was informed that she must use her CPAP if she is using the Lunesta. The patient the patient was informed that using the Lunesta and not wearing her CPAP could cause is an increase in the airway narrowing or closing off. The patient verbalized understanding. The patient's DME is [employer]. She will continue to wear her CPAP at 15 cm of water pressure while sleeping. The patient was informed to increase the use of her CPAP to help with her breathing. Assessment & Plan (10/14/2021 11:01 AM CDT): The patient will continue with CPAP therapy at 15 cm water pressure due to the elevated AHI and not feeling that there is enough pressure. I have sent the order over to [employer] the DME company. The patient is benefitting from CPAP therapy. The patient was instructed to wear the CPAP machine at least 4 hours a night on 70% of the nights and while taking Lunesta. Assessment & Plan (10/13/2020 2:16 PM CDT): The patient was encouraged to increase usage of CPAP therapy at 13 cm of water pressure. The patient was instructed that she must wear her CPAP if she is going to continue with Lunesta 2 mg p.o. at bedtime to help with insomnia. The patient should be wearing her CPAP machine at least 4 hours a night on 70% of the nights. The the patient denied need for supplies. The DME company is [employer]. The patient is benefitting from CPAP therapy. Moderate episode of recurrent major depressive d isorder 07/31/2017 Overview (01/01/2019): medicated per psych Assessment & Plan (06/08/2025 10:22 PM CABLE FERRYBOAT OPERATOR): - Chronic, stable - Continue Zoloft 100 mg BID Major depressive disorder in full remission 08/11 Essential (primary) hypertension 05/16/2011 Overview (12/27/2023): chronic Assessment & Plan (03/19/2025 11:50 AM CDT): Blood pressure controlled, continue prazosin, propranolol, Lasix Assessment & Plan (03/17/2025 9:59 PM CDT): Blood pressure stable, continue prazosin, propranolol, Lasix Assessment & Plan (03/06/2025 9:36 PM CDT): Blood pressure stable, continue propranolol 10 mg t.i.d., Lasix 40 mg daily, prazosin 3 mg q.h.s. Assessment & Plan (03/03/2025 9:41 PM CDT): Blood pressure well controlled with current regimen of prazosin, Lasix, propranolol Assessment & Plan (02/27/2025 9:29 PM CDT): Blood pressure controlled, continue propranolol 10 mg t.i.d., Lasix 40 mg daily, prazosin 3 mg q.h.s.. Assessment & Plan (02/26/2025 2:20 PM CDT): Chronic, currently stable. Continue to monitor serial vital signs for trending and continue furosemide 40 mg daily, prazosin 3 mg HS, propranolol 10 mg t.i.d. Hypothyroidism 05/16/2011 Overview (03/26/2020): replaced Assessment & Plan (03/19/2025 11:51 AM CDT): Continue home levothyroxine Assessment & Plan (02/26/2025 2:19 PM CDT): Continue levothyroxine 200 mcg daily Resolved Problems Problem Noted Date Diagnosed Date Resolved Date Preop examination 02/13/2025 03/25/2025 Acute pain of right shoulder 07/30/2023 11/30/2023 Arthritis of right shoulder region 05/17/2023 08/10/2023 Pneumonia due to infectious organism 04/20/2023 07/21/2023 Acute pulmonary edema 02/13/20232023 Type 2 diabetes mellitus 02/13/2023 Hypoxia 08/08/2022 08/10/2023 Respiratory distress 08/08/2022 023 Adhesive capsulitis of right shoulder 07/18/2022 08/10/2023 Overview (07/18/2022): Added automatically from request for surgery [id number] Moderate asthma without complication 07/14/2022 04/17/2025 Assessment & Plan (02/22/2024 10:55 AM CDT): Due to continued symptoms, the patient will continue Trelegy 1 puff daily and rinse mouth after use. Patient has an albuterol inhaler to use on a p.r.n. basis and up to 4 times a day as needed for symptom control. The patient uses 2 L of oxygen with activity. Assessment & Plan (08/24/2023 11:18 AM CABLE FERRYBOAT OPERATOR): Patient continue with Trelegy one inhalation once a day. Patient continue to use her albuterol inhaler as needed up to 4 times a day for shortness of breath. The patient was encouraged to use the albuterol before she will do something that she knows will cause her to be short of breath. The patient verbalized understanding. Assessment & Plan (04/20/2023 4:02 PM CDT): Due to continued symptoms, the patient will continue with Trelegy. She is an albuterol inhaler to use on a p.r.n. basis and up to 4 times a day as needed for symptom control Assessment & Plan (12/19/2022 11:17 AM CDT): The patient is asthma has been under good control with Trelegy 1 puff daily and she is only using her albuterol inhaler 1-2 times per week. Assessment & Plan (10/17/2022 10:02 AM CDT): I will give the patient a sample Trelegy to use [address] of the Breo. She is using her albuterol MDI 2-3 times per day. If the Trelegy does not improve her breathing, I would consider ordering a nebulizer to use with albuterol. She will follow up here in 2 months. Assessment & Plan (07/14/2022 11:24 AM CABLE FERRYBOAT OPERATOR): The patient had a recent methacholine challenge which was positive for bronchial airways hyper responsiveness to methacholine at the 4th concentration. I will give her a trial of Breo 100/5 to use 1 puff daily. She was instructed to rinse her mouth with water after use. Restless legs 07/07/2022 04/20/2023 Exercise hypoxemia 05/12/2022 Assessment & Plan (12/19/2022 11:16 AM CDT): She continues to use oxygen at 1-2 liters/minute with activity. Assessment & Plan (10/17/2022 10:01 AM CDT): She continues to use oxygen at 1-2 liters/minute via nasal cannula while walking. Assessment & Plan (07/14/2022 11:23 AM CABLE FERRYBOAT OPERATOR): The patient is using oxygen at 1-2 liters/minute via nasal cannula with activity. Assessment & Plan (05/12/2022 10:49 AM CDT): Patient will continue with 1-2 L of oxygen with activity Low ferritin 05/12/2022 01/02/2023 Assessment & Plan (12/19/2022 11:18 AM CDT): Her ferritin has risen to 62 and her iron was 97. Since she is having nausea, and I did tell her she can decrease the iron sulfate to every other day Assessment & Plan (10/17/2022 10:03 AM CDT): She continues on iron supplementation and I will repeat an iron and ferritin level. Assessment & Plan (07/14/2022 11:25 AM CABLE FERRYBOAT OPERATOR): Blood work has been ordered for October 2022. She continues take iron supplementation. Assessment & Plan (05/12/2022 10:52 AM CDT): Patient will continue with iron supplementation. Labs have been ordered for October of 2022 Chronic pain of both knees 04/14/2022 0 01/02/2023 Assessment & Plan (04/14/2022 1:20 PM CDT): I have ordered an iron and ferritin level. CELIS (dyspnea on exertion) 04/14/2022 Assessment & Plan (05/12/2022 10:48 AM CDT): I have ordered a bronchial provocation challenge. The patient has an albuterol inhaler she may use on a p.r.n. basis and up to 4 times a day as needed for symptom control. Patient will continue with 1-2 L of oxygen with all activity. Assessment & Plan (04/14/2022 1:19 PM CDT): I have ordered a pulmonary function test, 6 minute walk test and echocardiogram. The patient currently does not have a narrative writer. Acute pain of right shoulder 01/19/2022 03/21/2022 Morbid (severe) obesity due to excess calories 10/14/2021 03/21/2022 Pain in toes of both feet 06/23/2021 Chronic narcotic use 03/30/2021 023 Insomnia due to medical condition 10/13/2020 07/07/2022 Assessment & Plan (05/12/2022 10:51 AM CDT): Will continue with Lunesta 3 mg nightly. The patient was instructed she must wear her CPAP machine and she is taking this medication. Assessment & Plan (04/14/2022 1:19 PM CDT): The patient was informed not to use Lunesta 3 mg if she is not going to wear her CPAP. The patient verbalized understanding. Assessment & Plan (10/14/2021 11:00 AM CDT): Patient will continue with Lunesta 3 mg p.o. at bedtime. The patient was instructed that she must wear her CPAP machine if she is taking this medication. Patient verbalized understanding. It was reordered at the visit. Assessment & Plan (10/13/2020 2:15 PM CDT): The patient was instructed that she should be using CPAP therapy along with Lunesta 2 mg p.o. at bedtime to treat insomnia. Macromastia 05/14/2019 07/07/2022 Neck pain, musculoskeletal 05/14/2019 0 03/21/2022 Medicare annual wellness visit, subsequent 03/15/2019 07/07/2022 Somatic symptom disorder, pe rsistent, severe, with predominant pain 11/24/2017 07/07/2022 Chronic pain syndrome 07/31/20172023 Overview (03/26/2020): stable pain mgmt Hyperlipidemia 07/31/2017 08/10/2023 Overview (01/01/2019): on statin Bipolar 1 disorder 07/31/2017 Overview (01/01/2019): medicated per psych Body mass index (BMI) of 50. 0 to 59.9 in adult 07/31/2017 05/25/2023 Morbid obesity (CMS/HCC) 07/31/201706/2022 Overview (01/01/2019): chronic Narcotic dependence 07/31/2017 11/30/19 24 Overview (03/26/2020): pain mgmt Benzodiazepine dependence 07/31/2017 Overview (03/26/2020): per psych Type 2 diabetes mellitus wit h diabetic chronic kidney disease 07/27/2017 02/27/2025 Overview (12/27/2023): controlled Posttraumatic stress disorder 2016 03/25/2025 Assessment & Plan (03/19/2025 11:52 AM CDT): With associated depression and anxiety. Mood stable, patient has been interactive and pleasant without behaviors. Continue amitriptyline, BuSpar, mirtazapine, trazodone, quetiapine, sertraline, and Lunesta Assessment & Plan (03/17/2025 9:58 PM CDT): With associated anxiety and depression. Mood stable, patient at baseline, no behaviors. Continue multidrug regimen with amitriptyline, BuSpar, mirtazapine, trazodone, quetiapine and sertraline Assessment & Plan (03/11/2025 4:46 PM CDT): With anxiety and depression. Continue sertraline 100 mg b.i.d., quetiapine 25 mg b.i.d. and 50 mg q.h.s., trazodone 50 mg q.h.s., mirtazapine 45 mg q.h.s., BuSpar 20 mg t.i.d., amitriptyline 25 mg q.h.s Assessment & Plan (02/28/2025 12:17 PM CDT): With associated anxiety and depression. All are well controlled and any medication/dosing changes could result in destabilization. Continue sertraline 100 mg b.i.d., quetiapine 25 mg b.i.d. and 50 mg q.h.s., trazodone 50 mg q.h.s., mirtazapine 45 mg q.h.s., BuSpar 20 mg t.i.d., amitriptyline 25 mgq.h.s. Stool color abnormal 12/01/2015 025 Overview (12/27/2023): Other fecal abnormalities;Practice ID: 0001 Osteoarthrosis 05/16/2011 07/07/2022 Acute respiratory failure wi th hypoxia and hypercapnia 01/02/2023 Moderate persistent asthma w ith acute exacerbation 01/02/2023 Encounters Date Type Department Care Team Description 06/09/2025 11:30 AM CABLE FERRYBOAT OPERATOR Office Visit [facility] Care at [address] [phone] Trudy Rendon NP Respiratory distress (Primary Dx) 05/28/2025 11:47 AM CABLE FERRYBOAT OPERATOR - 05/28/2025 11:59 PM CABLE FERRYBOAT OPERATOR Hospital Encounter [facility] [address] [place] [id number] Chronic pain of both knees Discharge Disposition: Discharge to home or self care 05/28/2025 11:30 AM CABLE FERRYBOAT OPERATOR Lab [facility] Medical Office Bldg [address] [place] [phone] Healthcare maintenance; Vitamin D deficiency; Type 2 diabetes mellitus with diabetic neuropathy, without long-term current use of insulin (HCC); Encounter for hepatitis C screening test for low risk patient; Hyperlipemia, mixed 05/28/2025 10:30 AM CABLE FERRYBOAT OPERATOR Office Visit [facility] at [address] [place] [phone] Linda Zhao NP Medicare annual wellness visit, subsequent (Primary Dx); Moderate episode of recurrent major depressive disorder (HCC); Other seizures (HCC); Breast cancer screening by mammogram; Chronic pain of both knees; Encounter for hepatitis C screening test for low risk patient; CKD stage 3a, GFR 45-59 ml/min (HCC); Type 2 diabetes mellitus with diabetic neuropathy, without long-term current use of insulin (HCC); Hyperlipemia, mixed; Vitamin D deficiency; Morbid obesity with BMI of 50.0-59.9, adult (HCC); Nausea 05/28/2025 Results Follow-Up [facility] at [address] [phone] Chace Mathews MD Vitamin D 25 hydroxy, Hemoglobin A1c, Hepatitis C antibody Blood, Additional followed-up results: 8 05/23/2025 8:30 AM CABLE FERRYBOAT OPERATOR Procedure visit [facility] at [address] [place] [phone] Juany Karimi Au.D. Sensorineural hearing loss (SNHL) of left ear with restricted hearing of right ear (Primary Dx) 05/23/2025 8:00 AM CABLE FERRYBOAT OPERATOR Office Visit [facility] - [address] [place] [phone] Teresa Moreno DO Sensorineural hearing loss (SNHL) of both ears (Primary Dx); Impacted cerumen of right ear 05/14/2025 Telephone [facility] at [address] [phone] Krystina Merrill MA Chart Review (MED ADHERENCE) 05/01/2025 Telephone [facility] at [address] [phone] Chace Mathews MD Parking Placard and Tax Exemption Form 04/17/2025 8:15 AM CDT Office Visit [facility] Pul[facility] [place] [address] [place] [phone] Ruben Waters MD JUAN (obstructive sleep apnea) (Primary Dx); PLMD (periodic limb movement disorder); Primary insomnia; Mild intermittent asthma without complication 04/17/2025 Telephone [facility] at [address] [phone] Chace Mathews MD Prior Auth (Zepbound) 04/15/2025 Telephone [facility] at [address] [place] [address] Chace Mathews MD Med Management 04/15/2025 ACO Medication Access [facility] Accountable Care Organization [address] [place] [phone] Ilda Alvarez CPhT 04/11/2025 Telephone [facility] at [address] [place] [address] Chace Mathews MD 04/03/2025 1:45 PM CDT Office Visit [facility] [address] [place] [address] [address] [place] [address] Jack Obando DO S/P foot surgery, right (Primary Dx); S/P arthroscopy; Right ankle instability; Posterior tibial tendon dysfunction, right; Pes planus of both feet 04/03/2025 1:18 PM CDT - 04/03/2025 11:59 PM CDT Hospital Encounter [facility] [address] [place] [address] S/P foot surgery, right; S/P arthroscopy Discharge Disposition: Discharge to home or self care 03/25/2025 9:30 AM CDT Office Visit [facility] at [address] [place] [address] Chace Mathews MD Essential (primary) hypertension (Primary Dx); CKD stage 3a, GFR 45-59 ml/min (HCC); Centrilobular emphysema (HCC); Acquired hypothyroidism; JUAN (obstructive sleep apnea); S/P foot surgery, right; Type 2 diabetes mellitus with diabetic neuropathy, without long-term current use of insulin (HCC); Generalized anxiety disorder; Gastroesophageal reflux disease without esophagitis 03/21/2025 Telephone [facility] Medical [facility] Post Acute Care [address] [phone] Catalina Thomas MA SNF Outreach 03/20/2025 Telephone [facility] at [address] [place] [address] Chace Mathews MD Medical Question/Miscellaneo us 03/19/2025 Telephone [facility] at [address] [place] [address] Chace Mathews MD SAMSON Questions 03/19/2025 NH/SNF Visit [facility] [address] [phone] Lexii Orourke PA S/P foot surgery, right (Primary Dx); PLMD (periodic limb movement disorder); Periodic limb movement disorder; Acute on chronic diastolic congestive heart failure (HCC); Essential (primary) hypertension; Acquired hypothyroidism; Type 2 diabetes mellitus with diabetic neuropathy, without long-term current use of insulin (HCC); Gastroesophageal reflux disease without esophagitis; CKD stage 3a, GFR 45-59 ml/min ([facility]); Iron deficiency anemia, unspecified iron deficiency anemia type; Posttraumatic stress disorder; Centrilobular emphysema ([facility]); Primary insomnia 03/19/2025 Orders Only [facility] [address] [place] [phone] Lexii Orourke PA 03/18/2025 NH/SNF Visit [facility] [address] [phone] Lexii Orourke PA S/P foot surgery, right (Primary Dx); Posttraumatic stress disorder; Essential (primary) hypertension 03/17/2025 3:00 PM CDT Office Visit [facility] [address] [place] [address] [address] [place] [address] Porsha Omer PA S/P foot surgery, right (Primary Dx) 03/17/2025 2:20 PM CDT - 03/17/2025 11:59 PM CDT Hospital Encounter [facility] [address] [place] [address] S/P foot surgery, right Discharge Disposition: Discharge to home or self care 03/17/2025 Telephone [facility] Accountable Care Organization [address] [place] [phone] Georgie Betts MA Chart Review (Med adherence ) 03/15/2025 Orders Only [facility] Medical [facility]ists [address] [place] [phone] Lexii Orourke PA 03/14/2025 NH/SNF Visit [facility] Medical [facility] Post Acute Care [address] [phone] Lexii Orourke PA CKD stage 3a, GFR 45-59 ml/min (HCC) (Primary Dx); Acute on chronic diastolic congestive heart failure (HCC); S/P foot surgery, right 03/12/2025 Results Follow-Up [facility] [place] [address] [facility] [address] [place] [phone] Chace Mathews MD Basic metabolic panel, eGFR 03/11/2025 NH/SNF Visit [facility] Post Acute Care [address] [phone] Lexii Orourke PA Acute on chronic diastolic congestive heart failure (HCC) (Primary Dx); Type 2 diabetes mellitus with diabetic neuropathy, without long-term current use of insulin (HCC); Posttraumatic stress disorder from Last 3 Months Immunizations Immunization Administration Dates Next Due COVID-19 mRNA ([place]) 0.3 m L (30 mcg) vaccine (12 years and up) 05/07/2024,05/20/2023 DTaP 5 Pertussis 01/06/2017 Flucelvax Influenza Quad 04/08/2019 Hep B Vaccine 05/24/2004 Influenza Nasal, Unspecified 04/09/2023(Deferred : Patient Refused) Influenza, Quadrivalent, Spl it, Preservative Free, Intramuscular 04/20/2023,04/08/2022,03/05/2021,03/27,04/14/2018,05/19/2017,07/18/2016 ,04/25/2014 Influenza, Trivalent, Cell Culture-based MDCK, Preservative Free, Antibiotic Free, Intramuscular 04/17/2025,04/08/2019 Influenza, Trivalent, Preser vative Free, Intramuscular 04/21/2015 Influenza, Unspecified 04/18/2024,2023,04/09/2022,04/09,04/09/2018,04/08/2011 PPD TEST 03/11/2025,02/26/2025 Lánzanos SARS-CoV-2 Monovalent Vaccination (12+ Yrs) GUZMÁN-READY TO USE 01/27/2022 Pfizer SARS-CoV-2 Monovalent Vaccination (12+ Yrs) PURPLE 01/27/2022,04/23/2021,10/12/2020,09/21 Pneumococcal Conjugate Pcv20 05/20/2023 RSV Vaccine, Pref, Recombina nt, Subunit, Adjuvanted, PF, IM (Arexvy) 08/15/2023 Tdap 11/21/2021 ZOSTER Recombinant 01/23/2023,09/26/2022, 020 Surgical History Surgery Date Site/Laterality Comments HYSTERECTOMY 07/10/2002 - 07/09/2003 total GASTRIC BYPASS 07/10/2001 - 07/09/2002 APPENDECTOMY 07/10/1988 - 07/09/1989 BREAST LUMPECTOMY 1991,1993 benigh HERNIA REPAIR 07/10/2015 - 07/09/2016 umbilical hernia KNEE SURGERY 2004, 2016 ANKLE SURGERY 04/26/2018 Left fracture hardware present COMBINED REDUCTION MAMMAPLASTY W/ ABDOMINOPLASTY 01/10/2020 FLUORO GUIDED INJECTION SHOULDER RIGHT 03/09/2022 Right ANKLE FRACTURE SURGERY 01/07/2023 - 02/06/2023 Right hardware present CHOLECYSTECTOMY taken out when gastric bypass was done COLONOSCOPY normal SPINAL CORD STIMULATOR IMPLANT 07/10/2017 - 07/09/2018 TOTAL SHOULDER REPLACEMENT Right SPINAL CORD STIMULATOR IMPLANT 02/09/2024 replacement FRACTURE SURGERY 04/2018 left ankle BARIATRIC SURGERY 2002 FOOT SURGERY 02/21/2025 Right JOINT REPLACEMENT 2023 Medical History Medical History Date Comments RAD (reactive airway disease) MDD (major depressive disorder) Fibromyalgia Neuropathy hands and feet Hypertension Hyperlipidemia Hypothyroid Anxiety Glaucoma Sciatica Osteoarthritis Sleep apnea uses CPAP GERD (gastroesophageal reflux disease) omeprazole and takes jorge l seltzer occ Asthma uses rescue inha ler Type 2 diabetes mellitus NIDDM, NO CGM PONV (postoperative nausea and vomiting) many years ago, no issues since Anesthesia complication 07/2022 trouble breathing after shoulder surgery labored breathing ICU and hospitalized for 1 week COPD (chronic obstructive pu lmonary disease) Dizziness occasional Pneumonia x2 in 2022 Anemia VLAD, doesn't ted e oral iron anymore Spinal cord stimulator status IM PLANTED AND ACTIVE OF 07/05/23 Alcohol abuse 06/1986 Osteoporosis 03/2021 Insomnia Acquired right flat foot 2024 Dependence on supplemental o xygen when ambulating Obesity Fibromyalgia Alcoholism (HCC) 06/1986 Dental disease HL (hearing loss) Chronic bronchitis (HCC) 2023 Family History Medical History Relation Name Comments Diabetes Brother Mac Roberts Stroke Brother Mac Roberts Diabetes Father Nikolai Roberts Hypertension Father Nikolai Roberts No Known Problems Maternal Grandfather Breast cancer Maternal Grandmother Fifi Drake Alcohol abuse Mother Chelsea Macedo Hypertension Mother Chelsea Macedo Mental illness Mother Chelsea Macedo Snoring Mother Chelsea Macedo Thyroid disease Mother Chelsea Macedo Breast cancer Niece No Known Problems Paternal Grandfather No Known Problems Paternal Grandmother Nicky Reyes COPD Sister 1 Sarai Depression Sister 1 Sarai Drug abuse Sister 1 Sarai Hypertension Sister 1 Sarai Mental illness Sister 1 Sarai Miscarriages / Stillbirths Sister 1 Sarai Cancer Sister 2 Graciela Roberts Drug abuse Sister 2 Graciela Roberts Relation Name Status Comments Brothclara Roberts Alive Father Nikolai Roberts Maternal Grandfather Maternal Grandmother Fifi Drake Alive Mother Chelsea Macedo Niece Paternal Grandfather Paternal Grandmother Nicky Reyes Alive Sister 1 Sarai Alive Sister 2 Graciela Roberts Sister 3 Chelsea Macedo Alive Social History Tobacco Use Types Packs/Day Years Used Date Smoking Tobacco: Former Cigarettes 0.9 24.3 1 983 - 1997 Smokeless Tobacco: Never Tobacco Cessation:Counseling Given: Not Answered Alcohol Use Standard Drinks/Week Comments Yes 0 [...] often do you attend chur ch or christian services? More than 4 times per year 07/31/2023 Do you belong to any clubs o r organizations such as moravian groups, unions, fraternal or athletic groups, or [...] place to sleep or slept in a jail (including now)? No 07/31/2023 PHQ-9 Answer Date [...] often do you attend chur ch or christian services? More than 4 times per year 02/24/2025 Do you belong to any clubs o r organizations such as moravian groups, unions, fraternal or athletic groups, or [...] any time in the past 12 m [facility], were you homeless or living in a jail (including now)? No 02/24/2025 [facility] Utilities Answer Date Recorded In the past 12 months has th e [employer], [employer], oil, or water [employer] threatened to shut off services in your home? No 02/24/2025 Personal Safety Answer Date Recorded Have you ever been in or are you currently in a harmful physical or emotional relationship or is someone making you feel afraid or unsafe? Denies 02/21/2025 Comments No Sex and Gender Information Value Date Recorded Sex Assigned at Not on file Legal Sex Female 8:01 AM CABLE FERRYBOAT OPERATOR Gender Identity Female 05/26/2019 5:59 PM CABLE FERRYBOAT OPERATOR Sexual Orientation Straight 05/26/2019 5: 59 PM CABLE FERRYBOAT OPERATOR Obstetrics History Para Term AB IAB SAB Ectopic Multiple Livin g Live Births 0 0 0 Last Filed Vital Signs Vital Sign Reading Time Taken Comments Blood Pressure 108/70 06/09/2025 10:50 AM CABLE FERRYBOAT OPERATOR Pulse 84 06/09/2025 11:10 AM CABLE FERRYBOAT OPERATOR Temperature 36.3 C (97.4 F) 06/09/2025 10:50 AM CABLE FERRYBOAT OPERATOR Respiratory Rate 22 06/09/2025 10:5 0 AM CABLE FERRYBOAT OPERATOR Oxygen Saturation 94% 06/09/2025 11: 10 AM CABLE FERRYBOAT OPERATOR on breathing treatment and 6 L oxygen NC Inhaled Oxygen Concentration - - Weight 152 kg (335 lb) 06/09/2025 10:50 AM CABLE FERRYBOAT OPERATOR Height 167.6 cm (5' 6) 06/09/2025 10:5 0 AM CABLE FERRYBOAT OPERATOR Body Mass Index 54.07 06/09/2025 10:50 AM CABLE FERRYBOAT OPERATOR Plan of Treatment Health Maintenance Due Date Last Done Comments Breast Cancer Screening-Mammogram 02/05/2025 02/06/2024, 10/03/2022, 10/07/2021, Additional history exists Albumin Creatinine Ratio, Urine 08/16/2025 08/16/2024, 08/09/2023, 01/19/2022, Additional history exists Hemoglobin A1C 11/25/2025 05/28/2025, 12/09, 09/23/2024, Additional history exists Dilated Eye Exam 02/10/2026 02/10/2025, 11/2023, 04/27/2022, Additional history exists Depression Screening 05/28/2026 05/28/2025, 03/25/2025, 10/28/2024, Additional history exists Foot Exam 05/28/2026 05/28/2025, 06/10, 03/30/2021, Additional history exists Lipid Panel 05/28/2026 05/28/2025, 12/09, 09/23/2024, Additional history exists Regular Well Visit/Exam 18-64 05/28/2026, 11/30/2023, 03/30/2021, Additional history exists eGFR 05/28/2026 05/28/2025, 03/10, 03/15/2025, Additional history exists Colon Cancer Screening-Colonoscopy 07/15/2027 07/15/2022 DTaP/Tdap/Td Vaccine (3 - Td or Tdap) 11/22/2031 11/21/2021, 01/06/2017 Hepatitis B Screening Completed 05/24/2004 Colon Cancer Screening-CT Colonography Discontinued 07/15/2022 Colon Cancer Screening-DNA Stool Discontinued 07/15/19 Colon Cancer Screening-FIT Discontinued 07/15/2022 Colon Cancer Screening-Sigmoidoscopy Discontinued 07/15/2022 Zoster Vaccine Completed 01/23/2023, 09/08, 03/27/2020 Pneumococcal vaccine <65 Completed 05/20/2023 Covid-19 Vaccine Completed 04/17/2025, , 05/20/2023, Additional history exists Influenza Vaccine Completed 04/17/2025, , 08/10/2023, Additional history exists Hepatitis C Screening Completed 05/28/2025 Goals Goal Patient Goal Type Associated Problems Recent Progress Patient-Stated? Author SAMSON General Goal - Patient schedules and keeps appointments with all recommended providers ACO Care Management On track(2022 3:47 PM CDT) Pina VogtHawa miguel, JENNIFER Note: Problem: Potential for medical complications and [...] Care Management On track(2022 3:47 PM CDT) Hawa Sosa, JENNIFER Note: Problem: At Risk for Falls related [...] SW if appropriate and patient is agreeable. Medical Devices Implanted Type Area Fur Cutting Machine Operator Device Identifier Shelf Expiration Date Model / Serial / Lot [employer] Ncb Anatomical Shoulder 4.5mm 36mm Inverse Reverse Lock Self Tap 036 - [id number] Implanted:Qty: 1 on 07/17/2023 by Raheem Jones MD at [facility] Er Screw Right: Shoulder [employer] [id number] 10/09/2027. 6 [id number] [employer] Ncb Anatomical Shoulder 4.5mm 33mm Inverse Reverse Lock Self Tap 033 - [id number] Implanted:Qty: 1 on 07/17/2023 by Raheem Jones MD at [facility] Er Screw Right: Shoulder [employer] [id number] 10/22/2027. 3 [id number] Spinal Cord Stimulator Spinal Cord Stimulator N/A: Spine Cervical Medtronic Inc [id number] INTELLIS / / Description:Medtronic Spinal Cord Stimulator (May be HEAD ONLY) This patient has the following device: Medtronic Spinal Cord Stimulator (model [id number]), w/ SureScan lead This device is MR Conditional when verified with the patient's controller. For HEAD SCANS his device can be scanned as a HEAD ONLY Eligible or a BODY ELIGIBLE. Warning: DO NOT bring the cables and remote control into the MRI scanner room. DURING MRI Scan: Option 1: Scanner type: 1.5T ONLY RF coil: Transmit/Receive Head coil ONLY RF Power: Normal Mode Active scan time limits: No restrictions. Isocenter location: Head ONLY Option 2: Patient controller MUST indicate that the device is FULL-BODY ELIGIBLE: Scanner type: 1.5T ONLY RF coil: Any RF Power: Normal Mode Active scan time limits: 30 min of active scanning (w/ 60 min wait time until next scan) Isocenter location: Any The following vendor document (pub 2017) was referenced on 06/01/2021: [email or web address] Screw-Left Ankle Left: Ankle Plate Left Ankle Left: Ankle Hardware Right: Ankle [employer] Baseplate Glenoid Trabecular Metal Reverse Plus L15mm Shoulder Post Sterile Latex Free [id number] - [id number] Implanted:Qty: 1 on 07/17/2023 by Raheem Jones MD at [facility] Er Right: Shoulder [employer] [id number] 02/24/2033 [id number] / / [id number] [employer] [id number] Component Glenoid Trabecular Metal Reverse Plus +0mm Offset Od36mm Shoulder Lateral Glenosphere Sterile Latex Free - [id number] Implanted:Qty: 1 on 07/17/2023 by Raheem Jones MD at [facility] Er Right: Shoulder [employer] [id number] 03/27/2033 [id number] / / [id number] [employer] Stem Humeral Shoulder Reverse Standard Size 10 Identity [id number] - [id number] Implanted:Qty: 1 on 07/17/2023 by Raheem Jones MD at [facility] Er Right: Shoulder [employer] [id number] 05/05/2033 [id number] / / [id number] [employer] Humeral Tray Neutral -6mm Ext Sahtnem6 - [id number] Implanted:Qty: 1 on 07/17/2023 by Raheem Jones MD at [facility] Er Right: Shoulder [employer] [id number] 06/16/2033 [id number] / / [id number] [employer] Bearing Humeral Comprehensive Prolong Standard Od36mm Shoulder Reverse [id number] - [id number] Implanted:Qty: 1 on 07/17/2023 by Raheem Jones MD at [facility] Er Right: Shoulder [employer] [id number] 05/15/2028 [id number] / / [id number] Biocomposites Stimulan Rapid Cure Kit Paste Comic Writer 5cc 12.5cc Bone Void 620-005 - [id number] Implanted:Qty: 1 on 02/09/2024 by Preston Florez MD at [facility] N/A: Back [employer] [id number] 02/06/2026 62 0-005 / / [id number] Medtronic Inc Specify Surescan 65cm 3 Column 16 Electrode Lead Nerve Stimulator [id number] - [id number] Implanted:Qty: 1 on 02/09/2024 by Preston Florez MD at [facility] N/A: Back Med[employer]onic Inc 01/24/2027 [id number] / / [id number] Medtronic Inc Neurostimulator Implantable Chronic Pain Rs2 86955 - [id number] Implanted:Qty: 1 on 02/09/2024 by Preston Florez MD at [facility] N/A: Back Medtronic Inc 12/21/2024 [id number] / / [id number] [employer] Titan 3d 8mm Y22-Hij-7627-B - [id number] Implanted:Qty: 1 on 02/21/2025 by Jack Obando DO at [facility] Er Right: Ankle [employer] [id number] 07/04/2029 [id number]-OHR-279 8-[id number] / / [id number] [employer] Kit Ib Bc W/ Cc Ft And Jumpstart Ar-1788j-Cp - [id number] Implanted:Qty: 1 on 02/21/2025 by Jack Obando DO at [facility] Er Right: Ankle [employer] [id number] 11/06/2026 AR-1788J-CP / / [id number] [employer] Suture [place] Knotless Fibertak Resorbable To9968 - [id number] Implanted:Qty: 1 on 02/21/2025 by Jack Obando DO at [facility] Er Right: Ankle [employer] [id number] 09/06/2029 QN4900 / / [id number] [employer] Suture [place] Knotless Fibertak Resorbable Bp1726 - [id number] Implanted:Qty: 1 on 02/21/2025 by Jack Obando DO at [facility] Er Right: Ankle [employer] [id number] 09/06/2029 [id number] / / [id number] [employer] Screw Bone Cannulated St Short Thread Monster 7.0x46mm Ti X90-889-404r - [id number] Implanted:Qty: 1 on 02/21/2025 by Jack Obando DO at [facility] Er Right: Ankle [employer] [id number] S / / [place] [employer] Screw Bone Cannulated St Short Thread Monster 7x50mm Ti J06-887-291p - [id number] Implanted:Qty: 1 on 02/21/2025 by Jack Obando DO at [facility] Er Right: Ankle [employer] [id number] S / / Explanted Type Area Fur Cutting Machine Operator Device Identifier Shelf Expiration Date Model / Serial / Lot [employer] Inc Suture [place] Knotless Fibertak Resorbable Be1725 - [id number] Explanted:Qty: 1 on 02/21/2025 at [facility] Er Right: Ankle [employer] [id number] 09/06/2029 [id number] / / [id number] Procedures Procedure Name Priority Date/Time Associated Diagnosis Comments XR KNEE BILATERAL 4 OR MORE VIEWS Schedule Routine, Read Routine (OP Routine) 05/28/2025 12:05 PM CABLE FERRYBOAT OPERATOR Chronic pain of both knees EGFR Routine 05/28/2025 11:39 AM CABLE FERRYBOAT OPERATOR Healthcare maintenance T4, FREE Routine 05/28/2025 11:39 AM CABLE FERRYBOAT OPERATOR Healthcare maintenance DIFFERENTIAL AUTO Routine 05/28/2025 11:39 AM CABLE FERRYBOAT OPERATOR Healthcare maintenance LIPID PANEL Routine 05/28/2025 11:39 AM CABLE FERRYBOAT OPERATOR Healthcare maintenance Hyperlipemia, mixed CBC WITH AUTO DIFFERENTIAL Routine 05/28/2025 11:39 AM CABLE FERRYBOAT OPERATOR Healthcare maintenance COMPREHENSIVE METABOLIC PANEL Routine 05/28/2025 11:39 AM CABLE FERRYBOAT OPERATOR Healthcare maintenance THYROID FUNCTION CASCADE Routine 05/28/2025 11:39 AM CABLE FERRYBOAT OPERATOR Healthcare maintenance HEMOGLOBIN A1C Routine 05/28/2025 11:39 AM CABLE FERRYBOAT OPERATOR Type 2 diabetes mellitus with diabetic neuropathy, without long-term current use of insulin (HCC) VITAMIN D 25 HYDROXY Routine 05/28/2025 11:39 AM CABLE FERRYBOAT OPERATOR Healthcare maintenance Vitamin D deficiency HEPATITIS C ANTIBODY Routine 05/28/2025 11:39 AM CABLE FERRYBOAT OPERATOR Encounter for hepatitis C screening test for low risk patient AUDIOGRAM Routine 05/23/2025 8:30 AM CABLE FERRYBOAT OPERATOR Sensorineural hearing loss (SNHL) of left ear with restricted hearing of right ear [place] REMOVAL IMPACTED CERUMEN INSTRUMENTATION UNILAT Routine 05/23/2025 8:00 AM CABLE FERRYBOAT OPERATOR Impacted cerumen of right ear XR ANKLE RIGHT 3 OR MORE VIEWS Schedule Routine, Read Routine (OP Routine) 04/03/2025 1:26 PM CDT S/P foot surgery, right S/P arthroscopy XR FOOT RIGHT 3 OR MORE VIEWS Schedule Routine, Read Routine (OP Routine) 04/03/2025 1:26 PM CDT S/P foot surgery, right S/P arthroscopy EGFR Routine 03/19/2025 5:28 AM CDT BASIC METABOLIC PANEL Routine 03/19/2025 5:28 AM CDT CBC WITHOUT DIFFERENTIAL Routine 03/19/2025 5:28 AM CDT XR FOOT RIGHT 3 OR MORE VIEWS Schedule Routine, Read Routine (OP Routine) 03/17/2025 2:33 PM CDT S/P foot surgery, right XR ANKLE RIGHT 3 OR MORE VIEWS Schedule Routine, Read Routine (OP Routine) 03/17/2025 2:33 PM CDT S/P foot surgery, right EGFR Routine 03/15/2025 5:13 AM CDT BASIC METABOLIC PANEL Routine 03/15/2025 5:13 AM CDT DIABETIC EYE EXAM Routine 02/10/2025 ALBUMIN CREATININE RATIO, URINE Routine 08/16/2024 3:28 PM CABLE FERRYBOAT OPERATOR Type 2 diabetes mellitus with diabetic neuropathy, without long-term current use of insulin (HCC) SCREENING MAMMOGRAM BILATERAL W MORENO Schedule Routine, Read Routine (OP Routine) 02/06/2024 7:55 AM CDT Encounter for screening mammogram for malignant neoplasm of breast COLONOSCOPY 07/15/2022 10:27 AM CABLE FERRYBOAT OPERATOR from Last 3 Months or Most Recently Relevant to Health Maintenance Results * XR Knee Bilateral 4 or More Views (05/28/2025 12:05 PM CABLE FERRYBOAT OPERATOR) Anatomical Region Laterality Modality Lower Extremities, Knee Computed Radiography 05/29/2025 9:09 AM CABLE FERRYBOAT OPERATOR Impressions 05/29/2025 9:09 AM CABLE FERRYBOAT OPERATOR 1. Tricompartmental degenerative changes of bilateral knees, which is greater on the left than the right. No definite evidence of an acute displaced fracture or dislocation. 2. Small bilateral suprapatellar joint effusions. Electronically signed by: Meagan Hogan D.O. Narrative 05/29/2025 9:09 AM CABLE FERRYBOAT OPERATOR STUDY DESCRIPTION: XR KNEE BILATERAL 4 OR MORE VIEWS ORDERING HEALTHCARE PROVIDER: LINDA ZHAO CLINICAL INDICATIONS: chronic knee pain. COMPARISON: None TECHNIQUE: Frontal, lateral, axial, and sunrise radiographs of the bilateral kidneys. FINDINGS: There is no definite evidence of an acute displaced fracture or dislocation involving the right knee. There are tricompartmental degenerative changes right knee with joint space narrowing, minimal spurring, and minimal sclerosis. There is near hjjy-oi-rbmz articulation the medial compartment. There is a small suprapatellar joint effusion. There is no definite evidence of an acute displaced fracture or dislocation involving the left knee. There are tricompartmental degenerative left knee with joint space narrowing, mild spurring, and minimal sclerosis. There is zlml-ix-zfxt articulation and medial and lateral compartments. There is a small suprapatellar joint effusion. Procedure Note Meagan Hogan, DO - 05/29/2025 STUDY DESCRIPTION: XR KNEE BILATERAL 4 OR MORE VIEWS ORDERING HEALTHCARE PROVIDER: LINDA ZHAO CLINICAL INDICATIONS: chronic knee pain. COMPARISON: None TECHNIQUE: Frontal, lateral, axial, and sunrise radiographs of the bilateral kidneys. FINDINGS: There is no definite evidence of an acute displaced fracture or dislocation involving the right knee. There are tricompartmental degenerative changes right knee with joint space narrowing, minimal spurring, and minimal sclerosis. There is near wdfn-lc-wijk articulation the medial compartment. There is a small suprapatellar joint effusion. There is no definite evidence of an acute displaced fracture or dislocation involving the left knee. There are tricompartmental degenerative left knee with joint space narrowing, mild spurring, and minimal sclerosis. There is xhyl-js-ktke articulation and medial and lateral compartments. There is a small suprapatellar joint effusion. IMPRESSION: 1. Tricompartmental degenerative changes of bilateral knees, which is greater on the left than the right. No definite evidence of an acute displaced fracture or dislocation. 2. Small bilateral suprapatellar joint effusions. Electronically signed by: Meagan Hogan D.O. Linda Zhao QUILT STUFFER IMG XR PROCEDURES Final Resul t * (ABNORMAL) eGFR (05/28/2025 11:39 AM CABLE FERRYBOAT OPERATOR) eGFR 58(L) >=60 mL/min/1. 73 m2 Comment: Interpretive Data Reference Interval Normal >/= 90 mL/min/1.73m2 Mildly decreased* 60 - 89 mL/min/1.73m2 Mildly to moderately decreased 45 - 59 mL/min/1.73m2 Moderately to severely decreased 30 - 44 mL/min/1.73m2 Severely decreased 15 - 29 mL/min/1.73m2 Kidney Failure < 15 mL/min/1.73m2 *Relative to young adult level Estimated glomerular filtration rate is determined by the 2020 CKD-EPI equation recommended by the National Kidney Foundation (A Unifying Approach to GFR Estimation: Recommendations of the NKF-ASK Task Force on Reassessing the Inclusion of Race in Diagnosing Kidney Disease, JASN 202). The CKD-EPI equation should not be used for patients with unstable renal function and has not been validated in children and those over 70. Current interpretive data was last reviewed 2021. Blood 05/28/2025 11:3 9 AM CABLE FERRYBOAT OPERATOR 05/28/2025 12:28 PM CABLE FERRYBOAT OPERATOR us Linda Zhao NP LAB BLOOD ORDERABLES Final Re sult [facility] [address] [facility] Department [place] [address] * Differential, auto (05/28/2025 11:39 AM CABLE FERRYBOAT OPERATOR) Pathologist [facility] Neutrophil abs 5.41 1.50 - 6.50 K/cumm Imm gran abs 0.02 0.00 - 0.10 K/cumm [facility] Lymphocyte abs 1.15 0.80 - 3.30 K/cumm [facility] Monocyte abs 0.53 0.20 - 0.80 K/cumm [facility] Eosinophil abs 0.11 0.00 - 0.50 K/cumm [facility] Basophil abs 0.04 0.00 - 0.10 K/cumm [facility] Neutrophil pct 74.5 % [facility] Comment: Interpretive Data Percent cell count reference ranges are not reported, since discordance with absolute values may lead to misinterpretation of CBC data. Current Interpretive Data was last revised on 2017. Imm gran pct 0.3 % [facility] Comment: Interpretive Data Percent cell count reference ranges are not reported, since discordance with absolute values may lead to misinterpretation of CBC data. Current Interpretive Data was last revised on 2017. Lymphocyte pct 15.8 % [facility] Comment: Interpretive Data Percent cell count reference ranges are not reported, since discordance with absolute values may lead to misinterpretation of CBC data. Current Interpretive Data was last revised on 2017. Monocyte pct 7.3 % [facility] Comment: Interpretive Data Percent cell count reference ranges are not reported, since discordance with absolute values may lead to misinterpretation of CBC data. Current Interpretive Data was last revised on 2017. Eosinophil pct 1.5 % [facility] Comment: Interpretive Data Percent cell count reference ranges are not reported, since discordance with absolute values may lead to misinterpretation of CBC data. Current Interpretive Data was last revised on 2017. Basophil pct 0.6 % [facility] Comment: Interpretive Data Percent cell count reference ranges are not reported, since discordance with absolute values may lead to misinterpretation of CBC data. Current Interpretive Data was last revised on 2017. Blood 05/28/2025 11:3 9 AM CABLE FERRYBOAT OPERATOR 05/28/2025 12:31 PM CABLE FERRYBOAT OPERATOR [facility] Final Re sult Performing Organization Address [facility] Co de Phone Number [place] [id number] [facility] [email or web address] [address] * (ABNORMAL) Thyroid Function [place] (05/28/2025 11:39 AM CABLE FERRYBOAT OPERATOR) TSH 5.46(H) 0.30 - 4.20 mcIUnit/mL Blood 05/28/2025 11:3 9 AM CABLE FERRYBOAT OPERATOR 05/28/2025 12:28 PM CABLE FERRYBOAT OPERATOR Linda Dragon Tail LAB BLOOD ORDERABLES Final Re sult Performing Organization Address [facility] Co de Phone Number [facility] [address] [facility] [place] [address] * (ABNORMAL) CBC with auto differential (05/28/2025 11:39 AM CABLE FERRYBOAT OPERATOR) [facility] WBC 7.26 3.80 - 9.90 K/cumm Hgb 14.1 11.9 - 15.5 g/dL [facility] Hct 50.0(H) 35.6 - 45.5 % [facility] Plt 170 150 - 400 K/cumm [facility] MPV Not Measured 9.1 - 12.3 fL [facility] RBC 6.24(H) 3.90 - 5.20 M/cumm [facility] MCV 80.1(L) 81.3 - 96.4 fL [facility] MCH 22.6(L) 27.1 - 33.3 pg [facility] MCHC 28.2(L) 32.3 - 35.7 g/dL [facility] RDW CV 23.7(H) 11.1 - 14.9 % [facility] RDW SD 65.1(H) 35.7 - 48.1 fL [facility] NRBC abs 0.00 0.00 - 0.01 K/cumm [facility] Blood 05/28/2025 11:3 9 AM CABLE FERRYBOAT OPERATOR 05/28/2025 12:31 PM CABLE FERRYBOAT OPERATOR us Linda Zhao NP LAB BLOOD ORDERABLES Final Re sult [facility] [address] [facility] Department [place] [address] * Hepatitis C antibody Blood (05/28/2025 11:39 AM CABLE FERRYBOAT OPERATOR) [facility] Hep C Ab Nonreactive Nonreactive Comment: Antibodies to HCV not detected. Does NOT exclude the possibility of recent exposure to HCV. Current interpretive data was last revised on 22 Interpretive Data Nonreactive: Antibodies to HCV not detected. Does NOT exclude the possibility of recent exposure to HCV. Equivocal: Equivocal for HCV antibodies. Supplemental molecular testing will be automatically performed to determine infection status in accordance with current CDC screening recommendations. Reactive: Positive for HCV antibodies. This may represent current or past HCV infection. Supplemental molecular testing will be automatically performed to determine current infection status in accordance with current CDC screening recommendations. Interpretive data was last revised on 2019. Blood 05/28/2025 11:3 9 AM CABLE FERRYBOAT OPERATOR 05/28/2025 12:28 PM CABLE FERRYBOAT OPERATOR Linda Zhao NP LAB MICROBIOLOGY - GENERAL OR DERABLES Final Result Performing Organization Address [facility] [facility] de Phone Number [address] [place] [address] * Vitamin D 25 hydroxy (05/28/2025 11:39 AM CABLE FERRYBOAT OPERATOR) Pathologist [facility] Vitamin D 25-OH 40.0 30.0 - 80.0 ng/mL Blood 05/28/2025 11:3 9 AM CABLE FERRYBOAT OPERATOR 05/28/2025 12:28 PM CABLE FERRYBOAT OPERATOR Linda Zhao NP LAB BLOOD ORDERABLES Final Re sult Performing Organization Address [facility] de Phone Number [address] [address] * T4, free (05/28/2025 11:39 AM CABLE FERRYBOAT OPERATOR) Pathologist [facility] Free T4 1.18 0.90 - 1.70 ng/dL Blood 05/28/2025 11:3 9 AM CABLE FERRYBOAT OPERATOR 05/28/2025 12:28 PM CABLE FERRYBOAT OPERATOR Narrative [facility]28/[facility]25 1:34 PM CABLE FERRYBOAT OPERATOR This test was reflexed from a TSH result. Linda Zhao NP LAB BLOOD ORDERABLES Final Re sult Performing Organization Address [facility] de Phone Number [address] [place] [address] * (ABNORMAL) Hemoglobin A1c (05/28/2025 11:39 AM CABLE FERRYBOAT OPERATOR) Pathologist [facility] Hgb A1C 6.2(H) 4.0 - 5.6 % Estimated Average Glucose 131 mg/dL [facility] Comment: The ADA recommends reporting an estimated Average Glucose (eAG) with all Hemoglobin A1c results using the equation derived from a study of 507 normal and diabetic adults. Minority populations were underrepresented and children were not included. (Diabetes Care 31:3637-5144, 2008). The eAG is not equivalent to a fasting glucose. Blood 05/28/2025 11:3 9 AM CABLE FERRYBOAT OPERATOR 05/28/2025 12:31 PM CABLE FERRYBOAT OPERATOR us Linda Zhao QUILT STUFFER LAB BLOOD ORDERABLES Final Re sult [facility] [address] [facility] Department [place] [address] * Lipid panel (05/28/2025 11:39 AM CABLE FERRYBOAT OPERATOR) Cholesterol 164 30 - 199 mg/dL Comment: Interpretive Data Ages < or = 19 years Acceptable: <170 mg/dL Borderline high: 170-199 mg/dL High: >or= 200 mg/dL Ages > or = 20 years Desirable: <200 mg/dL Borderline high: 200-239 mg/dL High: >or= 240 mg/dL Literature References: 1. Expert Panel on Integrated Guidelines for Cardiovascular Health and Risk Reduction in Children and Adolescents. Pediatrics 2011;128:S213 2. NCEP Expert Panel. Circulation 2004;110:227 Current Interpretive Data was last revised on 2018. Triglycerides 112 <=149 mg/dL [facility] Comment: Interpretive Data Ages < or = 9 years Acceptable: <75 mg/dL Borderline high: 75-99 mg/dL High: >or= 100 mg/dL Ages 10 to 20 years Acceptable: <90 mg/dL Borderline high: 90-129 mg/dL High: >or= 130 mg/dL Ages > or = 20 years Desirable: <150 mg/dL Borderline high: 150-199 mg/dL High: 200-499 mg/dL Very high: >or= 499 mg/dL Literature References: 1. Expert Panel on Integrated Guidelines for Cardiovascular Health and Risk Reduction in Children and Adolescents. Pediatrics 2011;128:S213 2. NCEP Expert Panel. Circulation 2004;110:227 Current Interpretive Data was last revised on 2018. HDL 48 >=40 mg/dL [facility] Comment: Interpretive Data Ages < or = 19 years Acceptable: >45 mg/dL Borderline low: 40-45 mg/dL Low: <40 mg/dL Ages > or = 20 years Desirable: >or= 60 mg/dL Low: <40 mg/dL Literature References: 1. Expert Panel on Integrated Guidelines for Cardiovascular Health and Risk Reduction in Children and Adolescents. Pediatrics 2011;128:S213 2. NCEP Expert Panel. Circulation 2004;110:227 Current Interpretive Data was last revised on 2018. LDL, calculated 96 <=129 mg/dL [facility] Comment: Interpretive Data Ages < or = 19 years Acceptable: <110 mg/dL Borderline high: 110-129 mg/dL High: >or= 130 mg/dL Ages > or = 20 years Optimal: <100 mg/dL Near optimal: 100-129 mg/dL Borderline high: 130-159 mg/dL High: >160 mg/dL Calculated using the Bart LDL-C estimating equation. This equation was implemented on 2024. Prior to this date LDL-C was estimated using the Friedewald equation. Literature References: 1. Expert Panel on Integrated Guidelines for Cardiovascular Health and Risk Reduction in Children and Adolescents. Pediatrics 2011;128:S213 2. NCEP Expert Panel. Circulation 2004;110:227 3. Bart Garduno et al. JAQUI Cardiol. 2020 November 07;5(5):540-548. doi: 10.1001/jamacardio.2020.0013 Current Interpretive Data was last revised on 2024. Non-HDL Cholesterol 116 mg/dL [facility] Comment: Interpretive Data Ages < or = 19 years Acceptable: <120 mg/dL Borderline high: 120-144 mg/dL High: >145 mg/dL Ages > or = 20 years When triglycerides are >200 mg/dL, Non-HDL cholesterol is a secondary target of therapy with treatment goals that are 30 mg/dL greater than the LDL cholesterol target. Literature References: 1. Expert Panel on Integrated Guidelines for Cardiovascular Health and Risk Reduction in Children and Adolescents. Pediatrics 2011;128:S213 2. NCEP Expert Panel. Circulation 2004;110:227 Current Interpretive Data was last revised on 2018. Chol/HDL ratio 3 [facility] Blood 05/28/2025 11:3 9 AM CABLE FERRYBOAT OPERATOR 05/28/2025 12:28 PM CABLE FERRYBOAT OPERATOR Narrative [facility] - 05/28/2025 1:12 PM CABLE FERRYBOAT OPERATOR Has the patient been fasting for 8 hours or more?->Yes us Linda Zhao NP LAB BLOOD ORDERABLES Final Re sult [facility] [address] [facility] Department [place] [address] * (ABNORMAL) Comprehensive metabolic panel (05/28/2025 11:39 AM CABLE FERRYBOAT OPERATOR) Sodium 142 135 - 145 mmol/L Potassium, pl 3.3 3.3 - 4.9 mmol/L [facility] Chloride 96(L) 97 - 110 mmol/L [facility] CO2 34(H) 22 - 32 mmol/L [facility] Anion gap 12 2 - 15 mmol/L [facility] BUN 15 6 - 25 mg/dL [facility] Creatinine 1.09 0.60 - 1.10 mg/dL [facility] Glucose 119 70 - 199 mg/dL [facility] Comment: Interpretive Data Fasting glucose >/= 126 mg/dl is diagnostic for diabetes. Fasting is defined as no caloric intake for at least 8 hours. Fasting glucose between 100 mg/dl to 125 mg/dl is diagnostic of prediabetes. In a patient with classic symptoms of hyperglycemia or hyperglycemic crisis, a random glucose >/= 200 mg/dl is diagnostic for diabetes. In the absence of unequivocal hyperglycemia, results should be confirmed by repeat testing. The classification and Diagnosis of Diabetes Diabetes Care 202; 46: S19-S40. Current interpretive data was last revised 2022. Calcium 9.7 8.5 - 10.3 mg/dL [facility] Bilirubin, total 0.9 0.1 - 1.2 mg/dL [facility] Protein, pl 8.0 6.5 - 8.5 g/dL [facility] Albumin 4.2 3.5 - 5.0 g/dL [facility] Alk phos 106 40 - 130 Units/L [facility] ALT 13 7 - 45 Units/L [facility] AST 34 10 - 45 Units/L [facility] Blood 05/28/2025 11:3 9 AM CABLE FERRYBOAT OPERATOR 05/28/2025 12:28 PM CABLE FERRYBOAT OPERATOR us Linda Zhao QUILT STUFFER LAB BLOOD ORDERABLES Final Re sult [facility] [address] [facility] Department [place] [address] * AUDIOGRAM (05/23/2025 8:30 AM CABLE FERRYBOAT OPERATOR) Narrative Juany Karimi Au.D. - 05/23/2025 8:30 AM CABLE FERRYBOAT OPERATOR Juany Karimi Au.D. 05/23/2025 9:46 AM Audiogram Performed by: Juany Karimi Au.D. Authorized by: Teresa Moreno DO Teresa Moreno DO AUDIOLOGY SERVICES ORDERABLE S Final Result * WI REMOVAL IMPACTED CERUMEN INSTRUMENTATION UNILAT (05/23/2025 8:00 AM CABLE FERRYBOAT OPERATOR) Narrative Teresa Moreno DO - 05/23/2025 8:00 AM CABLE FERRYBOAT OPERATOR Teresa Moreno DO 05/23/2025 12:51 PM Ear Cerumen Removal Performed by: Teresa Moreno DO Authorized by: Teresa Moreno DO Consent Given by: Patient Timeout: prior to procedure the correct patient, procedure, and site was verified Verbal consent obtained: Yes Written consent obtained: No Risks, alternatives, and patient questions discussed: Yes Preparation: Patient was prepped using a clean technique Location: R ear R ear cerumen impacted?: Yes R ear method of removal: Instrumentation and magnification R ear instrumentation: Curette R ear magnification: Operating microscope Inspection: TM intact Hearing quality: Improved Patient tolerance: Patient tolerated the procedure well with no immediate complications Teresa Moreno DO IN CLINIC/BEDSIDE ORDERABLES Final Result * XR Foot Right 3 or More Views (04/03/2025 1:26 PM CDT) Anatomical Region Laterality Modality Lower Extremities, Foot Right Computed Radiography 04/04/2025 8:49 AM CDT Narrative 04/04/2025 8:51 AM CDT EXAM DESCRIPTION: 1. XR FOOT RIGHT 3 OR MORE VIEWS; 2. XR ANKLE RIGHT 3 OR MORE VIEWS REASON FOR STUDY: pain Mild foot and ankle pain since ORIF done 02/21/25 FINDINGS: Three views right foot and three views right ankle submitted with comparison 03/17/2025. Old healed ankle fractures are present with medial tibia internal fixation and fibular explantation. Residual widening of the medial clear space is present. Healing displacement calcaneal osteotomy with lateral column lengthening. Bdid-dl-aidcvslo ankle osteoarthritis is present. Heel spur is noted. Mild 1st metatarsophalangeal joint osteoarthritis. Moderate lower extremity soft tissue swelling. IMPRESSION: 1. Healing displacement right calcaneal osteotomy with lateral column lengthening. 2. Old healed right ankle fractures with residual widening of the medial clear space and iiop-kh-lvubsgiu right ankle osteoarthritis. 3. Moderate right lower extremity soft tissue swelling. THIS IS AN ELECTRONICALLY VERIFIED FINAL REPORT 04/04/2025 8:51 AM - Electronically signed by Lei Owusu M.D. T: Report ID: [id number] Reading Location: [id number] Procedure Note Lei Owusu MD - 04/04/2025 EXAM DESCRIPTION: 1. XR FOOT RIGHT 3 OR MORE VIEWS; 2. XR ANKLE RIGHT 3 OR MORE VIEWS REASON FOR STUDY: pain Mild foot and ankle pain since ORIF done 02/21/25 FINDINGS: Three views right foot and three views right ankle submittedwith comparison 03/17/2025. Old healed ankle fractures are present with medial tibia internal fixationand fibular explantation. Residual widening of the medial clear space ispresent. Healing displacement calcaneal osteotomy with lateral column lengthening. Ugag-wv-sqnvuqqi ankle osteoarthritis is present. Heel spur is noted.Mild 1st metatarsophalangeal joint osteoarthritis. Moderate lower extremitysoft tissue swelling. IMPRESSION: 1. Healing displacement right calcaneal osteotomy with lateral column lengthening. 2. Old healed right ankle fractures with residual widening of the medial clear space and vkvw-uc-clqtanux right ankle osteoarthritis. 3. Moderate right lower extremity soft tissue swelling. THIS IS AN ELECTRONICALLY VERIFIED FINAL REPORT 04/04/2025 8:51 AM - Electronically signed by Lei Owusu M.D. T: Report ID: [id number] Reading Location: [id number] us Jack Obando DO IMG XR PROCEDURES Final Result * XR Ankle Right 3 or More Views (04/03/2025 1:26 PM CDT) Anatomical Region Laterality Modality Lower Extremities, Ankle Right Compute d Radiography 04/04/2025 8:49 AM CDT Narrative 04/04/2025 8:51 AM CDT EXAM DESCRIPTION: 1. XR FOOT RIGHT 3 OR MORE VIEWS; 2. XR ANKLE RIGHT 3 OR MORE VIEWS REASON FOR STUDY: pain Mild foot and ankle pain since ORIF done 02/21/25 FINDINGS: Three views right foot and three views right ankle submitted with comparison 03/17/2025. Old healed ankle fractures are present with medial tibia internal fixation and fibular explantation. Residual widening of the medial clear space is present. Healing displacement calcaneal osteotomy with lateral column lengthening. Atmb-ss-csocxliu ankle osteoarthritis is present. Heel spur is noted. Mild 1st metatarsophalangeal joint osteoarthritis. Moderate lower extremity soft tissue swelling. IMPRESSION: 1. Healing displacement right calcaneal osteotomy with lateral column lengthening. 2. Old healed right ankle fractures with residual widening of the medial clear space and uscu-uj-noxrprqb right ankle osteoarthritis. 3. Moderate right lower extremity soft tissue swelling. THIS IS AN ELECTRONICALLY VERIFIED FINAL REPORT 04/04/2025 8:51 AM - Electronically signed by Lei Owusu M.D. T: Report ID: [id number] Reading Location: [id number] Procedure Note Lei Owusu MD - 04/04/2025 EXAM DESCRIPTION: 1. XR FOOT RIGHT 3 OR MORE VIEWS; 2. XR ANKLE RIGHT 3 OR MORE VIEWS REASON FOR STUDY: pain Mild foot and ankle pain since ORIF done 02/21/25 FINDINGS: Three views right foot and three views right ankle submittedwith comparison 03/17/2025. Old healed ankle fractures are present with medial tibia internal fixationand fibular explantation. Residual widening of the medial clear space ispresent. Healing displacement calcaneal osteotomy with lateral column lengthening. Ubqi-ne-gapivrrq ankle osteoarthritis is present. Heel spur is noted.Mild 1st metatarsophalangeal joint osteoarthritis. Moderate lower extremitysoft tissue swelling. IMPRESSION: 1. Healing displacement right calcaneal osteotomy with lateral column lengthening. 2. Old healed right ankle fractures with residual widening of the medial clear space and vpbk-wt-tbeobepw right ankle osteoarthritis. 3. Moderate right lower extremity soft tissue swelling. THIS IS AN ELECTRONICALLY VERIFIED FINAL REPORT 04/04/2025 8:51 AM - Electronically signed by Lei Owusu M.D. T: Report ID: [id number] Reading Location: [place] [address] us Jack Obando DO IMG XR PROCEDURES Final Result * (ABNORMAL) eGFR (03/19/2025 5:28 AM CDT) eGFR 52(L) >=60 mL/min/1. 73 m2 [facility] Comment: Interpretive Data Reference Interval Normal >/= 90 mL/min/1.73m2 Mildly decreased* 60 - 89 mL/min/1.73m2 Mildly to moderately decreased 45 - 59 mL/min/1.73m2 Moderately to severely decreased 30 - 44 mL/min/1.73m2 Severely decreased 15 - 29 mL/min/1.73m2 Kidney Failure < 15 mL/min/1.73m2 *Relative to young adult level Estimated glomerular filtration rate is determined by the 2020 CKD-EPI equation recommended by the National Kidney Foundation (A Unifying Approach to GFR Estimation: Recommendations of the NKF-ASK Task Force on Reassessing the Inclusion of Race in Diagnosing Kidney Disease, JASN 2020). The CKD-EPI equation should not be used for patients with unstable renal function and has not been validated in children and those over 70. Current interpretive data was last reviewed 2021. [facility], [facility], [place]., [address] Blood 03/19/2025 5:28 AM CDT 03/19/2025 6:13 AM CDT us Lexii HAYNES LAB BLOOD ORDERABLES Final Resu lt [facility] [address] [facility] Department [place] [address] * (ABNORMAL) CBC without differential (03/19/2025 5:28 AM CDT) WBC 5.58 3.80 - 9.90 K/cumm [facility] Comment:[address], [address] Hgb 9.4(L) 11.9 - 15.5 g/dL [facility] Comment:[address], [address] Hct 34.3(L) 35.6 - 45.5 % [facility] Comment:[address], [address] Plt 116(L) 150 - 400 K/cumm [facility] Comment:[address], [address] MPV Not Measured 9.1 - 12.3 fL [facility] Comment:[address], [address] RBC 4.47 3.90 - 5.20 M/cumm [facility] Comment:[address], [address] MCV 76.7(L) 81.3 - 96.4 fL [facility] Comment:[address], [address] MCH 21.0(L) 27.1 - 33.3 pg [facility] Comment:[address], [address] MCHC 27.4(L) 32.3 - 35.7 g/dL [facility] Comment:[address], [address] RDW CV 19.5(H) 11.1 - 14.9 % [facility] Comment:[address], [address] RDW SD 53.9(H) 35.7 - 48.1 fL [facility] Comment:[address], [address] NRBC abs 0.00 0.00 - 0.01 K/cumm [facility] Comment:[address] [address] Blood 03/19/2025 5:28 AM CDT 03/19/2025 6:13 AM CDT Lexii HAYNES LAB BLOOD ORDERABLES Final Resu lt [facility] [address] [facility] Department [place] [address] * (ABNORMAL) Basic metabolic panel (03/19/2025 5:28 AM CDT) Sodium 140 135 - 145 mmol/L [facility] Comment:[address] [address] Potassium, pl 3.6 3.3 - 4.9 mmol/L [facility] Comment:[address] [address] Chloride 97 97 - 110 mmol/L [facility] Comment:[address] [address] CO2 34(H) 22 - 32 mmol/L [facility] Comment:[address] [address] Anion gap 9 2 - 15 mmol/L [facility] Comment:[address] [address] BUN 28(H) 6 - 25 mg/dL [facility] Comment:[address] [address] Creatinine 1.20(H) 0.60 - 1.10 mg/dL [facility] Comment:[address] [address] Glucose 121 70 - 199 mg/dL [facility] Comment: Interpretive Data Fasting glucose >/= 126 mg/dl is diagnostic for diabetes. Fasting is defined as no caloric intake for at least 8 hours. Fasting glucose between 100 mg/dl to 125 mg/dl is diagnostic of prediabetes. In a patient with classic symptoms of hyperglycemia or hyperglycemic crisis, a random glucose >/= 200 mg/dl is diagnostic for diabetes. In the absence of unequivocal hyperglycemia, results should be confirmed by repeat testing. The classification and Diagnosis of Diabetes Diabetes Care 2021; 46: S19-S40. Current interpretive data was last revised 2022. [facility], [address] [place]., [address] Calcium 9.3 8.5 - 10.3 mg/dL [facility] JEREMY Comment:[facility], [address] [place]., [address] Blood 03/19/2025 5:28 AM CDT 03/19/2025 6:13 AM CDT us Lexii HAYNES LAB BLOOD ORDERABLES Final Resu lt [facility] [address] [facility] Department [place] [address] * XR Foot Right 3 or More Views (03/17/2025 2:33 PM CDT) Anatomical Region Laterality Modality Lower Extremities, Foot Right Computed Radiography 03/18/2025 11:5 1 AM CDT Narrative 03/18/2025 11:53 AM CDT EXAM DESCRIPTION: 1. XR ANKLE RIGHT 3 OR MORE VIEWS 2. XR FOOT RIGHT 3 OR MORE VIEWS REASON FOR STUDY: pain Pt sts s/p sx done on 02/21/25. F/u. FINDINGS: Three views right ankle and three views right foot submitted with comparison 11/25/2024. Interval explantation of distal fibular instrumentation. Old healed right ankle fractures are present with residual widening of the medial clear space. Mild right ankle osteoarthritis. Moderate lower extremity soft tissue swelling is present. Interval displacement calcaneal osteotomy with lateral column lengthening. Plantar heel spur is present. IMPRESSION: 1. Interval explantation of distal fibular instrumentation. 2. Interval displacement right calcaneal osteotomy with lateral column lengthening. 3. Old healed right ankle fractures with residual widening of the medial clear space and mild right ankle osteoarthritis. 4. Moderate right lower extremity soft tissue swelling. THIS IS AN ELECTRONICALLY VERIFIED FINAL REPORT 03/18/2025 11:53 AM - Electronically signed by Lei Owusu M.D. T: Report ID: [id number] Reading Location: [id number] Procedure Note Lei Owusu MD - 03/18/2025 EXAM DESCRIPTION: 1. XR ANKLE RIGHT 3 OR MORE VIEWS 2. XR FOOT RIGHT 3 OR MORE VIEWS REASON FOR STUDY: pain Pt sts s/p sx done on 02/21/25. F/u. FINDINGS: Three views right ankle and three views right foot submittedwith comparison 11/25/2024. Interval explantation of distal fibular instrumentation. Old healed right ankle fractures are present with residual widening of the medial clearspace. Mild right ankle osteoarthritis. Moderate lower extremity soft tissue swelling is present. Interval displacement calcaneal osteotomy withlateral column lengthening. Plantar heel spur is present. IMPRESSION: 1. Interval explantation of distal fibular instrumentation. 2. Interval displacement right calcaneal osteotomy with lateral column lengthening. 3. Old healed right ankle fractures with residual widening of the medial clear space and mild right ankle osteoarthritis. 4. Moderate right lower extremity soft tissue swelling. THIS IS AN ELECTRONICALLY VERIFIED FINAL REPORT 03/18/2025 11:53 AM - Electronically signed by Lei Owusu M.D. T: Report ID: [id number] Reading Location: [id number] Porsha HAYNES IMG XR PROCEDURES Final Re sult * XR Ankle Right 3 or More Views (03/17/2025 2:33 PM CDT) Anatomical Region Laterality Modality Lower Extremities, Ankle Right Compute d Radiography 03/18/2025 11:5 1 AM CDT Narrative 03/18/2025 11:53 AM CDT EXAM DESCRIPTION: 1. XR ANKLE RIGHT 3 OR MORE VIEWS 2. XR FOOT RIGHT 3 OR MORE VIEWS REASON FOR STUDY: pain Pt sts s/p sx done on 02/21/25. F/u. FINDINGS: Three views right ankle and three views right foot submitted with comparison 11/25/2024. Interval explantation of distal fibular instrumentation. Old healed right ankle fractures are present with residual widening of the medial clear space. Mild right ankle osteoarthritis. Moderate lower extremity soft tissue swelling is present. Interval displacement calcaneal osteotomy with lateral column lengthening. Plantar heel spur is present. IMPRESSION: 1. Interval explantation of distal fibular instrumentation. 2. Interval displacement right calcaneal osteotomy with lateral column lengthening. 3. Old healed right ankle fractures with residual widening of the medial clear space and mild right ankle osteoarthritis. 4. Moderate right lower extremity soft tissue swelling. THIS IS AN ELECTRONICALLY VERIFIED FINAL REPORT 03/18/2025 11:53 AM - Electronically signed by Lei Owusu M.D. T: Report ID: [id number] Reading Location: [id number] Procedure Note Lei Owusu MD - 03/18/2025 EXAM DESCRIPTION: 1. XR ANKLE RIGHT 3 OR MORE VIEWS 2. XR FOOT RIGHT 3 OR MORE VIEWS REASON FOR STUDY: pain Pt sts s/p sx done on 02/21/25. F/u. FINDINGS: Three views right ankle and three views right foot submittedwith comparison 11/25/2024. Interval explantation of distal fibular instrumentation. Old healed right ankle fractures are present with residual widening of the medial clearspace. Mild right ankle osteoarthritis. Moderate lower extremity soft tissue swelling is present. Interval displacement calcaneal osteotomy withlateral column lengthening. Plantar heel spur is present. IMPRESSION: 1. Interval explantation of distal fibular instrumentation. 2. Interval displacement right calcaneal osteotomy with lateral column lengthening. 3. Old healed right ankle fractures with residual widening of the medial clear space and mild right ankle osteoarthritis. 4. Moderate right lower extremity soft tissue swelling. THIS IS AN ELECTRONICALLY VERIFIED FINAL REPORT 03/18/2025 11:53 AM - Electronically signed by Lei Owusu M.D. T: Report ID: [id number] Reading Location: [place] [address] Porsha HAYNES IMG XR PROCEDURES Final Re sult * (ABNORMAL) eGFR (03/15/2025 5:13 AM CDT) eGFR 47(L) >=60 mL/min/1. 73 m2 [facility] Comment: Interpretive Data Reference Interval Normal >/= 90 mL/min/1.73m2 Mildly decreased* 60 - 89 mL/min/1.73m2 Mildly to moderately decreased 45 - 59 mL/min/1.73m2 Moderately to severely decreased 30 - 44 mL/min/1.73m2 Severely decreased 15 - 29 mL/min/1.73m2 Kidney Failure < 15 mL/min/1.73m2 *Relative to young adult level Estimated glomerular filtration rate is determined by the 2020 CKD-EPI equation recommended by the National Kidney Foundation (A Unifying Approach to GFR Estimation: Recommendations of the NKF-ASK Task Force on Reassessing the Inclusion of Race in Diagnosing Kidney Disease, JASN 2020). The CKD-EPI equation should not be used for patients with unstable renal function and has not been validated in children and those over 70. Current interpretive data was last reviewed 2021. [address] [address] Blood 03/15/2025 5:13 AM CDT 03/15/2025 6:12 AM CDT Lexii HAYNES LAB BLOOD ORDERABLES Final Resu lt [facility] [address] Department [place] [address] * (ABNORMAL) Basic metabolic panel (03/15/2025 5:13 AM CDT) Sodium 139 135 - 145 mmol/L [facility] Comment:[address] [address] Potassium, pl 3.7 3.3 - 4.9 mmol/L [facility] Comment:[address] [address] Chloride 96(L) 97 - 110 mmol/L [facility] Comment:[address] [address] CO2 36(H) 22 - 32 mmol/L [facility] Comment:[address] [address] Anion gap 7 2 - 15 mmol/L [facility] Comment:[address] [address] BUN 32(H) 6 - 25 mg/dL [facility] Comment:[address] [address] Creatinine 1.29(H) 0.60 - 1.10 mg/dL [facility] Comment:[address] [address] Glucose 101 70 - 199 mg/dL [facility] Comment: Interpretive Data Fasting glucose >/= 126 mg/dl is diagnostic for diabetes. Fasting is defined as no caloric intake for at least 8 hours. Fasting glucose between 100 mg/dl to 125 mg/dl is diagnostic of prediabetes. In a patient with classic symptoms of hyperglycemia or hyperglycemic crisis, a random glucose >/= 200 mg/dl is diagnostic for diabetes. In the absence of unequivocal hyperglycemia, results should be confirmed by repeat testing. The classification and Diagnosis of Diabetes Diabetes Care 202; 46: S19-S40. Current interpretive data was last revised 2022. [facility], [address] [place] [address]., [id number] Calcium 9.0 8.5 - 10.3 mg/dL [place] Comment:[address] [address] Blood 03/15/2025 5:13 AM CDT 03/15/2025 6:12 AM CDT Lexii HAYNES LAB BLOOD ORDERABLES Final Resu lt [facility] [address] Department [place] [address] * Diabetic Eye Exam (02/10/2025) us Historical Provider HEALTH MAINTENANCE Final Result * Albumin Creatinine Ratio, Urine (08/16/2024 3:28 PM CABLE FERRYBOAT OPERATOR) Creatinine, ur 91 20 - 275 mg/dL [facility] Microalbumin, ur 0.4 See Note: mg/dL [facility] Comment: Reference Range: Reference Range Not established Microalbumin/creat ratio 4 <30 mg/g creat [facility] Comment: The ADA defines abnormalities in albumin excretion as follows: Albuminuria Category Result (mg/g creatinine) Normal to Mildly increased <30 Moderately increased 30-299 Severely increased > OR = 300 The ADA recommends that at least two of three specimens collected within a 3-6 month period be abnormal before considering a patient to be within a diagnostic category. Urine 08/16/2024 3:28 PM CABLE FERRYBOAT OPERATOR 08/16/2024 3:28 PM CABLE FERRYBOAT OPERATOR Narrative [facility] - 08/17/2024 6:07 AM CABLE FERRYBOAT OPERATOR FASTING:NO FASTING: NO us Chace Mathews MD LAB URINE ORDERABLES Final Re sult [facility] [address] [place] [address] * SCREENING MAMMOGRAM BILATERAL W MORENO (02/06/2024 7:55 AM CDT) Anatomical Region Laterality Modality Breast Bilateral Mammography Impressions 02/06/2024 8:09 AM CDT BI-RADS ATLAS category (overall): 2 - Benign There is no mammographic evidence of malignancy. A 1 year screening mammogram is recommended. The patient has been or will be contacted. We recommend annual screening mammography for women at average risk of breast cancer beginning at age 40, based on guidelines of the [employer] (ACR Practice Parameter for the Performance of Screening and Diagnostic Mammography) and [employer]. For women with and elevated risk of breast cancer, please refer to the ACR Practice Parameter for specific screening recommendations. The patient will be entered into a reminder system with a target due date of 1 year for her next screening exam. Narrative 02/06/2024 8:09 AM CDT SCREENING MAMMOGRAM BILATERAL W MORENO: 02/06/24 The study was acquired using full field digital technology and interpreted from soft copy. 2D digital mammographic views, as well as 3D digital tomosynthesis were performed in the CC and MLO projections. CLINICAL: Encounter for screening mammogram for malignant neoplasm of breast (Screening mammogram order placed per protocol). No relevant medical history has been documented for this patient. History of breast cancer in Maternal Grandmother, Niece. COMPARISONS: 10/03/2022 SCREENING MAMMOGRAM BILATERAL W MORENO 10/06/2021 Breast Imaging Screening Outside Reference 03/08/2019 Breast Imaging Screening Outside Reference 08/14/2017 Breast Imaging Screening Outside Reference BREAST TISSUE: The breasts are almost entirely fatty. FINDINGS: There are stable post operative changes of reduction mammoplasty in both breasts. There is no new suspicious finding in either breast on mammogram. us Linda Zhao [facility] IMG MAMMO PROCEDURES Final Re sult * COLONOSCOPY (07/15/2022 10:27 AM CABLE FERRYBOAT OPERATOR) Anatomical Region Laterality Modality Other Narrative Procedure Note Socorro Ritter MD - 07/15/2022 10:27 AM CST [facility] GI ENDOSCOPY Patient Name: Sivan Pendleton Procedure Date: 07/15/2022 10:27 AM Date of : 1965 Admit Type: Outpatient Age: 56 Gender: Female Attending MD: Socorro Ritter M.D. Room: [facility] ENDOSCOPY ROOM 05 Note Status: Finalized Procedure: Colonoscopy Indications: Screening for colorectal malignant neoplasm Referring MD: Providers: Socorro Ritter M.D. Medicines: See the Anesthesia note for documentation of the administered medications Complications: No immediate complications. Estimated Blood Loss: Estimated blood loss: none. Procedure: The benefits, risks and alternatives of theprocedure and sedation were discussed and informed consentwas obtained. All questions were answered. Please referto the signed informed consent document in the medical record. The scope was passed under direct vision.The [id number] colonoscope was introduced through theanus and advanced to the cecum, identified byappendiceal orifice and ileocecal valve. The colonoscopy was performed without difficulty. The patient tolerated the procedure well. The quality of the bowel preparation was good. Findings: Multiple medium-mouthed diverticula were found in the left colon. An 8 mm polyp was found in the mid sigmoid colon. The polyp wassessile. The polyp was removed with a cold snare. Resection and retrieval were complete. The exam was otherwise without abnormality. Impression: - Moderate diverticulosis in the left colon. - One 8 mm polyp in the mid sigmoid colon, removed with a cold snare. Resected and retrieved. - The examination was otherwise normal. Recommendation: - Patient has a contact number available for emergencies. The signs and symptoms of potential delayed complications were discussed with thepatient. Return to normal activities tomorrow. Written discharge instructions were provided to thepatient. - Patient has a contact number available for emergencies. The signs and symptoms of potential delayed complications were discussed with thepatient. Return to normal activities tomorrow. Written discharge instructions were provided to thepatient. - Resume previous diet. - Continue present medications. - Await pathology results. - Repeat colonoscopy in 5 years for surveillance. Socorro Ritter M.D. Socorro Ritter M.D. 07/15/2022 10:55:28 AM . 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 Expl anation Power of Magnetic Doctor 07/17/2023 6:47 AM * Full Code (Latest Code Status on File) Date Activated Date Inactivated Comments 02/23/2025 5:40 PM 02/25/2025 3:13 PM * Full Code Date Activated Date Inactivated Comments 02/09/2024 6:29 PM 02/11/2024 12:18 PM * Full Code Date Activated Date Inactivated Comments 07/30/2023 7:52 PM 08/02/2023 6:02 PM * Full Code Date Activated Date Inactivated Comments 07/30/2023 5:55 PM 07/30/2023 7:52 PM * Full Code Date Activated Date Inactivated Comments 07/17/2023 12:35 PM 07/18/2023 9:34 PM Care Teams Senior Marketing Analyst Relationship Specialty Start Date End Date Chace Mathews MD [address] [place] [address] DR MABRY [address] [place] [address] PCP - General Family Medicine 08/08/22 Ruben Waters MD [address] [place] [address] DR MABRY [address] [place] [place] [address] Consulting Physician Pulmonary Disease 07/13/22 Preston Florez MD [address] [place] [address] DR MABRY [address] [place] [address] Consulting Physician Neurosurgery 02/09/24 Porsha Omer PA [address] [place] [address] DR MABRY [address] [place] [address] Orthopedic Surgery 02/21/25
--- OUTSIDE RECORDS SUMMARY | 2025-06-09 13:34 | XMS_ITS ---
Author Organization [facility] - [facility] Care Team Providers Care Press Supervisor Name Role Phone Tez, Regina Unavailable Unavailable Dot, Raheem Unavailable Unavailable Sai Adams Unavailable Allergies and adverse reactions No Known Allergies Care Team Name Role Address Phone Organization Dates Raheem Chris PCP [address], [place], [address], [place] (Office): : [facility] 02/14/2023 - 03/17/2023October Tez [address], [place], [address], [place]Office[place] : [facility] 02/14/2023 - 03/17/2023 Sai Adams [address] [place], [address], [place] (Office): [facility] 02/14/2023 - 03/17/2023 Mental Status Section Date Assessment Total Score Description 03/17/2023 BIMS 15 cognitively int act CAM 0 No delirium ind icated PHQ-9 06 mild depression 02/20/2023 BIMS 15 cognitively int act CAM 0 No delirium ind icated PHQ-9 06 mild depression Insurance Providers Coverage Status Coverage Type Relationship to Subscriber Member Identifier Subscriber Identifier Group Identifier Payer Identifier and Other information Code: Code System OID:[id number] .[id number] 5 Code System Name: Source of Payment Typology (PHDSC) Display: Managed Care (Private) Translation: Code: Code System: OID:[id number] .[id number]. 1336 Code System Name: Insurance Type Code ([id number]) Display Name: Health Maintenance Organization (HMO) Plan Problems Problem # Description Date of onset Resolved Date Code CodeSystem Concern Status 1 ACUTE PULMONARY EDEMA 02/13/[address] active 2 CARDIOMEGALY 02/13/[address] active 3 CHRONIC OBSTRUCTIVE PULMONARY DISEASE, UNSPECIFIED 02/13/[address] active 4 DEPRESSION, UNSPECIFIED 02/13/[address] active 5 DISPLACED BIMALLEOLAR FRACTURE OF RIGHT LOWER LEG, SUBSEQUENT ENCOUNTER FOR CLOSED FRACTURE WITH ROUTINE HEALING 02/13/[address] active 6 ESSENTIAL (PRIMARY) HYPERTENSION 02/13/[address] active 7 FIBROMYALGIA 02/13/[address] acti ve 8 GENERALIZED ANXIETY DISORDER 02/13/[address] active 9 HYPOTHYROIDISM, UNSPECIFIED 02/13/[address] active 10 INTERSTITIAL PULMONARY DISEASE, UNSPECIFIED 02/13/[address] active 11 INTESTINAL BYPASS AND ANASTOMOSIS STATUS 02/13/[address] active 12 MORBID (SEVERE) OBESITY DUE TO EXCESS CALORIES 02/13/[address] active 13 OTHER SEIZURES 02/13/[address] act gonzález 14 PERSONAL HISTORY OF TRANSIENT ISCHEMIC ATTACK (TIA), AND CEREBRAL INFARCTION WITHOUT RESIDUAL DEFICITS 02/13/[address] active 15 TYPE 2 DIABETES MELLITUS WITH DIABETIC CHRONIC KIDNEY DISEASE 02/13/[address] active 16 TYPE 2 DIABETES MELLITUS WITH DIABETIC NEUROPATHY, UNSPECIFIED 02/13/[address] active Reason for Referral No Reasons for Referral Entered Social History Social History Observation Description Start Date End Date Code Code System Current Smoking Status Tobacco smoking consumption unknown 609115392 SNOMED CT Sex Assigned At Female 1965 65859-3 [facility] Gender Identity Sexual Orientation Vital Signs Code Code System Vitals Name Values and Units Timing Information 9279-1 [facility] Respiratory Rate Value=18.0 Units=/m in 03/17/2023 8462-4 [facility] Blood Pressure-Diastolic Value=60 Un its=mmHg 03/17/2023 8480-6 [facility] Blood Pressure-Systolic Bitrs=175 Un its=mmHg 03/17/2023 8310-5 [facility] Body Temperature Value=98.0 Units= F 03/17/2023 8867-4 [facility] Heart rate Value=78.0 Units=/min 02/2023 78542-9 [facility] O2 % dC Oximetry Value=94.0 Units= % 03/17/2023 47186-1 [facility] Pain Level Value=0.0 03/17/2023 2339-0 [facility] Blood Sugar Kjqbr=841.0 Units=mg/dL 03/17/2023 02582-7 [facility] Weight Rjwky=015.0 Units=Lbs 02/2023 8302-2 [facility] Height Value=66.0 Units=Inches 02/14/2023
--- OUTSIDE RECORDS SUMMARY | 2025-06-09 13:34 | XMS_ITS | Encounter Summary ---
Author Organization [facility] Care Team Providers Care Motor Teacher Name Role Phone Chace Mathews MD Primary Care Provider [phone] Chace Mathews MD Primary Care Provider [phone] Ilene Recinos RN Unavailable [phone] Ruben Waters MD Unavailable [phone] Delmy Clarke MD Primary Care Provider [phone] Chace Mathews MD Primary Care Provider [phone] Stephanie Jeronimo LPN Unavailable [phone] Hawa Watkins RN Unavailable Preston Florez MD Unavailable [phone] Porsha Omer Unavailable [phone] Encounter Details Date Type Department Care Team (Latest Contact Info) Description 04/26/2018 Orders Only [facility] Provider, MD Ashlyn [address] [place] [address] Social History Tobacco Use Types Packs/Day Years Used Date Smoking Tobacco: Never Assessed Comments Unknown Sex and Gender Information Value Date Recorded Sex Assigned at Not on file Legal Sex Female 8:01 AM KNUCKLE BENDER Gender Identity Female 05/26/2019 5:59 PM KNUCKLE BENDER Sexual Orientation Straight 05/26/2019 5: 59 PM KNUCKLE BENDER documented as of this encounter Plan of Treatment Not on file documented as of this encounter Procedures Procedure Name Priority Date/Time Associated Diagnosis Comments PROCEDURE - RESULT 04/26/2018 12 :00 AM CDT documented in this encounter Results * PROCEDURE - RESULT (04/26/2018 12:00 AM CDT) Narrative 04/26/2018 12:00 AM CDT Ordered by an unspecified provider. Historical Provider Final Res ult documented in this encounter Visit Diagnoses Not on filedocumented in this encounter Additional Health Concerns Infection Onset Date Last Indicated Resolved Time MRSA Comment:history of MRSA in rt arm 2013; 04/28/2018 04/27/2018 02/24/2021 5:00 AM C DT COVID: Suspected 03/27/2022 03/27/2022 03/27/2022 3:37 PM CDT COVID: Suspected 09/19/2023 09/19/2023 09/19/2023 9:37 AM CDT documented as of this encounter Care Teams Motor Teacher Relationship Specialty Start Date End Date Chace Mathews MD PCP - General 10/08/18 09/21/21 Chace Mathews MD PCP - General Family Medicine 09/22/21 08/01/22 Delmy Clarke MD [address] [facility] [place] [address] PCP - General Family Medicine 08/02/22 08/07/22 Chace Mathews MD [address] [facility] [address] [place] [address] PCP - General Family Medicine 08/08/22 Ilene Recinos RN [address] [place] [address] [address] [place] [address] Wheat Buyer 03/16/22 07/27/22 Ruben Waters MD [address] [facility] [address] [place] [address] Consulting Physician Pulmonary Disease 07/13/22 Stephanie Jeronimo LPN [address] [place] [address] [address] [place] [address] Wheat Buyer 03/21/23 03/22/23 Hawa Watkins, JENNIFER [address] [place] [address] [address] [place] [address] Wheat Buyer 03/27/23 05/01/23 Preston Florez MD [address] [place] [address] [address] [place] [address] Consulting Physician Neurosurgery 02/09/24 Porsha Omer PA [address] [facility] [address] [place] [address] Orthopedic Surgery 02/21/25 documented as of this encounter
--- OUTSIDE RECORDS SUMMARY | 2025-06-09 13:34 | XMS_ITS | Data Portability ---
Author Organization [facility] [employer] [place] Address [address] [place] [address] Care Team Providers Care Configuration Management Specialist Name Role Phone MUKESHDANIELASILVANO Primary Care Provider [phone] Assessment Encounter Date Assessment Date Assessment LastModified by Organization Details LastModified Time 06/22/2021 06/22/2021 Annual gynecological exam performed. Patient will come back in a year unless there are new symptoms. Not available 06/22/2021 13:17:29 Plan of Treatment Reminders Order Date Submit Date Provider Last Modified By Organization Details Last Modified Time Details Appointments None recorded. Lab hsv (1+2) igm, serum 2019 020 [facility] ([facility]), [address] , [facility] [address], [place], [address], 0 14:17:45 hsv (1+2) igg Ab, serum 2019 020 [facility] ([facility]), [address], [place], [address], 0 14:17:44 Referral None recorded. Procedures None recorded. Surgeries None recorded. Imaging None recorded. Medication Orders mupirocin 2 % topical ointment 2021 022 [facility]/Pharmacy #[id number], [address] [facility], [place], [address], 2 14:23:08 Diflucan 200 mg tablet 2021 [id number] [address] [place], [address], 2 14:23:08 Estrace 0.01% (0.1 mg/gram) vaginal cream 2021 [id number] [address] [place], [address], 2 14:24:01 nystatin-t riamcinolo ne 100,000 unit/gram- 0.1 % topical ointment 2020 [id number] [address] [place], [address], 13:43:30 Premarin 0.625 mg/gram vaginal cream 2020 [facility] [address] [place], [address], 13:43:30 Diflucan 200 mg tablet 2019 020 Not available 22:27:32 nystatin-t riamcinolo ne 100,000 unit/gram- 0.1 % topical ointment 2019 020 Not available 13:19:35 Patient TargetsNo targets recorded. Patient Instructions Encounter Date Encounter Id Patient Instructions Last Modified By Organization Details Last Modified Time 04/30/2020 [id number] [email or web address] Not available 15:31:34 Reason for Referral None Reported. Results Created Date Observation Date Name Description Value Unit Range Abnormal Flag Note LastModifiedBy Organization Detail LastModifiedTime 04/30/20 20 05/01/2020 hsv (1+2) igg Ab, serum herpes simplex virus (hsv) antibody type 1, IgG 0.69 index 0.00-0 .89 Not Available [facility] ([facility]) [address] [place] [address] [address], [place], [address], 05/01/2020 14:17:44 04/30/2005/01/2020 hsv (1+2) igg Ab, serum herpes simplex virus (hsv) antibody type 2, IgG 13.30 index 0.00-0 .89 high Not Available [facility] ([facility]) [address] [place] [address] [address], [place], [address], 05/01/2020 14:17:44 04/30/20 20 05/01/2020 hsv (1+2) igm, serum herpes simplex virus (hsv) antibody type 1/2, IgM 0.83 IV 0.00-0 .89 HSV IgM Refer ence Range < 0.90 Negat gonzález 0.90 - 1.09 Equiv ocal = or > 1.1 Posit gonzález The above resul ts were obtai delaney with the Diame geofrfey immun osimp licit y Is-HS V 1 & 2 IgM EIA Test syste m. The magni tude of the measu red resul t, above the cut-o ff, is not indic ative of the total amoun t of antib dionisio prese nt. The magni tude of the repor elio IgM level canno t be corre lated to an end-p oint titer . Not Available [facility] ([facility]) [address] [place] [address] [address], [place], [address], 05/01/2020 14:17:45 04/30/2005/01/2020 hsv (1+2) igg Ab, serum herpes simplex virus (hsv) IgG result note SEE COMMEN T HSV IgG Refer ence Range < 0.9 Index Negat gonzález 0.91 - 1.09 Index Equiv ocal > or = 1.10 Index Posit gonzález Not Available [facility] ([facility]) [address] [place] [address] [address], [place], [address], 05/01/2020 14:17:45 04/30/2005/02/2020 bacte rial vagin osis + vagin itis panel , vagin al trichomonas vaginalis, aptima (panther) NOT DETECT ED normal Trich omona s vagin chito: DNA testi ng perfo rmed by Trans cript ion Media elio Ampli ficat ion (TMA) These resul ts shoul d be inter prete d in light of all clini angelo and labor atory findi ngs. This assay is highl y accur ate, but rare false posit gonzález and negat gonzález resul ts may occur . Posit gonzález resul ts in low preva lence popul ation s may requi re re-ev aluat ion. A negat gonzález resul t does not precl ude a possi ble infec tion due to a speci men inade quacy or sampl ing error . Test perfo rmed by [facility], d/b/a [facility], [address], [place] [address] , Jesus Alexandra ra, DO, Labor atory Direc tor. Zaheer arias a vagin chito, Shawna da speci es: Genom ic DNA is isola elio from patie nt speci mens by stand astrid labor atory techn iques and tomas zed using custo m OpenA rray plate s, perfo rmed on the Quant Studi o 12K Flex Real Time PCR syste m. A posit gonzález resul t is provi ded for patho genic bacte halie, virus and/o r funga l speci es based on detec tion of ampli ficat ion produ cts. Robyn l vagin al montse resul ts of Robyn l or Edmore elio are deter mined by calcu latin g the ratio of the organ ism to the total bacte halie prese nt in the speci men, and matthew ring that ratio to a PathG roup patie nt popul ation . Overa ll resul ts of Robyn l, Borde rline and Abnor mal are deter mined using a proba bilit y model which was devel oped by an exten sive tomas sis and integ ratio n of clini angelo thres holds for marke r organ isms on a large set of sympt omati c & asymp tomat ic speci mens. Patie nt popul ation s with diffe rent demog raphi cs from the Path rou model popul ation may have diffe rent indic ator organ isms with diffe rent relat gonzález ratio s, which would influ ence the final resul ts. Resul ts shoul d be inter prete d in the karen xt of all clini angelo and labor atory findi ngs. The test was devel oped and its perfo rmanc e barbara cteri stics deter mined by [facility] [employer], [email or web address] d/b/a [facility]. It has not been clear ed or appro madelyn by the U.S. Food and Drug Admin istra tion. The FDA has deter mined that such clear ance or appro cr is not neces michaela. Perti nent refer ence inter vals are avail able from the [facility] on reque st. Test( s) perfo rmed by AssVisualant iatCapitaine Train Patho logis [employer], [email or web address], d/b/a [facility], [address], [place] [address] , Jesus Alexandra ra, DO, Labor ator Dire tor. Not Available [facility] ([facility]) [address] [facility] [address], [place], [address], 05/05/2020 19:05:38 04/30/20 20 05/05/2020 bacte rial vagin osis + vagin itis panel , vagin al evens sp. Not Detect ed normal Trich omona s vagin chito: DNA testi ng perfo rmed by Trans cript ion Media elio Ampli ficat ion (TMA) These resul ts shoul d be inter prete d in light of all clini angelo and labor atory findi ngs. This assay is highl y accur ate, but rare false posit gonzález and negat gonzález resul ts may occur . Posit gonzález resul ts in low preva lence popul ation s may requi re re-ev aluat ion. A negat gonzález resul t does not precl ude a possi ble infec tion due to a speci men inade quacy or sampl ing error . Test perfo rmed by [facility], d/b/a Path[facility]immie richter, [address], [place] [address] , Jesus Alexandra ra, DO, Labor atory Direc tor. Gardn erell a vagin chito, Shawna da speci es: Genom ic DNA is isola elio from patie nt speci mens by stand astrid labor atory techn iques and tomas zed using custo m OpenA rray plate s, perfo rmed on the whoactuallyi o 12K Flex Real Time PCR syste m. A posit gonzález resul t is provi ded for patho genic bacte halie, virus and/o r funga l speci es based on detec tion of ampli ficat ion produ cts. Robyn l vagin al montse resul ts of Robyn l or Edmore elio are deter mined by calcu latin g the ratio of the organ ism to the total bacte halie prese nt in the speci men, and matthew ring that ratio to a PathG roup patie nt popul ation . Overa ll resul ts of Robyn l, Borde rline and Abnor mal are deter mined using a proba bilit y model which was devel oped by an exten sive tomas sis and integ ratio n of clini angelo thres holds for marke r organ isms on a large set of sympt omati c & asymp tomat ic speci mens. Patie nt popul ation s with diffe rent demog raphi cs from the PathG roup model popul ation may have diffe rent indic ator organ isms with diffe rent relat gonzález ratio s, which would influ ence the final resul ts. Resul ts shoul d be inter prete d in the karen xt of all clini angelo and labor atory findi ngs. The test was devel oped and its perfo rmanc e barbara cteri stics deter mined by [facility] d/b/a [facility] rouodilia. It has not been clear ed or appro madelyn by the U.S. Food and Drug Admin istra tion. The FDA has deter mined that such clear ance or appro rc is not neces michaela. Perti neazul refer ence inter vals are avail able from the labor atory on reque st. Test( s) perfo rmed by AssVisualant iatBrainMass, [email or web address], d/b/a Path roup, [address], [place] [address] , Jesus Alexandra ra, , Labor atory Direc tor. Not Available [facility] ([facility]) [address], [place], [address], 05/05/2020 19:05:38 04/30/20 20 05/05/2020 bacte rial vagin osis + vagin itis panel , vagin al gardnerella vaginalis Not Detect ed normal Trich omona s vagin chito: DNA testi ng perfo rmed by Trans cript ion Media elio Ampli ficat ion (TMA) These resul ts shoul d be inter prete d in light of all clini angelo and labor atory findi ngs. This assay is highl y accur ate, but rare false posit gonzález and negat gonzález resul ts may occur . Posit gonzález resul ts in low preva lence popul ation s may requi re re-ev aluat ion. A negat gonzález resul t does not precl ude a possi ble infec tion due to a speci men inade quacy or sampl ing error . Test perfo rmed by [employer]The [employer], [email or web address], d/b/a PathG roup, [address], [place] [address] , Jesus Alexandra ra, , Labor atory Direc tor. Gardn erell a vagin chito, Shawna da speci es: Genom ic DNA is isola elio from patie nt speci mens by stand astrid labor atory techn iques and tomas zed using custo m OpenA rray plate s, perfo rmed on the Quant Studi o 12K Flex Real Time PCR syste m. A posit gonzález resul t is provi ded for patho genic bacte halie, virus and/o r funga l speci es based on detec tion of ampli ficat ion produ cts. Robyn l vagin al montse resul ts of Robyn l or Edmore elio are deter mined by calcu latin g the ratio of the organ ism to the total bacte halie prese nt in the speci men, and matthew ring that ratio to a PathG roup patie nt popul ation . Overa ll resul ts of Robyn l, Borde rline and Abnor mal are deter mined using a proba bilit y model which was devel oped by an exten sive tomas sis and integ ratio n of clini angelo thres holds for marke r organ isms on a large set of sympt omati c & asymp tomat ic speci mens. Patie nt popul ation s with diffe rent demog raphi cs from the PathG roup model popul ation may have diffe rent indic ator organ isms with diffe rent relat gonzález ratio s, which would influ ence the final resul ts. Resul ts shoul d be inter prete d in the karen xt of all clini angelo and labor atory findi ngs. The test was devel oped and its perfo rmanc e barbara cteri stics deter mined by [employer], [email or web address] d/b/a PathG roup. It has not been clear ed or appro madelyn by the U.S. Food and Drug Admin istra tion. The FDA has deter mined that such clear ance or appro rc is not neces michaela. Perti nent refer ence inter vals are avail able from the labor atory on reque st. Test( s) perfo rmed by [employer]uro[employer]age [employer] Patho [employer], [email or web address], d/b/a PathG roup, [address], [place] [address] , Jesus Alexandra ra, DO, Labor atory Direc tor. Not Available [facility] ([facility]) [address], [place], [address], 05/05/2020 19:05:38 04/30/20 20 05/02/2020 HSV (1+2) DNA, qual, PCR, unspe cifie d speci men herpes simplex virus type 1 DNA NOT DETECT ED normal The Aptim a HSV 1 & 2 assay is inten ded for use as an aid in the diagn osis of HSV-1 and/o r HSV-2 infec tions in sympt omati c male and femal e patie nts and is indic ated for use on the Pant er syste m. It is a real time trans cript ion-m ediat ed ampli ficat ion (TMA) , for the quali tativ e detec tion and diffe renti ation of herpe s simpl ex virus type 1 (HSV- 1) and type 2 (HSV- 2) messe nger RNA (mRNA ) and appro madelyn for clini francisco- colle cted swab speci mens from anoge nital skin lesio ns. Perfo rmanc e barbara cteri stics of this assay in Urine and ThinP rep was deter mined by [facility], [email or web address] d/b/a Cristin richter. A negat gonzález resul t does not exclu de the possi bilit y of infec tion, since very low level s of infec tion and sampl ing varia bilit y may cause a false negat gonzález resul t. This test is highl y sensi tive and speci fic, but rare false posit gonzález and false negat gonzález resul ts may occur . Resul ts of this test shoul d be inter prete d in conju nctio n with clini angelo and labor atory findi ngs. This test is used for clini angelo purpo ses. It shoul d not be regar ded as inves tigat ional or for resea [facility]. This labor atory is certi fied under the Clini angelo Labor atory Impro vemen t Amend ments of 1987 (CLIA ) as quali fied to perfo rm high compl exity clini angelo labor atory testi ng. Test perfo rmed by [facility], d/b/a Cristin richter, [address], [place] [address] , Jesus Alexandra ra, DO, Labor atory Dire tor. Not Available [facility] ([facility]) [address], [place], [address], 05/05/2020 19:05:38 04/30/20 20 05/02/2020 HSV (1+2) DNA, qual, PCR, unspe cifie d speci men herpes simplex virus type 2 DNA NOT DETECT ED normal The Aptim a HSV 1 & 2 assay is inten ded for use as an aid in the diagn osis of HSV-1 and/o r HSV-2 infec tions in sympt omati c male and femal e patie nts and is indic ated for use on the Pant er syste m. It is a real time trans cript ion-m ediat ed ampli ficat ion (TMA) , for the quali tativ e detec tion and diffe renti ation of herpe s simpl ex virus type 1 (HSV- 1) and type 2 (HSV- 2) messe nger RNA (mRNA ) and appro madelyn for clini francisco- colle cted swab speci mens from anoge nital skin lesio ns. Perfo rmanc e barbara cteri stics of this assay in Urine and ThinP rep was deter mined by [facility] d/b/a Cristin richter. A negat gonzález resul t does not exclu de the possi bilit y of infec tion, since very low level s of infec tion and sampl ing varia bilit y may cause a false negat gonzález resul t. This test is highl y sensi tive and speci fic, but rare false posit gonzález and false negat gonzález resul ts may occur . Resul ts of this test shoul d be inter prete d in conju nctio n with clini angelo and labor atory findi ngs. This test is used for clini angelo purpo ses. It shoul d not be regar ded as inves tigat ional or for resea rch. This labor atory is certi fied under the Clini angelo Labor atory Impro vemen t Amend ments of 1987 (CLIA ) as quali fied to perfo rm high compl exity clini angelo labor atory testi ng. Test perfo rmed by [facility] [employer], [email or web address], d/b/a Path roup, [address], [place] [address] , Jesus Alexandra ra, , Labor atory Direc tor. Not Available [facility] ([facility]) [address], [place], [address], 05/05/2020 19:05:38 05/05/20 20 05/06/2020 bacte rial vagin osis + vagin itis panel , vagin al evens sp. Not Detect ed normal Trich omona s vagin chito: DNA testi ng perfo rmed by Trans cript ion Media elio Ampli ficat ion (TMA) These resul ts shoul d be inter prete d in light of all clini angelo and labor atory findi ngs. This assay is highl y accur ate, but rare false posit gonzález and negat gonzález resul ts may occur . Posit gonzález resul ts in low preva lence popul ation s may requi re re-ev aluat ion. A negat gonzález resul t does not precl ude a possi ble infec tion due to a speci men inade quacy or sampl ing error . Test perfo rmed by [facility] logis [employer], [email or web address], d/b/a PathG roup, [address], [place] [address] , Jesus Alexandra ra, , Labor atory Direc tor. Zaheer dale, Shawna da speci es: Genom ic DNA is isola elio from patie nt speci mens by stand astrid labor atory techn iques and tomas zed using custo m OpenA rray plate s, perfo rmed on the whoactuallyi o Giferent Real Time PCR syste m. A posit gonzález resul t is provi ded for patho genic bacte halie, virus and/o r funga l speci es based on detec tion of ampli ficat ion produ cts. Robyn l vagin al montse resul ts of Robyn l or Edmore elio are deter mined by calcu latin g the ratio of the organ ism to the total bacte halie prese nt in the speci men, and matthew ring that ratio to a PathG roup patie nt popul ation . Overa ll resul ts of Robyn l, Borde rline and Abnor mal are deter mined using a proba bilit y model which was devel oped by an exten sive tomas sis and integ ratio n of clini angelo thres holds for marke r organ isms on a large set of sympt omati c & asymp tomat ic speci mens. Patie nt popul ation s with diffe rent demog raphi cs from the PathG roup model popul ation may have diffe rent indic ator organ isms with diffe rent relat gonzález ratio s, which would influ ence the final resul ts. Resul ts shoul d be inter prete d in the karen xt of all clini angelo and labor atory findi ngs. The test was devel oped and its perfo rmanc e barbara cteri stics deter mined by [employer], [email or web address] d/b/a PathG [employer]. It has not been clear ed or appro madelyn by the U.S. Food and Drug Admin istra tion. The FDA has deter mined that such clear ance or appro rc is not neces michaela. Perti nent refer ence inter vals are avail able from the labor atory on reque st. Test( s) perfo rmed by [employer] Patho [employer], [email or web address], d/b/a PathG rou, [address], [place] [address] , Jesus Alexandra ra, DO, Labor atory Direc tor. Not Available [facility] ([facility]) [address], [place], [address], 05/07/2020 08:21:42 05/05/20 20 05/06/2020 bacte rial vagin osis + vagin itis panel , vagin al gardnerella vaginalis Not Detect ed normal Trich omona s vagin chito: DNA testi ng perfo rmed by Trans cript ion Media elio Ampli ficat ion (TMA) These resul ts shoul d be inter prete d in light of all clini angelo and labor atory findi ngs. This assay is highl y accur ate, but rare false posit gonzález and negat gonzález resul ts may occur . Posit gonzález resul ts in low preva lence popul ation s may requi re re-ev aluat ion. A negat gonzález resul t does not precl ude a possi ble infec tion due to a speci men inade quacy or sampl ing error . Test perfo rmed by [facility] log[facility] ts, [facility], d/b/a PathG rouodilia, [address], [place] [address] , Jesus Alexandra ra, DO, Labor atory Direc tor. Gardn erell a vagin chito, Shawna da speci es: Genom ic DNA is isola elio from patie nt speci mens by stand astrid labor atory techn iques and tomas zed using custo m OpenA rray plate s, perfo rmed on the Quant Studi o 12K Flex Real Time PCR syste m. A posit gonzález resul t is provi ded for patho genic bacte halie, virus and/o r funga l speci es based on detec tion of ampli ficat ion produ cts. Robyn l vagin al montse resul ts of Robyn l or Edmore elio are deter mined by calcu latin g the ratio of the organ ism to the total bacte halie prese nt in the speci men, and matthew ring that ratio to a PathG roup patie nt popul ation . Overa ll resul ts of Robyn l, Borde rline and Abnor mal are deter mined using a proba bilit y model which was devel oped by an exten sive tomas sis and integ ratio n of clini angelo thres holds for marke r organ isms on a large set of sympt omati c & asymp tomat ic speci mens. Patie nt popul ation s with diffe rent demog raphi cs from the PathG rou model popul ation may have diffe rent indic ator organ isms with diffe rent relat gonzález ratio s, which would influ ence the final resul ts. Resul ts shoul d be inter prete d in the karen xt of all clini angelo and labor atory findi ngs. The test was devel oped and its perfo rmanc e barbara cteri stics deter mined by [facility] [facility] log[facility] [employer], [email or web address] d/b/a Path [employer] ([employer]). It has not been clear ed or appro madelyn by the U.S. Food and Drug Admin istra tion. The FDA has deter mined that such clear ance or appro rc is not neces michaela. Perti nent refer ence inter vals are avail able from the [employer] [facility] on reque st. Test( s) perfo rmed by Assoc iatCapitaine Train Patho logis [employer], [email or web address], d/b/a [employer], [address], [place] [address] , Jesus Alexandra ra, DO, [facility] ator Dire tor. Not Available [facility] ([facility]) [address], [place], [address], 05/07/2020 08:21:42 05/05/20 20 05/07/2020 bacte rial vagin osis + vagin itis panel , vagin al trichomonas vaginalis, aptima (panther) NOT DETECT ED normal Trich omona s vagin chito: DNA testi ng perfo rmed by Trans cript ion Media elio Ampli ficat ion (TMA) These resul ts shoul d be inter prete d in light of all clini angelo and labor atory findi ngs. This assay is highl y accur ate, but rare false posit gonzález and negat gonzález resul ts may occur . Posit gonzález resul ts in low preva lence popul ation s may requi re re-ev aluat ion. A negat gonzález resul t does not precl ude a possi ble infec tion due to a speci men inade quacy or sampl ing error . Test perfo rmed by [facility], d/b/a PathG roup, [address], [place] [address] , Jesus Alexandra ra, DO, Labor atory Direc tor. Gardn erell a vagin chito, Shawna da speci es: Genom ic DNA is isola elio from patie nt speci mens by stand astrid labor atory techn iques and tomas zed using custo m OpenA rray plate s, perfo rmed on the Quant Studi o 12K Flex Real Time PCR syste m. A posit gonzález resul t is provi ded for patho genic bacte halie, virus and/o r funga l speci es based on detec tion of ampli ficat ion produ cts. Robyn l vagin al montse resul ts of Robyn l or Edmore elio are deter mined by calcu latin g the ratio of the organ ism to the total bacte halie prese nt in the speci men, and matthew ring that ratio to a PathG roup patie nt popul ation . Overa ll resul ts of Robyn l, Borde rline and Abnor mal are deter mined using a proba bilit y model which was devel oped by an exten sive tomas sis and integ ratio n of clini angelo thres holds for marke r organ isms on a large set of sympt omati c & asymp tomat ic speci mens. Patie nt popul ation s with diffe rent demog raphi cs from the PathG roup model popul ation may have diffe rent indic ator organ isms with diffe rent relat gonzález ratio s, which would influ ence the final resul ts. Resul ts shoul d be inter prete d in the karen xt of all clini angelo and labor atory findi ngs. The test was devel oped and its perfo rmanc e barbara cteri stics deter mined by [facility], [email or web address] d/b/a [facility]. It has not been clear ed or appro madelyn by the U.S. Food and Drug Admin istra tion. The FDA has deter mined that such clear ance or appro rc is not neces michaela. Perti nent refer ence inter vals are avail able from the labor atory on reque st. Test( s) perfo rmed by [facility] [employer], d/b/a [facility], [address], [place] [address] , Jesus Alexandra ra, DO, Labor atory Direc tor. Not Available [facility] ([facility]) [address], [place], [address], 05/07/2020 08:21:42 05/05/20 20 05/07/2020 surgi angelo patho logy study surgical pathology View Report ACCES NATALIA #: [id number] Patie nt Name: TYRYLIE DEVAN WU Ordoñez Age-S ex-DO B: 54y F [birth year] Proce dure Date: 05/05 Acces natalia Date: 05/06 Pt Acct# : Repor t Date: 05/07 Locat ion: OFFIC E Physi francisco( s): Dmitry tin Fried bertrand P A T H O L O G Y R E P O R T DIAGN OSIS: Vulva , biops y: Nondi agnos tic speci men consi sting of super ficia l fragm ents of hyper kerat otic/ parak erato tic debri s. No epide rmis or dermi s prese nt for silvia Hernandez M.D. elect yee kay 05/07 04:13 PM Gross Descr iptio n: Recei madelyn in forma veronica label ed Wu richardson, vulva r biops y are 0.5 mL of pale gonzales-g ray granu lar gritt y curet tings . Entir jennifer submi tted, M/1. 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 symptomsFor breast, patient reportsno breast lump,no nipple discharge, andno breast pain.Psychological symptomsFor sexual complaints, patient reportsno sexual complaints. For psychological symptoms, patient reportsno depressionandno anxiety.Preventative measuresFor preventive measures, patient reportsencourage regular mammograms starting age 40,encourage self breast examination,encourage regular exercise,encourage no tobacco use,needs to schedule mammogram, andhistory of recent colonoscopy(dexa 2020 pcp managed). Shira Alanis [facility] [address], [place], [address], [facility] 06/22/2021 13:46:24 2 text/html ROS as noted in the HPI Here today for vulvar check. Shira Alanis [facility] [address], [place], [address], [facility] 08/24/2021 14:28:08 OBGyn Episode No OBEpisode recorded.
--- OUTSIDE RECORDS SUMMARY | 2025-06-09 13:34 | XMS_ITS | Encounter Summary ---
Author Organization [employer]/[facility] Facility Care Team Providers Care Application Software Developer Name Role Phone Chace Mathews MD Primary Care Provider [phone] Chace Mathews MD Primary Care Provider [phone] Ilene Recinos RN Unavailable [phone] Ruben Waters MD Unavailable [phone] Delmy Clarke MD Primary Care Provider [phone] Chace Mathews MD Primary Care Provider [phone] Stephanie Jeronimo LPN Unavailable [phone] Hawa Watkins RN Unavailable Preston Florez MD Unavailable [phone] Porsha Omer Unavailable [phone] Encounter Details Date Type Department Care Team (Latest Contact Info) Description 09/12/2018 Orders Only [facility] CLINCONV Provider, MD Ashlyn [address] [place] [id number] Social History Tobacco Use Types Packs/Day Years Used Date Smoking Tobacco: Never Assessed Comments Unknown Sex and Gender Information Value Date Recorded Sex Assigned at Not on file Legal Sex Female 8:01 AM HEAD OF SALES Gender Identity Female 05/26/2019 5:59 PM HEAD OF SALES Sexual Orientation Straight 05/26/2019 5: 59 PM HEAD OF SALES documented as of this encounter Functional Status documented as of this encounter Plan of Treatment Not on file documented as of this encounter Procedures Procedure Name Priority Date/Time Associated Diagnosis Comments PROCEDURE - RESULT 09/12/2018 12 :00 AM HEAD OF SALES documented in this encounter Results * PROCEDURE - RESULT (09/12/2018 12:00 AM HEAD OF SALES) Narrative 09/12/2018 12:00 AM HEAD OF SALES Ordered by an unspecified provider. Historical Provider [...] documented as of this encounter Care Teams Application Software Developer Relationship Specialty Start Date End Date Chace Mathews MD PCP - General 10/08/18 09/21/21 Chace Mathews MD PCP - General Family Medicine 09/22/21 08/01/22 Delmy Clarke MD [address] [place] [address] PCP - General Family Medicine 08/02/22 08/07/22 Chace Mathews MD [address] [place] [address] PCP - General Family Medicine 08/08/22 Ilene Recinos RN [address] [place] [address] [address] [place] [address] Date Pitter 03/16/22 07/27/22 Ruben Waters MD [address] [facility] [place] [address] Consulting Physician Pulmonary Disease 07/13/22 Stephanie Jeronimo LPN [address] [place] [address] [address] [place] [address] Date Pitter 03/21/23 03/22/23 Hawa Watkins, JENNIFER [address] [place] [address] [address] [place] [address] Date Pitter 03/27/23 05/01/23 Preston Florez MD [address] [place] [address] [address] [place] [address] Consulting Physician Neurosurgery 02/09/24 Porsha Omer PA [address] [facility] [facility] [address] [place] [address] Orthopedic Surgery 02/21/25 documented as of this encounter
--- OUTSIDE RECORDS SUMMARY | 2025-06-09 13:34 | XMS_ITS | Clinical Summary ---
Author Organization [facility] Address [facility] [place] [address] Care Team Providers Care Field Collector Name Role Phone Raheem Chris MD Primary Care Provider [phone] Social History Tobacco Use Types Packs/Day Years Used Date Smoking Tobacco: Never Assessed Comments Unknown Sex and Gender Information Value Date Recorded Sex Assigned at Not on file Legal Sex Female 7:11 PM CDT Gender Identity Not on file Sexual Orientation Not on file Last Filed Vital Signs Vital Sign Reading Time Taken Comments Blood Pressure 120/82 04/06/2017 3:26 PM CDT Pulse 91 04/06/2017 3:26 PM CDT Temperature - - Respiratory Rate - - Oxygen Saturation - - Inhaled Oxygen Concentration - - Weight 144.8 kg (319 lb 2.1 oz) 04/06/2017 3:26 PM CDT Height 167.6 cm (5' 6) 04/06/2017 3:26 PM CDT Body Mass Index 51.51 04/06/2017 3:26 PM CDT Plan of Treatment Health Maintenance Due Date Last Done Comments Cervical Cancer Screening Pap Smear (Age 30 to 64) Every 3 Years 1963 Colorectal Cancer Screening Colonoscopy (10 Years) 1963 Annual Physical 1966 Hepatitis C 1981 Cervical Cancer Screening Pap with HPV Testing (Age 30 to 64) Every 5 Years 1993 Cervical Cancer Screening with HPV 1993 COVID-19 Vaccine ( season) 2025 05/07/2024, 05/20/2023, 01/27/2022, Additional history exists Influenza Adult (#1) 2025 04/18/2024, 08/10/2023, 04/20/2023, Additional history exists Mammogram Screening 02/05/2026 02/06/2024 DTaP, Tdap and Td Vaccines (3 - Td or Tdap) 11/22/2031 11/21/2021, 01/06/2017 Zoster Vaccines Completed 01/23/2023, 09/08, 03/27/2020 Pneumococcal Vaccine: 50+ Years Completed 05/20/2023, 05/07/2014 RSV Immunization or 60+ Years Completed 08/15/2023 Hepatitis A Vaccines Aged Out No long er eligible based on patient's age to complete this topic Meningococcal B Vaccine Aged Out No l onger eligible based on patient's age to complete this topic Meningococcal Vaccine Aged Out No radha katelin eligible based on patient's age to complete this topic RSV Immunizations Under 20 Months Aged Out No longer eligible based on patient's age to complete this topic Insurance [facility] MEDICAID Care Teams Field Collector Relationship Specialty Start Date End Date Raheem Chris MD [address] [place] [address] PCP - General INTERNAL MEDICINE 02/21/23
--- OUTSIDE RECORDS SUMMARY | 2025-06-09 13:34 | XMS_ITS | Clinical Summary ---
Author Organization [facility] Address [address] [place] [phone] Phone Care Team Providers Care Hide Buyer Name Role Phone Cory Max MD Primary Care Provide r Active Problems Problem Noted Date Diagnosed Date Chronic pain syndrome 11/24/2017 Somatic symptom disorder, pe rsistent, severe, with predominant pain 11/24/2017 Social History Tobacco Use Types Packs/Day Years Used Date Smoking Tobacco: Never Assessed Comments Unknown Sex and Gender Information Value Date Recorded Sex Assigned at Not on file Legal Sex Female 10:22 PM CDT Gender Identity Not on file Sexual Orientation Not on file Plan of Treatment Health Maintenance Due Date Last Done Comments Hepatitis C Virus (HCV) Screening 1965 TdaP Immunization 1963 Pap Smear 1984 Cervical Cancer Screening (CCS) 1993 HPV/Cotest 1993 Cologuard 2008 Colonoscopy 2008 Colorectal Cancer Screening 2008 Immunochemical Fecal Occult Blood 2008 Pneumococcal Immunization (50+ years) (1 of 1 - PCV) 2013 Zoster Immunization (1 of 2) 2013 Influenza Immunization (#1) 03/10/202505/10, 07/18/2016, 04/21/2015, Additional history exists SARS-COV-2 Immunization ( season) 2025 04/23/2021, 10/12/2020, 09/21/2020 Respiratory Syncytial Virus (RSV) Immunization (Adult) (1 - 1-dose 75+ series) 2038 DTaP/Tdap/Td Immunization Discontinued 01/06/2017 Hepatitis B Immunization Aged Out No longer eligible based on patient's age to complete this topic Human Papillomavirus (HPV) Immunization Aged Out No longer eligible based on patient's age to complete this topic Meningococcal Immunization (ACWY) Aged Out No longer eligible based on patient's age to complete this topic Rotavirus Immunization Aged Out No lo nger eligible based on patient's age to complete this topic Insurance MEDICARE C [employer] Care Teams Hide Buyer Relationship Specialty Start Date End Date Cory Max MD [address] [place] [address] [address] [place] [address] PCP - General Family Medicine 11/13/17
--- OUTSIDE RECORDS SUMMARY | 2025-06-09 13:34 | XMS_ITS | Clinical Summary ---
Author Organization [facility] Address [address] [place] [address] Care Team Providers Care Front End Alignment Specialist Name Role Phone Chace Mathews MD Primary Care Provider [phone] Source Comments [facility],non-owned Affiliates and Associated Physician Practices is amultiple site organization consisting of ambulatory clinics and hospital sitesin [place], [place], [place] and [place]. This disclosure is being madepursuant to the Care Everywhere program and may not contain all information available regarding this patient. Last updated 18.[facility] Allergies No known active allergies Medications * This document contains information received from the source organization and may not represent a complete record from that organization. * Be aware that medications may not be up to date on this document. Alwaysverify current medications with the patient. timolol gel-forming (TIMOPTIC-XE) 0.5 % ophthalmic gel-forming Instill 1 (one) drop into both eyes once daily Active latanoprost (XALATAN) 0.005 % ophthalmic solution Instill 1 (one) drop into both eyes at bedtime Active atorvastatin (LIPITOR) 20 MG tablet 08/14/19 18 Active celecoxib (CELEBREX) 200 MG capsule 10/14/19 18 Active furosemide (LASIX) 40 MG tablet 11/03/19 18 Active LISA CONTOUR NEXT TEST test strip 09/18/19 18 Active PHARMACIST CHOICE LANCETS MISC 09/18/19 18 Active levothyroxine (SYNTHROID) 175 MCG tablet Take 200 mcg by mouth daily before breakfast 09/26/19 18 Active spironolactone (ALDACTONE) 25 MG tablet 11/03/19 18 Active tiZANidine (ZANAFLEX) 4 MG tablet 11/12/19 19 Active aspirin (ASPIRIN) 81 MG chew tablet Take 1 (one) tablet by mouth once daily Active vitamin D, ergocalciferol , (Drisdol) 1.25 MG (09529 UT) capsule TAKE 1 CAPSULE BY MOUTH ONE TIME PER WEEK 03/23/20 22 Active albuterol HFA (Proventil; Ventolin; Proair) 108 (90 Base) MCG/ACT inhaler Inhale 2 (two) puffs by mouth every 4 hours as needed 05/18/20 22 Active empagliflozin (Jardiance) 25 MG tablet Take 1 (one) tablet by mouth once daily 06/21/20 22 Active eszopiclone (Lunesta) 3 MG tablet Take 1 (one) tablet by mouth at bedtime 05/18/20 22 Active ferrous sulfate 325 (65 FE) MG tablet Take 1 (one) tablet by mouth daily with breakfast 04/28/20 22 Active Breo Ellipta 100-25 MCG/ACT inhaler INHALE 1 PUFF DAILY RINSE MOUTH WITH WATER AFTER USE. DO NOT SWALLOW. 07/14/19 23 Active metFORMIN ER 24hr (Glucophage XR) 500 MG tablet Take 1 (one) tablet by mouth daily with breakfast 07/06/20 22 Active omeprazole (PriLOSEC) 40 MG capsule Take 1 (one) capsule by mouth once daily 07/06/20 22 Active ramipril (Altace) 10 MG capsule Take 1 (one) capsule by mouth once daily 07/07/20 22 Active rOPINIRole (Requip) 0.5 MG tablet Take 3 (three) tablets by mouth once daily 07/06/20 22 Active amitriptyline (Elavil) 10 MG tablet Take 1 (one) tablet by mouth at bedtime Active QUEtiapine (SEROquel) 25 MG tablet Take 1 (one) tablet by mouth Every morning and lunchtime 90 tablet 2 02/18/20 25 Active prazosin (Minipress) 2 MG capsule Take 1 (one) capsule by mouth at bedtime 30 capsule 05/19/20 25 025 Active prazosin (Minipress) 2 MG capsule Take 1 (one) capsule by mouth at bedtime 30 capsule 2 05/19/20 25 Active propranolol (Inderal) 10 MG tablet Take 1 (one) tablet by mouth 2 times daily as needed 60 tablet 05/19/20 25 026 Active mirtazapine (Remeron) 45 MG tablet Take 1 (one) tablet by mouth at bedtime 30 tablet 2 06/04/20 25 Active QUEtiapine XR 24hr (SEROquel XR) 50 MG tablet Take 1 (one) tablet by mouth at bedtime 30 tablet 2 06/04/20 25 Active busPIRone (Buspar) 10 MG tablet Take 2 (two) tablets by mouth 3 times daily 180 tablet 2 06/04/20 25 Active sertraline (Zoloft) 100 MG tabletIndicati ons:Generalize d anxiety disorder Take 2 (two) tablets by mouth once daily 60 tablet 2 06/04/20 25 Active prazosin (Minipress) 1 MG capsule TAKE 1 CAPSULE BY MOUTH AT BEDTIME WITH 2MG DOSE (3MG TOTAL) 30 capsule 2 12/18/19 25 025 Discontinued(Do se Adjustment) prazosin (Minipress) 2 MG capsule TAKE 1 CAPSULE BY MOUTH AT BEDTIME 30 capsule 2 12/18/19 25 025 Discontinued(Re order) QUEtiapine XR 24hr (SEROquel XR) 50 MG tablet Take 1 (one) tablet by mouth at bedtime 30 tablet 2 02/14/20 25 025 Discontinued(Re order) mirtazapine (Remeron) 45 MG tablet Take 1 (one) tablet by mouth at bedtime 30 tablet 2 02/21/20 25 025 Discontinued(Re order) sertraline (Zoloft) 100 MG tabletIndicati ons:Generalize d anxiety disorder Take 2 (two) tablets by mouth once daily 60 tablet 2 02/21/20 25 025 Discontinued(Re order) busPIRone (Buspar) 10 MG tablet Take 2 (two) tablets by mouth 3 times daily 180 tablet 2 02/21/20 25 025 Discontinued(Re order) propranolol (Inderal) 10 MG tablet TAKE 1 TABLET BY MOUTH THREE TIMES A DAY NEEDED FOR ANXIETY 90 tablet 2 04/14/20 25 025 Discontinued Active Problems Problem Noted Date Diagnosed Date Alcohol dependence in remission 05/31/2024 Diabetes mellitus with coincident hypertension 0 07/21/2022 Sleep apnea 11/29/2018 Chronic pain disorder 11/24/2017 Morbid obesity 07/31/2017 Overview (05/10/2019): chronic Posttraumatic stress disorder 2016 Major depressive disorder in full remission 08/11 Osteoarthrosis 05/16/2011 Hypothyroidism 05/16/2011 HTN (hypertension) 05/16/2011 Resolved Problems Problem Noted Date Diagnosed Date Resolved Date Panic disorder 04/02/2018 12/17/2019 Other and unspecified reactive psychosis 07/07/2016 11/13/2017 Immunizations Immunization Administration Dates Next Due Axceler primary monoval ent 12+ yr 0.3mL Purple cap 10/12/2020,09/21/2020 DTAP 5 PERTUSSIS ANTIGENS 01/06/2017 FLU VACCINE TRI IIV3 SPLIT P F IM (FLUVIRIN) 04/21/2015 INFLUENZA VACCINE 04/09/2018,04/08/2011 INFLUENZA VACCINE, CELL CULT URE, QUADR. (FLUCELVAX QUADRIVALENT; 6MO+) (CCIIV4) 04/08/2019 INFLUENZA VACCINE, CELL CULT URE, TRIV. (FLUCELVAX TRIVALENT; 6MO+), 0.5 ML (CCIIV3) 04/08/2019 INFLUENZA VACCINE, QUADR. (F LUZONE; FLULAVAL; FLUARIX; AFLURIA QUADRIVALENT; 6MO+), 0.5 ML (IIV4) 03/27/2020,04/14/2018,05/19/2017,2016,04/25/2014 Zoster Hzv Vacc Recombinant Inj Im 03/27/2020 Social History Tobacco Use Types Packs/Day Years Used Date Smoking Tobacco: Former Cigarettes 0 Q uit: 1997 Smokeless Tobacco: Never Tobacco Cessation:Counseling Given: Not Answered Comments:sedated from ativan Alcohol Use Standard Drinks/Week Comments No 0 (1 standard drink = 0.6 oz pur e alcohol) PHQ-2 Answer Date Recorded Patient Health Questionnaire-2 Score 1 05/19/2025 Comments Unknown Sex and Gender Information Value Date Recorded Sex Assigned at Female 06/21/2021 10:18 PM YOKER MACHINE OPERATOR Legal Sex Female 12:34 PM YOKER MACHINE OPERATOR Gender Identity Female 06/21/2021 10:18 PM YOKER MACHINE OPERATOR Sexual Orientation Straight 06/21/2021 10 :18 PM YOKER MACHINE OPERATOR Last Filed Vital Signs Vital Sign Reading Time Taken Comments Blood Pressure 112/72 04/05/2024 8:07 AM CDT Pulse 90 04/05/2024 8:07 AM CDT Temperature 36.6 C (97.9 F) 04/05/2024 8:07 AM CDT Respiratory Rate 20 10/20/2021 10:36 AM CDT Oxygen Saturation 94% 04/05/2024 8:07 AM CDT Inhaled Oxygen Concentration - - Weight 151.5 kg (334 lb) 04/05/2024 8:07 AM CDT Height 167.6 cm (5' 6) 10/20/2021 10:36 AM CDT Body Mass Index 53.91 10/20/2021 10:36 AM CDT Plan of Treatment Health Maintenance Due Date Last Done Comments COLOGUARD (AGES 45-75) - COLON CA SCREENING 1963 CT COLONOGRAPHY - COLON CA SCREENING 1963 FIT - COLON CA SCREENING 1963 FLEX SIG - COLON CA SCREENING 1963 HIV SCREENING 1978 HEPATITIS C SCREENING 07/30/1981 PNEUMOCOCCAL VACCINE 50+ (1 of 2 - PCV) 1982 Cervical Cancer Screening 1984 PAP SMEAR 1984 PAP with HPV 1993 Respiratory Syncytial Virus (RSV) Vaccine Pt: or over 60 yrs (1 - Risk 50-74 years 1-dose series) 2013 DIABETES-SERUM CREATININE 02/21/20182016, 07/08/2016, 09/04/2014, Additional history exists ZOSTER VACCINE (2 of 2) 05/22/2020 03/27/2020 DIABETES RETINOPATHY SCREENING 07/21/2022 DIABETES-FOOT EXAM WITH MONOFILAMENT 07/21/2022 DIABETES-HGB A1C 07/21/2022 04/08/2011 DIABETES - URINE PROTEIN SCREENING 07/10/2024 COVID-19 VACCINE (5 season) 2025 01/27/2022, 04/23/2021, 10/12/2020, Additional history exists MAMMOGRAM 02/05/2026 02/06/2024, 01/09, 10/03/2022, Additional history exists DTAP/TDAP/TD VACCINES (2 - Tdap) 01/06/2027 01/06/2017 COLON MONITORING 07/15/2032 07/15/2022 COLONOSCOPY - COLON CA SCREENING 07/15/2032 07/15/2022 Colorectal Cancer Screening 07/15/2032 DEPRESSION SCREENING Completed 08/02/2024, 08/22/2023, 04/25/2023, Additional history exists INFLUENZA VACCINE Completed 04/18/2025, , 08/10/2023, Additional history exists HEPATITIS B VACCINE Aged Out No longe r eligible based on patient's age to complete this topic HIB VACCINE Aged Out No longer eligi ble based on patient's age to complete this topic HPV VACCINE Aged Out No longer eligi ble based on patient's age to complete this topic MENINGOCOCCAL (Group B) VACCINE SHARED DECISION-MAKING Aged Out No longer eligible based on patient's age to complete this topic MENINGOCOCCAL GROUPS A/C/Y/W VACCINE Aged Out No longer eligible based on patient's age to complete this topic Procedures Procedure Name Priority Date/Time Associated Diagnosis Comments COMPREHENSIVE METABOLIC PANEL Routine 02/21/2017 8:49 AM CDT HEMOGLOBIN A1C Add on 04/08/2011 2:44 AM CDT from Last 3 Months or Most Recently Relevant to Health Maintenance Results * (ABNORMAL) COMPREHENSIVE METABOLIC PANEL (02/21/2017 8:49 AM CDT) Glucose 103(H) 65 - 99 mg/dL [facility] Comment: Fasting reference interval For someone without known diabetes, a glucose value between 100 and 125 mg/dL is consistent with prediabetes and should be confirmed with a follow-up test. BUN 13 7 - 25 mg/dL [facility]) Creatinine 0.94 0.50 - 1.05 mg/dL [facility] Comment: For patients >49 years of age, the reference limit for Creatinine is approximately 13% higher for people identified as -Irish. eGFR non- 69 > OR = 60 mL/min/1 .73m2 [facility]) eGFR 80 > OR = 60 mL/min/1 .73m2 [facility] BUN/Creatinine Ratio NOT APPLICABLE 6 - 22 (calc) [facility] Sodium 143 135 - 146 mmol/L [facility] Potassium 4.3 3.5 - 5.3 mmol/L [facility] Chloride 102 98 - 110 mmol/L [facility] CO2 30 20 - 31 mmol/L [facility] Calcium 9.7 8.6 - 10.4 mg/dL [facility] Protein Total 7.0 6.1 - 8.1 g/dL [facility]) Albumin 4.1 3.6 - 5.1 g/dL [facility]) Globulin 2.9 1.9 - 3.7 g/dL (calc) [facility]) Albumin/Globulin Ratio 1.4 1.0 - 2.5 (calc) [facility]) Bilirubin Total 0.6 0.2 - 1.2 mg/dL [facility] Alkaline Phosphatase 105 33 - 130 U/L [facility]) AST 19 10 - 35 U/L [facility]) ALT 15 6 - 29 U/L [facility]) Comment: Test Performed at: [facility] [place] [address] [place] [address] DIA BYRNE DO,MPH 02/21/2017 8:49 AM CDT 02/21/2017 8:55 AM CDT Gagan Barrett MD LAB - CHEMISTRY ORDERABLES Edited Result - Final [facility] ([facility]) [address] * HEMOGLOBIN A1C (04/08/2011 2:44 AM CDT) Hemoglobin A1c 6.1 3.9 - 6.1 % [facility] Estimated Average Glucose 128.4 mg/dl [facility] BLOOD SPECIMEN / Unknown 04/08/2011 2:44 AM CDT 04/08/2011 10:47 AM CDT Bin Olson MD LAB - CHEMISTRY ORDERABLES Final Result Performing Organization Address City/State/[facility] [place] Co de Phone Number [facility] [address] [place] [address] from Last 3 Months or Most Recently Relevant to Health Maintenance Insurance [address] [place] [id number] C[address] Advance Directives * FULL RESUSCITATION (Latest Code Status on File) Date Activated Date Inactivated Comments 04/07/2011 6:14 PM 04/09/2011 6:29 AM Care Teams Front End Alignment Specialist Relationship Specialty Start Date End Date Chace Mathews MD [address] [facility] [address] [address] PCP - General 11/29/18
--- OUTSIDE RECORDS SUMMARY | 2025-06-09 13:34 | XMS_ITS | Encounter Summary ---
Author Organization [facility] Facility Care Team Providers Care Pedicab Driver Name Role Phone Chace Mathews MD Primary Care Provider [phone] Chace Mathews MD Primary Care Provider [phone] Ilene Recinos RN Unavailable [phone] Ruben Waters MD Unavailable [phone] Delmy Clarke MD Primary Care Provider [phone] Chace Mathews MD Primary Care Provider [phone] Stephanie Jeronimo LPN Unavailable [phone] Hawa Watkins RN Unavailable Preston Florez MD Unavailable [phone] Porsha Omer Unavailable [phone] Encounter Details Date Type Department Care Team (Latest Contact Info) Description 03/01/2018 Orders Only [facility]INCON[facility] Provider, MD Ashlyn [address] [place] [id number] Social History Tobacco Use Types Packs/Day Years Used Date Smoking Tobacco: Never Assessed Comments Unknown Sex and Gender Information Value Date Recorded Sex Assigned at Not on file Legal Sex Female 8:01 AM SHIFT MECHANIC Gender Identity Female 05/26/2019 5:59 PM SHIFT MECHANIC Sexual Orientation Straight 05/26/2019 5: 59 PM SHIFT MECHANIC documented as of this encounter Functional Status documented as of this encounter Plan of Treatment Not on file documented as of this encounter Procedures Procedure Name Priority Date/Time Associated Diagnosis Comments CARDIOLOGY REPORT 03/20/2018 12: 00 AM CDT documented in this encounter Results * CARDIOLOGY REPORT (03/20/2018 12:00 AM CDT) Anatomical Region Laterality Modality Other Narrative 03/20/2018 12:00 AM CDT Ordered by an unspecified provider. Historical Provider [facility] JAKE FELDER Final Result documented in this encounter Visit Diagnoses Not on filedocumented in this encounter Additional Health Concerns Infection Onset Date Last Indicated Resolved Time MRSA Comment:history of MRSA in rt arm 2013; 04/28/2018 04/27/2018 02/24/2021 5:00 AM C DT COVID: Suspected 03/27/2022 03/27/2022 03/27/2022 3:37 PM CDT COVID: Suspected 09/19/2023 09/19/2023 09/19/2023 9:37 AM CDT documented as of this encounter Care Teams Pedicab Driver Relationship Specialty Start Date End Date Chace Mathews MD PCP - General 10/08/18 09/21/21 Chace Mathews MD PCP - General Family Medicine 09/22/21 08/01/22 Delmy Clarke MD [address] [facility] [place] [address] PCP - General Family Medicine 08/02/22 08/07/22 Chace Mathews MD [address] [facility] [address] [place] [address] PCP - General Family Medicine 08/08/22 Ilene Recinos RN [address] [place] [address] [address] [place] [address] Bricklayer 03/16/22 07/27/22 Ruben Waters MD [address] [facility] [address] [place] [address] Consulting Physician Pulmonary Disease 07/13/22 Stephanie Jeronimo LPN [address] [place] [address] [address] [place] [address] Bricklayer 03/21/23 03/22/23 Hawa Watkins RN [address] [place] [address] [address] [place] [address] Bricklayer 03/27/23 05/01/23 Preston Florez MD [address] [place] [address] [address] [place] [address] Consulting Physician Neurosurgery 02/09/24 Porsha Omer PA [address] [facility] [address] [place] [id number] Orthopedic Surgery 02/21/25 documented as of this encounter
[2025-06-09 13:37] LABS: Influenza A QL RT-PCR Negative (Negative); Influenza B QL RT-PCR Negative (Negative); RSV RNA, RT-PCR Negative (Negative); SARS-CoV-2 RNA PCR Negative (Negative)
[2025-06-09 13:46] LABS: Magnesium 2.7 mg/dL (1.6-2.3)
[2025-06-09 13:51] LABS: NT Pro B Type Natriuretic Pept 5120 pg/mL (19.9-100)
[2025-06-09 13:55] LABS: Macrocytosis 2+ (NORMAL)
[2025-06-09 13:56] LABS: Hypochromasia 1+; Polychromasia Occasional; Schistocytes None Seen
--- NOTE | 2025-06-09 13:57 | ED.SOB ---
HPI - SOB/Dyspnea General Chief Complaint: Shortness of Breath/Dyspnea Stated Complaint: sob, weakness Time Seen by Provider: 06/09/25 12:07 History of Present Illness HPI Narrative: Patient with history of COPD has been having increased shortness of breath, was found to be hypoxic, tired, brought here and given breathing treatments and reports feeling better. Denies history of CHF Related Data Home Medications ?Medication ?Instructions ?Recorded ?Confirmed ?Last Taken ?Type atorvastatin 20 mg tablet 20 mg PO DAILY 03/01/20 05/15/23 Unknown History buspirone 10 mg tablet 20 mg PO TID 03/01/20 05/15/23 Unknown History metformin 500 mg tablet,extended 500 mg PO DAILY 03/01/20 05/15/23 Unknown History release 24 hr spironolactone 25 mg tablet 25 mg PO DAILY 03/01/20 05/15/23 Unknown History timolol maleate 0.5 % eye drops 1 drp ophthalmic (eye) QAM 03/01/20 05/15/23 Unknown History tizanidine 4 mg tablet 4 mg PO TID 03/01/20 05/15/23 Unknown History eszopiclone 3 mg tablet 3 mg PO HS 11/21/21 05/15/23 Unknown History empagliflozin 25 mg tablet 25 mg PO DAILY 02/03/23 05/15/23 Unknown History (Jardiance) gabapentin 300 mg capsule 300 mg PO BID 02/03/23 05/15/23 Unknown History ramipril 10 mg capsule 10 mg PO DAILY 02/03/23 05/15/23 Unknown History ropinirole 0.5 mg tablet 1.5 mg PO DAILY 02/03/23 05/15/23 Unknown History sertraline 100 mg tablet 200 mg PO DAILY 02/03/23 05/15/23 Unknown History trazodone 50 mg tablet 50 mg PO HS PRN Insomnia 02/03/23 05/15/23 Unknown History latanoprost 0.005 % eye drops 1 drp ophthalmic (eye) HS 02/11/23 05/15/23 Unknown History levothyroxine 200 mcg tablet 200 mcg PO DAILY 03/21/23 05/15/23 Unknown History prazosin 1 mg capsule 1 mg PO HS 03/21/23 05/15/23 Unknown History propranolol 10 mg tablet 10 mg PO DAILY PRN Anxiety 03/21/23 05/15/23 Unknown History Ozempic 1 mg subcut WEEKLY 04/09/23 05/15/23 04/03/23 History aripiprazole 5 mg tablet 5 mg PO DAILY 04/09/23 05/15/23 Unknown History ergocalciferol (vitamin D2) 1,250 50,000 unit PO WEEKLY 04/09/23 05/15/23 Unknown History mcg (50,000 unit) capsule mirtazapine 45 mg tablet 45 mg PO HS 04/09/23 05/15/23 Unknown History Allergies Allergy/AdvReac Type Severity Reaction Status Date / Time No Known Allergies Allergy Verified 05/15/23 11:53 Review of Systems Review of Systems: All systems reviewed & are unremarkable except as noted in HPI and below PMFSH Past Medical History Medical History (Updated 06/09/25 @ 15:56 by Meghan Enrique MD) Anxiety Depression Hypothyroidism Diabetes History of fibromyalgia COPD (chronic obstructive pulmonary disease) Hypertension History of seizures History of TIA (transient ischemic attack) Surgical History Surgical History History of hysterectomy Hx of breast reduction, elective H/O inguinal hernia repair H/O gastric bypass History of cholecystectomy History of appendectomy History of tonsillectomy Family History Family History Other Unknown family medical history Social History Social History Smoking packs per day: 1 Smoking cigarettes per day: 20.0 Years smoked: 14 Smoking pack-years: 14.00 Smoking status: Former smoker Tobacco type: cigarettes Second hand tobacco smoke exposure: No Smoking end date: 07/10/92 Alcohol intake: unknown Substance use: unknown Substance use type: unknown Lack of Transportation: No Lack of Food: Never True Current Housing: I Have Housing Concerned About Future Housing: No Difficulty Paying Gas/Electric Bills: No Difficulty Paying for Meds: No Currently Unemployed: No Education: Bachelor's Degree Difficulty w/ Childcare or Family Care: No Spiritual care concerns: No Exam Narrative: EXAMINATION OF ORGAN SYSTEMS/BODY AREAS: Constitutional: Vital signs per nursing GENERAL:[No acute distress; wakes to voice.] HEAD: Normal with no signs of head trauma. EYES: EOMI, conjunctiva normal ENT: Hearing grossly intact LUNGS: Nonlabored breathing. Diminished lung sounds bilaterally HEART: [Regular rate and rhythm] ABD: [Soft], [nontender to palpation] EXT: Normal range of motion, bilateral lower extremity edema SKIN: [No rashes or lesions.] NEURO: [Sleeping but wakes to voice and answers questions. No gross focal sensory or strength deficits.] PSYCH: Normal affect Course Vital Signs Vital signs: Vital Signs Temperature 98.2 F 06/09/25 11:53 Pulse Rate 84 06/09/25 11:53 Respiratory Rate 16 06/09/25 11:53 Blood Pressure 145/91 H 06/09/25 11:53 Pulse Oximetry 93 06/09/25 11:53 Oxygen Delivery Nasal Cannula 06/09/25 11:53 Oxygen Flow Rate 5 06/09/25 11:53 Temperature 98.2 F 06/09/25 11:53 Pulse Rate 97 06/09/25 15:00 Respiratory Rate 24 H 06/09/25 15:00 Blood Pressure 147/89 H 06/09/25 13:15 Pulse Oximetry 100 06/09/25 15:00 Oxygen Delivery BiPAP 06/09/25 15:00 Oxygen Flow Rate 5 06/09/25 11:53 Procedures ABG Interpretation ABG Interpretation 1: ABG Results: Respiratory acidosis with CO2 narcosis Interpretation: abnormal and respiratory acidosis ABG Interpretation 2: ABG Results: About the same or slightly worsening acidosis MDM - SOB/Dyspnea MDM Narrative Medical decision making narrative: Presenting here after being found to be very sleepy, with low oxygen. History of COPD on CPAP at night, denies history of CHF. Diminished lung sounds, she is sleepy here but wakes easily to voice and answers questions appropriately. Bilateral lower extremity edema. I am suspicious of possible CHF, COPD, consider pneumonia. ABG obtained does show respiratory acidosis with CO2 narcosis. Started on BiPAP, repeat 1 hour ABG is not better, chest x-ray on my independent interpretation shows cardiomegaly with bilateral patchy opacities consistent with likely pulmonary edema, I suspect CHF the patient has no history of this I do feel she will need to be admitted for further evaluation or workup. Consult placed to wheelchair van driver. Discussed with hospitalist for admission. Given her did not improved ABG, I spoke with the patient about intubation, she would like to be full code. Discussed with forging die finisher, since patient is still awake and talking at this time it did not feel reasonable to intubate her, we will increase her BiPAP settings, and then redo an ABG and re-evaluate. Repeat ABG still not improved. Discussed with ICU, on my re-evaluation patient is completely alert, awake, speaking full sentences, playing on her phone. At this time I do not feel any indication for intubating her given how well she looks and she says she feels fine. Discussed with forging die finisher who agrees with admitting her to ICU. Lab Data 06/09/25 12:38 06/09/25 12:38 Labs: Lab Results 06/09/25 06/09/25 06/09/25 Range/Units 12:38 13:55 15:14 WBC 9.9 (4.5-10.0) K/mm3 RBC 5.77 H (4.2-5.4) M/mm3 Hgb 13.6 (12.0-15.0) g/dL Hct 48.8 H (37.0-47.0) % MCV 84.6 (80-100) fl MCH 23.6 L (26-34) pg MCHC 27.9 L (32-36) g/dl RDW 25.2 H (11.5-14.5) % Plt Count 146 L (150-375) k/mm3 MPV TNP Immature Gran % (Auto) 1.0 H (0-0.5) % Neut % (Auto) 75.5 H (45.5-73.1) % Lymph % (Auto) 13.4 L (18.3-44.2) % Carter % (Auto) 9.1 H (2.6-8.5) % Eos % (Auto) 0.6 (0-4.4) % Baso % (Auto) 0.4 (0.2-1.2) % Lymph # (Auto) 1.32 (0.9-3.2) K/mm3 Carter # (Auto) 0.9 H (0.1-0.6) K/mm3 Eos # (Auto) 0.1 (0-0.3) K/mm3 Baso # (Auto) 0.0 (0.0-0.1) K/mm3 Abs Immat Gran (auto) 0.10 H (0.00-0.031) K/mm3 Absolute Neuts (auto) 7.4 H (1.3-6.7) K/mm3 Absolute Nucleated RBC 0.480 H (0.0-0.012) K/mm3 Band Neutrophils % Not Reportable Nucleated RBC % 4.9 H (0.0-0.2) % Platelet Estimate Adequate (Adequate) % Immature Plt Fraction 15.0 H (0.9-11.2) % Polychromasia Occasional Hypochromasia 1+ Macrocytosis 2+ (NORMAL) Schistocytes None seen Methemoglobin 0.3 0.1 (0-1.5) %THb Expiratory Pressure 8 8 CMH2O Inspiratory Pressure 18 20 CMH2O Sodium 136 L (137-145) mmol/L Potassium 3.7 (3.4-5.0) mmol/L Chloride 94 L (98-107) mmol/L Carbon Dioxide 35 H (22-30) mmol/L Anion Gap 7 (4-12) mmol/L BUN 50 H D (7-17) mg/dL Creatinine 1.80 H (0.7-1.0) mg/dL Estim Creat Clear Calc 47 ml/min Estimated GFR 29 L (59 - ) Glucose 115 H (65-110) mg/dL Lactic Acid 1.0 (0.7-2.0) mmol/L Calcium 8.6 (8.4-10.2) mg/dL Magnesium 2.7 H (1.6-2.3) mg/dL Total Bilirubin 1.2 (0.2-1.3) mg/dL AST 61 H (14-36) U/L ALT 65 H (6-35) U/L Alkaline Phosphatase 159 H (38-126) U/L NT-Pro-B Natriuret Pep 5120 H (19.9-100) pg/mL Total Protein 8.3 H (6.3-8.2) g/dL Albumin 4.3 (3.5-5.1) g/dL Influenza A (RT-PCR) Negative (Negative) Influenza B (RT-PCR) Negative (Negative) RSV (RT-PCR) Negative (Negative) SARS-CoV-2 RNA (RT-PCR) Negative (Negative) ABG Data ABG results: 06/09/25 06/09/25 06/09/25 12:33 13:55 15:14 Puncture Site Right radial Right radial ABG pH 7.232 L* 7.210 L* 7.217 L* ABG pCO2 80.3 H* 81.4 H* 82.6 H* ABG pO2 76.2 L 68.3 L 82.2 ABG PO2/FiO2 Ratio 2.12 1.95 2.05 ABG HCO3 33.0 H 31.8 H 32.8 H ABG O2 Saturation 92.1 L 88.8 L 93.3 L ABG O2 Content 18.2 17.8 19.1 ABG Base Excess 2.8 1.3 2.1 A-a Gradient 87.3 86.6 108.0 Oxyhemoglobin 90.3 87.2 L* 91.2 Carboxyhemoglobin 2.2 H 2.1 H Reduced Hemoglobin 10.3 H 6.6 H Total Hemoglobin 14.3 14.5 14.9 O2 Delivery Device Non-invasive vent Non-invasive vent O2 Liters/Min Not Reportable Not Reportable Vent Rate 22 22 FiO2 36 35 40 Critical Care Time Critical Care Time Critical Care Time: Yes Total Critical Care Time: 31 Discharge Plan Discharge Clinical Impression: Carbon dioxide narcosis, Acute hypercapnic respiratory failure Patient Disposition: Still a Patient Condition: Serious Patient Language: Setswana Prescriptions: No Action eszopiclone 3 mg tablet 3 mg PO HS albuterol sulfate 2.5 mg /3 mL (0.083 %) solution for nebulization 2.5 mg inhalation Q6H Qty: 90 0RF azithromycin 250 mg tablet See Rx Instructions .ROUTE .COMPLEX Qty: 6 0RF Rx Instructions: For 250 mg dose pack: take 500 mg today (day 1), then 250 mg for 4 days (days 2-5) prednisone 20 mg tablet 40 mg PO DAILY 5 Days Qty: 10 0RF benzonatate 100 mg capsule 100 mg PO BID PRN (Reason: cough) Qty: 14 0RF atorvastatin 20 mg tablet 20 mg PO DAILY tizanidine 4 mg tablet 4 mg PO TID spironolactone 25 mg tablet 25 mg PO DAILY buspirone 10 mg tablet 20 mg PO TID timolol maleate 0.5 % drops 1 drp ophthalmic (eye) QAM metformin 500 mg tablet extended release 24 hr 500 mg PO DAILY Rx Instructions: Take with breakfast. trazodone 50 mg tablet 50 mg PO HS PRN (Reason: Insomnia) sertraline 100 mg tablet 200 mg PO DAILY ropinirole 0.5 mg tablet 1.5 mg PO DAILY gabapentin 300 mg capsule 300 mg PO BID ramipril 10 mg capsule 10 mg PO DAILY Jardiance 25 mg tablet 25 mg PO DAILY latanoprost 0.005 % drops 1 drp ophthalmic (eye) HS Trelegy Ellipta 200-62.5-25 mcg Blister With Device 1 inh inhalation DAILYRT Qty: 1 0RF prazosin 1 mg capsule 1 mg PO HS propranolol 10 mg tablet 10 mg PO DAILY PRN (Reason: Anxiety) levothyroxine 200 mcg tablet 200 mcg PO DAILY pantoprazole [Protonix] 40 mg tablet,delayed release (DR/EC) 40 mg PO QAM 28 Days Qty: 28 0RF Rx Instructions: Take for 4 weeks. RX started on 03/25/23. mirtazapine 45 mg tablet 45 mg PO HS aripiprazole 5 mg tablet 5 mg PO DAILY ergocalciferol (vitamin D2) 1,250 mcg (50,000 unit) capsule 50,000 unit PO WEEKLY Ozempic 1 mg subcut WEEKLY Rx Instructions: mondays hydralazine 10 mg Tablet 10 mg PO TID Qty: 90 0RF cefdinir 300 mg capsule 300 mg PO Q12H Qty: 3 0RF Proair Digihaler 90 mcg/actuation aero powdr breath act w/sensor 2 inh inhalation Q4-6H PRN (Reason: shortness of breath or wheezing) Qty: 1 0RF Follow-up/Referrals: Preston Florez MD [Primary Care Provider, Neurosurgery]
[2025-06-09 14:01] LABS: Alveolar/Arterial O2 Gradient 86.6 mmHg; Carboxyhemoglobin 2.2 % THb (0-2.0); Fractional Inspired Oxygen 35 %; HCO3 ABG 31.8 mEq/l (22.0-26.0); Methemoglobin ABG 0.3 %THb (0-1.5); Oxygen Content ABG 17.8 %vol (16.0-22.0); Oxygen Saturation ABG 88.8 % (95.0-100.0); PO2 ABG 68.3 mmHg (80.0-100.0); PO2 FiO2 Ratio Arterial Blood 1.95 %; Reduced Hemoglobin 10.3 %THb (0-5.0)
[2025-06-09] MEDS: FUROSEMIDE INJ 40 MG/4 ML VIAL IV PUSH (14:04)
--- NOTE | 2025-06-09 14:24 | PM.IMHP2 ---
H&P: HPI History of Present Illness Date/Time: 06/09/25 14:24 Chief Complaint: Dyspnea Narrative: 59-year-old female with a past medical history of COPD, dm 2, depression, TIA, HTN, hypothyroidism, grade 1 diastolic dysfunction, CKD presented to the ED on 06/09/2025 with dyspnea. Patient initially presented at [facility] with dyspnea that started on 06/04 but progressively got worse. Patient uses a CPAP at night and supplemental O2 with activity. However, patient has been requiring her supplemental O2 all day today. [facility] as patient was short of breath, weak and dizzy. Patient was 90% on room air when EMS arrived. Patient further endorses a cough without sputum production. Denies fever, chill, nausea, vomiting, diarrhea. Patient was reportedly hypoxic on admission to the ED and started on 5 L O2 per nasal cannula. Patient is drowsy but A&O x4. Initial ABG was consistent with respiratory acidosis and patient was subsequently placed on BiPAP. Initial vital signs 145/91, HR 84, respirations 16, afebrile and 93% on 5 L of O2. Lab significant for chloride 94, carbon dioxide 35, BUN 50, creatinine 1.8 and GFR 29, magnesium 2.7, AST 61, ALT 65, alk-phos 159. BNP 5120. Initial ABG pH 7.232, pCO2 80.3, PO2 76.2, HC03 33, O2 sat 92.1. Patient placed on BiPAP with no improvement in serial ABGs. Viral panel negative EKG reads sinus rhythm with occasional supraventricular premature complexes. Chest x-ray shows cardiomegaly with pulmonary edema. Review of Systems Review of Systems: All systems reviewed & are unremarkable except as noted in HPI and below PMFSH Past Medical History Medical History (Updated 06/09/25 @ 21:17 by Aleshia Parker APRN) Anxiety Depression Hypothyroidism Diabetes History of fibromyalgia COPD (chronic obstructive pulmonary disease) Hypertension History of seizures History of TIA (transient ischemic attack) Surgical History Surgical History History of hysterectomy Hx of breast reduction, elective H/O inguinal hernia repair H/O gastric bypass History of cholecystectomy History of appendectomy History of tonsillectomy Family History Family History Other Unknown family medical history Social History Social History Smoking packs per day: 1 Smoking cigarettes per day: 20.0 Years smoked: 14 Smoking pack-years: 14.00 Smoking status: Former smoker Tobacco type: cigarettes Second hand tobacco smoke exposure: No Smoking end date: 07/10/92 Alcohol intake: unknown Substance use: unknown Substance use type: unknown Lack of Transportation: No Lack of Food: Never True Current Housing: I Have Housing Concerned About Future Housing: No Difficulty Paying Gas/Electric Bills: No Difficulty Paying for Meds: No Currently Unemployed: No Education: Bachelor's Degree Difficulty w/ Childcare or Family Care: No Spiritual care concerns: No Meds Home Medications and Allergies Home Medications ?Medication ?Instructions ?Recorded ?Confirmed ?Type buspirone 10 mg tablet 20 mg PO TID 03/01/20 06/09/25 History metformin 500 mg tablet,extended 500 mg PO DAILY 03/01/20 06/09/25 History release 24 hr timolol maleate 0.5 % eye drops 1 drp ophthalmic (eye) QAM 03/01/20 06/09/25 History tizanidine 4 mg tablet 4 mg PO TID 03/01/20 06/09/25 History eszopiclone 3 mg tablet 3 mg PO HS 11/21/21 06/09/25 History empagliflozin 25 mg tablet 25 mg PO DAILY 02/03/23 06/09/25 History (Jardiance) sertraline 100 mg tablet 200 mg PO DAILY 02/03/23 06/09/25 History trazodone 50 mg tablet 50 mg PO HS PRN Insomnia 02/03/23 06/09/25 History latanoprost 0.005 % eye drops 1 drp ophthalmic (eye) HS 02/11/23 06/09/25 History levothyroxine 200 mcg tablet 200 mcg PO DAILY 03/21/23 06/09/25 History prazosin 1 mg capsule 1 mg PO HS 03/21/23 06/09/25 History propranolol 10 mg tablet 10 mg PO DAILY PRN Anxiety 03/21/23 06/09/25 History mirtazapine 45 mg tablet 45 mg PO HS 04/09/23 06/09/25 History albuterol sulfate 90 mcg/actuation 2 inh inhalation Q4-6H PRN 04/14/23 06/09/25 Rx breath activated powder shortness of breath or wheezing #1 inhaler,sensor (Proair Digihaler) ea albuterol sulfate 2.5 mg/3 mL 2.5 mg (3 mL) inhalation Q6H #90 mL 05/15/23 06/09/25 Rx (0.083 %) solution for nebulization furosemide 40 mg tablet 40 mg PO DAILY 06/09/25 06/09/25 History montelukast 10 mg tablet 10 mg PO DAILY 06/09/25 06/09/25 History omeprazole 40 mg capsule,delayed 40 mg PO DAILY 06/09/25 06/09/25 History release prazosin 2 mg capsule 2 mg PO DAILY 06/09/25 06/09/25 History pregabalin 100 mg capsule 100 mg PO Q12H 06/09/25 06/09/25 History quetiapine 50 mg tablet,extended 50 mg PO QPM 06/09/25 06/09/25 History release 24 hr ropinirole 2 mg tablet 2 mg PO HS 06/09/25 06/09/25 History semaglutide 2 mg/dose (8 mg/3 mL) 2 mg subcut WEEKLY 06/09/25 06/09/25 History subcutaneous pen injector (Ozempic) Allergies Allergy/AdvReac Type Severity Reaction Status Date / Time No Known Allergies Allergy Verified 06/09/25 17:24 Vital Signs Vital Signs - 24 hr 06/09/25 11:53 06/09/25 12:00 06/09/25 12:15 Temperature 98.2 F Pulse Rate 84 83 83 Respiratory Rate 16 16 12 Blood Pressure 145/91 H 129/100 H 149/97 H Pulse Oximetry 93 100 96 Oxygen Delivery Nasal Cannula Oxygen Flow Rate 5 06/09/25 12:48 06/09/25 12:51 06/09/25 13:00 Temperature Pulse Rate 86 84 83 Respiratory Rate 20 17 22 H Blood Pressure 159/81 H Pulse Oximetry 99 100 Oxygen Delivery BiPAP Oxygen Flow Rate 06/09/25 13:00 06/09/25 13:15 06/09/25 13:45 Temperature Pulse Rate 82 81 82 Respiratory Rate 21 H 18 14 Blood Pressure 153/83 H 147/89 H Pulse Oximetry 100 95 95 Oxygen Delivery Oxygen Flow Rate Exam Narrative: GENERAL: non-toxic appearing, in no acute distress. Appears comfortable on BiPAP HEAD: Normocephalic, atraumatic. EYES: PERRLA. Conjunctivae clear. NOSE: Normal no drainage. NECK: Trachea midline. No adenopathy, no masses. RESPIRATORY: Airway patent, respirations nonlabored. Breath sounds decreased throughout CARDIOVASCULAR: Regular rate and rhythm BREASTS: Defer GASTROINTESTINAL: Abdomen is soft and nontender. No organomegaly. Bowel sounds normal in all quadrants. GENITOURINARY: fuller with cloudy yellow urine MUSCULOSKELETAL: Moves all extremities. No gross deformities. Bilateral +2 lower extremity edema SKIN: Warm, dry, normal color. NEURO: A&O X4. Speech clear. Drowsy but easily awakens and answers questions appropriately PSYCHIATRIC: Normal interaction Results Labs Labs: Short CBC 06/09/25 Range/Units 12:38 WBC 9.9 (4.5-10.0) K/mm3 Hgb 13.6 (12.0-15.0) g/dL Hct 48.8 H (37.0-47.0) % Plt Count 146 L (150-375) k/mm3 BMP 06/09/25 12:38 Sodium 136 L Potassium 3.7 Chloride 94 L Carbon Dioxide 35 H BUN 50 H D Creatinine 1.80 H Glucose 115 H Calcium 8.6 Liver Function 06/09/25 Range/Units 12:38 Total Bilirubin 1.2 (0.2-1.3) mg/dL AST 61 H (14-36) U/L ALT 65 H (6-35) U/L Alkaline Phosphatase 159 H (38-126) U/L Albumin 4.3 (3.5-5.1) g/dL Quality VTE Prophylaxis VTE prophylaxis: mechanical ordered Assessment and Plan Assessment and plan (1) Acute respiratory failure with hypoxia and hypercapnia: Code(s): J96.01 - Acute respiratory failure with hypoxia; J96.02 - Acute respiratory failure with hypercapnia Status: Acute Assessment and Plan: COPD exacerbation. Initial ABG pH 7.232, pCO2 80.3, PO2 76.2, HC03 33, O2 sat 92.1. Patient placed on BiPAP. Repeat ABGs slightly worse than initial: PH 7.210 than 7.217; pCO2 81.4 than 82.6. Patient remained alert and oriented despite ABGs. Does not appear to have a infectious component and viral panel negative - DuoNebs q.4 hours scheduled x4, then every 6 hours scheduled - methylprednisolone 60 mg IV push q.12 - continuous BiPAP: 20/8. FiO2 40% - chest x-ray in the morning - ABGs in the morning - holding home medications with anticholinergic or sedative affects. Reassess tomorrow (2) Fluid overload: Qualifiers: Hypervolemia type: other Qualified Code(s): E87.79 - Other fluid overload Code(s): E87.70 - Fluid overload, unspecified Status: Acute Assessment and Plan: Chest x-ray shows cardiomegaly with pulmonary edema. Most recent echo 04/10/2023 reads grade 1 diastolic dysfunction, mildly enlarged left atrium. BNP 5120. 40 mg IV Lasix in ED. Patient denies CHF history. Takes Jardiance at home. - 80 mg IVP Lasix x1 this evening - repeat chest x-ray in a.m. - monitor I&Os - trend renal function - echo ordered - cardiology consult (3) Chronic kidney disease, stage 3: Qualifiers: Chronic kidney disease stage 3 subtype: stage 3b (GFR 30-44) Qualified Code(s): N18.32 - Chronic kidney disease, stage 3b Code(s): N18.30 - Chronic kidney disease, stage 3 unspecified Status: Chronic Assessment and Plan: Creatinine today 1.8. Baseline creatinine appears to be between 1.0 and 1.3 in 2022. CKD progression versus CINDY on CKD -trend renal function -Fuller for accurate I&Os (4) Hypertension: Qualifiers: Hypertension type: primary hypertension Qualified Code(s): I10 - Essential (primary) hypertension Code(s): I10 - Essential (primary) hypertension Status: Chronic Assessment and Plan: Continue Minipress b.i.d. (5) Diabetes: Qualifiers: Diabetes mellitus type: type 2 Diabetes mellitus fpc insulin use: unspecified fpc insulin use status Diabetes mellitus complication status: without complication Qualified Code(s): E11.9 - Type 2 diabetes mellitus without complications Code(s): E11.9 - Type 2 diabetes mellitus without complications Status: Chronic Assessment and Plan: - hypoglycemia protocol - POC blood glucose q.6 while NPO - home medication: Ozempic, Jardiance, metformin - correct regimen ordered: Low-dose corrective scale Plan Diet: NPO except ice GI prophylaxis: Protonix DVT prophylaxis: SCDs lines/drains: PIV Fluids: NA Code status: Full Prior Studies I have reviewed the following patient records and this information was taken into consideration when formulating the assessment and plan.: previous labs, previous ER visits, previous hospitalizations and previous clinic visits Time Spent with Patient Time with patient: 45 - 74 minutes Hospitalist MIPS Advance Care Plan I have confirmed that the patient's Advanced Care Plan is present, code status is documented, or surrogate decision maker is listed in patient medical record.: Yes Medication Reconciliation I have utilized all available resources to obtain, update and review the patients current medications (includes all prescriptions, OTC, herbals, cannabis, and nutritional supplements).: Yes
[2025-06-09 14:31] LABS: PCO2 ABG 81.4 mmHg (35.0-45.0)
[2025-06-09 14:40] LABS: Modified Allen's Test Pass; Site Drawn RIGHT RADIAL
[2025-06-09 15:25] LABS: Alveolar/Arterial O2 Gradient 108.0 mmHg; Carboxyhemoglobin 2.1 % THb (0-2.0); Fractional Inspired Oxygen 40 %; HCO3 ABG 32.8 mEq/l (22.0-26.0); Methemoglobin ABG 0.1 %THb (0-1.5); Oxygen Content ABG 19.1 %vol (16.0-22.0); Oxygen Saturation ABG 93.3 % (95.0-100.0); PO2 ABG 82.2 mmHg (80.0-100.0); PO2 FiO2 Ratio Arterial Blood 2.05 %; Reduced Hemoglobin 6.6 %THb (0-5.0)
[2025-06-09 15:33] LABS: Modified Allen's Test Pass; PCO2 ABG 82.6 mmHg (35.0-45.0); Site Drawn RIGHT RADIAL
[2025-06-09 15:34] LABS: Non-Invasive Expiratory Pressure 8 CMH2O; Non-Invasive Inspiratory Pressure 20 CMH2O; Non-Invasive Vent Rate 22 /MIN
[2025-06-09 15:34] LABS: Non-Invasive Vent Rate 22 /MIN
[2025-06-09 15:35] LABS: Non-Invasive Expiratory Pressure 8 CMH2O; Non-Invasive Inspiratory Pressure 18 CMH2O
--- NOTE | 2025-06-09 16:07 | WPCEDHO ---
ED Hand Off Checklist All vitals saved:yes IV Site documented:yes All med administrations documented:yes Triage Note Triage Note Patient coming from [facility] 06/09/25 11:53 [facility] for SO[facility], generalized weakness since Monday. Patient normally wears CPAP at night and 02 PRN with exertion. Patient states she had to wear her oxygen all day today and went to the [facility]. EMS was called by staff, patient was SOB, weak and light headed. Staff started a duoneb. When EMS arrived, pt was sating 90% RA. BG 116 Allergies No Known Allergies Allergy (Verified 05/15/23 11:53) NKDA PER UNCODED ALLERGIES 03/26/04 NKDA STATUS CONFIRMED W/ PT ON JENNIFER OSHEA Family History (Last Reviewed 05/15/23 @ 12:17 by Rachelle Torres, ACQUISITION MARKETING COORDINATOR) Other Unknown family medical history Administered/Completed Medications Discontinued Medications Albuterol (Albuterol Sulfate Neb 2.5 Mg/3 Ml Inh) 10 mg INHALATION ONCE STA Stop: 06/09/25 12:15 Last Admin: 06/09/25 12:44 Dose: 10 mg Documented By: JOY Furosemide (Furosemide Inj 40 Mg/4 Ml Vial) 40 mg IV PUSH ONCE STA Stop: 06/09/25 13:57 Last Admin: 06/09/25 14:04 Dose: 40 mg Documented By: BALWINDER Ipratropium [place] (Ipratropium Br 0.02% Inh Soln 0.5 Mg/2.5 Ml Vial) 1 mg INHALATION ONCE ONE Stop: 06/09/25 12:15 Last Admin: 06/09/25 12:44 Dose: 1 mg Documented By: JOY Methylprednisolone Sodium Succinate (Methylprednisolone Sod Succ 125 Mg Vial) 80 mg IV PUSH ONCE STA Stop: 06/09/25 12:14 Last Admin: 06/09/25 12:52 Dose: 80 mg Documented By: BALWINDER Notes 06/09/25 13:31 Nurse Note by Vonda Hutchinson RN has called 2x to chemistry to add on labs. Initialized on 06/09/25 13:31 - END OF NOTE Interventions/Assessments IV / Saline Lock, Insert Start: 06/09/25 11:46 Freq: STAT Status: Active Protocol: Document 06/09/25 12:52 BALWINDER (Rec: 06/09/25 12:52 [facility] [id number] IV Assessment Peripheral Access Left Forearm IV Catheter Access Initiated IV Insertion Date 06/09/25 IV Insertion Time 12:52 Catheter Gauge 18 IV Care and WNL Maintenance Last Vital Signs Temperature 98.2 F 06/09/25 11:53 Pulse Rate 83 06/09/25 15:45 Respiratory Rate 35 H 06/09/25 15:45 Pulse Oximetry 94 06/09/25 15:45 Blood Pressure 159/93 H 06/09/25 15:45 Blood Pressure Mean 115 06/09/25 15:45 Oxygen Delivery BiPAP 06/09/25 15:00 Oxygen Flow Rate 5 06/09/25 11:53 Weight 160 kg 06/09/25 11:53 Last Result - Abnormals Only RBC 5.77 M/mm3 (4.2-5.4) H 06/09/25 12:38 Hct 48.8 % (37.0-47.0) H 06/09/25 12:38 MCH 23.6 pg (26-34) L 06/09/25 12:38 MCHC 27.9 g/dl (32-36) L 06/09/25 12:38 RDW 25.2 % (11.5-14.5) H 06/09/25 12:38 Plt Count 146 k/mm3 (150-375) L 06/09/25 12:38 Immature Gran % (Auto) 1.0 % (0-0.5) H 06/09/25 12:38 Neut % (Auto) 75.5 % (45.5-73.1) H 06/09/25 12:38 Lymph % (Auto) 13.4 % (18.3-44.2) L 06/09/25 12:38 [place] % (Auto) 9.1 % (2.6-8.5) H 06/09/25 12:38 [place] # (Auto) 0.9 K/mm3 (0.1-0.6) H 06/09/25 12:38 Abs Immat Gran (auto) 0.10 K/mm3 (0.00-0.031) H 06/09/25 12:38 Absolute Neuts (auto) 7.4 K/mm3 (1.3-6.7) H 06/09/25 12:38 Absolute Nucleated RBC 0.480 K/mm3 (0.0-0.012) H 06/09/25 12:38 Nucleated RBC % 4.9 % (0.0-0.2) H 06/09/25 12:38 % Immature Plt Fraction 15.0 % (0.9-11.2) H 06/09/25 12:38 ABG pH 7.217 (7.350-7.450) L* 06/09/25 15:14 ABG pCO2 82.6 mmHg (35.0-45.0) H* 06/09/25 15:14 ABG pO2 68.3 mmHg (80.0-100.0) L 06/09/25 13:55 ABG HCO3 32.8 mEq/l (22.0-26.0) H 06/09/25 15:14 ABG O2 Saturation 93.3 % (95.0-100.0) L 06/09/25 15:14 Oxyhemoglobin 87.2 % THb (90.0-100.0) L* 06/09/25 13:55 Carboxyhemoglobin 2.1 % THb (0-2.0) H 06/09/25 15:14 Reduced Hemoglobin 6.6 %THb (0-5.0) H 06/09/25 15:14 Sodium 136 mmol/L (137-145) L 06/09/25 12:38 Chloride 94 mmol/L (98-107) L 06/09/25 12:38 Carbon Dioxide 35 mmol/L (22-30) H 06/09/25 12:38 BUN 50 mg/dL (7-17) H D 06/09/25 12:38 Creatinine 1.80 mg/dL (0.7-1.0) H 06/09/25 12:38 Estimated GFR 29 (59-) L 06/09/25 12:38 Glucose 115 mg/dL (65-110) H 06/09/25 12:38 Magnesium 2.7 mg/dL (1.6-2.3) H 06/09/25 12:38 AST 61 U/L (14-36) H 06/09/25 12:38 ALT 65 U/L (6-35) H 06/09/25 12:38 Alkaline Phosphatase 159 U/L (38-126) H 06/09/25 12:38 NT-Pro-B Natriuret Pep 5120 pg/mL (19.9-100) H 06/09/25 12:38 Total Protein 8.3 g/dL (6.3-8.2) H 06/09/25 12:38 Most Recent Suicide Severity Rating Suicide Severity Rating NO RISK INDICATED 06/09/25 11:53
--- NOTE | 2025-06-09 17:04 | ADMGEN ---
This patient, Tati Pendleton, was admitted to Intensive Care Unit-5 at 1704. Patient/family oriented to hospital policies and general routines including ID bracelet, bed and alarms, visiting hours, pain management, procedures, bathroom and other care routines, personal items, smoking policy, room service/diet, and visiting hours. Information on how to activate the Rapid Response Team has been discussed. Patient/Family are encouraged to report perceived risks to care and to ask questions if they do not understand what they are told or what they should do.
[2025-06-09 17:22] LABS: MRSA (PCR) NOT DETECTED (NOT DETECTE)
[2025-06-09] MEDS: IPRATROPIUM 0.5 MG/ALBUTEROL SULFATE 2.5 MG (BASE) AMPUL.NEB 3 ML INHALATION (20:06)
[2025-06-09] MEDS: FUROSEMIDE INJ 100 MG/10 ML VIAL 80 MG IV PUSH (20:46)
[2025-06-09] MEDS: PRAZOSIN HCL 1 MG CAPSULE PO (20:46)
[2025-06-09] MEDS: POTASSIUM CHLORIDE 20 MEQ ER TABLET 40 MEQ PO (20:46)
[2025-06-09] MEDS: LATANOPROST 0.005% OP SOLN 2.5 ML BTL 1 DROP EACH EYE (20:47)
[2025-06-09] MEDS: ACETAMINOPHEN 325 MG TABLET 650 MG PO (20:59)
[2025-06-10] VITALS (34 sets, daily range): BP systolic 118–151; BP diastolic 58–101; PULSE 76–92; RESP 12–33; TEMP 36.7–37.7; O2SAT 94–100
--- NOTE | 2025-06-10 | ECHO_ITS ---
Patient Info Name: Tati Pendleton Age: 59 years : 1965 Gender: Female Ht: 66 in Wt: 345 lbs BSA: 2.80 m2 HR: 85 bpm BP: 139 / 89 mmHg Technical Quality: Poor Exam Date: 06/10/2025 11:12 AM Patient Status: I Admit Date: 06/09/2025 Exam Type: CA echo dop color flow w con Complete two-dimensional, color flow and Doppler transthoracic echocardiogram is performed with contrast to opacify the left ventricle and to improve the deliniation of the left ventricle endocardial borders. Staff Referring Physician: Aleshia Parker Sewing Supervisor: Rikki Hutchins III Attending Provider: Darien Eli Contrast/Agitated Saline Contrast/Ag. Saline: Definity Amount: 2.00 ml Administered By: Rikki Hutchins III Existing IV Access: Yes IV Access Condition: patent with no signs of infiltration Reason for Poor Study: poor echocardiographic windows Summary 1. Left ventricular systolic function is normal, estimated at 60-65. 2. The left ventricular diastolic function is normal. Left Ventricle Left ventricular chamber dimension is normal. Left ventricular systolic function is normal, estimated at 60-65. There is no increased left ventricular wall thickness. Left ventricular septal wall motion is normal. The left ventricular diastolic function is normal. Right Ventricle Right ventricular chamber dimension is normal. Right ventricular systolic function is normal. Left Atria Left atrial chamber dimension is normal. Right Atria Right atrial chamber dimension is normal. Aortic Valve The aortic valve is trileaflet. There is no aortic valve sclerosis. There is no aortic valve stenosis. There is no aortic valve regurgitation. Pulmonic Valve The pulmonic valve is normal. There is no pulmonic valve stenosis. There is no pulmonic regurgitation. Mitral Valve The mitral valve has normal leaflets. There is no mitral valve stenosis. There is no mitral valve regurgitation. Tricuspid Valve The tricuspid valve leaflets are normal. There is no significant tricuspid valve stenosis. There is no tricuspid valve regurgitation. Pericardium/Pleural The pericardium appears normal. There is no pericardial effusion. Inferior Vena Cava Normal inferior vena cava with >50% collapse upon inspiration consistent with normal right atrial pressure, 5 mmHg. Aorta The aortic root size at the sinus of Valsalva is normal. The prox ascending aorta size is normal. Left Ventricular Outflow Tract Name Value Normal LVOT 2D LVOT Diameter 2.3 cm LVOT Doppler LVOT Peak Velocity 129 cm/s LVOT Peak Gradient 7 mmHg LVOT Mean Gradient 4 mmHg LVOT VTI 30 cm LVOT VTI/AV VTI Ratio 0.8 LVOT Stroke Volume 118 ml LVOT CO 9.1 l/min LVOT CI 3.3 l/min/m2 Pulmonic Valve Name Value Normal PV Doppler PV Peak Velocity 101 cm/s PV Peak Gradient 4 mmHg PV Mean Gradient 2 mmHg Mitral Valve Name Value Normal MV Doppler MV Peak Gradient 5 mmHg MV Mean Gradient 3 mmHg MV Area (Cont Eq VTI) 4.5 cm2 MV Diastolic Function MV E Peak Velocity 104 cm/s MV A Peak Velocity 104 cm/s MV E/A 1.0 MV Decel Time (PW) 180 ms MV Annular TDI MV E/e' (Septal) 10.3 MV E/e' (Lateral) 12.0 MV E/e' (Average) 11.2 Tricuspid Valve Name Value Normal Estimated PAP/RSVP RA Pressure 5 mmHg <=5 TV Annular TDI TV Lateral Juany s' Velocity 19.4 cm/s >=9.5 Aortic Valve Name Value Normal AV Doppler AV Peak Velocity 177 cm/s AV Peak Gradient 13 mmHg AV Mean Gradient 7 mmHg AV VTI 36 cm AV Area (Cont Eq VTI) 3.2 cm2 >=3.0 AV Area (Cont Eq Ronaldo) 2.9 cm2 AV DI (Ronaldo) 0.73 AV Regurgitation 2D LVOT Area 4.0 cm2 Ventricles Name Value Normal LV Dimensions 2D/MM IVS Diastolic Thickness (2D) 0.9 cm 0.6-1.0 LVID Diastole (2D) 4.9 cm 3.8-5.2 LVIW Diastolic Thickness (2D) 1.0 cm 0.6-0.9 LVID Systole (2D) 2.8 cm 2.2-3.5 LVOT Diameter 2.3 cm LV Mass (2D Cubed) 170.99 g 67.00-162.00 LV Mass Index (2D Cubed) 61 g/m2 43-95 Relative Wall Thickness (2D) 0.42 <=0.42 LV Fractional Shortening/Ejection Fraction 2D/MM LV Fractional Shortening (2D) 43 % 27-45 LV EF (2D Teichholz) 74 % LV Diastolic Volume (4C MOD) 103 ml LV EF (4C MOD) 80 % LV Diastolic Volume (2C MOD) 74 ml LV EF (2C MOD) 77 % LV Diastolic Volume (BP MOD) 88 ml 46-106 LV Diastolic Volume Index (BP MOD) 32 ml/m2 29-61 LV Systolic Volume (BP MOD) 19 ml 14-42 LV Systolic Volume Index (BP MOD) 7 ml/m2 8-24 LV EF (BP MOD) 78 % 54-74 LV Diastolic Length (4C) 7.9 cm LV Systolic Length (4C) 6.1 cm LV Stroke Volume (4C MOD) 82 ml Atria Name Value Normal LA Dimensions LA Volume (4C A-L) 55 ml RA Dimensions RA Systolic Major [place] Length (4C) 6.8 cm 2.2-2.8 RA Area (4C) 24.2 cm2 <=18.0 Report Signatures
[2025-06-10] MEDS: IPRATROPIUM 0.5 MG/ALBUTEROL SULFATE 2.5 MG (BASE) AMPUL.NEB 3 ML INHALATION ×5 (01:05→20:22)
[2025-06-10 05:27] LABS: Alveolar/Arterial O2 Gradient 115.6 mmHg; Fractional Inspired Oxygen 40 %; HCO3 ABG 35.0 mEq/l (22.0-26.0); Oxygen Content ABG 19.3 %vol (16.0-22.0); Oxygen Saturation ABG 95.9 % (95.0-100.0); PO2 ABG 89.4 mmHg (80.0-100.0); PO2 FiO2 Ratio Arterial Blood 2.24 %
[2025-06-10 05:30] LABS: Modified Allen's Test Pass; PCO2 ABG 69.7 mmHg (35.0-45.0); Site Drawn RIGHT RADIAL
[2025-06-10] MEDS: LEVOTHYROXINE SODIUM 100 MCG TABLET 200 MCG PO (06:00)
[2025-06-10 06:12] LABS: Hematocrit 48.8 % (37.0-47.0); Hemoglobin 13.6 g/dL (12.0-15.0); Immature Granulocyte Percent A 1.4 % (0-0.5); Immature Platelet Fraction Pct 14.1 % (0.9-11.2); Lymphocytes Absolute Auto 0.77 K/mm3 (0.9-3.2); Mean Corpuscular HGB Conc 27.9 g/dl (32-36); Mean Corpuscular Hemoglobin 23.6 pg (26-34); Mean Corpuscular Volume 84.6 fl (80-100); Nucleated Red Blood Cells Absolute Auto 0.190 K/mm3 (0.0-0.012); Nucleated Red Blood Cells Perc 2.2 % (0.0-0.2); Platelet Count Result 128 k/mm3 (150-375); Red Blood Count 5.77 M/mm3 (4.2-5.4); White Blood Count 8.5 K/mm3 (4.5-10.0)
[2025-06-10 06:41] LABS: Alanine Aminotransferase 56 U/L (6-35); Albumin Level 4.0 g/dL (3.5-5.1); Alkaline Phosphatase 151 U/L (38-126); Anion Gap 7 mmol/L (4-12); Aspartate Amino Transferase 46 U/L (14-36); Bilirubin,Total 1.3 mg/dL (0.2-1.3); Blood Urea Nitrogen 41 mg/dL (7-17); Calcium 8.6 mg/dL (8.4-10.2); Carbon Dioxide 36 mmol/L (22-30); Chloride 96 mmol/L (98-107); Estimated CRCL calculation 61 ml/min; Estimated Glomerular Filt Rate 40; Glucose 115 mg/dL (65-110); Magnesium 2.4 mg/dL (1.6-2.3); Potassium 4.7 mmol/L (3.4-5.0); Sodium 139 mmol/L (137-145); Total Protein 7.9 g/dL (6.3-8.2)
[2025-06-10 07:11] LABS: Hypochromasia 1+
[2025-06-10 07:12] LABS: Anisocytosis 1+; Macrocytosis Occasional (NORMAL); Ovalocytes Occasional; Polychromasia Occasional; Schistocytes None Seen; Target Cells Occasional; Tear Drop Cells Occasional
[2025-06-10 08:58] LABS: Influenza A QL RT-PCR Negative (Negative); Influenza B QL RT-PCR Negative (Negative); RSV RNA, RT-PCR Negative (Negative); SARS-CoV-2 RNA PCR Negative (Negative)
[2025-06-10] MEDS: FUROSEMIDE INJ 40 MG/4 ML VIAL IV PUSH (09:22)
[2025-06-10] MEDS: TIMOLOL MALEATE 0.5% OP SOLN 5 ML BOTTLE 1 DROP EACH EYE (09:23)
--- NOTE | 2025-06-10 09:55 | PM.CNCAR ---
Assessment and Plan Assessment and plan (1) Acute hypoxic respiratory failure: Code(s): J96.01 - Acute respiratory failure with hypoxia Status: Acute (2) Acute on chronic diastolic heart failure: Code(s): I50.33 - Acute on chronic diastolic (congestive) heart failure Status: Acute (3) Hypertension: Qualifiers: Hypertension type: primary hypertension Qualified Code(s): I10 - Essential (primary) hypertension Code(s): I10 - Essential (primary) hypertension Status: Chronic (4) Morbid obesity with BMI of 50.0-59.9, adult: Code(s): E66.01 - Morbid (severe) obesity due to excess calories; Z68.43 - Body mass index [BMI] 50.0-59.9, adult Status: Acute Plan Assessment: Acute on chronic diastolic heart failure COPD exacerbation Obstructive sleep apnea Obesity hypoventilation syndrome Acute hypoxic respiratory failure secondary to above; on BiPAP Hypertension-not well controlled History of TIA CINDY on CKD Plan: Patient's presentation is most likely due to her COPD, obstructive sleep apnea, obesity hypoventilation syndrome more so than heart failure. She does have some chest congestion on her chest x-ray which is much improved on today's chest x-ray. She has elevated BNP and bibasilar crackles on exam. Recommend diuresis with small dose of IV Lasix 40 mg once today. Beyond that can switch her back to Lasix 40 mg p.o. daily. Continue empagliflozin for diastolic heart failure. Add small dose of Coreg 3.125 mg p.o. b.i.d. 1 she is euvolemic. Check and replace electrolytes to keep potassium greater than 4 and magnesium greater than 2. Monitor on telemetry. Check weight, ins and outs, renal function daily. Check troponins X 3. Obtain TTE. Management of other medical problems per primary team. History of Present Illness History of Present Illness Consult date/time: 06/10/25 09:55 Reason For Visit: CO2 Narcosis/ ?CHF? Narrative: 59-year-old female with past medical history of hypertension, grade 1 diastolic dysfunction, COPD, obstructive sleep apnea on CPAP, diabetes mellitus, depression, TIA, hypothyroidism, fibromyalgia, history of seizures, depression presents with chief complaints of shortness of breath. Patient reports ongoing and worsening shortness of breath for the last few weeks. She also reports worsening leg swelling, abdominal distention, and weight gain. She has cough with clear sputum. She reports occasional lightheadedness. She denies any chest pain, dizziness, palpitation, presyncope, syncope. She was feeling more tired the last few days which prompted her to present to the [facility] there EMS was called as patient was short of breath, weak, and dizzy. Patient usually uses a CPAP at night and supplemental oxygen with activity. However she has been requiring supplemental oxygen all day on the day of admission. She was saturating 90% on room air when EMS arrived. In the ER patient was hypoxic requiring 5 L of oxygen by nasal cannula. ABG was consistent with respiratory acidosis and she was subsequently placed on BiPAP. Chest x-ray showed mild pulmonary vascular congestion. Cardiology is consulted for further recommendations for acute heart failure. Workup: Creatinine 1.8 GFR 29 NT pro BNP 5120 Viral panel negative EKG: Sinus rhythm, occasional PACs, low voltage QRS in precordial leads, slow R/S transition in precordial leads Chest x-ray at presentation: cardiomegaly with pulmonary edema. Chest x-ray today: Cardiomegaly Past cardiac workup: Echo 04/2023: LVEF greater than 60%, grade 1 diastolic dysfunction, no significant valvular pathology Review of Systems Review of Systems: A complete review of systems was performed and pertinent positives are reported in the HPI. [facility] Past Medical History Medical History (Updated 06/10/25 @ 10:14 by Addie Chapa MD) Anxiety Depression Hypothyroidism Diabetes History of fibromyalgia COPD (chronic obstructive pulmonary disease) Hypertension History of seizures History of TIA (transient ischemic attack) Surgical History Surgical History History of hysterectomy Hx of breast reduction, elective H/O inguinal hernia repair H/O gastric bypass History of cholecystectomy History of appendectomy History of tonsillectomy Family History Family History Other Unknown family medical history Social History Social History Smoking packs per day: 1 Smoking cigarettes per day: 20.0 Years smoked: 14 Smoking pack-years: 14.00 Smoking status: Former smoker Tobacco type: cigarettes Second hand tobacco smoke exposure: No Smoking end date: 07/10/92 Alcohol intake: former Substance use: never Substance use type: does not use Lack of Transportation: No Lack of Food: Never True Current Housing: Decline to Answer Concerned About Future Housing: Decline to Answer Difficulty Paying Gas/Electric Bills: Decline to Answer Difficulty Paying for Meds: Decline to Answer Currently Unemployed: Decline to Answer Education: Decline to Answer Difficulty w/ Childcare or Family Care: Decline to Answer Spiritual care concerns: No Meds Home Medications and Allergies Home Medications ?Medication ?Instructions ?Recorded ?Confirmed ?Type buspirone 10 mg tablet 20 mg PO TID 03/01/20 06/09/25 History metformin 500 mg tablet,extended 500 mg PO DAILY 03/01/20 06/09/25 History release 24 hr timolol maleate 0.5 % eye drops 1 drp ophthalmic (eye) QAM 03/01/20 06/09/25 History tizanidine 4 mg tablet 4 mg PO TID 03/01/20 06/09/25 History eszopiclone 3 mg tablet 3 mg PO HS 11/21/21 06/09/25 History empagliflozin 25 mg tablet 25 mg PO DAILY 02/03/23 06/09/25 History (Jardiance) sertraline 100 mg tablet 200 mg PO DAILY 02/03/23 06/09/25 History trazodone 50 mg tablet 50 mg PO HS PRN Insomnia 02/03/23 06/09/25 History latanoprost 0.005 % eye drops 1 drp ophthalmic (eye) HS 02/11/23 06/09/25 History levothyroxine 200 mcg tablet 200 mcg PO DAILY 03/21/23 06/09/25 History prazosin 1 mg capsule 1 mg PO HS 03/21/23 06/09/25 History propranolol 10 mg tablet 10 mg PO DAILY PRN Anxiety 03/21/23 06/09/25 History mirtazapine 45 mg tablet 45 mg PO HS 04/09/23 06/09/25 History albuterol sulfate 90 mcg/actuation 2 inh inhalation Q4-6H PRN 04/14/23 06/09/25 Rx breath activated powder shortness of breath or wheezing #1 inhaler,sensor (Proair Digihaler) ea albuterol sulfate 2.5 mg/3 mL 2.5 mg (3 mL) inhalation Q6H #90 mL 05/15/23 06/09/25 Rx (0.083 %) solution for nebulization furosemide 40 mg tablet 40 mg PO DAILY 06/09/25 06/09/25 History montelukast 10 mg tablet 10 mg PO DAILY 06/09/25 06/09/25 History omeprazole 40 mg capsule,delayed 40 mg PO DAILY 06/09/25 06/09/25 History release prazosin 2 mg capsule 2 mg PO DAILY 06/09/25 06/09/25 History pregabalin 100 mg capsule 100 mg PO Q12H 06/09/25 06/09/25 History quetiapine 50 mg tablet,extended 50 mg PO QPM 06/09/25 06/09/25 History release 24 hr ropinirole 2 mg tablet 2 mg PO HS 06/09/25 06/09/25 History semaglutide 2 mg/dose (8 mg/3 mL) 2 mg subcut WEEKLY 06/09/25 06/09/25 History subcutaneous pen injector (Ozempic) Allergies Allergy/AdvReac Type Severity Reaction Status Date / Time No Known Allergies Allergy Verified 06/09/25 17:24 Vital Signs Vital Signs - 24 hr 06/09/25 11:53 06/09/25 12:00 06/09/25 12:15 Temperature 36.8 C Pulse Rate 84 83 83 Respiratory Rate 16 16 12 Blood Pressure 145/91 H 129/100 H 149/97 H Pulse Oximetry 93 100 96 Oxygen Delivery Nasal Cannula Oxygen Flow Rate 5 Fraction of Inspired Oxygen 06/09/25 12:48 06/09/25 12:51 06/09/25 13:00 Temperature Pulse Rate 86 84 83 Respiratory Rate 20 17 22 H Blood Pressure 159/81 H Pulse Oximetry 99 100 Oxygen Delivery BiPAP Oxygen Flow Rate Fraction of Inspired Oxygen 06/09/25 13:00 06/09/25 13:15 06/09/25 13:45 Temperature Pulse Rate 82 81 82 Respiratory Rate 21 H 18 14 Blood Pressure 153/83 H 147/89 H Pulse Oximetry 100 95 95 Oxygen Delivery Oxygen Flow Rate Fraction of Inspired Oxygen 06/09/25 14:00 06/09/25 14:00 06/09/25 14:15 Temperature Pulse Rate 96 80 81 Respiratory Rate 24 H 33 H 24 H Blood Pressure 159/104 H 159/107 H Pulse Oximetry 100 95 99 Oxygen Delivery BiPAP Oxygen Flow Rate Fraction of Inspired Oxygen 06/09/25 14:30 06/09/25 14:45 06/09/25 15:00 Temperature Pulse Rate 80 83 97 Respiratory Rate 31 H 25 H 24 H Blood Pressure 159/107 H 149/105 H Pulse Oximetry 100 98 100 Oxygen Delivery BiPAP Oxygen Flow Rate Fraction of Inspired Oxygen 06/09/25 15:00 06/09/25 15:15 06/09/25 15:30 Temperature Pulse Rate 83 81 82 Respiratory Rate 23 H 30 H 34 H Blood Pressure 154/100 H 163/112 H 174/111 H Pulse Oximetry 96 98 95 Oxygen Delivery Oxygen Flow Rate Fraction of Inspired Oxygen 06/09/25 15:45 06/09/25 16:51 06/09/25 17:27 Temperature Pulse Rate 83 123 H 83 Respiratory Rate 35 H 25 H 25 H Blood Pressure 159/93 H Pulse Oximetry 94 97 95 Oxygen Delivery BiPAP BiPAP Oxygen Flow Rate Fraction of Inspired Oxygen 40 06/09/25 17:40 06/09/25 18:00 06/09/25 18:00 Temperature 37.5 C Pulse Rate 99 79 83 Respiratory Rate 24 H 23 H Blood Pressure 168/98 H Pulse Oximetry 95 92 Oxygen Delivery BiPAP Oxygen Flow Rate Fraction of Inspired Oxygen 06/09/25 19:00 06/09/25 20:00 06/09/25 20:00 Temperature 37.4 C 37.4 C Pulse Rate 86 88 82 Respiratory Rate 22 H 32 H 28 H Blood Pressure 162/99 H 168/98 H Pulse Oximetry 93 100 98 Oxygen Delivery BiPAP Oxygen Flow Rate Fraction of Inspired Oxygen 40 06/09/25 20:00 06/09/25 20:07 06/09/25 20:07 Temperature Pulse Rate 84 84 84 Respiratory Rate 24 H Blood Pressure Pulse Oximetry 95 95 Oxygen Delivery BiPAP BiPAP Oxygen Flow Rate Fraction of Inspired Oxygen 40 06/09/25 21:00 06/09/25 22:00 06/09/25 22:00 Temperature 37.4 C 37.2 C Pulse Rate 82 80 80 Respiratory Rate 30 H 22 H Blood Pressure 148/88 H 142/82 H Pulse Oximetry 98 97 Oxygen Delivery Oxygen Flow Rate Fraction of Inspired Oxygen 06/09/25 23:00 06/10/25 00:00 06/10/25 00:00 Temperature 37.2 C Pulse Rate 80 80 84 Respiratory Rate 22 H Blood Pressure 138/88 Pulse Oximetry 96 96 Oxygen Delivery BiPAP Oxygen Flow Rate Fraction of Inspired Oxygen 40 06/10/25 00:00 06/10/25 00:40 06/10/25 00:40 Temperature 36.7 C Pulse Rate 84 79 79 Respiratory Rate 20 26 H 21 H Blood Pressure 133/84 Pulse Oximetry 94 99 Oxygen Delivery BiPAP Oxygen Flow Rate Fraction of Inspired Oxygen 06/10/25 01:00 06/10/25 02:00 06/10/25 02:00 Temperature 36.8 C 37.2 C Pulse Rate 76 78 80 Respiratory Rate 18 20 Blood Pressure 134/80 148/89 H Pulse Oximetry 98 99 Oxygen Delivery Oxygen Flow Rate Fraction of Inspired Oxygen 06/10/25 03:00 06/10/25 04:00 06/10/25 04:00 Temperature 37.2 C Pulse Rate 80 86 81 Respiratory Rate 22 H 20 Blood Pressure 148/85 H Pulse Oximetry 98 98 Oxygen Delivery BiPAP Oxygen Flow Rate Fraction of Inspired Oxygen 40 06/10/25 04:00 06/10/25 04:07 06/10/25 04:20 Temperature 36.9 C Pulse Rate 81 81 82 Respiratory Rate 23 H 26 H 18 Blood Pressure 148/81 H Pulse Oximetry 98 Oxygen Delivery Oxygen Flow Rate Fraction of Inspired Oxygen 06/10/25 05:00 06/10/25 05:33 06/10/25 06:00 Temperature 36.9 C Pulse Rate 85 83 85 Respiratory Rate 18 22 H Blood Pressure 145/96 H Pulse Oximetry 96 100 Oxygen Delivery BiPAP Oxygen Flow Rate Fraction of Inspired Oxygen 06/10/25 06:00 Temperature 37.2 C Pulse Rate 85 Respiratory Rate 18 Blood Pressure 139/89 Pulse Oximetry 96 Oxygen Delivery Oxygen Flow Rate Fraction of Inspired Oxygen Exam Narrative: General: Alert oriented x3, no acute distress Neck: Supple, JVD + Chest: Bibasilar rales present, no rhonchi Cardiac: S1, S2 +, regular rate, regular rhythm, no murmurs or rubs Extremities: Bilateral lower extremity edema 2+, no skin rash Neurologic: Alert and oriented x3, no focal neurological deficits Results Labs and Meds 06/10/25 05:29 06/10/25 05:29 Lab results: Cardiac Enzymes 06/09/25 06/10/25 Range/Units 12:38 05:29 AST 61 H 46 H (14-36) U/L CBC 06/09/25 06/10/25 Range/Units 12:38 05:29 WBC 9.9 8.5 (4.5-10.0) K/mm3 RBC 5.77 H 5.77 H (4.2-5.4) M/mm3 Hgb 13.6 13.6 (12.0-15.0) g/dL Hct 48.8 H 48.8 H (37.0-47.0) % Plt Count 146 L 128 L (150-375) k/mm3 Lymph # (Auto) 1.32 0.77 L (0.9-3.2) K/mm3 [place] # (Auto) 0.9 H 0.3 (0.1-0.6) K/mm3 Eos # (Auto) 0.1 0.0 (0-0.3) K/mm3 Baso # (Auto) 0.0 0.0 (0.0-0.1) K/mm3 Comprehensive Metabolic Panel 06/09/25 06/10/25 Range/Units 12:38 05:29 Sodium 136 L 139 (137-145) mmol/L Potassium 3.7 4.7 (3.4-5.0) mmol/L Chloride 94 L 96 L (98-107) mmol/L Carbon Dioxide 35 H 36 H (22-30) mmol/L BUN 50 H D 41 H (7-17) mg/dL Creatinine 1.80 H 1.35 H (0.7-1.0) mg/dL Glucose 115 H 115 H (65-110) mg/dL Calcium 8.6 8.6 (8.4-10.2) mg/dL AST 61 H 46 H (14-36) U/L ALT 65 H 56 H (6-35) U/L Alkaline Phosphatase 159 H 151 H (38-126) U/L Total Protein 8.3 H 7.9 (6.3-8.2) g/dL Albumin 4.3 4.0 (3.5-5.1) g/dL Intake and Output 06/09/25 06/10/25 06/10/25 23:59 07:59 15:59 Output Total 1999 Output: Catheter Urine 1999 1599 Urethral Catheter 1999 1599 Patient Weight 06/10/25 23:59 Weight 157.5 kg
[2025-06-10 11:01] LABS: Troponin I 0.016 ng/mL (0.000-0.034)
--- NOTE | 2025-06-10 11:36 | WPDCNINT2 ---
Assessment and Plan Assessment and plan (1) Acute hypercapnic respiratory failure: Code(s): J96.02 - Acute respiratory failure with hypercapnia Status: Acute Assessment and Plan: Acute respiratory failure, multifactorial, could be related to COPD exacerbation, pneumonia, bronchitis, acute on chronic diastolic heart failure, volume overload, obesity hyperventilation syndrome, obstructive sleep apnea -was placed on BiPAP overnight, -06/10: switch this morning to AVAPS as she was not getting adequate volumes on BiPAP. -chest x-ray and ABGs and review -continue diuresis, steroids, bronchodilators -will add pulmicort -started on ceftriaxone and doxycycline (06/10) (2) COPD (chronic obstructive pulmonary disease): Code(s): J44.9 - Chronic obstructive pulmonary disease, unspecified Status: Acute Assessment and Plan: As above (3) Acute kidney injury superimposed on CKD: Code(s): N17.9 - Acute kidney failure, unspecified; N18.9 - Chronic kidney disease, unspecified Status: Acute Assessment and Plan: Acute on chronic kidney disease, could be related to hypoxia, volume overload -urine output was good in response to diuretics overnight -will continue diuresing patient -creatinine trending down -continue to monitor renal function, electrolytes and urine (4) Acute on chronic diastolic heart failure: Code(s): I50.33 - Acute on chronic diastolic (congestive) heart failure Status: Acute Assessment and Plan: Acute on chronic diastolic heart failure -recheck echocardiogram -appreciate cardiology evaluation recommendation -continue diuresis, -Coreg and empagliflozin was added by Cardiology -troponin x1 negative (5) Hypertension: Qualifiers: Hypertension type: primary hypertension Qualified Code(s): I10 - Essential (primary) hypertension Code(s): I10 - Essential (primary) hypertension Status: Chronic Assessment and Plan: Continue Coreg, prazosin -will add hydralazine p.r.n. Plan DVT prophylaxis: Low vein Stress ulcer prophylaxis: Protonix Nutrition: NPO except ice chips Code Status: Full Critical Care Time Spent: 48 minutes Discussed with patient updated with her condition and plan of care. I answered all questions Due to a high probability of clinically significant, life threatening deterioration, the patient required my highest level of preparedness to intervene emergently and I personally spent this critical care time directly and personally managing the patient. This critical care time included obtaining a history; examining the patient; pulse oximetry; ordering and review of studies; arranging urgent treatment with development of a management plan; evaluation of patient's response to treatment; frequent reassessment; and discussions with other providers. It was exclusive of separately billable procedures and treating other patients and teaching time. Please see Assessment and Plan section and the rest of the note for further information on patient assessment and treatment This dictation may have been done utilizing a voice recognition system. Attempts have been made to correct errors. However, there may be uncorrected grammatical, spelling, and recognitions errors present. Planer Setter Consult Note Consult date: 06/10/25 Reason for consult: Acute hypercapnic respiratory failure, volume overload, acute on chronic CHF, shortness of breath HPI: Tati Pendleton is a 59 year old female with past medical history of COPD, type 2 diabetes, depression, TIA, essential hypertension, hypothyroidism, diastolic dysfunction, chronic kidney disease presented the ED on 06/09/2025 with complains of dyspnea. Patient initially presented the [facility] can wa in care with dyspnea on 06/04 but progressively got worse. Patient does use CPAP at home with oxygen. She was sent to the ER from the [facility] for shortness of breath, weakness and dizziness. She also complained of cough with no sputum. ABGs in the ER showed hypercapnic respiratory failure/respiratory acidosis. Patient was placed on BiPAP /. Repeat ABGs this morning are improving. Labs on admission: WBC 9.9, hemoglobin 13.6, platelets 146. Sodium 136, potassium 3.7, BUN 50, creatinine 1.80, ALT and AST were elevated, proBNP 5120, troponin 0.016. Influenza, RSV and SARS-CoV-2 PCR neg Chest x-ray on admission: Showed cardiomegaly with pulmonary edema Patient was given Lasix 80 mg IV x1 with mild improvement in her he breathing. Patient was transferred to the ICU for further management Patient seen and examined the ICU, is awake, alert, states her breathing is much better. Remains on BiPAP, low tidal volumes, switched to AVAPS. Patient answers to questions appropriately and follows simple commands in all extremities. Urine output has been adequate, hemodynamically stable, afebrile. Denies any chest pain, shortness a breath or abdominal pain Review of Systems Review of Systems: All systems reviewed & are unremarkable except as noted in HPI and below PMFSH Past Medical History Medical History (Updated 06/10/25 @ 12:22 by Ventura Cortez MD) Anxiety Depression Hypothyroidism Diabetes History of fibromyalgia COPD (chronic obstructive pulmonary disease) Hypertension History of seizures History of TIA (transient ischemic attack) Surgical History Surgical History History of hysterectomy Hx of breast reduction, elective H/O inguinal hernia repair H/O gastric bypass History of cholecystectomy History of appendectomy History of tonsillectomy Family History Family History Other Unknown family medical history Social History Social History Smoking packs per day: 1 Smoking cigarettes per day: 20.0 Years smoked: 14 Smoking pack-years: 14.00 Smoking status: Former smoker Tobacco type: cigarettes Second hand tobacco smoke exposure: No Smoking end date: 07/10/92 Alcohol intake: former Substance use: never Substance use type: does not use Lack of Transportation: No Lack of Food: Never True Current Housing: Decline to Answer Concerned About Future Housing: Decline to Answer Difficulty Paying Gas/Electric Bills: Decline to Answer Difficulty Paying for Meds: Decline to Answer Currently Unemployed: Decline to Answer Education: Decline to Answer Difficulty w/ Childcare or Family Care: Decline to Answer Spiritual care concerns: No Meds Home Medications and Allergies Home Medications ?Medication ?Instructions ?Recorded ?Confirmed ?Type buspirone 10 mg tablet 20 mg PO TID 03/01/20 06/09/25 History metformin 500 mg tablet,extended 500 mg PO DAILY 03/01/20 06/09/25 History release 24 hr timolol maleate 0.5 % eye drops 1 drp ophthalmic (eye) QAM 03/01/20 06/09/25 History tizanidine 4 mg tablet 4 mg PO TID 03/01/20 06/09/25 History eszopiclone 3 mg tablet 3 mg PO HS 11/21/21 06/09/25 History empagliflozin 25 mg tablet 25 mg PO DAILY 02/03/23 06/09/25 History (Jardiance) sertraline 100 mg tablet 200 mg PO DAILY 02/03/23 06/09/25 History trazodone 50 mg tablet 50 mg PO HS PRN Insomnia 02/03/23 06/09/25 History latanoprost 0.005 % eye drops 1 drp ophthalmic (eye) HS 02/11/23 06/09/25 History levothyroxine 200 mcg tablet 200 mcg PO DAILY 03/21/23 06/09/25 History prazosin 1 mg capsule 1 mg PO HS 03/21/23 06/09/25 History propranolol 10 mg tablet 10 mg PO DAILY PRN Anxiety 03/21/23 06/09/25 History mirtazapine 45 mg tablet 45 mg PO HS 04/09/23 06/09/25 History albuterol sulfate 90 mcg/actuation 2 inh inhalation Q4-6H PRN 04/14/23 06/09/25 Rx breath activated powder shortness of breath or wheezing #1 inhaler,sensor (Proair Digihaler) ea albuterol sulfate 2.5 mg/3 mL 2.5 mg (3 mL) inhalation Q6H #90 mL 05/15/23 06/09/25 Rx (0.083 %) solution for nebulization furosemide 40 mg tablet 40 mg PO DAILY 06/09/25 06/09/25 History montelukast 10 mg tablet 10 mg PO DAILY 06/09/25 06/09/25 History omeprazole 40 mg capsule,delayed 40 mg PO DAILY 06/09/25 06/09/25 History release prazosin 2 mg capsule 2 mg PO DAILY 06/09/25 06/09/25 History pregabalin 100 mg capsule 100 mg PO Q12H 06/09/25 06/09/25 History quetiapine 50 mg tablet,extended 50 mg PO QPM 06/09/25 06/09/25 History release 24 hr ropinirole 2 mg tablet 2 mg PO HS 06/09/25 06/09/25 History semaglutide 2 mg/dose (8 mg/3 mL) 2 mg subcut WEEKLY 06/09/25 06/09/25 History subcutaneous pen injector (Ozempic) Allergies Allergy/AdvReac Type Severity Reaction Status Date / Time No Known Allergies Allergy Verified 06/09/25 17:24 Vital Signs Vital Signs - 24 hr 06/09/25 11:53 06/09/25 12:00 06/09/25 12:15 Temperature 98.2 F Pulse Rate 84 83 83 Respiratory Rate 16 16 12 Blood Pressure 145/91 H 129/100 H 149/97 H Pulse Oximetry 93 100 96 Oxygen Delivery Nasal Cannula Oxygen Flow Rate 5 Fraction of Inspired Oxygen 06/09/25 12:48 06/09/25 12:51 06/09/25 13:00 Temperature Pulse Rate 86 84 83 Respiratory Rate 20 17 22 H Blood Pressure 159/81 H Pulse Oximetry 99 100 Oxygen Delivery BiPAP Oxygen Flow Rate Fraction of Inspired Oxygen 06/09/25 13:00 06/09/25 13:15 06/09/25 13:45 Temperature Pulse Rate 82 81 82 Respiratory Rate 21 H 18 14 Blood Pressure 153/83 H 147/89 H Pulse Oximetry 100 95 95 Oxygen Delivery Oxygen Flow Rate Fraction of Inspired Oxygen 06/09/25 14:00 06/09/25 14:00 06/09/25 14:15 Temperature Pulse Rate 96 80 81 Respiratory Rate 24 H 33 H 24 H Blood Pressure 159/104 H 159/107 H Pulse Oximetry 100 95 99 Oxygen Delivery BiPAP Oxygen Flow Rate Fraction of Inspired Oxygen 06/09/25 14:30 06/09/25 14:45 06/09/25 15:00 Temperature Pulse Rate 80 83 97 Respiratory Rate 31 H 25 H 24 H Blood Pressure 159/107 H 149/105 H Pulse Oximetry 100 98 100 Oxygen Delivery BiPAP Oxygen Flow Rate Fraction of Inspired Oxygen 06/09/25 15:00 06/09/25 15:15 06/09/25 15:30 Temperature Pulse Rate 83 81 82 Respiratory Rate 23 H 30 H 34 H Blood Pressure 154/100 H 163/112 H 174/111 H Pulse Oximetry 96 98 95 Oxygen Delivery Oxygen Flow Rate Fraction of Inspired Oxygen 06/09/25 15:45 06/09/25 16:51 06/09/25 17:27 Temperature Pulse Rate 83 123 H 83 Respiratory Rate 35 H 25 H 25 H Blood Pressure 159/93 H Pulse Oximetry 94 97 95 Oxygen Delivery BiPAP BiPAP Oxygen Flow Rate Fraction of Inspired Oxygen 40 06/09/25 17:40 06/09/25 18:00 06/09/25 18:00 Temperature 99.5 F Pulse Rate 99 79 83 Respiratory Rate 24 H 23 H Blood Pressure 168/98 H Pulse Oximetry 95 92 Oxygen Delivery BiPAP Oxygen Flow Rate Fraction of Inspired Oxygen 06/09/25 19:00 06/09/25 20:00 06/09/25 20:00 Temperature 99.3 F 99.3 F Pulse Rate 86 88 82 Respiratory Rate 22 H 32 H 28 H Blood Pressure 162/99 H 168/98 H Pulse Oximetry 93 100 98 Oxygen Delivery BiPAP Oxygen Flow Rate Fraction of Inspired Oxygen 40 06/09/25 20:00 06/09/25 20:07 06/09/25 20:07 Temperature Pulse Rate 84 84 84 Respiratory Rate 24 H Blood Pressure Pulse Oximetry 95 95 Oxygen Delivery BiPAP BiPAP Oxygen Flow Rate Fraction of Inspired Oxygen 40 06/09/25 21:00 06/09/25 22:00 06/09/25 22:00 Temperature 99.4 F 99 F Pulse Rate 82 80 80 Respiratory Rate 30 H 22 H Blood Pressure 148/88 H 142/82 H Pulse Oximetry 98 97 Oxygen Delivery Oxygen Flow Rate Fraction of Inspired Oxygen 06/09/25 23:00 06/10/25 00:00 06/10/25 00:00 Temperature 99 F Pulse Rate 80 80 84 Respiratory Rate 22 H Blood Pressure 138/88 Pulse Oximetry 96 96 Oxygen Delivery BiPAP Oxygen Flow Rate Fraction of Inspired Oxygen 40 06/10/25 00:00 06/10/25 00:40 06/10/25 00:40 Temperature 98.1 F Pulse Rate 84 79 79 Respiratory Rate 20 26 H 21 H Blood Pressure 133/84 Pulse Oximetry 94 99 Oxygen Delivery BiPAP Oxygen Flow Rate Fraction of Inspired Oxygen 06/10/25 01:00 06/10/25 02:00 06/10/25 02:00 Temperature 98.3 F 99 F Pulse Rate 76 78 80 Respiratory Rate 18 20 Blood Pressure 134/80 148/89 H Pulse Oximetry 98 99 Oxygen Delivery Oxygen Flow Rate Fraction of Inspired Oxygen 06/10/25 03:00 06/10/25 04:00 06/10/25 04:00 Temperature 99 F Pulse Rate 80 86 81 Respiratory Rate 22 H 20 Blood Pressure 148/85 H Pulse Oximetry 98 98 Oxygen Delivery BiPAP Oxygen Flow Rate Fraction of Inspired Oxygen 40 06/10/25 04:00 06/10/25 04:07 06/10/25 04:20 Temperature 98.5 F Pulse Rate 81 81 82 Respiratory Rate 23 H 26 H 18 Blood Pressure 148/81 H Pulse Oximetry 98 Oxygen Delivery Oxygen Flow Rate Fraction of Inspired Oxygen 06/10/25 05:00 06/10/25 05:33 06/10/25 06:00 Temperature 98.4 F Pulse Rate 85 83 85 Respiratory Rate 18 22 H Blood Pressure 145/96 H Pulse Oximetry 96 100 Oxygen Delivery BiPAP Oxygen Flow Rate Fraction of Inspired Oxygen 06/10/25 06:00 06/10/25 07:00 06/10/25 08:00 Temperature 99 F 99.5 F Pulse Rate 85 92 90 Respiratory Rate 18 12 Blood Pressure 139/89 132/58 L Pulse Oximetry 96 98 Oxygen Delivery Oxygen Flow Rate Fraction of Inspired Oxygen 06/10/25 08:00 06/10/25 08:00 06/10/25 08:00 Temperature 99.6 F Pulse Rate 91 84 84 Respiratory Rate 33 H 25 H 25 H Blood Pressure 122/86 Pulse Oximetry 99 99 99 Oxygen Delivery BiPAP BiPAP Oxygen Flow Rate Fraction of Inspired Oxygen 40 06/10/25 08:00 06/10/25 08:50 06/10/25 08:50 Temperature Pulse Rate 84 82 82 Respiratory Rate 25 H 21 H 21 H Blood Pressure Pulse Oximetry 99 Oxygen Delivery Mechanical Ventilation Oxygen Flow Rate Fraction of Inspired Oxygen 06/10/25 09:00 06/10/25 10:00 06/10/25 10:00 Temperature 99.6 F 99.5 F Pulse Rate 88 84 84 Respiratory Rate 16 19 Blood Pressure 145/101 H 151/91 H Pulse Oximetry 100 98 Oxygen Delivery Oxygen Flow Rate Fraction of Inspired Oxygen 06/10/25 11:00 Temperature 99.6 F Pulse Rate 81 Respiratory Rate 16 Blood Pressure 141/89 H Pulse Oximetry 98 Oxygen Delivery Oxygen Flow Rate Fraction of Inspired Oxygen Exam Narrative: General: Pleasant female, , in no acute distress HEENT:? Pupils equal and reactive, sclera is clear, BiPAP mask in place Neck:? Supple Respiratory:? Coarse breath sounds bilaterally, decreased decreased air entry at bases, no wheezing Cardiac:? S1-S2 normal, regular rate and rhythm Abdomen:? Soft, nontender, nondistended, hypoactive bowel sounds, obese Extremities:? Bilateral lower extremity lymphedema, palpable pedal pulse Neuro:? Patient is awake, alert, oriented, nonfocal, answers to questions and follows simple commands in all extremities Skin:? No skin lesions noted Psych:? Normal mentation and affect Results Labs 06/10/25 05:29 06/10/25 05:29 Labs: Short CBC 06/09/25 06/10/25 Range/Units 12:38 05:29 WBC 9.9 8.5 (4.5-10.0) K/mm3 Hgb 13.6 13.6 (12.0-15.0) g/dL Hct 48.8 H 48.8 H (37.0-47.0) % Plt Count 146 L 128 L (150-375) k/mm3 BMP 06/09/25 06/10/25 12:38 05:29 Sodium 136 L 139 Potassium 3.7 4.7 Chloride 94 L 96 L Carbon Dioxide 35 H 36 H BUN 50 H D 41 H Creatinine 1.80 H 1.35 H Glucose 115 H 115 H Calcium 8.6 8.6 Cardiac Enzymes 06/10/25 Range/Units 10:31 Troponin I 0.016 (0.000-0.034) ng/mL Liver Function 06/09/25 06/10/25 Range/Units 12:38 05:29 Total Bilirubin 1.2 1.3 (0.2-1.3) mg/dL AST 61 H 46 H (14-36) U/L ALT 65 H 56 H (6-35) U/L Alkaline Phosphatase 159 H 151 H (38-126) U/L Albumin 4.3 4.0 (3.5-5.1) g/dL Quality VTE Prophylaxis VTE prophylaxis: pharmacologic ordered Hospitalist MIPS Advance Care Plan I have confirmed that the patient's Advanced Care Plan is present, code status is documented, or surrogate decision maker is listed in patient medical record.: Yes Medication Reconciliation I have utilized all available resources to obtain, update and review the patients current medications (includes all prescriptions, OTC, herbals, cannabis, and nutritional supplements).: Yes
[2025-06-10] MEDS: cefTRIAXone 2 GM in SODIUM CHLORIDE 0.9% IV 100 ML 200 ML IVPB (11:56)
[2025-06-10 11:59] LABS: Alveolar/Arterial O2 Gradient 119.0 mmHg; Fractional Inspired Oxygen 40 %; HCO3 ABG 38.7 mEq/l (22.0-26.0); Oxygen Content ABG 19.5 %vol (16.0-22.0); Oxygen Saturation ABG 96.4 % (95.0-100.0); PO2 ABG 89.5 mmHg (80.0-100.0); PO2 FiO2 Ratio Arterial Blood 2.24 %
[2025-06-10 12:14] LABS: Modified Allen's Test Pass; PCO2 ABG 66.7 mmHg (35.0-45.0); Site Drawn RIGHT RADIAL
[2025-06-10 12:15] LABS: Non-Invasive Vent Rate 18 /MIN
[2025-06-10 12:16] LABS: Non-Invasive Expiratory Pressure 8 CMH2O; Non-Invasive Inspiratory Pressure 25 CMH2O
[2025-06-10] MEDS: DOXYCYCLINE IV 100 MG in SODIUM CHLORIDE 0.9% IV 100 ML IVPB ×2 (12:31→20:39)
[2025-06-10] MEDS: PERFLUTREN LIPID MICROSPHERES 1.5 ML VIAL DILUTED TO 10 ML TOTAL VOLUME IV PUSH (12:37)
--- NOTE | 2025-06-10 12:37 | IVDEFINITY ---
Prior to administration of IV Definity the patient was educated on the risks and benefits of the imaging enhancing agent including potential adverse side effects. The patient verbalized understanding. Allergies were verified. No exclusion criteria were identified and at least one of the following inclusion criteria were met: 1) physician request, 2) patient technically difficult to image (per the [place] [employer] guidelines of two or more segments not discernable within the apical view), or 3) questionable left ventricular function. ?
[2025-06-10] MEDS: BUDESONIDE RESPULE NEB 0.5 MG/2 ML AMP INHALATION ×2 (12:43→20:22)
[2025-06-10] MEDS: ENOXAPARIN 40 MG/0.4 ML SYRINGE SUB-Q (13:48)
--- NOTE | 2025-06-10 14:45 | PC.NURSE ---
This patient, Tati Pendleton, was received from [ICU - 5] on 06/10/25 at 1445. Patient/family oriented to unit policies and routines
--- NOTE | 2025-06-10 14:54 | PC.NURSE ---
This patient, Tati Pendleton, was transferred to [[facility] ] on 06/10/25 at 1444. Personal belongings sent with patient. Report given to [ meka]. Appropriate documentation sent with patient.
[2025-06-10] MEDS: PRAZOSIN HCL 1 MG CAPSULE PO (20:38)
[2025-06-10] MEDS: PANTOPRAZOLE 40 MG TABLET PO (20:38)
[2025-06-10] MEDS: LATANOPROST 0.005% OP SOLN 2.5 ML BTL 1 DROP EACH EYE (20:39)
[2025-06-11] VITALS (28 sets, daily range): BP systolic 116–153; BP diastolic 53–84; PULSE 61–89; RESP 19–31; TEMP 36.5–37.5; O2SAT 92–99
[2025-06-11] MEDS: LEVOTHYROXINE SODIUM 100 MCG TABLET 200 MCG PO (06:31)
[2025-06-11 08:26] LABS: Alveolar/Arterial O2 Gradient 74.5 mmHg; Fractional Inspired Oxygen 30 %; HCO3 ABG 35.7 mEq/l (22.0-26.0); Oxygen Content ABG 18.9 %vol (16.0-22.0); Oxygen Saturation ABG 96.0 % (95.0-100.0); PCO2 ABG 51.6 mmHg (35.0-45.0); PO2 ABG 78.8 mmHg (80.0-100.0); PO2 FiO2 Ratio Arterial Blood 2.63 %
[2025-06-11 08:28] LABS: Modified Allen's Test Pass; Site Drawn RIGHT RADIAL
[2025-06-11 08:29] LABS: Non-Invasive Vent Rate 18 /MIN
[2025-06-11 08:32] LABS: Non-Invasive Expiratory Pressure 8 CMH2O
--- NOTE | 2025-06-11 08:32 | P.PNCA_ITS ---
Progress Note: A&P Assessment and Plan (1) Morbid obesity with BMI of 50.0-59.9, adult: Code(s): E66.01 - Morbid (severe) obesity due to excess calories; Z68.43 - Body mass index [BMI] 50.0-59.9, adult Status: Acute (2) Hypertension: Qualifiers: Hypertension type: primary hypertension Qualified Code(s): I10 - Essential (primary) hypertension Code(s): I10 - Essential (primary) hypertension Status: Chronic (3) Acute respiratory failure with hypoxia and hypercapnia: Code(s): J96.01 - Acute respiratory failure with hypoxia; J96.02 - Acute respiratory failure with hypercapnia Status: Acute (4) Obesity hypoventilation syndrome: Code(s): E66.2 - Morbid (severe) obesity with alveolar hypoventilation Status: Chronic (5) JUAN (obstructive sleep apnea): Code(s): G47.33 - Obstructive sleep apnea (adult) (pediatric) Status: Acute Plan Assessment: Acute hypoxic respiratory failure requiring BiPAP-most likely secondary to COPD exacerbation Acute COPD exacerbation Obstructive sleep apnea Obesity hypoventilation syndrome Hypertension History of TIA CINDY on CKD Plan: TTE is normal with LVEF of 60-65%. Normal diastolic function. I will stop the empagliflozin has no indication from cardiac standpoint. I will also stop the Coreg as she is on propranolol at home. Patient is euvolemic exam. Renal function down to 1.3 from 1.8. Can resume home dose of Lasix 40 mg daily. Consider Hydralazine 10 mg BID for BP control. Check and replace electrolytes to keep potassium greater than 4 and magnesium greater than 2. Monitor on telemetry. Check weight, ins and outs, renal function daily. Management of other medical problems per primary team. Thank you for allowing us to participate in the care of this patient. Cardiology will sign off. Please call us with any questions. Subjective Date/time seen: 06/11/25 08:32 Interval history: Reason for encounter: Shortness of breath Relevant history: 59-year-old female with past medical history of hypertension, grade 1 diastolic dysfunction, COPD, obstructive sleep apnea on CPAP, diabetes mellitus, depression, TIA, hypothyroidism, fibromyalgia, history of seizures, depression was admitted with chief complaint of shortness of breath, leg swelling, abdominal distention, and weight gain. In the ER patient was hypoxic requiring 5 L of oxygen by nasal cannula. ABG was consistent with respiratory acidosis and she was subsequently placed on BiPAP. Chest x-ray showed mild pulmonary vascular congestion. Cardiology is consulted for further recommendations for acute heart failure. TTE shows normal LVEF of 60-65% and no diastolic dysfunction. No significant valvular pathology. Interval history: Patient continues remain on BiPAP. He says shortness of breath is decreased. No chest pain. Review of Systems Review of Systems: A complete review of systems was performed and pertinent positives are reported in HPI. Exam Narrative: General: Alert oriented x3, no acute distress Neck: Supple, no JVD Chest: Expiratory wheezing present, no rales or rhonchi Cardiac: S1, S2 +, regular rate, regular rhythm, no murmurs or rubs Extremities: Bilateral lower extremity edema 1+, no skin rash Neurologic: Alert and oriented x3, no focal neurological deficits Objective Data Vital Signs Vital Signs: Vital Signs - 24 hr 06/10/25 08:50 06/10/25 08:50 06/10/25 09:00 Temperature 37.6 C Pulse Rate 82 82 88 Respiratory Rate 21 H 21 H 16 Blood Pressure 145/101 H Pulse Oximetry 99 100 Oxygen Delivery Mechanical Ventilation Fraction of Inspired Oxygen 06/10/25 10:00 06/10/25 10:00 06/10/25 11:00 Temperature 37.5 C 37.6 C Pulse Rate 84 84 81 Respiratory Rate 19 16 Blood Pressure 151/91 H 141/89 H Pulse Oximetry 98 98 Oxygen Delivery Fraction of Inspired Oxygen 06/10/25 11:45 06/10/25 12:00 06/10/25 12:00 Temperature 37.7 C H Pulse Rate 84 84 82 Respiratory Rate 21 H 20 Blood Pressure 149/95 H Pulse Oximetry 99 97 Oxygen Delivery Mechanical Ventilation Fraction of Inspired Oxygen 06/10/25 12:43 06/10/25 13:00 06/10/25 14:00 Temperature 37.6 C H Pulse Rate 83 83 82 Respiratory Rate 24 H 17 Blood Pressure 149/65 H Pulse Oximetry 97 Oxygen Delivery Fraction of Inspired Oxygen 06/10/25 14:11 06/10/25 14:11 06/10/25 14:35 Temperature Pulse Rate 81 81 Respiratory Rate 21 H 21 H 18 Blood Pressure Pulse Oximetry 97 Oxygen Delivery Mechanical Ventilation BiPAP Fraction of Inspired Oxygen 06/10/25 16:00 06/10/25 16:00 06/10/25 16:00 Temperature 37.1 C Pulse Rate 87 86 Respiratory Rate 20 Blood Pressure 136/73 Pulse Oximetry 99 Oxygen Delivery BiPAP Fraction of Inspired Oxygen 35 06/10/25 18:00 06/10/25 19:58 06/10/25 20:00 Temperature 37.1 C Pulse Rate 86 87 Respiratory Rate 19 Blood Pressure 118/69 Pulse Oximetry 95 97 Oxygen Delivery BiPAP Fraction of Inspired Oxygen 35 06/10/25 20:00 06/10/25 20:25 06/10/25 20:30 Temperature Pulse Rate 87 86 Respiratory Rate 21 H Blood Pressure Pulse Oximetry 95 95 Oxygen Delivery BiPAP BiPAP Fraction of Inspired Oxygen 35 06/10/25 20:31 06/10/25 20:37 06/10/25 20:43 Temperature Pulse Rate 84 86 82 Respiratory Rate 21 H 21 H Blood Pressure Pulse Oximetry Oxygen Delivery Fraction of Inspired Oxygen 06/10/25 22:00 06/11/25 00:00 06/11/25 00:00 Temperature 36.8 C Pulse Rate 79 85 Respiratory Rate 22 H Blood Pressure 116/53 L Pulse Oximetry 94 95 Oxygen Delivery BiPAP Fraction of Inspired Oxygen 35 06/11/25 00:00 06/11/25 00:35 06/11/25 02:00 Temperature Pulse Rate 74 74 74 Respiratory Rate 25 H Blood Pressure Pulse Oximetry 96 Oxygen Delivery BiPAP Fraction of Inspired Oxygen 06/11/25 02:03 06/11/25 02:10 06/11/25 04:00 Temperature Pulse Rate 74 73 Respiratory Rate 25 H 25 H Blood Pressure Pulse Oximetry 98 Oxygen Delivery BiPAP Fraction of Inspired Oxygen 35 06/11/25 04:00 06/11/25 04:55 06/11/25 06:00 Temperature 36.8 C Pulse Rate 82 88 87 Respiratory Rate 23 H Blood Pressure 135/67 Pulse Oximetry 95 Oxygen Delivery Fraction of Inspired Oxygen 06/11/25 08:00 Temperature 37.5 C Pulse Rate 84 Respiratory Rate 31 H Blood Pressure 153/84 H Pulse Oximetry 97 Oxygen Delivery Fraction of Inspired Oxygen Intake/Output Intake/Output: Intake & Output 06/08/25 06/09/25 06/10/25 06/11/25 23:59 23:59 23:59 23:59 Intake Total 300 Output Total 1999 3450 501 Balance -1999 -3150 -501 Meds/Results Medications: Active Medications Generic Name Dose Route Start Last Admin Trade Name Freq PRN Reason Stop Dose Admin Acetaminophen 650 mg 06/09/25 20:44 06/09/25 20:59 Acetaminophen 325 Mg Tablet PO 650 mg Q6H PRN Administration Mild Pain (1-3) or Fever Albuterol/Ipratropium 3 ml 06/10/25 10:00 06/10/25 20:22 Ipratropium 0.5 Mg/Albuterol Sulfate 2.5 Mg (Base) Ampul.Neb 3 Ml INHALATION 3 ml Q6HRT SANIYA Administration Budesonide 0.5 mg 06/10/25 12:30 06/10/25 20:22 Budesonide Respule Neb 0.5 Mg/2 Ml Amp INHALATION 0.5 mg Q12HRT SANIYA Administration Buspirone HCl 20 mg 06/10/25 14:00 06/11/25 06:31 Buspirone Hcl 10 Mg Tablet PO 20 mg Q8HR SANIYA Administration Carvedilol 3.125 mg 06/10/25 21:00 06/10/25 20:37 Carvedilol 3.125 Mg Tablet PO 3.125 mg Q12HR SANIYA Administration Dextrose 12.5 gm 06/09/25 14:12 Dextrose 50% 25 Gm/50 Ml Syringe IV PUSH PRN PRN Hypoglycemia Protocol Empagliflozin 25 mg 06/10/25 09:00 06/10/25 12:15 Empagliflozin 25 Mg Tablet PO Not Given DAILY SANIYA Enoxaparin Sodium 40 mg 06/11/25 09:00 Enoxaparin 40 Mg/0.4 Ml Syringe SUB-Q DAILY SANIYA Glucagon 1 mg 06/09/25 14:12 Glucagon For Inj 1 Mg Vial IM PRN PRN Hypoglycemia Protocol Glucose 15 gm 06/09/25 14:12 Glucose Oral Gel 15 Gm Of Glucse In 37.5 Gm Tube PO PRN PRN Hypoglycemia Protocol Hydralazine HCl 10 mg 06/10/25 12:32 Hydralazine Hcl 20 Mg/Ml Vial IV PUSH Q4H PRN Blood Pressure - High Dextrose 1,000 mls @ 100 mls/hr 06/09/25 14:12 Dextrose 5% 1,000 Ml IVPB PRN PRN Hypoglycemia Protocol Ceftriaxone Sodium 2 gm/ 100 mls @ 200 mls/hr 06/10/25 12:00 06/10/25 12:26 Sodium Chloride IVPB Infused Q24H SANIYA Infusion Doxycycline Hyclate 100 mg/ 100 mls @ 100 mls/hr 06/10/25 12:30 06/10/25 21:09 Sodium Chloride IVPB Infused Q12HR SANIYA Infusion Insulin Aspart 2 - 5 units 06/09/25 18:00 06/11/25 06:36 Insulin Aspart (*Bkc) 100 Units/Ml SUB-Q Not Given Q6HR [facility] Protocol Latanoprost 1 drop 06/09/25 21:00 06/10/25 20:39 Latanoprost 0.005% Op Soln 2.5 Ml Btl EACH EYE 1 drop HS SANIYA Administration Levothyroxine Sodium 200 mcg 06/10/25 06:30 06/11/25 06:31 Levothyroxine Sodium 100 Mcg Tablet PO 200 mcg DAILY@0630 SANIYA Administration Methylprednisolone Sodium Succinate 60 mg 06/09/25 21:00 06/10/25 20:38 Methylprednisolone Sod Succ 125 Mg Vial IV PUSH 60 mg Q12HR SANIYA Administration Montelukast Sodium 10 mg 06/10/25 09:00 06/10/25 12:15 Montelukast Sodium 10 Mg Tablet PO Not Given DAILY SANIYA Pantoprazole Sodium 40 mg 06/10/25 09:00 06/10/25 20:38 Pantoprazole 40 Mg Tablet PO 40 mg Q12HR SANIYA Administration Prazosin HCl 1 mg 06/09/25 21:00 06/10/25 20:38 Prazosin Hcl 1 Mg Capsule PO 1 mg HS SANIYA Administration Prazosin HCl 2 mg 06/10/25 09:00 06/10/25 12:15 Prazosin Hcl 1 Mg Capsule PO Not Given DAILY SANIYA Sertraline HCl 200 mg 06/10/25 09:00 06/10/25 12:15 Sertraline Hcl 50 Mg Tablet PO Not Given DAILY SANIYA Timolol Maleate 1 drop 06/10/25 09:00 06/10/25 09:23 Timolol Maleate 0.5% Op Soln 5 Ml Bottle EACH EYE 1 drop QAM SANIYA Administration Radiology Results: ITS Impressions Chest X-Ray 06/10/25 06:57 Impression: 1: Cardiomegaly. Labs Labs: Laboratory Results - last 24 hr 06/09/25 06/10/25 06/10/25 12:33 08:11 10:31 Puncture Site Not Reportable ABG pH ABG pCO2 ABG pO2 ABG PO2/FiO2 Ratio ABG HCO3 ABG O2 Saturation ABG O2 Content ABG Base Excess A-a Gradient Oxyhemoglobin Total Hemoglobin O2 Delivery Device Not Reportable O2 Liters/Min Not Reportable Vent Rate FiO2 Expiratory Pressure Inspiratory Pressure POC Capillary Glucose Troponin I 0.016 Influenza A (RT-PCR) Negative Influenza B (RT-PCR) Negative RSV (RT-PCR) Negative SARS-CoV-2 RNA (RT-PCR) Negative 06/10/25 06/10/25 06/10/25 11:23 11:46 17:36 Puncture Site Right radial ABG pH 7.382 ABG pCO2 66.7 H* ABG pO2 89.5 ABG PO2/FiO2 Ratio 2.24 ABG HCO3 38.7 H ABG O2 Saturation 96.4 ABG O2 Content 19.5 ABG Base Excess 10.7 A-a Gradient 119.0 Oxyhemoglobin 94.6 Total Hemoglobin 14.6 O2 Delivery Device Non-invasive vent O2 Liters/Min Vent Rate 18 FiO2 40 Expiratory Pressure 8 Inspiratory Pressure 25 POC Capillary Glucose 122 H 148 H Troponin I Influenza A (RT-PCR) Influenza B (RT-PCR) RSV (RT-PCR) SARS-CoV-2 RNA (RT-PCR) 06/11/25 06/11/25 06/11/25 01:09 06:35 08:21 Puncture Site Right radial ABG pH 7.458 H ABG pCO2 51.6 H ABG pO2 78.8 L ABG PO2/FiO2 Ratio 2.63 ABG HCO3 35.7 H ABG O2 Saturation 96.0 ABG O2 Content 18.9 ABG Base Excess 10.0 A-a Gradient 74.5 Oxyhemoglobin 94.3 Total Hemoglobin 14.2 O2 Delivery Device Non-invasive vent O2 Liters/Min Not Reportable Vent Rate FiO2 30 Expiratory Pressure Inspiratory Pressure POC Capillary Glucose 157 H 113 H Troponin I Influenza A (RT-PCR) Influenza B (RT-PCR) RSV (RT-PCR) SARS-CoV-2 RNA (RT-PCR)
[2025-06-11] MEDS: BUDESONIDE RESPULE NEB 0.5 MG/2 ML AMP INHALATION ×2 (08:36→19:47)
[2025-06-11] MEDS: IPRATROPIUM 0.5 MG/ALBUTEROL SULFATE 2.5 MG (BASE) AMPUL.NEB 3 ML INHALATION ×3 (08:36→19:47)
[2025-06-11] MEDS: TIMOLOL MALEATE 0.5% OP SOLN 5 ML BOTTLE 1 DROP EACH EYE (08:37)
[2025-06-11] MEDS: MONTELUKAST SODIUM 10 MG TABLET PO (08:38)
[2025-06-11] MEDS: EMPAGLIFLOZIN 25 MG TABLET PO (08:38)
[2025-06-11 08:39] LABS: Hematocrit 45.9 % (37.0-47.0); Hemoglobin 13.2 g/dL (12.0-15.0); Mean Corpuscular HGB Conc 28.8 g/dl (32-36); Mean Corpuscular Hemoglobin 23.5 pg (26-34); Mean Corpuscular Volume 81.8 fl (80-100); Platelet Count Result 124 k/mm3 (150-375); Red Blood Count 5.61 M/mm3 (4.2-5.4); White Blood Count 7.9 K/mm3 (4.5-10.0)
[2025-06-11] MEDS: SERTRALINE HCL 50 MG TABLET 200 MG PO (08:39)
[2025-06-11] MEDS: PANTOPRAZOLE 40 MG TABLET PO ×2 (08:39→21:03)
[2025-06-11] MEDS: ENOXAPARIN 40 MG/0.4 ML SYRINGE SUB-Q (08:41)
[2025-06-11] MEDS: DOXYCYCLINE IV 100 MG in SODIUM CHLORIDE 0.9% IV 100 ML IVPB ×2 (08:42→21:05)
[2025-06-11] MEDS: PRAZOSIN HCL 1 MG CAPSULE 2 MG PO (08:43)
[2025-06-11 09:02] LABS: Alanine Aminotransferase 48 U/L (6-35); Albumin Level 3.8 g/dL (3.5-5.1); Alkaline Phosphatase 133 U/L (38-126); Anion Gap 7 mmol/L (4-12); Aspartate Amino Transferase 36 U/L (14-36); Bilirubin,Total 0.9 mg/dL (0.2-1.3); Blood Urea Nitrogen 37 mg/dL (7-17); Calcium 9.1 mg/dL (8.4-10.2); Carbon Dioxide 37 mmol/L (22-30); Chloride 99 mmol/L (98-107); Estimated CRCL calculation 71 ml/min; Estimated Glomerular Filt Rate 48; Glucose 106 mg/dL (65-110); Magnesium 2.5 mg/dL (1.6-2.3); Potassium 3.8 mmol/L (3.4-5.0); Sodium 143 mmol/L (137-145); Total Protein 7.5 g/dL (6.3-8.2)
[2025-06-11] MEDS: cefTRIAXone 2 GM in SODIUM CHLORIDE 0.9% IV 100 ML 200 ML IVPB (14:54)
--- NOTE | 2025-06-11 15:13 | P.PNIM_ITS ---
Assessment and Plan Assessment and Plan (1) Acute hypercapnic respiratory failure: Code(s): J96.02 - Acute respiratory failure with hypercapnia Status: Acute Assessment and Plan: Acute respiratory failure, multifactorial, could be related to COPD exacerbation, pneumonia, bronchitis, acute on chronic diastolic heart failure, volume overload, obesity hyperventilation syndrome, obstructive sleep apnea. ABG improving CO2-hilliard, respiratory alkalosis noted, mild, may be due to correction of chronic hypercapnia likely present in patient with COPD and OHS. -was placed on BiPAP overnight, -switched to AVAPS as she was not getting adequate volumes on BiPAP. -chest x-ray and ABGs and review -continue diuresis, steroids, bronchodilators -On pulmicort -on ceftriaxone and doxycycline (06/10) -Pulmonary consult placed for noninvasive vent management (2) COPD (chronic obstructive pulmonary disease): Code(s): J44.9 - Chronic obstructive pulmonary disease, unspecified Status: Acute Assessment and Plan: As above (3) Acute kidney injury superimposed on CKD: Code(s): N17.9 - Acute kidney failure, unspecified; N18.9 - Chronic kidney disease, unspecified Status: Acute Assessment and Plan: Acute on chronic kidney disease, could be related to hypoxia, volume overload -urine output was good in response to diuretics overnight -Lasix 40mg po daily -creatinine trending down 1.35 > 1.15 -continue to monitor renal function, electrolytes and urine (4) Acute on chronic diastolic heart failure: Code(s): I50.33 - Acute on chronic diastolic (congestive) heart failure Status: Acute Assessment and Plan: Per cardiology: TTE normal, LVEF of 60-65%. Normal diastolic function. Patient is euvolemic exam. Renal function down to 1.3 from 1.8. -Farxiga, Carvedilol discontinued -Propranolol resumed- is home med -Lasix 40mg po qd -Check and replace electrolytes to keep potassium greater than 4 and magnesium greater than 2. -Monitor on telemetry. -Check weight, ins and outs, renal function daily. (5) Hypertension: Qualifiers: Hypertension type: primary hypertension Qualified Code(s): I10 - Essential (primary) hypertension Code(s): I10 - Essential (primary) hypertension Status: Chronic Assessment and Plan: -Hydralazine 10mg bid for BP control Plan DVT prophylaxis: Low vein Stress ulcer prophylaxis: Protonix Nutrition: Heart healthy diet - 1-1.5hr AVAPS break when eating to prevent regurgitation due to NIV. Consultations Consultations: I have discussed the care of this pt with the consulting providers. Subjective Date/time seen: 06/11/25 15:13 Interval history: Tati Pendleton is a 59 year old female with past medical history of COPD, type 2 diabetes, depression, TIA, essential hypertension, hypothyroidism, diastolic dysfunction, chronic kidney disease presented the ED on 06/09/2025 [id number] female with a past medical history of COPD, dm 2, depression, TIA, HTN, hypothyroidism, grade 1 diastolic dysfunction, CKD presented to the ED on 06/09/2025 with dyspnea. Patient initially presented at [facility] with dyspnea that started on 06/04 but progressively got worse. Patient uses a CPAP at night and supplemental O2 with activity. However, patient has been requiring her supplemental O2 all day today. [facility] at the [facility] called [facility] as patient was short of breath, weak and dizzy. Patient was 90% on room air when EMS arrived. Patient further endorses a cough without sputum production. Denies fever, chill, nausea, vomiting, diarrhea. Patient was reportedly hypoxic on admission to the ED and started on 5 L O2 per nasal cannula. Patient is drowsy but A&O x4. Initial ABG was consistent with respiratory acidosis and patient was subsequently placed on BiPAP. Initial vital signs 145/91, HR 84, respirations 16, afebrile and 93% on 5 L of O2. Lab significant for chloride 94, carbon dioxide 35, BUN 50, creatinine 1.8 and GFR 29, magnesium 2.7, AST 61, ALT 65, alk-phos 159. BNP 5120. Initial ABG pH 7.232, pCO2 80.3, PO2 76.2, HC03 33, O2 sat 92.1. Patient placed on BiPAP with no improvement in serial ABGs. Viral panel negative EKG reads sinus rhythm with occasional supraventricular premature complexes. Chest x-ray shows cardiomegaly with pulmonary edema. 06/10: Patient was admitted to the ICU for further management, where ABG showed improving pCO2, and clinical status also was improving. Symbicort added, as well as ceftriaxone and doxycycline for pneumonia management. Patient was seen by cardiology to assess for element of CHF- TTE is normal with LVEF of 60-65%. Normal diastolic function. Stop the empagliflozin as has no indication from cardiac standpoint. I will also stop the Coreg as she is on propranolol at home. Renal function down to 1.3 from 1.8. Can resume home dose of Lasix 40 mg daily. Consider Hydralazine 10 mg BID for BP control. 06/11: Patient transferred to IMU, continues to clinically improve. ABG was repeated- 7.458/51.6/78.8, CO2 is improving, respiratory alkalosis noted, pH was normal in prior ABG, could be secondary to correction of chronic hypercapnia. Patient is on constant AVAPS at this time, will allow patient 1 hr off for lunch as she is improving, but will place back on, repeat ABG again in the PM. Pulmonary to be consulted for further management of noninvasive ventilation. Review of Systems Review of Systems: A complete review of systems was performed and pertinent positives are reported in HPI. Exam Narrative: General: Pleasant female, , in no acute distress. On AVAPS. HEENT:? Pupils equal and reactive, sclera is clear, BiPAP mask in place Neck:? Supple Respiratory:? Coarse breath sounds bilaterally, decreased decreased air entry at bases, no wheezing Cardiac:? S1-S2 normal, regular rate and rhythm Abdomen:? Soft, nontender, nondistended, hypoactive bowel sounds, obese Extremities:? Bilateral lower extremity lymphedema, palpable pedal pulse Neuro:? Patient is awake, alert, oriented, nonfocal, answers to questions and follows simple commands in all extremities Skin:? No skin lesions noted Psych:? Normal mentation and affect Objective Data Vital Signs Vital Signs: Vital Signs - 24 hr 06/10/25 16:00 06/10/25 16:00 06/10/25 16:00 Temperature 98.7 F Pulse Rate 87 86 Respiratory Rate 20 Blood Pressure 136/73 Pulse Oximetry 99 Oxygen Delivery BiPAP Oxygen Flow Rate Fraction of Inspired Oxygen 35 06/10/25 18:00 06/10/25 19:58 06/10/25 20:00 Temperature 98.8 F Pulse Rate 86 87 Respiratory Rate 19 Blood Pressure 118/69 Pulse Oximetry 95 97 Oxygen Delivery BiPAP Oxygen Flow Rate Fraction of Inspired Oxygen 35 06/10/25 20:00 06/10/25 20:25 06/10/25 20:30 Temperature Pulse Rate 87 86 Respiratory Rate 21 H Blood Pressure Pulse Oximetry 95 95 Oxygen Delivery BiPAP BiPAP Oxygen Flow Rate Fraction of Inspired Oxygen 35 06/10/25 20:31 06/10/25 20:37 06/10/25 20:43 Temperature Pulse Rate 84 86 82 Respiratory Rate 21 H 21 H Blood Pressure Pulse Oximetry Oxygen Delivery Oxygen Flow Rate Fraction of Inspired Oxygen 06/10/25 22:00 06/11/25 00:00 06/11/25 00:00 Temperature 98.2 F Pulse Rate 79 85 Respiratory Rate 22 H Blood Pressure 116/53 L Pulse Oximetry 94 95 Oxygen Delivery BiPAP Oxygen Flow Rate Fraction of Inspired Oxygen 35 06/11/25 00:00 06/11/25 00:35 06/11/25 02:00 Temperature Pulse Rate 74 74 74 Respiratory Rate 25 H Blood Pressure Pulse Oximetry 96 Oxygen Delivery BiPAP Oxygen Flow Rate Fraction of Inspired Oxygen 06/11/25 02:03 06/11/25 02:10 06/11/25 04:00 Temperature Pulse Rate 74 73 Respiratory Rate 25 H 25 H Blood Pressure Pulse Oximetry 98 Oxygen Delivery BiPAP Oxygen Flow Rate Fraction of Inspired Oxygen 35 06/11/25 04:00 06/11/25 04:55 06/11/25 06:00 Temperature 98.3 F Pulse Rate 82 88 87 Respiratory Rate 23 H Blood Pressure 135/67 Pulse Oximetry 95 Oxygen Delivery Oxygen Flow Rate Fraction of Inspired Oxygen 06/11/25 08:00 06/11/25 08:00 06/11/25 08:00 Temperature 99.5 F Pulse Rate 84 89 79 Respiratory Rate 31 H 20 Blood Pressure 153/84 H Pulse Oximetry 97 95 Oxygen Delivery BiPAP Oxygen Flow Rate Fraction of Inspired Oxygen 35 06/11/25 08:38 06/11/25 08:39 06/11/25 08:39 Temperature Pulse Rate 76 76 76 Respiratory Rate 19 19 Blood Pressure Pulse Oximetry 95 Oxygen Delivery BiPAP Oxygen Flow Rate Fraction of Inspired Oxygen 06/11/25 08:43 06/11/25 10:00 06/11/25 11:56 Temperature 98.8 F Pulse Rate 79 76 70 Respiratory Rate 22 H 20 Blood Pressure 145/79 H Pulse Oximetry 94 Oxygen Delivery Oxygen Flow Rate Fraction of Inspired Oxygen 06/11/25 12:00 06/11/25 12:30 06/11/25 13:44 Temperature Pulse Rate 77 61 Respiratory Rate 19 Blood Pressure Pulse Oximetry 93 Oxygen Delivery Nasal Cannula Oxygen Flow Rate 2 Fraction of Inspired Oxygen 06/11/25 13:47 06/11/25 13:50 06/11/25 14:00 Temperature Pulse Rate 61 65 73 Respiratory Rate 19 20 Blood Pressure Pulse Oximetry 96 Oxygen Delivery BiPAP Oxygen Flow Rate Fraction of Inspired Oxygen Intake/Output Intake/Output: Intake & Output 06/08/25 06/09/25 06/10/25 06/11/25 23:59 23:59 23:59 23:59 Intake Total 240 Output Total 1999 3450 501 [facility] -1999 -3150 -261 Meds/Results Medications: Active Medications Generic Name Dose Route Start Last Admin Trade Name Freq PRN Reason Stop Dose Admin Acetaminophen 650 mg 06/09/25 20:44 06/09/25 20:59 Acetaminophen 325 Mg Tablet PO 650 mg Q6H PRN Administration Mild Pain (1-3) or Fever Albuterol/Ipratropium 3 ml 06/10/25 10:00 06/11/25 13:44 Ipratropium 0.5 Mg/Albuterol Sulfate 2.5 Mg (Base) Ampul.Neb 3 Ml INHALATION 3 ml Q6HRT SANIYA Administration Budesonide 0.5 mg 06/10/25 12:30 06/11/25 08:36 Budesonide Respule Neb 0.5 Mg/2 Ml Amp INHALATION 0.5 mg Q12HRT SANIYA Administration Buspirone HCl 20 mg 06/10/25 14:00 06/11/25 14:54 Buspirone Hcl 10 Mg Tablet PO 20 mg Q8HR SANIYA Administration Dextrose 12.5 gm 06/09/25 14:12 Dextrose 50% 25 Gm/50 Ml Syringe IV PUSH PRN PRN Hypoglycemia Protocol Enoxaparin Sodium 40 mg 06/11/25 09:00 06/11/25 08:41 Enoxaparin 40 Mg/0.4 Ml Syringe SUB-Q 40 mg DAILY SANIYA Administration Glucagon 1 mg 06/09/25 14:12 Glucagon For Inj 1 Mg Vial IM PRN PRN Hypoglycemia Protocol Glucose 15 gm 06/09/25 14:12 Glucose Oral Gel 15 Gm Of Glucse In 37.5 Gm Tube PO PRN PRN Hypoglycemia Protocol Hydralazine HCl 10 mg 06/10/25 12:32 Hydralazine Hcl 20 Mg/Ml Vial IV PUSH Q4H PRN Blood Pressure - High Dextrose 1,000 mls @ 100 mls/hr 06/09/25 14:12 Dextrose 5% 1,000 Ml IVPB PRN PRN Hypoglycemia Protocol Ceftriaxone Sodium 2 gm/ 100 mls @ 200 mls/hr 06/10/25 12:00 06/11/25 14:54 Sodium Chloride IVPB 200 mls/hr Q24H SANIYA Administration Doxycycline Hyclate 100 mg/ 100 mls @ 100 mls/hr 06/10/25 12:30 06/11/25 08:42 Sodium Chloride IVPB 100 mls/hr Q12HR SANIYA Administration Insulin Aspart 3 - 6 units 06/11/25 12:00 06/11/25 12:00 Insulin Aspart (*Bkc) 100 Units/Ml SUB-Q Not Given TIDWM SANIYA Protocol Insulin Aspart 3 - 6 units 06/11/25 21:00 Insulin Aspart (*Bkc) 100 Units/Ml SUB-Q HS SANIYA Protocol Latanoprost 1 drop 06/09/25 21:00 06/10/25 20:39 Latanoprost 0.005% Op Soln 2.5 Ml Btl EACH EYE 1 drop HS SANIYA Administration Levothyroxine Sodium 200 mcg 06/10/25 06:30 06/11/25 06:31 Levothyroxine Sodium 100 Mcg Tablet PO 200 mcg DAILY@0630 SANIYA Administration Methylprednisolone Sodium Succinate 60 mg 06/09/25 21:00 06/11/25 08:40 Methylprednisolone Sod Succ 125 Mg Vial IV PUSH 60 mg Q12HR SANIYA Administration Montelukast Sodium 10 mg 06/10/25 09:00 06/11/25 08:38 Montelukast Sodium 10 Mg Tablet PO 10 mg DAILY SANIYA Administration Pantoprazole Sodium 40 mg 06/10/25 09:00 06/11/25 08:39 Pantoprazole 40 Mg Tablet PO 40 mg Q12HR SANIYA Administration Prazosin HCl 1 mg 06/09/25 21:00 06/10/25 20:38 Prazosin Hcl 1 Mg Capsule PO 1 mg HS SANIYA Administration Prazosin HCl 2 mg 06/10/25 09:00 06/11/25 08:43 Prazosin Hcl 1 Mg Capsule PO 2 mg DAILY SANIYA Administration Sertraline HCl 200 mg 06/10/25 09:00 06/11/25 08:39 Sertraline Hcl 50 Mg Tablet PO 200 mg DAILY SANIYA Administration Timolol Maleate 1 drop 06/10/25 09:00 06/11/25 08:37 Timolol Maleate 0.5% Op Soln 5 Ml Bottle EACH EYE 1 drop QAM SANIYA Administration Radiology Results: ITS Impressions Chest X-Ray 06/10/25 06:57 Impression: 1: Cardiomegaly. Labs Labs: Laboratory Results - last 24 hr 06/10/25 06/11/25 06/11/25 17:36 01:09 06:35 WBC RBC Hgb Hct MCV MCH MCHC RDW Plt Count MPV Puncture Site ABG pH ABG pCO2 ABG pO2 ABG PO2/FiO2 Ratio ABG HCO3 ABG O2 Saturation ABG O2 Content ABG Base Excess A-a Gradient Oxyhemoglobin Total Hemoglobin O2 Delivery Device O2 Liters/Min Vent Rate FiO2 Expiratory Pressure Inspiratory Pressure Sodium Potassium Chloride Carbon Dioxide Anion Gap BUN Creatinine Estim Creat Clear Calc Estimated GFR Glucose POC Capillary Glucose 148 H 157 H 113 H Calcium Magnesium Total Bilirubin AST ALT Alkaline Phosphatase Total Protein Albumin 06/11/25 06/11/25 06/11/25 08:21 08:32 11:49 WBC 7.9 RBC 5.61 H Hgb 13.2 Hct 45.9 MCV 81.8 MCH 23.5 L MCHC 28.8 L RDW 25.1 H Plt Count 124 L MPV TNP Puncture Site Right radial ABG pH 7.458 H ABG pCO2 51.6 H ABG pO2 78.8 L ABG PO2/FiO2 Ratio 2.63 ABG HCO3 35.7 H ABG O2 Saturation 96.0 ABG O2 Content 18.9 ABG Base Excess 10.0 A-a Gradient 74.5 Oxyhemoglobin 94.3 Total Hemoglobin 14.2 O2 Delivery Device Non-invasive vent O2 Liters/Min Not Reportable Vent Rate 18 FiO2 30 Expiratory Pressure 8 Inspiratory Pressure Not Reportable Sodium 143 Potassium 3.8 Chloride 99 Carbon Dioxide 37 H Anion Gap 7 BUN 37 H Creatinine 1.15 H Estim Creat Clear Calc 71 Estimated GFR 48 L Glucose 106 POC Capillary Glucose 142 H Calcium 9.1 Magnesium 2.5 H Total Bilirubin 0.9 AST 36 ALT 48 H Alkaline Phosphatase 133 H Total Protein 7.5 Albumin 3.8 Hospitalist MIPS Advance Care Plan I have confirmed that the patient's Advanced Care Plan is present, code status is documented, or surrogate decision maker is listed in patient medical record.: Yes Medication Reconciliation I have utilized all available resources to obtain, update and review the patients current medications (includes all prescriptions, OTC, herbals, cannabis, and nutritional supplements).: Yes
[2025-06-11 15:44] LABS: Alveolar/Arterial O2 Gradient 77.7 mmHg; Fractional Inspired Oxygen 30 %; HCO3 ABG 31.1 mEq/l (22.0-26.0); Oxygen Content ABG 18.6 %vol (16.0-22.0); Oxygen Saturation ABG 96.6 % (95.0-100.0); PCO2 ABG 45.1 mmHg (35.0-45.0); PO2 ABG 83.2 mmHg (80.0-100.0); PO2 FiO2 Ratio Arterial Blood 2.77 %
[2025-06-11 15:45] LABS: Modified Allen's Test Pass; Site Drawn RIGHT RADIAL
[2025-06-11 15:46] LABS: Non-Invasive Vent Rate 18 /MIN
[2025-06-11 15:47] LABS: Non-Invasive Expiratory Pressure 8 CMH2O
--- NOTE | 2025-06-11 18:25 | P.CONPL_ITS ---
Assessment and Plan Assessment and plan (1) Obesity hypoventilation syndrome: Code(s): E66.2 - Morbid (severe) obesity with alveolar hypoventilation Status: Chronic Assessment and Plan: (2) Asthma: Code(s): J45.909 - Unspecified asthma, uncomplicated Status: Acute Assessment and Plan: longstanding; does not have COPD (3) JUAN (obstructive sleep apnea): Code(s): G47.33 - Obstructive sleep apnea (adult) (pediatric) Status: Acute Assessment and Plan: Plan Continue same settings because her ABGs are completely compensated, she is alert, feels improved. History of Present Illness History of Present Illness Consult date: 06/11/25 Requesting physician: Venkata Morrissey Oca, MD Chief complaint: CO2 Narcosis/ ?CHF? Narrative: patient was seen Jun 11, 2025 18:30 Room 201 IMU for hypercapnia, AVAPS use NEW: Tati Pendleton is 59 years old, has hypercapnic hypoxemic respiratory failure, has asthma however does not have COPD, has not smoked for several years. She was admitted with dyspnea, non-productivecough, weakness, dizziness, and low saturation. Was at [facility] with dyspnea that started on 06/04, worsened; she uses a CPAP at night and supplemental O2 with activity. Prior to admission, started using O2 around the clock. She came by ambulance from [facility]gent [facility]. Saturation was 90% on room air when EMS arrived. She did not have fever, chills, nausea, vomiting, diarrhea, rash or joint pains. Initial ABG showed pH 7.319, pCO2 70, pO2 89, HCO2 35 sat 96% on 40% on BiPAP 20/8, switched to AVAPS settings. BUN was 50, creat 1.8 on admission. She was admitted to ICU, treated with IV Lasix with effective diuresis. Initial CXR 06/09 = cardiomegaly with pulmonary edema. PMH : asthma, hypertension, hypothyroidism, fibromyalgia, seizures, depression, diabetes, morbid obesity with a history of gastric bypass. She does not have COPD, documented by Dr Camilo 2022 pulmonary notes. She has been on AVAPS on prior admissions. She says that she did not have typical symptoms that she has with asthma exacerbation prior to admission. She had increased LE swelling. Creat was elevated 1.8, improved during admission to 1.3. She had BP medications adjusted, re started Lasix orally. DATA * echo: Left ventricular systolic function is normal, estimated at 60- 65. The left ventricular diastolic function is normal. * 06/10/25 labs: WBC 9.9, hemoglobin 13.6, platelets 146. Sodium 136, potassium 3.7, BUN 50, creatinine 1.80, ALT and AST were elevated, proBNP 5120, troponin 0.016. Influenza, RSV and SARS-CoV-2 PCR neg * 06/09/25; CXR = cardiomegaly with pulmonary edema. * 06/10/25, CXR = cardiomegaly Date 06/10/25 06/10/25 06/11/25 06/11/25 pH 7.319 7.382 7.45 a 7.457 pCO2 70 67 51.6 45.1 pO2 89 89 79 83 HCO3 35 38.7 35.7 31 sat 96% 96% 96% 97% CarboxyHgb FiO2 40% 40% 30% 30% O2 delivery BiPAP NIV NIV NIV IPAP 20 25 EPAP 8 8 Review of Systems 2 Review of Systems: All systems reviewed & are unremarkable except as noted in HPI and below PMFSH Past Medical History Medical History (Updated 06/10/25 @ 12:22 by Ventura Cortez MD) Anxiety Depression Hypothyroidism Diabetes History of fibromyalgia COPD (chronic obstructive pulmonary disease) Hypertension History of seizures History of TIA (transient ischemic attack) Surgical History Surgical History History of hysterectomy Hx of breast reduction, elective H/O inguinal hernia repair H/O gastric bypass History of cholecystectomy History of appendectomy History of tonsillectomy Family History Family History Other Unknown family medical history Social History Social History Smoking packs per day: 1 Smoking cigarettes per day: 20.0 Years smoked: 14 Smoking pack-years: 14.00 Smoking status: Former smoker Tobacco type: cigarettes Second hand tobacco smoke exposure: No Smoking end date: 07/10/92 Alcohol intake: former Substance use: never Substance use type: does not use Lack of Transportation: No Lack of Food: Never True Current Housing: Decline to Answer Concerned About Future Housing: Decline to Answer Difficulty Paying Gas/Electric Bills: Decline to Answer Difficulty Paying for Meds: Decline to Answer Currently Unemployed: Decline to Answer Education: Decline to Answer Difficulty w/ Childcare or Family Care: Decline to Answer Spiritual care concerns: No Meds Home Medications and Allergies Home Medications ?Medication ?Instructions ?Recorded ?Confirmed ?Type buspirone 10 mg tablet 20 mg PO TID 03/01/20 History metformin 500 mg tablet,extended 500 mg PO DAILY 03/0106/09/25 History release 24 hr timolol maleate 0.5 % eye drops 1 drp ophthalmic (eye) QAM 03/01/20 06/09/25 History tizanidine 4 mg tablet 4 mg PO TID 03/01/20 5 History eszopiclone 3 mg tablet 3 mg PO HS 11/21/21 06/09/25 History empagliflozin 25 mg tablet 25 mg PO DAILY 02/03/2308/03 History (Jardiance) sertraline 100 mg tablet 200 mg PO DAILY 02/03/2308/03 History trazodone 50 mg tablet 50 mg PO HS PRN Insomnia 06/09/25 History latanoprost 0.005 % eye drops 1 drp ophthalmic (eye) H S 02/11/23 06/09/25 History levothyroxine 200 mcg tablet 200 mcg PO DAILY 03/21/23 06/09/25 History prazosin 1 mg capsule 1 mg PO HS 03/21/23 06/09/25 History propranolol 10 mg tablet 10 mg PO DAILY PRN Anxiety 0 03/21/23 06/09/25 History mirtazapine 45 mg tablet 45 mg PO HS 04/09/23 5 History albuterol sulfate 90 mcg/actuation 2 inh inhalation Q4 -6H PRN 04/14/23 06/09/25 Rx breath activated powder shortness of breath or wheez ing #1 inhaler,sensor (Proair Digihaler) ea albuterol sulfate 2.5 mg/3 mL 2.5 mg (3 mL) inhalation Q6H #90 mL 05/15/23 06/09/25 Rx (0.083 %) solution for nebulization furosemide 40 mg tablet 40 mg PO DAILY 06/09/2508/03 History montelukast 10 mg tablet 10 mg PO DAILY 06/09/2508/03 History omeprazole 40 mg capsule,delayed 40 mg PO DAILY 06/09/25 History release prazosin 2 mg capsule 2 mg PO DAILY 06/09/2506/09 History pregabalin 100 mg capsule 100 mg PO Q12H 06/09/2508/03 History quetiapine 50 mg tablet,extended 50 mg PO QPM 06/09/25 06/09/25 History release 24 hr ropinirole 2 mg tablet 2 mg PO HS 06/09/25 06/09/25 History semaglutide 2 mg/dose (8 mg/3 mL) 2 mg subcut WEEKLY 1 08/10/24 06/09/25 History subcutaneous pen injector (Ozempic) Allergies Allergy/AdvReac Type Severity Reaction Status Date / Time No Known Allergies Allergy Verified 06/09/25 17:24 Vital Signs Vital Signs - 24 hr 06/10/25 19:58 06/10/25 20:00 06/10/25 20:00 Temperature 37.1 C Pulse Rate 87 87 Respiratory Rate 19 Blood Pressure 118/69 Pulse Oximetry 95 97 Oxygen Delivery BiPAP Oxygen Flow Rate Fraction of Inspired Oxygen 35 06/10/25 20:25 06/10/25 20:30 06/10/25 20:31 Temperature Pulse Rate 86 84 Respiratory Rate 21 H 21 H Blood Pressure Pulse Oximetry 95 95 Oxygen Delivery BiPAP BiPAP Oxygen Flow Rate Fraction of Inspired Oxygen 35 06/10/25 20:37 06/10/25 20:43 06/10/25 22:00 Temperature Pulse Rate 86 82 79 Respiratory Rate 21 H Blood Pressure Pulse Oximetry Oxygen Delivery Oxygen Flow Rate Fraction of Inspired Oxygen 06/11/25 00:00 06/11/25 00:00 06/11/25 00:00 Temperature 36.8 C Pulse Rate 85 74 Respiratory Rate 22 H Blood Pressure 116/53 L Pulse Oximetry 94 95 Oxygen Delivery BiPAP Oxygen Flow Rate Fraction of Inspired Oxygen 35 06/11/25 00:35 06/11/25 02:00 06/11/25 02:03 Temperature Pulse Rate 74 74 74 Respiratory Rate 25 H 25 H Blood Pressure Pulse Oximetry 96 Oxygen Delivery BiPAP Oxygen Flow Rate Fraction of Inspired Oxygen 06/11/25 02:10 06/11/25 04:00 06/11/25 04:00 Temperature Pulse Rate 73 82 Respiratory Rate 25 H Blood Pressure Pulse Oximetry 98 Oxygen Delivery BiPAP Oxygen Flow Rate Fraction of Inspired Oxygen 35 06/11/25 04:55 06/11/25 06:00 06/11/25 08:00 Temperature 36.8 C 37.5 C Pulse Rate 88 87 84 Respiratory Rate 23 H 31 H Blood Pressure 135/67 153/84 H Pulse Oximetry 95 97 Oxygen Delivery Oxygen Flow Rate Fraction of Inspired Oxygen 06/11/25 08:00 06/11/25 08:00 06/11/25 08:38 Temperature Pulse Rate 89 79 76 Respiratory Rate 20 19 Blood Pressure Pulse Oximetry 95 Oxygen Delivery BiPAP Oxygen Flow Rate Fraction of Inspired Oxygen 35 06/11/25 08:39 06/11/25 08:39 06/11/25 08:43 Temperature Pulse Rate 76 76 79 Respiratory Rate 19 22 H Blood Pressure Pulse Oximetry 95 Oxygen Delivery BiPAP Oxygen Flow Rate Fraction of Inspired Oxygen 06/11/25 10:00 06/11/25 11:56 06/11/25 12:00 Temperature 37.1 C Pulse Rate 76 70 77 Respiratory Rate 20 Blood Pressure 145/79 H Pulse Oximetry 94 Oxygen Delivery Oxygen Flow Rate Fraction of Inspired Oxygen 06/11/25 12:00 06/11/25 12:30 06/11/25 13:44 Temperature Pulse Rate 79 61 Respiratory Rate 20 19 Blood Pressure Pulse Oximetry 95 93 Oxygen Delivery BiPAP Nasal Cannula Oxygen Flow Rate 2 Fraction of Inspired Oxygen 35 06/11/25 13:47 06/11/25 13:50 06/11/25 14:00 Temperature Pulse Rate 61 65 73 Respiratory Rate 19 20 Blood Pressure Pulse Oximetry 96 Oxygen Delivery BiPAP Oxygen Flow Rate Fraction of Inspired Oxygen 06/11/25 16:00 06/11/25 16:00 06/11/25 16:00 Temperature 37.2 C Pulse Rate 68 74 79 Respiratory Rate 26 H 20 Blood Pressure 138/73 Pulse Oximetry 95 95 Oxygen Delivery BiPAP Oxygen Flow Rate Fraction of Inspired Oxygen 35 06/11/25 16:00 06/11/25 16:45 06/11/25 16:45 Temperature Pulse Rate 68 74 Respiratory Rate 23 H Blood Pressure Pulse Oximetry 95 92 Oxygen Delivery BiPAP Nasal Cannula Oxygen Flow Rate 0.5 Fraction of Inspired Oxygen 06/11/25 18:00 06/11/25 18:08 Temperature Pulse Rate 70 67 Respiratory Rate 20 Blood Pressure Pulse Oximetry 99 Oxygen Delivery BiPAP Oxygen Flow Rate 15 Fraction of Inspired Oxygen 35 Exam 2 Narrative: GEN: Alert, oriented, not in distress. She is wearing full face mask with moderate air leak, can talk while wearing mask, communicates adequately. I did not remove the mask. HEENT: limited by PAP mask NECK: Trachea is midline CHEST: Equal air entry, symmetric excursion, clear breath sounds CV: Regular S1S2 no m/g/r Extremities : no clubbing, cyanosis, or edema. No calf tenderness. Good capillary refill. PSYCH: normal thought and communication. Results Laboratory Findings 06/11/25 08:32 06/11/25 08:32 ABG, PT/INR, D-dimer: ABG ABG pH 7.457 (7.350-7.450) H 06/11/25 15:39 ABG pCO2 45.1 mmHg (35.0-45.0) H 06/11/25 15:39 ABG pO2 83.2 mmHg (80.0-100.0) 06/11/25 15:39 ABG O2 Saturation 96.6 % (95.0-100.0) 06/11/25 15:39 Abnormal lab findings: Abnormal Labs 06/09/25 06/09/25 06/09/25 12:33 12:38 13:55 RBC 5.77 H Hct 48.8 H MCH 23.6 L MCHC 27.9 L RDW 25.2 H Plt Count 146 L Immature Gran % (Auto) 1.0 H Neut % (Auto) 75.5 H Lymph % (Auto) 13.4 L [place] % (Auto) 9.1 H Lymph # (Auto) [place] # (Auto) 0.9 H Abs Immat Gran (auto) 0.10 H Absolute Neuts (auto) 7.4 H Absolute Nucleated RBC 0.480 H Nucleated RBC % 4.9 H % Immature Plt Fraction 15.0 H ABG pH 7.232 L* 7.210 L* ABG pCO2 80.3 H* 81.4 H* ABG pO2 76.2 L 68.3 L ABG HCO3 33.0 H 31.8 H ABG O2 Saturation 92.1 L 88.8 L Oxyhemoglobin 87.2 L* Carboxyhemoglobin 2.2 H Reduced Hemoglobin 10.3 H Sodium 136 L Chloride 94 L Carbon Dioxide 35 H BUN 50 H D Creatinine 1.80 H Estimated GFR 29 L Glucose 115 H POC Capillary Glucose Magnesium 2.7 H AST 61 H ALT 65 H Alkaline Phosphatase 159 H NT-Pro-B Natriuret Pep 5120 H Total Protein 8.3 H 06/09/25 06/09/25 06/10/25 15:14 17:57 00:04 RBC Hct MCH MCHC RDW Plt Count Immature Gran % (Auto) Neut % (Auto) Lymph % (Auto) [place] % (Auto) Lymph # (Auto) [place] # (Auto) Abs Immat Gran (auto) Absolute Neuts (auto) Absolute Nucleated RBC Nucleated RBC % % Immature Plt Fraction ABG pH 7.217 L* ABG pCO2 82.6 H* ABG pO2 ABG HCO3 32.8 H ABG O2 Saturation 93.3 L Oxyhemoglobin Carboxyhemoglobin 2.1 H Reduced Hemoglobin 6.6 H Sodium Chloride Carbon Dioxide BUN Creatinine Estimated GFR Glucose POC Capillary Glucose 133 H 135 H Magnesium AST ALT Alkaline Phosphatase NT-Pro-B Natriuret Pep Total Protein 06/10/25 06/10/25 06/10/25 05:09 05:29 05:58 RBC 5.77 H Hct 48.8 H MCH 23.6 L MCHC 27.9 L RDW 25.2 H Plt Count 128 L Immature Gran % (Auto) 1.4 H Neut % (Auto) 85.2 H Lymph % (Auto) 9.1 L [place] % (Auto) Lymph # (Auto) 0.77 L [place] # (Auto) Abs Immat Gran (auto) 0.12 H Absolute Neuts (auto) 7.2 H Absolute Nucleated RBC 0.190 H Nucleated RBC % 2.2 H % Immature Plt Fraction 14.1 H ABG pH 7.319 L ABG pCO2 69.7 H* ABG pO2 ABG HCO3 35.0 H ABG O2 Saturation Oxyhemoglobin Carboxyhemoglobin Reduced Hemoglobin Sodium Chloride 96 L Carbon Dioxide 36 H BUN 41 H Creatinine 1.35 H Estimated GFR 40 L Glucose 115 H POC Capillary Glucose 111 H Magnesium 2.4 H AST 46 H ALT 56 H Alkaline Phosphatase 151 H NT-Pro-B Natriuret Pep Total Protein 06/10/25 06/10/25 06/10/25 11:23 11:46 17:36 RBC Hct MCH MCHC RDW Plt Count Immature Gran % (Auto) Neut % (Auto) Lymph % (Auto) [place] % (Auto) Lymph # (Auto) [place] # (Auto) Abs Immat Gran (auto) Absolute Neuts (auto) Absolute Nucleated RBC Nucleated RBC % % Immature Plt Fraction ABG pH ABG pCO2 66.7 H* ABG pO2 ABG HCO3 38.7 H ABG O2 Saturation Oxyhemoglobin Carboxyhemoglobin Reduced Hemoglobin Sodium Chloride Carbon Dioxide BUN Creatinine Estimated GFR Glucose POC Capillary Glucose 122 H 148 H Magnesium AST ALT Alkaline Phosphatase NT-Pro-B Natriuret Pep Total Protein 06/11/25 06/11/25 06/11/25 01:09 06:35 08:21 RBC Hct MCH MCHC RDW Plt Count Immature Gran % (Auto) Neut % (Auto) Lymph % (Auto) [place] % (Auto) Lymph # (Auto) [place] # (Auto) Abs Immat Gran (auto) Absolute Neuts (auto) Absolute Nucleated RBC Nucleated RBC % % Immature Plt Fraction ABG pH 7.458 H ABG pCO2 51.6 H ABG pO2 78.8 L ABG HCO3 35.7 H ABG O2 Saturation Oxyhemoglobin Carboxyhemoglobin Reduced Hemoglobin Sodium Chloride Carbon Dioxide BUN Creatinine Estimated GFR Glucose POC Capillary Glucose 157 H 113 H Magnesium AST ALT Alkaline Phosphatase NT-Pro-B Natriuret Pep Total Protein 06/11/25 06/11/25 06/11/25 08:32 11:49 15:39 RBC 5.61 H Hct MCH 23.5 L MCHC 28.8 L RDW 25.1 H Plt Count 124 L Immature Gran % (Auto) Neut % (Auto) Lymph % (Auto) [place] % (Auto) Lymph # (Auto) [place] # (Auto) Abs Immat Gran (auto) Absolute Neuts (auto) Absolute Nucleated RBC Nucleated RBC % % Immature Plt Fraction ABG pH 7.457 H ABG pCO2 45.1 H ABG pO2 ABG HCO3 31.1 H ABG O2 Saturation Oxyhemoglobin Carboxyhemoglobin Reduced Hemoglobin Sodium Chloride Carbon Dioxide 37 H BUN 37 H Creatinine 1.15 H Estimated GFR 48 L Glucose POC Capillary Glucose 142 H Magnesium 2.5 H AST ALT 48 H Alkaline Phosphatase 133 H NT-Pro-B Natriuret Pep Total Protein 06/11/25 16:02 RBC Hct MCH MCHC RDW Plt Count Immature Gran % (Auto) Neut % (Auto) Lymph % (Auto) [place] % (Auto) Lymph # (Auto) [place] # (Auto) Abs Immat Gran (auto) Absolute Neuts (auto) Absolute Nucleated RBC Nucleated RBC % % Immature Plt Fraction ABG pH ABG pCO2 ABG pO2 ABG HCO3 ABG O2 Saturation Oxyhemoglobin Carboxyhemoglobin Reduced Hemoglobin Sodium Chloride Carbon Dioxide BUN Creatinine Estimated GFR Glucose POC Capillary Glucose 190 H Magnesium AST ALT Alkaline Phosphatase NT-Pro-B Natriuret Pep Total Protein
[2025-06-11] MEDS: PRAZOSIN HCL 1 MG CAPSULE PO (21:03)
[2025-06-11] MEDS: LATANOPROST 0.005% OP SOLN 2.5 ML BTL 1 DROP EACH EYE (21:06)
[2025-06-12] VITALS (23 sets, daily range): BP systolic 113–167; BP diastolic 50–90; PULSE 58–88; RESP 15–22; TEMP 36.4–37.1; O2SAT 91–98
[2025-06-12] MEDS: IPRATROPIUM 0.5 MG/ALBUTEROL SULFATE 2.5 MG (BASE) AMPUL.NEB 3 ML INHALATION ×4 (02:02→20:58)
[2025-06-12 04:48] LABS: Hematocrit 47.8 % (37.0-47.0); Hemoglobin 13.6 g/dL (12.0-15.0); Immature Platelet Fraction Pct 11.0 % (0.9-11.2); Mean Corpuscular HGB Conc 28.5 g/dl (32-36); Mean Corpuscular Hemoglobin 23.4 pg (26-34); Mean Corpuscular Volume 82.1 fl (80-100); Platelet Count Result 114 k/mm3 (150-375); Red Blood Count 5.82 M/mm3 (4.2-5.4); White Blood Count 5.9 K/mm3 (4.5-10.0)
[2025-06-12 05:05] LABS: Alanine Aminotransferase 44 U/L (6-35); Albumin Level 3.9 g/dL (3.5-5.1); Alkaline Phosphatase 127 U/L (38-126); Anion Gap 6 mmol/L (4-12); Aspartate Amino Transferase 35 U/L (14-36); Bilirubin,Total 0.9 mg/dL (0.2-1.3); Blood Urea Nitrogen 29 mg/dL (7-17); Calcium 9.3 mg/dL (8.4-10.2); Carbon Dioxide 33 mmol/L (22-30); Chloride 100 mmol/L (98-107); Estimated CRCL calculation 76 ml/min; Estimated Glomerular Filt Rate 52; Glucose 142 mg/dL (65-110); Potassium 4.0 mmol/L (3.4-5.0); Sodium 139 mmol/L (137-145); Total Protein 7.5 g/dL (6.3-8.2)
[2025-06-12] MEDS: LEVOTHYROXINE SODIUM 100 MCG TABLET 200 MCG PO (06:04)
--- NOTE | 2025-06-12 08:58 | PC.NURSE ---
all charting since 0700 on this patient under this nurse and not Cyndee Hartley due to login error
[2025-06-12 09:40] LABS: Alveolar/Arterial O2 Gradient 52.0 mmHg; Fractional Inspired Oxygen 21 %; HCO3 ABG 22.9 mEq/l (22.0-26.0); Oxygen Content ABG 13.2 %vol (16.0-22.0); Oxygen Saturation ABG 93.1 % (95.0-100.0); PCO2 ABG 31.3 mmHg (35.0-45.0); PO2 ABG 60.3 mmHg (80.0-100.0); PO2 FiO2 Ratio Arterial Blood 2.87 %
[2025-06-12 09:41] LABS: Modified Allen's Test Pass; Site Drawn RIGHT RADIAL
--- NOTE | 2025-06-12 09:42 | PCRCNOTE ---
ABG late due to pt being a hard stick and issues with ABG Machine.
[2025-06-12] MEDS: DOXYCYCLINE IV 100 MG in SODIUM CHLORIDE 0.9% IV 100 ML IVPB (10:07)
[2025-06-12] MEDS: ENOXAPARIN 40 MG/0.4 ML SYRINGE SUB-Q (10:07)
[2025-06-12] MEDS: MONTELUKAST SODIUM 10 MG TABLET PO (10:08)
[2025-06-12] MEDS: PANTOPRAZOLE 40 MG TABLET PO ×2 (10:08→20:39)
[2025-06-12] MEDS: PRAZOSIN HCL 1 MG CAPSULE 2 MG PO (10:08)
[2025-06-12] MEDS: SERTRALINE HCL 50 MG TABLET 200 MG PO (10:08)
[2025-06-12] MEDS: BUDESONIDE RESPULE NEB 0.5 MG/2 ML AMP INHALATION ×2 (10:10→20:58)
[2025-06-12] MEDS: TIMOLOL MALEATE 0.5% OP SOLN 5 ML BOTTLE 1 DROP EACH EYE (10:26)
[2025-06-12] MEDS: cefTRIAXone 2 GM in SODIUM CHLORIDE 0.9% IV 100 ML 200 ML IVPB (12:21)
[2025-06-12] MEDS: FUROSEMIDE 40 MG TABLET PO (12:23)
--- NOTE | 2025-06-12 16:50 | PM.IMPN2 ---
Assessment and Plan Assessment and Plan (1) Acute hypercapnic respiratory failure: Code(s): J96.02 - Acute respiratory failure with hypercapnia Status: Acute Assessment and Plan: Acute respiratory failure, multifactorial, could be related to COPD exacerbation, pneumonia, bronchitis, acute on chronic diastolic heart failure, volume overload, obesity hyperventilation syndrome, obstructive sleep apnea. ABG improving CO2-hilliard, respiratory alkalosis noted, mild, may be due to correction of chronic hypercapnia likely present in patient with COPD and OHS. -was placed on BiPAP overnight, -switched to AVAPS as she was not getting adequate volumes on BiPAP. -chest x-ray and ABGs and review -continue diuresis, steroids, bronchodilators -On pulmicort -on ceftriaxone and doxycycline (06/10) -Pulmonary following for noninvasive vent management -Transfer to floor as above (2) COPD (chronic obstructive pulmonary disease): Code(s): J44.9 - Chronic obstructive pulmonary disease, unspecified Status: Acute Assessment and Plan: As above (3) Asthma: Code(s): J45.909 - Unspecified asthma, uncomplicated Status: Acute Assessment and Plan: As above (4) Acute kidney injury superimposed on CKD: Code(s): N17.9 - Acute kidney failure, unspecified; N18.9 - Chronic kidney disease, unspecified Status: Acute Assessment and Plan: Acute on chronic kidney disease, could be related to hypoxia, volume overload -urine output was good in response to diuretics overnight -Lasix 40mg po daily -creatinine trending down 1.35 > 1.07 -continue to monitor renal function, electrolytes and urine (5) Acute on chronic diastolic heart failure: Code(s): I50.33 - Acute on chronic diastolic (congestive) heart failure Status: Acute Assessment and Plan: Per cardiology: TTE normal, LVEF of 60-65%. Normal diastolic function. Patient is euvolemic exam. Renal function down to 1.3 from 1.8. -Farxiga, Carvedilol discontinued -Propranolol resumed- is home med -Lasix 40mg po qd -Check and replace electrolytes to keep potassium greater than 4 and magnesium greater than 2. -Monitor on telemetry. -Check weight, ins and outs, renal function daily. (6) Hypertension: Qualifiers: Hypertension type: primary hypertension Qualified Code(s): I10 - Essential (primary) hypertension Code(s): I10 - Essential (primary) hypertension Status: Chronic Assessment and Plan: -Hydralazine 10mg bid for BP control Plan DVT prophylaxis: Low vein Stress ulcer prophylaxis: Protonix Nutrition: Heart healthy diet Medical Record Review I have reviewed the following patient records and this information was taken into consideration when formulating the assessment and plan.: previous hospitalizations Consultations Consultations: I have discussed the care of this pt with the consulting providers. Subjective Date/time seen: 06/12/25 16:50 Interval history: Tati Pendleton is a 59 year old female with past medical history of COPD, type 2 diabetes, depression, TIA, essential hypertension, hypothyroidism, diastolic dysfunction, chronic kidney disease presented the ED on 06/09/2025 [id number] female with a past medical history of COPD, dm 2, depression, TIA, HTN, hypothyroidism, grade 1 diastolic dysfunction, CKD presented to the ED on 06/09/2025 with dyspnea. Patient initially presented at [facility] with dyspnea that started on 06/04 but progressively got worse. Patient uses a CPAP at night and supplemental O2 with activity. However, patient has been requiring her supplemental O2 all day today. [facility] called [facility] as patient was short of breath, weak and dizzy. Patient was 90% on room air when EMS arrived. Patient further endorses a cough without sputum production. Denies fever, chill, nausea, vomiting, diarrhea. Patient was reportedly hypoxic on admission to the ED and started on 5 L O2 per nasal cannula. Patient is drowsy but A&O x4. Initial ABG was consistent with respiratory acidosis and patient was subsequently placed on BiPAP. Initial vital signs 145/91, HR 84, respirations 16, afebrile and 93% on 5 L of O2. Lab significant for chloride 94, carbon dioxide 35, BUN 50, creatinine 1.8 and GFR 29, magnesium 2.7, AST 61, ALT 65, alk-phos 159. BNP 5120. Initial ABG pH 7.232, pCO2 80.3, PO2 76.2, HC03 33, O2 sat 92.1. Patient placed on BiPAP with no improvement in serial ABGs. Viral panel negative EKG reads sinus rhythm with occasional supraventricular premature complexes. Chest x-ray shows cardiomegaly with pulmonary edema. 06/10: Patient was admitted to the ICU for further management, where ABG showed improving pCO2, and clinical status also was improving. Symbicort added, as well as ceftriaxone and doxycycline for pneumonia management. Patient was seen by cardiology to assess for element of CHF- TTE is normal with LVEF of 60-65%. Normal diastolic function. Stop the empagliflozin as has no indication from cardiac standpoint. I will also stop the Coreg as she is on propranolol at home. Renal function down to 1.3 from 1.8. Can resume home dose of Lasix 40 mg daily. Consider Hydralazine 10 mg BID for BP control. 06/11: Patient transferred to IMU, continues to clinically improve. ABG was repeated- 7.458/51.6/78.8, CO2 is improving, respiratory alkalosis noted, pH was normal in prior ABG, could be secondary to correction of chronic hypercapnia. Patient is on constant AVAPS at this time, will allow patient 1 hr off for lunch as she is improving, but will place back on, repeat ABG again in the PM. Pulmonary to be consulted for further management of noninvasive ventilation. 06/12: Continues to improve, stable to transfer to floor with continuous pulse oximetry and nightly AVAPS. Discharge planning tomorrow if cleared by pulmonary, as she will benefit from switching to AVAPS at home instead of CPAP. ABG reviewed, improving, only with resp alkalosis likely secondary to correction of chronic hypercapnia as mentioned above. Patient has smoking history and says she was diagnosed with COPD by pulmonary in the past. Review of Systems Review of Systems: All systems reviewed & are unremarkable except as noted in HPI and below Exam Narrative: General: Pleasant female, , in no acute distress. On room air. HEENT:? Pupils equal and reactive, sclera is clear, BiPAP mask in place Neck:? Supple Respiratory:? decreased air entry at bases, no wheezing Cardiac:? S1-S2 normal, regular rate and rhythm Abdomen:? Soft, nontender, nondistended, hypoactive bowel sounds, obese Extremities:? Bilateral lower extremity lymphedema, palpable pedal pulse Neuro:? Patient is awake, alert, oriented, nonfocal, answers to questions and follows simple commands in all extremities Skin:? No skin lesions noted Psych:? Normal mentation and affect Objective Data Vital Signs Vital Signs: Vital Signs - 24 hr 06/11/25 18:00 06/11/25 18:08 06/11/25 19:48 Temperature Pulse Rate 70 67 67 Respiratory Rate 20 25 H Blood Pressure Pulse Oximetry 99 97 Oxygen Delivery BiPAP BiPAP Oxygen Flow Rate 15 Fraction of Inspired Oxygen 35 06/11/25 19:48 06/11/25 19:48 06/11/25 20:00 Temperature Pulse Rate 67 67 Respiratory Rate 25 H 25 H Blood Pressure Pulse Oximetry 97 97 Oxygen Delivery BiPAP BiPAP Oxygen Flow Rate Fraction of Inspired Oxygen 30 30 06/11/25 20:00 06/11/25 20:25 06/11/25 22:00 Temperature 97.7 F Pulse Rate 66 75 64 Respiratory Rate 20 Blood Pressure 126/55 L Pulse Oximetry 98 Oxygen Delivery Oxygen Flow Rate Fraction of Inspired Oxygen 06/12/25 00:00 06/12/25 00:00 06/12/25 00:42 Temperature 97.6 F Pulse Rate 58 L 76 Respiratory Rate 21 H Blood Pressure 130/51 L Pulse Oximetry 96 95 Oxygen Delivery BiPAP Oxygen Flow Rate Fraction of Inspired Oxygen 30 06/12/25 02:00 06/12/25 02:02 06/12/25 02:02 Temperature Pulse Rate 61 62 62 Respiratory Rate 21 H 21 H Blood Pressure Pulse Oximetry 96 96 Oxygen Delivery BiPAP BiPAP Oxygen Flow Rate Fraction of Inspired Oxygen 30 06/12/25 02:02 06/12/25 03:35 06/12/25 04:00 Temperature 97.8 F Pulse Rate 62 88 74 Respiratory Rate 21 H 22 H Blood Pressure 113/50 L Pulse Oximetry 94 Oxygen Delivery Oxygen Flow Rate Fraction of Inspired Oxygen 06/12/25 04:00 06/12/25 06:00 06/12/25 07:32 Temperature Pulse Rate 66 62 Respiratory Rate 20 Blood Pressure Pulse Oximetry 97 98 Oxygen Delivery BiPAP BiPAP Oxygen Flow Rate Fraction of Inspired Oxygen 30 06/12/25 07:36 06/12/25 08:00 06/12/25 08:00 Temperature 98.4 F Pulse Rate 76 71 72 Respiratory Rate 18 Blood Pressure 151/83 H Pulse Oximetry 94 91 Oxygen Delivery Room Air Room Air Oxygen Flow Rate Fraction of Inspired Oxygen 06/12/25 08:00 06/12/25 08:52 06/12/25 10:00 Temperature Pulse Rate 72 63 Respiratory Rate Blood Pressure Pulse Oximetry Oxygen Delivery Room Air Oxygen Flow Rate Fraction of Inspired Oxygen 06/12/25 10:11 06/12/25 10:17 06/12/25 12:00 Temperature 98.5 F Pulse Rate 65 62 62 Respiratory Rate 18 18 18 Blood Pressure 167/84 H Pulse Oximetry 96 Oxygen Delivery Oxygen Flow Rate Fraction of Inspired Oxygen 06/12/25 12:00 06/12/25 13:44 06/12/25 13:49 Temperature Pulse Rate 67 61 62 Respiratory Rate 18 18 Blood Pressure Pulse Oximetry Oxygen Delivery Room Air Oxygen Flow Rate Fraction of Inspired Oxygen 06/12/25 14:00 06/12/25 15:03 Temperature Pulse Rate 72 Respiratory Rate Blood Pressure Pulse Oximetry Oxygen Delivery Room Air Oxygen Flow Rate Fraction of Inspired Oxygen Intake/Output Intake/Output: Intake & Output 06/09/25 06/10/25 06/11/25 06/12/25 23:59 23:59 23:59 23:59 Intake Total 300 1780 790 Output Total 1999 3450 1301 750 Balance -1999 -4360 479 40 Meds/Results Medications: Active Medications Generic Name Dose Route Start Last Admin Trade Name Freq PRN Reason Stop Dose Admin Acetaminophen 650 mg 06/09/25 20:44 06/09/25 20:59 Acetaminophen 325 Mg Tablet PO 650 mg Q6H PRN Administration Mild Pain (1-3) or Fever Albuterol/Ipratropium 3 ml 06/10/25 10:00 06/12/25 13:44 Ipratropium 0.5 Mg/Albuterol Sulfate 2.5 Mg (Base) Ampul.Neb 3 Ml INHALATION 3 ml Q6HRT SANIYA Administration Amoxicillin/Clavulanate Potassium 1 tablet 06/13/25 09:00 Amoxicillin/Clavulanate K 875-125 Mg Tab PO 06/14/25 21:01 Q12HR SANIYA Budesonide 0.5 mg 06/10/25 12:30 06/12/25 10:10 Budesonide Respule Neb 0.5 Mg/2 Ml Amp INHALATION 0.5 mg Q12HRT SANIYA Administration Buspirone HCl 20 mg 06/10/25 14:00 06/12/25 16:50 Buspirone Hcl 10 Mg Tablet PO 20 mg Q8HR SANIYA Administration Dextrose 12.5 gm 06/09/25 14:12 Dextrose 50% 25 Gm/50 Ml Syringe IV PUSH PRN PRN Hypoglycemia Protocol Doxycycline Hyclate 100 mg 06/12/25 21:00 Doxycycline Hyclate 100 Mg Tablet PO 06/14/25 21:01 Q12HR SANIYA Enoxaparin Sodium 40 mg 06/11/25 09:00 06/12/25 10:07 Enoxaparin 40 Mg/0.4 Ml Syringe SUB-Q 40 mg DAILY SANIYA Administration Furosemide 40 mg 06/12/25 13:00 06/12/25 12:23 Furosemide 40 Mg Tablet PO 40 mg DAILY SANIYA Administration Glucagon 1 mg 06/09/25 14:12 Glucagon For Inj 1 Mg Vial IM PRN PRN Hypoglycemia Protocol Glucose 15 gm 06/09/25 14:12 Glucose Oral Gel 15 Gm Of Glucse In 37.5 Gm Tube PO PRN PRN Hypoglycemia Protocol Hydralazine HCl 10 mg 06/10/25 12:32 Hydralazine Hcl 20 Mg/Ml Vial IV PUSH Q4H PRN Blood Pressure - High Dextrose 1,000 mls @ 100 mls/hr 06/09/25 14:12 Dextrose 5% 1,000 Ml IVPB PRN PRN Hypoglycemia Protocol Insulin Aspart 3 - 6 units 06/11/25 12:00 06/12/25 12:24 Insulin Aspart (*Bkc) 100 Units/Ml SUB-Q Not Given TIDWM SANIYA Protocol Insulin Aspart 3 - 6 units 06/11/25 21:00 06/11/25 21:05 Insulin Aspart (*Bkc) 100 Units/Ml SUB-Q Not Given HS SANIYA Protocol Latanoprost 1 drop 06/09/25 21:00 06/11/25 21:06 Latanoprost 0.005% Op Soln 2.5 Ml Btl EACH EYE 1 drop HS SANIYA Administration Levothyroxine Sodium 200 mcg 06/10/25 06:30 06/12/25 06:04 Levothyroxine Sodium 100 Mcg Tablet PO 200 mcg DAILY@0630 SANIYA Administration Methylprednisolone Sodium Succinate 60 mg 06/09/25 21:00 06/12/25 10:09 Methylprednisolone Sod Succ 125 Mg Vial IV PUSH 60 mg Q12HR SANIYA Administration Montelukast Sodium 10 mg 06/10/25 09:00 06/12/25 10:08 Montelukast Sodium 10 Mg Tablet PO 10 mg DAILY SANIYA Administration Pantoprazole Sodium 40 mg 06/10/25 09:00 06/12/25 10:08 Pantoprazole 40 Mg Tablet PO 40 mg Q12HR SANIYA Administration Prazosin HCl 1 mg 06/09/25 21:00 06/11/25 21:03 Prazosin Hcl 1 Mg Capsule PO 1 mg HS SANIYA Administration Prazosin HCl 2 mg 06/10/25 09:00 06/12/25 10:08 Prazosin Hcl 1 Mg Capsule PO 2 mg DAILY SANIYA Administration Propranolol HCl 10 mg 06/12/25 21:00 Propranolol Hcl 10 Mg Tablet PO Q12H SANIYA Sertraline HCl 200 mg 06/10/25 09:00 06/12/25 10:08 Sertraline Hcl 50 Mg Tablet PO 200 mg DAILY SANIYA Administration Timolol Maleate 1 drop 06/10/25 09:00 06/12/25 10:26 Timolol Maleate 0.5% Op Soln 5 Ml Bottle EACH EYE 1 drop QAM SANIYA Administration Radiology Results: ITS Impressions Chest X-Ray 06/10/25 06:57 Impression: 1: Cardiomegaly. Labs Labs: Laboratory Results - last 24 hr 06/11/25 06/11/25 06/12/25 16:02 21:02 03:57 WBC 5.9 RBC 5.82 H Hgb 13.6 Hct 47.8 H MCV 82.1 MCH 23.4 L MCHC 28.5 L RDW 24.3 H Plt Count 114 L MPV TNP % Immature Plt Fraction 11.0 Puncture Site ABG pH ABG pCO2 ABG pO2 ABG PO2/FiO2 Ratio ABG HCO3 ABG O2 Saturation ABG O2 Content ABG Base Excess A-a Gradient Oxyhemoglobin Total Hemoglobin O2 Delivery Device O2 Liters/Min FiO2 Sodium 139 Potassium 4.0 Chloride 100 Carbon Dioxide 33 H Anion Gap 6 BUN 29 H Creatinine 1.07 H Estim Creat Clear Calc 76 Estimated GFR 52 L Glucose 142 H POC Capillary Glucose 190 H 143 H Calcium 9.3 Total Bilirubin 0.9 AST 35 ALT 44 H Alkaline Phosphatase 127 H Total Protein 7.5 Albumin 3.9 06/12/25 06/12/25 06/12/25 07:19 09:04 11:57 WBC RBC Hgb Hct MCV MCH MCHC RDW Plt Count MPV % Immature Plt Fraction Puncture Site Right radial ABG pH 7.483 H ABG pCO2 31.3 L ABG pO2 60.3 L ABG PO2/FiO2 Ratio 2.87 ABG HCO3 22.9 ABG O2 Saturation 93.1 L ABG O2 Content 13.2 L ABG Base Excess 0.0 A-a Gradient 52.0 Oxyhemoglobin 90.3 Total Hemoglobin 10.4 L O2 Delivery Device Not Reportable O2 Liters/Min Not Reportable FiO2 21 Sodium Potassium Chloride Carbon Dioxide Anion Gap BUN Creatinine Estim Creat Clear Calc Estimated GFR Glucose POC Capillary Glucose 132 H 156 H Calcium Total Bilirubin AST ALT Alkaline Phosphatase Total Protein Albumin 06/12/25 15:51 WBC RBC Hgb Hct MCV MCH MCHC RDW Plt Count MPV % Immature Plt Fraction Puncture Site ABG pH ABG pCO2 ABG pO2 ABG PO2/FiO2 Ratio ABG HCO3 ABG O2 Saturation ABG O2 Content ABG Base Excess A-a Gradient Oxyhemoglobin Total Hemoglobin O2 Delivery Device O2 Liters/Min FiO2 Sodium Potassium Chloride Carbon Dioxide Anion Gap BUN Creatinine Estim Creat Clear Calc Estimated GFR Glucose POC Capillary Glucose 184 H Calcium Total Bilirubin AST ALT Alkaline Phosphatase Total Protein Albumin Hospitalist MIPS Advance Care Plan I have confirmed that the patient's Advanced Care Plan is present, code status is documented, or surrogate decision maker is listed in patient medical record.: Yes Medication Reconciliation I have utilized all available resources to obtain, update and review the patients current medications (includes all prescriptions, OTC, herbals, cannabis, and nutritional supplements).: Yes
--- NOTE | 2025-06-12 18:04 | PM.PNPUL ---
Progress Note: A&P Assessment and Plan (1) Obesity hypoventilation syndrome: Code(s): E66.2 - Morbid (severe) obesity with alveolar hypoventilation Status: Chronic Assessment and Plan: This is the etiology of her respiratory failure, not COPD. She has erythrocytosis, hematocrit is been elevated this admission, June 12 hematocrit was 49.5%. Needs to be followed by her primary pulmonary doctor and primary care physician. (2) Asthma: Code(s): J45.909 - Unspecified asthma, uncomplicated Status: Acute Assessment and Plan: longstanding; does not have COPD. She has albuterol listed on her home medications and montelukast 10 mg a day which is for asthma. (3) JUAN (obstructive sleep apnea): Code(s): G47.33 - Obstructive sleep apnea (adult) (pediatric) Status: Acute Assessment and Plan: Her home machine is more than 5 years old, she has a regularly scheduled appointment with Dr. Waetrs July 01. She was diagnosed in 2018 with JUAN with a sleep study, was on CPAP 15 with O2 at night 3 L/min. Plan plan: Home O2 study before leaving today. I want to establish amount of O2 needed with exertion. Ok to go home. She has O2 at home that she uses with her CPAP machine at 3 L/min at night. She plans to follow up with Dr Waters for asthma and JUAN-obesity hypoventilation syndrome. She does not need an appt with [facility]. 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 Echocardiogram showed normal EF 60-65%, blood pressure has been high. She appears to have had some acute cardiac decompensation which is a new problem for her, improved with adjustment in her diuresis. She does have chronic kidney insufficiency, initial creatinine 1.8 and then improved to 1.3 on a lower dose of Lasix. She understands that she must follow up with her primary, Cardiology and her pulmonary doctor. These problems are all interconnected. If she wants to have our number in the [facility] pulmonary office, she can call for appt but we decided that she would be best served keeping all her doctors under one roof. Subjective Date/time seen: 06/13/25 11:16 Interval history: 06/13/2025 - follow up for asthma, OHS, hypercapnic hypoxemic respiratory failure without COPD. She was downgraded Jun 12 to medical from IMU status. She is on room air, sat 95%. She uses O2 at night with O2, tells me that she has an appointment with Dr Waters, pulmonary and sleep, Jun 11 at the [place] office. She plans to follow up with him in Jul 01. She saw [facility] cardiology this admission, and [facility] is a [facility] facility. She tells me if she requires repeat hospitalization she plans to go to [facility]. This will keep all of her doctors in the same system. I will give her our office number however I am recommending that she follows up with her regular pulmonary sleep doctor for continuity of care. She feels 85% back to normal, is ready to go home. Her arterial blood gas June 12 9:00 a.m. showed pH 7.4 8, pCO2 31.3, pO2 60.3, HC03 22.9, 93% saturation on room air. This is after wearing a noninvasive device overnight. White blood cell count today is 7.1, normal. She has had erythrocytosis this admission, yesterday's hematocrit was 49.5% indicating that she is likely hypoxemic at night. This needs to be followed. ............................................................. 06/11/2025, new pulmonary consult; Tati Pendleton is 59 years old, has hypercapnic hypoxemic respiratory failure, has asthma however does not have COPD, has not smoked for several years. She was admitted with dyspnea, non-productive cough, weakness, dizziness, and low saturation. Was at [facility] with dyspnea that started on 06/04, worsened; she uses a CPAP at night and supplemental O2 with activity. Prior to admission, started using O2 around the clock. She came by ambulance from Urgent Care. Saturation was 90% on room air when EMS arrived. She did not have fever, chills, nausea, vomiting, diarrhea, rash or joint pains. Initial ABG showed pH 7.319, pCO2 70, pO2 89, HCO2 35 sat 96% on 40% on BiPAP 20/8, switched to AVAPS settings. BUN was 50, creat 1.8 on admission. She was admitted to ICU, treated with IV Lasix with effective diuresis. Initial CXR 06/09 = cardiomegaly with pulmonary edema. PMH : asthma, hypertension, hypothyroidism, fibromyalgia, seizures, depression, diabetes, morbid obesity with a history of gastric bypass. She does not have COPD, documented by Dr Camilo 2022 pulmonary notes. She has been on AVAPS on prior admissions. She says that she did not have typical symptoms that she has with asthma exacerbation prior to admission. She had increased LE swelling. Creat was elevated 1.8, improved during admission to 1.3. She had BP medications adjusted, re started Lasix orally. DATA * echo: Left ventricular systolic function is normal, estimated at 60-65. The left ventricular diastolic function is normal. * 06/10/25 labs: WBC 9.9, hemoglobin 13.6, platelets 146. Sodium 136, potassium 3.7, BUN 50, creatinine 1.80, ALT and AST were elevated, proBNP 5120, troponin 0.016. Influenza, RSV and SARS-CoV-2 PCR neg * 06/09/25; CXR = cardiomegaly with pulmonary edema. * 06/10/25, CXR = cardiomegaly Date 06/10/25 06/10/25 06/11/25 12/3/25 pH 7.319 7.382 7.45 a 7.457 pCO2 70 67 51.6 45.1 pO2 89 89 79 83 HCO3 35 38.7 35.7 31 sat 96% 96% 96% 97% CarboxyHgb FiO2 40% 40% 30% 30% O2 delivery BiPAP NIV NIV NIV IPAP 20 25 EPAP 8 8 Review of Systems Review of Systems: All systems reviewed & are unremarkable except as noted in HPI and below Exam Narrative: GEN: Alert, oriented, not in distress. She is on room air saturation 95%. CHEST: Equal air entry, symmetric excursion, clear breath sounds CV: Regular S1S2 no m/g/r Extremities : no clubbing, cyanosis, or edema. No calf tenderness. Good capillary refill. PSYCH: normal thought and communication. Objective Data Vital Signs Vital Signs: Vital Signs - 24 hr 06/11/25 18:08 06/11/25 19:48 06/11/25 19:48 Temperature Pulse Rate 67 67 67 Respiratory Rate 20 25 H 25 H Blood Pressure Pulse Oximetry 99 97 97 Oxygen Delivery BiPAP BiPAP BiPAP Oxygen Flow Rate 15 Fraction of Inspired Oxygen 35 30 06/11/25 19:48 06/11/25 20:00 06/11/25 20:00 Temperature Pulse Rate 67 66 Respiratory Rate 25 H Blood Pressure Pulse Oximetry 97 Oxygen Delivery BiPAP Oxygen Flow Rate Fraction of Inspired Oxygen 30 06/11/25 20:25 06/11/25 22:00 06/12/25 00:00 Temperature 36.5 C Pulse Rate 75 64 Respiratory Rate 20 Blood Pressure 126/55 L Pulse Oximetry 98 96 Oxygen Delivery BiPAP Oxygen Flow Rate Fraction of Inspired Oxygen 30 06/12/25 00:00 06/12/25 00:42 06/12/25 02:00 Temperature 36.4 C Pulse Rate 58 L 76 61 Respiratory Rate 21 H Blood Pressure 130/51 L Pulse Oximetry 95 Oxygen Delivery Oxygen Flow Rate Fraction of Inspired Oxygen 06/12/25 02:02 06/12/25 02:02 06/12/25 02:02 Temperature Pulse Rate 62 62 62 Respiratory Rate 21 H 21 H 21 H Blood Pressure Pulse Oximetry 96 96 Oxygen Delivery BiPAP BiPAP Oxygen Flow Rate Fraction of Inspired Oxygen 30 06/12/25 03:35 06/12/25 04:00 06/12/25 04:00 Temperature 36.6 C Pulse Rate 88 74 Respiratory Rate 22 H Blood Pressure 113/50 L Pulse Oximetry 94 97 Oxygen Delivery BiPAP Oxygen Flow Rate Fraction of Inspired Oxygen 30 06/12/25 06:00 06/12/25 07:32 06/12/25 07:36 Temperature Pulse Rate 66 62 76 Respiratory Rate 20 Blood Pressure Pulse Oximetry 98 94 Oxygen Delivery BiPAP Room Air Oxygen Flow Rate Fraction of Inspired Oxygen 06/12/25 08:00 06/12/25 08:00 06/12/25 08:00 Temperature 36.9 C Pulse Rate 71 72 72 Respiratory Rate 18 Blood Pressure 151/83 H Pulse Oximetry 91 Oxygen Delivery Room Air Oxygen Flow Rate Fraction of Inspired Oxygen 06/12/25 08:52 06/12/25 10:00 06/12/25 10:11 Temperature Pulse Rate 63 65 Respiratory Rate 18 Blood Pressure Pulse Oximetry Oxygen Delivery Room Air Oxygen Flow Rate Fraction of Inspired Oxygen 06/12/25 10:17 06/12/25 12:00 06/12/25 12:00 Temperature 36.9 C Pulse Rate 62 62 67 Respiratory Rate 18 18 Blood Pressure 167/84 H Pulse Oximetry 96 Oxygen Delivery Room Air Oxygen Flow Rate Fraction of Inspired Oxygen 06/12/25 13:44 06/12/25 13:49 06/12/25 14:00 Temperature Pulse Rate 61 62 72 Respiratory Rate 18 18 Blood Pressure Pulse Oximetry Oxygen Delivery Oxygen Flow Rate Fraction of Inspired Oxygen 06/12/25 15:03 06/12/25 16:00 06/12/25 16:00 Temperature 37.1 C Pulse Rate 65 70 Respiratory Rate 18 Blood Pressure 148/90 H Pulse Oximetry 94 Oxygen Delivery Room Air Oxygen Flow Rate Fraction of Inspired Oxygen Intake/Output Intake/Output: Intake & Output 06/09/25 06/10/25 06/11/25 06/12/25 23:59 23:59 23:59 23:59 Intake Total 300 1780 2070 Output Total 1999 3450 1301 1350 Balance -1999 -1380 375 592 Meds/Results Medications: Active Medications Generic Name Dose Route Start Last Admin Trade Name Freq PRN Reason Stop Dose Admin Acetaminophen 650 mg 06/09/25 20:44 06/09/25 20:59 Acetaminophen 325 Mg Tablet PO 650 mg Q6H PRN Administration Mild Pain (1-3) or Fever Albuterol/Ipratropium 3 ml 06/10/25 10:00 06/12/25 13:44 Ipratropium 0.5 Mg/Albuterol Sulfate 2.5 Mg (Base) Ampul.Neb 3 Ml INHALATION 3 ml Q6HRT SANIYA Administration Amoxicillin/Clavulanate Potassium 1 tablet 06/13/25 09:00 Amoxicillin/Clavulanate K 875-125 Mg Tab PO 06/14/25 21:01 Q12HR SANIYA Budesonide 0.5 mg 06/10/25 12:30 06/12/25 10:10 Budesonide Respule Neb 0.5 Mg/2 Ml Amp INHALATION 0.5 mg Q12HRT SANIYA Administration Buspirone HCl 20 mg 06/10/25 14:00 06/12/25 16:50 Buspirone Hcl 10 Mg Tablet PO 20 mg Q8HR SANIYA Administration Dextrose 12.5 gm 06/09/25 14:12 Dextrose 50% 25 Gm/50 Ml Syringe IV PUSH PRN PRN Hypoglycemia Protocol Doxycycline Hyclate 100 mg 06/12/25 21:00 Doxycycline Hyclate 100 Mg Tablet PO 06/14/25 21:01 Q12HR SANIYA Enoxaparin Sodium 40 mg 06/11/25 09:00 06/12/25 10:07 Enoxaparin 40 Mg/0.4 Ml Syringe SUB-Q 40 mg DAILY SANIYA Administration Furosemide 40 mg 06/12/25 13:00 06/12/25 12:23 Furosemide 40 Mg Tablet PO 40 mg DAILY SANIYA Administration Glucagon 1 mg 06/09/25 14:12 Glucagon For Inj 1 Mg Vial IM PRN PRN Hypoglycemia Protocol Glucose 15 gm 06/09/25 14:12 Glucose Oral Gel 15 Gm Of Glucse In 37.5 Gm Tube PO PRN PRN Hypoglycemia Protocol Hydralazine HCl 10 mg 06/10/25 12:32 Hydralazine Hcl 20 Mg/Ml Vial IV PUSH Q4H PRN Blood Pressure - High Dextrose 1,000 mls @ 100 mls/hr 06/09/25 14:12 Dextrose 5% 1,000 Ml IVPB PRN PRN Hypoglycemia Protocol Insulin Aspart 3 - 6 units 06/11/25 12:00 06/12/25 16:52 Insulin Aspart (*Bkc) 100 Units/Ml SUB-Q Not Given TIDWM SANIYA Protocol Insulin Aspart 3 - 6 units 06/11/25 21:00 06/11/25 21:05 Insulin Aspart (*Bkc) 100 Units/Ml SUB-Q Not Given HS [facility] Protocol Latanoprost 1 drop 06/09/25 21:00 06/11/25 21:06 Latanoprost 0.005% Op Soln 2.5 Ml Btl EACH EYE 1 drop HS SANIYA Administration Levothyroxine Sodium 200 mcg 06/10/25 06:30 06/12/25 06:04 Levothyroxine Sodium 100 Mcg Tablet PO 200 mcg DAILY@0630 SANIYA Administration Methylprednisolone Sodium Succinate 60 mg 06/09/25 21:00 06/12/25 10:09 Methylprednisolone Sod Succ 125 Mg Vial IV PUSH 60 mg Q12HR SNAIYA Administration Montelukast Sodium 10 mg 06/10/25 09:00 06/12/25 10:08 Montelukast Sodium 10 Mg Tablet PO 10 mg DAILY SANIYA Administration Pantoprazole Sodium 40 mg 06/10/25 09:00 06/12/25 10:08 Pantoprazole 40 Mg Tablet PO 40 mg Q12HR SANIYA Administration Prazosin HCl 1 mg 06/09/25 21:00 06/11/25 21:03 Prazosin Hcl 1 Mg Capsule PO 1 mg HS SANIYA Administration Prazosin HCl 2 mg 06/10/25 09:00 06/12/25 10:08 Prazosin Hcl 1 Mg Capsule PO 2 mg DAILY SANIYA Administration Propranolol HCl 10 mg 06/12/25 21:00 Propranolol Hcl 10 Mg Tablet PO Q12H SANIYA Sertraline HCl 200 mg 06/10/25 09:00 06/12/25 10:08 Sertraline Hcl 50 Mg Tablet PO 200 mg DAILY SANIYA Administration Timolol Maleate 1 drop 06/10/25 09:00 06/12/25 10:26 Timolol Maleate 0.5% Op Soln 5 Ml Bottle EACH EYE 1 drop QAM SANIYA Administration Radiology Results: ITS Impressions Chest X-Ray 06/10/25 06:57 Impression: 1: Cardiomegaly. Labs Labs: Laboratory Results - last 24 hr 06/11/25 06/12/25 12 21:02 03:57 07:19 WBC 5.9 RBC 5.82 H Hgb 13.6 Hct 47.8 H MCV 82.1 MCH 23.4 L MCHC 28.5 L RDW 24.3 H Plt Count 114 L MPV TNP % Immature Plt Fraction 11.0 Puncture Site ABG pH ABG pCO2 ABG pO2 ABG PO2/FiO2 Ratio ABG HCO3 ABG O2 Saturation ABG O2 Content ABG Base Excess A-a Gradient Oxyhemoglobin Total Hemoglobin O2 Delivery Device O2 Liters/Min FiO2 Sodium 139 Potassium 4.0 Chloride 100 Carbon Dioxide 33 H Anion Gap 6 BUN 29 H Creatinine 1.07 H Estim Creat Clear Calc 76 Estimated GFR 52 L Glucose 142 H POC Capillary Glucose 143 H 132 H Calcium 9.3 Total Bilirubin 0.9 AST 35 ALT 44 H Alkaline Phosphatase 127 H Total Protein 7.5 Albumin 3.9 06/12/25 06/12/25 06/12/25 09:04 11:57 15:51 WBC RBC Hgb Hct MCV MCH MCHC RDW Plt Count MPV % Immature Plt Fraction Puncture Site Right radial ABG pH 7.483 H ABG pCO2 31.3 L ABG pO2 60.3 L ABG PO2/FiO2 Ratio 2.87 ABG HCO3 22.9 ABG O2 Saturation 93.1 L ABG O2 Content 13.2 L ABG Base Excess 0.0 A-a Gradient 52.0 Oxyhemoglobin 90.3 Total Hemoglobin 10.4 L O2 Delivery Device Not Reportable O2 Liters/Min Not Reportable FiO2 21 Sodium Potassium Chloride Carbon Dioxide Anion Gap BUN Creatinine Estim Creat Clear Calc Estimated GFR Glucose POC Capillary Glucose 156 H 184 H Calcium Total Bilirubin AST ALT Alkaline Phosphatase Total Protein Albumin
--- NOTE | 2025-06-12 18:37 | PC.NURSE ---
report given to Ilene on medical
[2025-06-12] MEDS: INSULIN ASPART (*BKC) 100 UNITS/ML SUB-Q (20:37)
[2025-06-12] MEDS: PROPRANOLOL HCL 10 MG TABLET PO (20:38)
[2025-06-12] MEDS: DOXYCYCLINE HYCLATE 100 MG TABLET PO (20:39)
[2025-06-12] MEDS: PRAZOSIN HCL 1 MG CAPSULE PO (20:39)
[2025-06-12] MEDS: LATANOPROST 0.005% OP SOLN 2.5 ML BTL 1 DROP EACH EYE (21:13)
[2025-06-13] VITALS (14 sets, daily range): BP systolic 146–160; BP diastolic 77–80; PULSE 58–89; RESP 14–20; TEMP 36.3–37; O2SAT 86–95
[2025-06-13] MEDS: IPRATROPIUM 0.5 MG/ALBUTEROL SULFATE 2.5 MG (BASE) AMPUL.NEB 3 ML INHALATION ×3 (02:33→13:43)
[2025-06-13 05:05] LABS: Hematocrit 49.5 % (37.0-47.0); Hemoglobin 14.0 g/dL (12.0-15.0); Immature Platelet Fraction Pct 10.8 % (0.9-11.2); Mean Corpuscular HGB Conc 28.3 g/dl (32-36); Mean Corpuscular Hemoglobin 23.0 pg (26-34); Mean Corpuscular Volume 81.1 fl (80-100); Platelet Count Result 113 k/mm3 (150-375); Red Blood Count 6.10 M/mm3 (4.2-5.4); White Blood Count 7.1 K/mm3 (4.5-10.0)
[2025-06-13 05:28] LABS: Alanine Aminotransferase 37 U/L (6-35); Albumin Level 3.8 g/dL (3.5-5.1); Alkaline Phosphatase 113 U/L (38-126); Anion Gap 2 mmol/L (4-12); Aspartate Amino Transferase 31 U/L (14-36); Bilirubin,Total 0.9 mg/dL (0.2-1.3); Blood Urea Nitrogen 24 mg/dL (7-17); Calcium 9.4 mg/dL (8.4-10.2); Carbon Dioxide 38 mmol/L (22-30); Chloride 98 mmol/L (98-107); Estimated CRCL calculation 76 ml/min; Estimated Glomerular Filt Rate 52; Glucose 167 mg/dL (65-110); Potassium 3.9 mmol/L (3.4-5.0); Sodium 138 mmol/L (137-145); Total Protein 7.5 g/dL (6.3-8.2)
[2025-06-13] MEDS: LEVOTHYROXINE SODIUM 100 MCG TABLET 200 MCG PO (06:05)
[2025-06-13] MEDS: BUDESONIDE RESPULE NEB 0.5 MG/2 ML AMP INHALATION (08:26)
[2025-06-13] MEDS: MONTELUKAST SODIUM 10 MG TABLET PO (10:11)
[2025-06-13] MEDS: FUROSEMIDE 40 MG TABLET PO (10:11)
[2025-06-13] MEDS: PANTOPRAZOLE 40 MG TABLET PO (10:11)
[2025-06-13] MEDS: SERTRALINE HCL 50 MG TABLET 200 MG PO (10:11)
[2025-06-13] MEDS: DOXYCYCLINE HYCLATE 100 MG TABLET PO (10:11)
[2025-06-13] MEDS: TIMOLOL MALEATE 0.5% OP SOLN 5 ML BOTTLE 1 DROP EACH EYE (10:12)
[2025-06-13] MEDS: PRAZOSIN HCL 1 MG CAPSULE 2 MG PO (10:12)
[2025-06-13] MEDS: PROPRANOLOL HCL 10 MG TABLET PO (11:57)
--- NOTE | 2025-06-13 13:55 | P.DS_ITS ---
DS: Admitting Diagnosis Discharge Date 06/13/25 Admitting Diagnosis Acute hypercapnic respiratory failure DS: Discharge Diagnosis Discharge Diagnosis (1) Acute hypercapnic respiratory failure: Code(s): J96.02 - Acute respiratory failure with hypercapnia Status: Acute Assessment and Plan: Acute respiratory failure, multifactorial, could be related to pneumonia, bronchitis, acute on chronic diastolic heart failure, volume overload, obesity hyperventilation syndrome, obstructive sleep apnea. ABG improving CO2-hilliard, respiratory alkalosis noted, mild, may be due to correction of chronic hypercapnia likely present in patient with COPD and OHS. Was placed on BiPAP overnight, switched to AVAPS as she was not getting adequate volumes on BiPAP. -chest x-ray and ABGs improving -continue diuresis, steroids, bronchodilators -On pulmicort -on ceftriaxone and doxycycline (06/10) - switched to oral antibiotics to complete 5 days -Pulmonary following for noninvasive vent management - home O2 assessment before discharge, will confer with pulmonary with results prior to DC. (2) Asthma: Code(s): J45.909 - Unspecified asthma, uncomplicated Status: Acute Assessment and Plan: History longstanding asthma, that had been diagnosed as COPD. Patient does not have COPD per evaluation from pulmonary. -Albuterol prn -Montelukast 10mg (home med) (3) Acute kidney injury superimposed on CKD: Code(s): N17.9 - Acute kidney failure, unspecified; N18.9 - Chronic kidney disease, unspecified Status: Acute Assessment and Plan: Acute on chronic kidney disease, could be related to hypoxia, volume overload -urine output was good in response to diuretics overnight -Lasix 40mg po daily -creatinine trending down 1.35 > 1.07 -continue to monitor renal function, electrolytes and urine (4) Acute on chronic diastolic heart failure: Code(s): I50.33 - Acute on chronic diastolic (congestive) heart failure Status: Acute Assessment and Plan: Per cardiology: TTE normal, LVEF of 60-65%. Normal diastolic function. Patient is euvolemic exam. Renal function down to 1.3 from 1.8. -Farxiga, Carvedilol discontinued -Propranolol resumed- is home med -Lasix 40mg po qd -Cardiology follow up on discharge (5) Hypertension: Qualifiers: Hypertension type: primary hypertension Qualified Code(s): I10 - Essential (primary) hypertension Code(s): I10 - Essential (primary) hypertension Status: Chronic Assessment and Plan: Started lisinopril 5mg -Continue above -follow up with PCP (6) Obesity hypoventilation syndrome: Code(s): E66.2 - Morbid (severe) obesity with alveolar hypoventilation Status: Chronic Assessment and Plan: Per pulmonary: This is the etiology of her respiratory failure, not COPD. She has erythrocytosis, hematocrit is been elevated this admission, June 12 hematocrit was 49.5%. -Needs to be followed by her primary pulmonary doctor and primary care physician. (7) JUAN (obstructive sleep apnea): Code(s): G47.33 - Obstructive sleep apnea (adult) (pediatric) Status: Acute Assessment and Plan: Her home machine is more than 5 years old, she has a regularly scheduled appointment with Dr. Waters July 01. She was diagnosed in 2019 with JUAN with a sleep study, was on CPAP 15 with O2 at night 3 L/min. -Follow up with Dr Waters 07/01 DS: Summary Hospital Course Hospital Course: Tati Pendleton is a 59 year old female with past medical history of COPD, type 2 diabetes, depression, TIA, essential hypertension, hypothyroidism, diastolic dysfunction, chronic kidney disease presented the ED on 06/09/2025 [id number] female with a past medical history of COPD, dm 2, depression, TIA, HTN, hypothyroidism, grade 1 diastolic dysfunction, CKD presented to the ED on 06/09/2025 with dyspnea. Patient initially presented at [facility] with dyspnea that started on 06/04 but progressively got worse. Patient uses a CPAP at night and supplemental O2 with activity. However, patient has been requiring her supplemental O2 all day today. [facility] called [facility] as patient was short of breath, weak and dizzy. Patient was 90% on room air when EMS arrived. Patient further endorses a cough without sputum production. Denies fever, chill, nausea, vomiting, diarrhea. Patient was reportedly hypoxic on admission to the ED and started on 5 L O2 per nasal cannula. Patient is drowsy but A&O x4. Initial ABG was consistent with respiratory acidosis and patient was subsequently placed on BiPAP. Initial vital signs 145/91, HR 84, respirations 16, afebrile and 93% on 5 L of O2. Lab significant for chloride 94, carbon dioxide 35, BUN 50, creatinine 1.8 and GFR 29, magnesium 2.7, AST 61, ALT 65, alk-phos 159. BNP 5120. Initial ABG pH 7.232, pCO2 80.3, PO2 76.2, HC03 33, O2 sat 92.1. Patient placed on BiPAP with no improvement in serial ABGs. Viral panel negative EKG reads sinus rhythm with occasional supraventricular premature complexes. Chest x-ray shows cardiomegaly with pulmonary edema. 06/10: Patient was admitted to the ICU for further management, where ABG showed improving pCO2, and clinical status also was improving. Symbicort added, as well as ceftriaxone and doxycycline for pneumonia management. Patient was seen by cardiology to assess for element of CHF- TTE is normal with LVEF of 60-65%. Normal diastolic function. Stop the empagliflozin as has no indication from cardiac standpoint. I will also stop the Coreg as she is on propranolol at home. Renal function down to 1.3 from 1.8. Can resume home dose of Lasix 40 mg daily. Consider Hydralazine 10 mg BID for BP control. 06/11: Patient transferred to IMU, continues to clinically improve. ABG was repeated- 7.458/51.6/78.8, CO2 is improving, respiratory alkalosis noted, pH was normal in prior ABG, could be secondary to correction of chronic hypercapnia. Patient is on constant AVAPS at this time, will allow patient 1 hr off for lunch as she is improving, but will place back on, repeat ABG again in the PM. Pulmonary to be consulted for further management of noninvasive ventilation. 06/12: Continues to improve, stable to transfer to floor with continuous pulse oximetry and nightly AVAPS. Discharge planning tomorrow if cleared by pulmonary. CPAP/AVAPS will be managed by her mold release worker on follow up. ABG reviewed, improving, only with resp alkalosis likely secondary to correction of chronic hypercapnia as mentioned above. Patient has smoking history and says she was diagnosed with COPD by pulmonary in the past. Status at Discharge Cognitive/behavioral status at discharge: stable Time Spent with Patient Time attestation: Total time spent providing and/or coordinating discharge services: Exam Narrative: General: Pleasant female, , in no acute distress. On room air. HEENT:? Pupils equal and reactive, sclera is clear, BiPAP mask in place Neck:? Supple Respiratory:? decreased air entry at bases, no wheezing Cardiac:? S1-S2 normal, regular rate and rhythm Abdomen:? Soft, nontender, nondistended, hypoactive bowel sounds, obese Extremities:? Bilateral lower extremity lymphedema, palpable pedal pulse Neuro:? Patient is awake, alert, oriented, nonfocal, answers to questions and follows simple commands in all extremities Skin:? No skin lesions noted Psych:? Normal mentation and affect DS: Data Data Completed and Pending Labs on day of discharge: Labs from last 24 hours 06/13/25 06/13/25 06/13/25 11:34 07:34 04:40 WBC 7.1 RBC 6.10 H Hgb 14.0 Hct 49.5 H MCV 81.1 MCH 23.0 L MCHC 28.3 L RDW 24.0 H Plt Count 113 L MPV TNP % Immature Plt Fraction 10.8 Sodium 138 Potassium 3.9 Chloride 98 Carbon Dioxide 38 H Anion Gap 2 L BUN 24 H Creatinine 1.07 H Estim Creat Clear Calc 76 Estimated GFR 52 L Glucose 167 H POC Capillary Glucose 154 H 167 H Calcium 9.4 Total Bilirubin 0.9 AST 31 ALT 37 H Alkaline Phosphatase 113 Total Protein 7.5 Albumin 3.8 06/12/25 06/12/25 20:24 15:51 WBC RBC Hgb Hct MCV MCH MCHC RDW Plt Count MPV % Immature Plt Fraction Sodium Potassium Chloride Carbon Dioxide Anion Gap BUN Creatinine Estim Creat Clear Calc Estimated GFR Glucose POC Capillary Glucose 226 H 184 H Calcium Total Bilirubin AST ALT Alkaline Phosphatase Total Protein Albumin Preliminary micro results at discharge 06/09/25 12:38 Blood Culture - Preliminary Blood 06/09/25 12:38 Blood Culture - Preliminary Blood Discharge Plan Discharge Attending physician on discharge: Venkata Morrissey Oca Consulting providers: Ramirez Chapa Barbara J. Discharging Clinician: Venkata Morrissey Oca Patient Disposition: Home Activity: as tolerated Diet: heart healthy Discharge Instructions: Please follow up with your primary care doctor and mold release worker. Please schedule an appointment with a fitness supervisor within your health system for further evaluation of heart failure symptoms. History regarding below follow-up/referral, as above, see your primary care physician. Patient Instructions: Antibiotic Form Patient Language: Finnish Stand Alone Forms: General Discharge Information Follow-up/Referrals: [facility] [Provider Group] Discharge Medications: New amoxicillin-pot clavulanate 875-125 mg tablet 1 tablet PO Q12H 2 Days Qty: 3 0RF prednisone 20 mg tablet 40 mg PO DAILY 8 Days Qty: 14 0RF Rx Instructions: take 40mg (2 tabs) daily for 5 days, followed by 20mg (1 tab) daily for 2 days. budesonide [Pulmicort] 0.5 mg/2 mL Suspension For Nebulization 0.5 mg inhalation Q12HRT Qty: 60 0RF doxycycline hyclate 100 mg Tablet 100 mg PO Q12HR 2 Days Qty: 3 0RF lisinopril 5 mg Tablet 5 mg PO QAM 30 Days Qty: 30 0RF Continued eszopiclone 3 mg tablet 3 mg PO HS 30 Days Qty: 0 0RF albuterol sulfate 2.5 mg /3 mL (0.083 %) solution for nebulization 2.5 mg inhalation Q6H 30 Days Qty: 90 0RF timolol maleate 0.5 % drops 1 drp ophthalmic (eye) QAM 30 Days Qty: 0 0RF tizanidine 4 mg tablet 4 mg PO TID 5 Days Qty: 0 0RF sertraline 100 mg tablet 200 mg PO DAILY 30 Days Qty: 0 0RF latanoprost 0.005 % drops 1 drp ophthalmic (eye) HS 30 Days Qty: 0 0RF levothyroxine 200 mcg tablet 200 mcg PO DAILY 30 Days Qty: 0 0RF propranolol 10 mg tablet 10 mg PO DAILY PRN (Reason: Anxiety) 30 Days Qty: 0 0RF mirtazapine 45 mg tablet 45 mg PO HS 30 Days Qty: 0 0RF Proair Digihaler 90 mcg/actuation aero powdr breath act w/sensor 2 inh inhalation Q4-6H PRN (Reason: shortness of breath or wheezing) 30 Days Qty: 1 0RF furosemide 40 mg tablet 40 mg PO DAILY 30 Days Qty: 0 0RF montelukast 10 mg tablet 10 mg PO DAILY 30 Days Qty: 0 0RF prazosin 2 mg capsule 2 mg PO DAILY 30 Days Qty: 0 0RF pregabalin 100 mg capsule 100 mg PO Q12H 14 Days Qty: 0 0RF ropinirole 2 mg tablet 2 mg PO HS 30 Days Qty: 0 0RF Ozempic 2 mg/dose (8 mg/3 mL) pen injector 2 mg SUBCUT WEEKLY 30 Days Qty: 0 0RF Patient Comments: Monday buspirone 10 mg tablet 20 mg PO TID 30 Days Qty: 0 0RF metformin 500 mg tablet extended release 24 hr 500 mg PO DAILY 30 Days Qty: 0 0RF Rx Instructions: Take with breakfast. Jardiance 25 mg tablet 25 mg PO DAILY 30 Days Qty: 0 0RF trazodone 50 mg tablet 50 mg PO HS PRN (Reason: Insomnia) 30 Days Qty: 0 0RF prazosin 1 mg capsule 1 mg PO HS 30 Days Qty: 0 0RF omeprazole 40 mg capsule,delayed release(DR/EC) 40 mg PO DAILY 30 Days Qty: 0 0RF quetiapine 50 mg tablet extended release 24 hr 50 mg PO QPM 30 Days Qty: 0 0RF Date of admission: 06/09/25 14:01 Primary Care Provider: Preston Florez Admitting Provider: Darien Eli Attending physician on admission: Darien Eli Condition: Stable Hospitalist MIPS Heart Failure (Exclusion) Patient has history of Heart Transplant or Left Ventricular Assistive Device?: No IF YES, STOP HERE Heart Failure (Qualifier) Patient has current or prior documentation of LVEF less than or equal to 40%, or mod/servere depressed LVSF?: No IF NO, STOP HERE
--- NOTE | 2025-06-13 14:24 | HOMEO2EVAL ---
Evaluation was performed at [facility] Home Oxygen Evaluation RC: Home Oxygen (O2) Evaluation Start: 06/13/25 14:19 Freq: Status: Active Protocol: RPE Activity Type Activity Date Activity User E-sign Co-sign Detail Recorded Client Recorded Date Recorded By Document 06/13/25 14:00 OFELIA [email or web address] 06/13/25 14:21 OFELIA Document 06/13/25 14:05 OFELIA [email or web address] 06/13/25 14:21 OFELIA Document 06/13/25 14:06 OFELIA [email or web address] 06/13/25 14:21 OFELIA Document 06/13/25 14:07 OFELIA [email or web address] 06/13/25 14:21 OFELIA Document 06/13/25 14:15 OFELIA [email or web address] 06/13/25 14:21 OFELIA 06/13/25 06/13/25 06/13/25 14:00 14:05 14:06 Home O2 Evaluation [Oxygen] -Test Phase Resting Exercise Exercise -Oxygen Delivery Room Air Room Air Nasal Cannula -Oxygen Flow Rate (L/min) 2 [Pulse Oximetry] -Pulse Oximetry (90-100 %) 92 86 L 88 L [Pulse Rate] -Pulse Rate (60-100 beats/min) 72 80 [Exercise] -Ambulation Distance (feet) -Ambulation Distance (meters) [Comments] -Home Oxygen Evaluation Comments [Charges] -Evaluation Charges O2 Evaluation by Pulmonary 06/13/25 06/13/25 14:07 14:15 Home O2 Evaluation [Oxygen] -Test Phase Exercise Resting -Oxygen Delivery Nasal Cannula Room Air -Oxygen Flow Rate (L/min) 3 [Pulse Oximetry] -Pulse Oximetry (90-100 %) 92 93 [Pulse Rate] -Pulse Rate (60-100 beats/min) 89 76 [Exercise] -Ambulation Distance (feet) 250 -Ambulation Distance (meters) 76.19 [Comments] -Home Oxygen Evaluation Comments Home O2 at 3 liters with activity only. [Charges] -Evaluation Charges
--- NOTE | 2025-06-13 14:24 | PCRCNOTE ---
Hoem O2 eval done, Pt requires 3 liters O2 with activity, room air at rest. Pt has home O2 and portable O2. No addtl O2 needs or changes.
== END 2025-06-13 17:42 | disposition home or self-care (01) | DRG 189 ==
LOC: ANHED 15:56 → ANHICU 16:08 → ANHIMU 06-10 14:39 → ANH2MED 06-13 14:08 → ANHIMU 06-16 13:31
PROVIDERS: Internal Medicine; Internal Medicine Interventional Cardiology; Nurse Practitioner Adult Health; Admitting Provider Internal Medicine; Emergency Provider Emergency Medicine; PCP Neurological Surgery; Visit Provider Student in an Organized Health Care Education/Training Program
DX: J96.02 Acute respiratory failure with hypercapnia (principal); I50.33 Acute on chronic diastolic (congestive) heart failure; I13.0 Hypertensive heart and chronic kidney disease with heart failure and stage 1 through stage 4 chronic kidney disease, or unspecified chronic kidney disease; E66.2 Morbid (severe) obesity with alveolar hypoventilation; Z68.43 Body mass index [BMI] 50.0-59.9, adult; N17.9 Acute kidney failure, unspecified; J96.01 Acute respiratory failure with hypoxia; E11.22 Type 2 diabetes mellitus with diabetic chronic kidney disease; N18.32 Chronic kidney disease, stage 3b; J45.909 Unspecified asthma, uncomplicated; M79.7 Fibromyalgia; D75.1 Secondary polycythemia; E03.9 Hypothyroidism, unspecified; F32.A Depression, unspecified; Z20.822 Contact with and (suspected) exposure to COVID-19; Z79.85 Long-term (current) use of injectable non-insulin antidiabetic drugs; Z79.84 Long term (current) use of oral hypoglycemic drugs; Z86.73 Personal history of transient ischemic attack (TIA), and cerebral infarction without residual deficits; Z87.891 Personal history of nicotine dependence; Z99.89 Dependence on other enabling machines and devices; Z90.49 Acquired absence of other specified parts of digestive tract; Z99.81 Dependence on supplemental oxygen; Z98.84 Bariatric surgery status
CPT/HCPCS: 36415; 36600; 71045; 80053; 82375; 82805; 82948; 83050; 83605; 83735; 83880; 84484; 85018; 85025; 85027; 85055; 87040; 87637; 87641; 93005; 94002; 94003; 94618; 94640; 96374; 97110; 97162; 97166; 97530; 99291; A9270; C8929; J0696; J1650; J1815; J1938; J2919; Q9957